=== PATIENT | female | born 1950 | race Caucasian/White ===

== ENCOUNTER 2020-09-25 09:19 | Inpatient (IN) ==
[2020-09-25] MEDS ORDERED: SODIUM CHLORIDE 0.9% 500 ML IV STA (09:32)
[2020-09-25 10:32] LABS: Basophils # (auto) 0.04 K/uL (0-0.2); Basophils % (auto) 0.4 %; Eosinophils # (auto) 0.11 K/uL (0-0.5); Eosinophils % (auto) 1.2 %; Hematocrit (blood only) 41.5 % (37-47); Hemoglobin 13.4 g/dL (12.0-16.0); Immature Granulocytes # (auto) 0.01 K/uL (0.00-0.02); Immature Granulocytes % (auto) 0.1 %; Lymphocytes # (auto) 1.83 K/uL (1.2-3.4); Lymphocytes % (auto) 19.9 %; Mean Corpuscular Hemoglobin 30.5 pg (25-34); Mean Corpuscular Hgb Conc 32.3 g/dL (32-36); Mean Corpuscular Volume 94.3 fL (80-100); Mean Platelet Volume 10.3 fL (7.4-10.4); Monocytes % (auto) 4.3 %; Neutrophils # (auto) 6.81 K/uL (1.4-6.5); Neutrophils % (auto) 74.1 %; Platelet Count 266 K/uL (130-400); RDW Coefficient of Variation 13.3 % (11.5-14.5); RDW Standard Deviation 46.3 fL (36.4-46.3)
[2020-09-25 10:44] LABS: Partial Thromboplastin Time 25.4 Seconds (21.0-31.0)
[2020-09-25 10:48] LABS: Albumin Level 3.9 gm/dl (3.4-5.0); BUN Creatinine Ratio 20.8 (10-20); Calcium 9.4 mg/dl (8.5-10.1); Creatinine Clr Calc Pharmacy 72.8 ml/min; Est GFR (African American) 95.8 ml/min; Est GFR (Non-African American) 82.7 ml/min
[2020-09-25] MEDS: fentaNYL citrate 100 MCG/2 ML VIAL IV PRN ×4 (10:50→14:45)
[2020-09-25 10:51] LABS: Albumin Globulin Ratio 0.9 (0.9-2); Bilirubin,Total 0.5 mg/dl (0.2-1); Globulin 4.3 gm/dl (2.5-4.0); Total Protein 8.2 gm/dl (6.4-8.2)
--- NOTE | 2020-09-25 10:53 | Emergency Department Note ---
History of Present Illness General Chief complaint: Leg Injury/Pain Stated complaint: femur fracture Time Seen by Provider: 09/25/20 09:22 History of Present Illness Maximum Pain Intensity: 10 70-year-old female presents to the ED with a chief complaint of a left femur injury. The patient states that she tripped on a hose when she was walking causing her to fall onto her left leg. She presented by EMS. EMS provided 10 mg of IV morphine and 100 mcg of IV fentanyl for the pain. She has a deformity to her left femur. Denies striking her head or loss of consciousness. Denies other injuries. Movement makes it worse. Home Medications Medication Instructions Recorded Confirmed Type atorvastatin 80 mg tablet (Lipitor) 80 mg PO QDD 07/18/19 09/25/20 History cholecalciferol (vitamin D3) 50 50 mcg PO BID 07/18/19 09/25/20 History mcg (2,000 unit) capsule (Vitamin D3) omeprazole 20 mg capsule,delayed 20 mg PO BID 07/18/19 09/25/20 History release alendronate 70 mg tablet (Fosamax) 70 mg PO WK 09/25/20 09/25/20 History hydrocodone 7.5 mg-acetaminophen 1 tab PO Q6H PRN 09/25/20 09/25/20 History 325 mg tablet melatonin 3 mg tablet (Melatin) 3 mg PO HS 09/25/20 09/25/20 History multivitamin with minerals-folic 1 tab PO QAM 09/25/20 09/25/20 History acid 200 mcg chewable tablet (Multivitamin Gummies) tiotropium bromide 2.5 2 puff INHALATION QAM 09/25/20 09/25/20 History mcg/actuation mist for inhalation (Spiriva Respimat) Allergies Allergy/AdvReac Type Severity Reaction Status Date / Time erythromycin base Allergy Hives Unverified 09/25/20 11:46 latex Allergy Rash Unverified 09/25/20 11:46 Penicillins Allergy Hives Unverified 09/25/20 11:46 vancomycin Allergy Unknown Unverified 09/25/20 12:49 Past Med/Surg History Social History Smoking Status: Former smoker Preferred Language: Bots[place] Feels Safe at Home: Yes Review of Systems A total of 10 systems reviewed and were otherwise negative Physical Exam Vital Signs Vital Signs - 24 hr 09/25/20 09:20 09/25/20 10:50 09/25/20 11:00 Temperature 36.6 C Temperature Source Oral Pulse Rate 80 84 70 Pulse Rate from SpO2 Sensor 67 Pulse Rhythm Regular Regular Respiratory Rate 18 19 17 Respiratory Effort / Characteristics Non-Labored Spontaneous Respiratory Depth Normal Respiratory Pattern Regular Blood Pressure 151/82 H 193/123 H Blood Pressure Mean 105 146 Pulse Oximetry 90 98 95 Oxygen Delivery Method Room Air Room Air Sepsis Recent Fever Within 48 Hours No Sepsis New/Unexplained Change in Mental Status No Sepsis Action Taken by Nursing No Action Required 09/25/20 11:30 Temperature Temperature Source Pulse Rate 84 Pulse Rate from SpO2 Sensor 83 Pulse Rhythm Respiratory Rate 19 Respiratory Effort / Characteristics Respiratory Depth Respiratory Pattern Blood Pressure 118/86 Blood Pressure Mean 96 Pulse Oximetry 98 Oxygen Delivery Method Sepsis Recent Fever Within 48 Hours Sepsis New/Unexplained Change in Mental Status Sepsis Action Taken by Nursing CONSTITUTIONAL/VITAL SIGNS: Reviewed / noted above. GENERAL: Non-toxic in appearance. INTEGUMENTARY: Warm, dry, and [place]. HEAD: Normocephalic. EYES: without scleral icterus or trauma. ENT/OROPHARYNX: clear and moist. LYMPHADENOPATHY/NECK: Is supple without lymphadenopathy or meningismus. RESPIRATORY: Clear to auscultation bilaterally. No increased work of breathing. CARDIOVASCULAR: Regular rate and rhythm. GI/ABDOMEN: Soft and nontender. No organomegaly or pulsatile mass. EXTREMITIES: Warm and well perfused. The patient has shortening and external rotation to the distal aspect of the lower extremity. There is swelling and deformity to the left distal femur region. She has discomfort with any movement or palpation of the area. BACK: No CVA tenderness. NEUROLOGICAL: Intact without focal deficits. PSYCHIATRIC: normal affect. MUSCULOSKELETAL: Normally developed with good muscle tone. TRIAGE NURSING DOCUMENTATION REVIEWED. Course Administered Medications Fentanyl Citrate (Fentanyl Citrate 100 Mcg/2 Ml Vial) 100 mcg IV Q15M PRN PRN Reason: Pain Stop: 10/09/20 10:48 Last Admin: 09/25/20 11:25 Dose: 100 mcg Documented by: [id number] Admin: 09/25/20 10:50 Dose: 100 mcg Documented by: [id number] Discontinued Medications Sodium Chloride (Nss) 500 mls @ 999 mls/hr IV .Q31M STA Stop: 09/25/20 10:02 Last Infusion: 09/25/20 12:07 Dose: 0 mls/hr Documented by: [id number] Admin: 09/25/20 10:50 Dose: 999 mls/hr Documented by: [id number] Medical Decision Making Differential Diagnosis Differential includes close head injury, intracranial bleed, facial trauma, cervical spine trauma, chest and thoracic trauma, abdominal and intra-abdominal trauma, spine neurologic trauma, extremity trauma. Medical Records Attestation: I reviewed the patient's medical records. Home Medications Current Medication List: was personally reviewed by me Laboratory Data Attestation: I reviewed the patient's lab results. Result diagrams: 09/25/20 10:13 09/25/20 10:13 Lab Results 09/25/20 09/25/20 09/25/20 Range/Units 10:13 10:13 10:13 WBC 9.20 (4.8-10.8) K/uL RBC 4.40 (4.2-5.4) M/uL Hgb 13.4 (12.0-16.0) g/dL Hct 41.5 (37-47) % MCV 94.3 (80-100) fL MCH 30.5 (25-34) pg MCHC 32.3 (32-36) g/dL RDW Std Deviation 46.3 (36.4-46.3) fL RDW Coeff of Alfonso 13.3 (11.5-14.5) % Plt Count 266 (130-400) K/uL MPV 10.3 (7.4-10.4) fL Immature Gran % (Auto) 0.1 % Neut % (Auto) 74.1 % Lymph % (Auto) 19.9 % [place] % (Auto) 4.3 % Eos % (Auto) 1.2 % Baso % (Auto) 0.4 % Neut # (Auto) 6.81 H (1.4-6.5) K/uL Lymph # (Auto) 1.83 (1.2-3.4) K/uL [place] # (Auto) 0.40 (0.11-0.59) K/uL Eos # (Auto) 0.11 (0-0.5) K/uL Baso # (Auto) 0.04 (0-0.2) K/uL Immature Gran # (Auto) 0.01 (0.00-0.02) K/uL APTT 25.4 (21.0-31.0) Seconds PTT Ratio 1.0 Sodium 139 (136-145) mmol/L Potassium 4.0 (3.5-5.1) mmol/L Chloride 110 H (98-107) mmol/L Carbon Dioxide 25 (21-32) mmol/L Anion Gap 4.0 (3-11) BUN 15 (7-18) mg/dl Creatinine 0.74 (0.6-1.2) mg/dl Est Cr Clr Drug Dosing 72.8 ml/min Est GFR ( Amer) 95.8 ml/min Est GFR (Non-Af Amer) 82.7 ml/min BUN/Creatinine Ratio 20.8 H (10-20) Glucose 113 H (70-99) mg/dl Calcium 9.4 (8.5-10.1) mg/dl Total Bilirubin 0.5 (0.2-1) mg/dl AST 18 (15-37) U/L ALT 22 (12-78) U/L Alkaline Phosphatase 106 (45-117) U/L Total Protein 8.2 (6.4-8.2) gm/dl Albumin 3.9 (3.4-5.0) gm/dl Globulin 4.3 H (2.5-4.0) gm/dl Albumin/Globulin Ratio 0.9 (0.9-2) COVID-19 Eval Order SARS-CoV-2 (PCR) (Negative) 09/25/20 09/25/20 Range/Units 10:23 10:23 WBC (4.8-10.8) K/uL RBC (4.2-5.4) M/uL Hgb (12.0-16.0) g/dL Hct (37-47) % MCV (80-100) fL MCH (25-34) pg MCHC (32-36) g/dL RDW Std Deviation (36.4-46.3) fL RDW Coeff of Alfonso (11.5-14.5) % Plt Count (130-400) K/uL MPV (7.4-10.4) fL Immature Gran % (Auto) % Neut % (Auto) % Lymph % (Auto) % [place] % (Auto) % Eos % (Auto) % Baso % (Auto) % Neut # (Auto) (1.4-6.5) K/uL Lymph # (Auto) (1.2-3.4) K/uL [place] # (Auto) (0.11-0.59) K/uL Eos # (Auto) (0-0.5) K/uL Baso # (Auto) (0-0.2) K/uL Immature Gran # (Auto) (0.00-0.02) K/uL APTT (21.0-31.0) Seconds PTT Ratio Sodium (136-145) mmol/L Potassium (3.5-5.1) mmol/L Chloride (98-107) mmol/L Carbon Dioxide (21-32) mmol/L Anion Gap (3-11) BUN (7-18) mg/dl Creatinine (0.6-1.2) mg/dl Est Cr Clr Drug Dosing ml/min Est GFR ( Amer) ml/min Est GFR (Non-Af Amer) ml/min BUN/Creatinine Ratio (10-20) Glucose (70-99) mg/dl Calcium (8.5-10.1) mg/dl Total Bilirubin (0.2-1) mg/dl AST (15-37) U/L ALT (12-78) U/L Alkaline Phosphatase (45-117) U/L Total Protein (6.4-8.2) gm/dl Albumin (3.4-5.0) gm/dl Globulin (2.5-4.0) gm/dl Albumin/Globulin Ratio (0.9-2) COVID-19 Eval Order Covid19 at [facility] SARS-CoV-2 (PCR) NEGATIVE (Negative) Imaging Data Radiologist's Impression: Chest X-Ray 09/25/20 09:27 XR chest 1V portable HISTORY: 70 years-old Female Resp sx c/w COVID-19 acute shortness of breath. COVID Positive. COMPARISON: Chest CT 07/18/2019 TECHNIQUE: AP view of the chest FINDINGS: Cardiomediastinal and hilar silhouettes are within normal limits. Emphysema. No pneumothorax, pleural effusion, airspace consolidation or overt pulmonary edema. Degenerative changes of the shoulders and spine. Hiatal hernia. Healed chronic left-sided fracture deformities. Cervical spinal fusion hardware. IMPRESSION: 1. Emphysema without acute process. 2. Hiatal hernia. ACT 112: Negative or not required by law. The above report was generated using voice recognition software. It may contain grammatical, syntax or spelling errors. Electronically signed by: Compa Clark M.D. 09/25/2020 11:19 AM Femur X-Ray 09/25/20 09:27 XR femur LT 2V routine CLINICAL HISTORY: fall, pain COMPARISON: Left knee radiographs July 18, 2019. FINDINGS: Alignment of left hip is anatomic. There is no proximal left femoral fracture. Note is made of an acute comminuted displaced fracture of the distal diaphysis and metadiaphysis of the left femur. No additional fractures are identified. Multiple bone fragments are present. IMPRESSION: 1. Acute comminuted displaced fracture of the distal diaphysis and metadiaphysis of the left femur, as described above. 2. No proximal left femoral fracture. ACT 112: Negative or not required by law. Electronically signed by: Antony Brown M.D. 09/25/2020 11:18 AM Knee X-Ray 09/25/20 09:27 XR knee LT 1 or 2V routine CLINICAL HISTORY: fall, pain COMPARISON: Left knee radiographs July 18, 2019. FINDINGS: Note is made of a comminuted moderately displaced fracture of the distal diaphysis and metadiaphysis of the left femur. Fracture is angulated. Fracture is displaced approximately 3.1 cm. No proximal left tibial or fibular fracture is noted. IMPRESSION: Acute displaced, comminuted fracture of the distal diaphysis and metadiaphysis of the left femur. ACT 112: Negative or not required by law. Electronically signed by: Antony Brown M.D. 09/25/2020 11:17 AM ECG Data Attestation: I personally reviewed and interpreted this ECG as follows: Additional Comments: Twelve-lead EKG: Per my interpretation there is normal sinus rhythm at a rate of 80. No ST elevation. No PVCs. Normal QTC. MDM Narrative Patient presents after fall with obvious left distal femur injury. X-ray shows a distal femur fracture as described above. Covid test was negative. CBC and chemistry panel was unremarkable. Chest x-ray did not show acute disease. I spoke with Dr. Wilkinson from [facility] orthopedics. Also spoke with the hospitalist, who will see the patient for further inpatient evaluation and care. Impression & Plan Closed fracture of distal end of left femur, Fall Discharge Plan Visit Data Chief Complaint: Leg Injury/Pain Stated Complaint: femur fracture ED Provider: Lopez Neff Discharge Problem: Closed fracture of distal end of left femur, Fall Patient Disposition: Being Evaluated by Hospitalist Forms Stand Alone Forms: [facility] Prescriptions Prescriptions: No Action atorvastatin [Lipitor] 80 mg Tablet 80 mg PO QDD RF: 0 omeprazole 20 mg capsule,delayed release(DR/EC) 20 mg PO BID RF: 0 cholecalciferol (vitamin D3) [Vitamin D3] 50 mcg (2,000 unit) Capsule 50 mcg PO BID RF: 0 alendronate [Fosamax] 70 mg tablet 70 mg PO WK RF: 0 melatonin [Melatin] 3 mg Tablet 3 mg PO HS RF: 0 hydrocodone-acetaminophen 7.5-325 mg tablet 1 tab PO Q6H PRN (Reason: Pain) RF: 0 Multivitamin Gummies 200 mcg Tablet,Chewable 1 tab PO QAM RF: 0 Spiriva Respimat 2.5 mcg/actuation mist 2 puff INHALATION QAM RF: 0 Referrals Referrals: Tristan Gordillo MD [Primary Care Provider] -
--- NOTE | 2020-09-25 11:19 | XRay Report ---
XR knee LT 1 or 2V routine CLINICAL HISTORY: fall, pain COMPARISON: Left knee radiographs July 18, 2019. FINDINGS: Note is made of a comminuted moderately displaced fracture of the distal diaphysis and met adiaphysis of the left femur. Fracture is angulated. Fracture is displaced approximately 3.1 cm. No p roximal left tibial or fibular fracture is noted. IMPRESSION: Acute displaced, comminuted fracture of the distal diaphysis and metadiaphysis of the lef t femur. ACT 112: Negative or not required by law. Electronically signed by: Antony Brown M.D. 09/25/2020 11:17 AM
--- NOTE | 2020-09-25 11:20 | XRay Report ---
XR femur LT 2V routine CLINICAL HISTORY: fall, pain COMPARISON: Left knee radiographs July 18, 2019. FINDINGS: Alignment of left hip is anatomic. There is no proximal left femoral fracture. Note is mad e of an acute comminuted displaced fracture of the distal diaphysis and metadiaphysis of the left fem ur. No additional fractures are identified. Multiple bone fragments are present. IMPRESSION: 1. Acute comminuted displaced fracture of the distal diaphysis and metadiaphysis of the left femur, a s described above. 2. No proximal left femoral fracture. ACT 112: Negative or not required by law. Electronically signed by: Antony Brown M.D. 09/25/2020 11:18 AM
--- NOTE | 2020-09-25 11:21 | XRay Report ---
XR chest 1V portable HISTORY: 70 years-old Female Resp sx c/w COVID-19 acute shortness of breath. COVID Positive. COMPARISON: Chest CT 07/18/2019 TECHNIQUE: AP view of the chest FINDINGS: Cardiomediastinal and hilar silhouettes are within normal limits. Emphysema. No pneumothorax, pleural effusion, airspace consolidation or overt pulmonary edema. Degenerative changes of the shoulders and spine. Hiatal hernia. Healed chronic left-sided fracture deformities. Cervical spinal fusion hardwar e. IMPRESSION: 1. Emphysema without acute process. 2. Hiatal hernia. ACT 112: Negative or not required by law. The above report was generated using voice recognition software. It may contain grammatical, syntax o r spelling errors. Electronically signed by: Compa Clark M.D. 09/25/2020 11:19 AM
--- NOTE | 2020-09-25 13:24 | History & Physical Report ---
Date of Service September 25, 2020 Assessment & Plan (1) Closed fracture of distal end of left femur: (2) Fall: Plan: Pt is 70 y/o F with PMH COPD, HTN, dyslipidemia, CKD III, GERD, chronic back pain presented to ER with c/o mechanical fall and left leg pain occurred prior to arrival. In ER patient afebrile, vital stable, labs unremarkable Left femur x-ray: No proximal left femoral fracture. Acute comminuted displaced fracture of the distal diaphysis and metadiaphysis of the left femur In ER given fentanyl 100 mcg IV, 500 mL NSS NPO Oxycodone, Dilaudid as needed pain Gentle IVF Ortho consult, Dr. Wilkinson notified by ER, requests traction CBC, BMP in a.m. (3) HTN (hypertension): Plan: History of hypertension previously. No longer on medications BP was elevated in ER, improved with pain medication Monitor BP. Treat pain as above (4) COPD (chronic obstructive pulmonary disease): Plan: No signs of acute exacerbation Continue Spiriva Albuterol nebs as needed (5) Dyslipidemia: Plan: Continue atorvastatin (6) CKD (chronic kidney disease), stage III: Plan: Cr: 0.7. Baseline Cr: 0.8 Monitor renal functions, avoid nephrotoxic agents when possible (7) GERD (gastroesophageal reflux disease): Plan: Continue PPI (8) History of cervical spinal surgery: Plan: History arthrodesis below C2 by Dr. Waite at [facility] on 07/21/20 Wearing soft c-collar DVT Prophylaxis -SCDS Full Code Follows with Dr Gordillo for routine care Pt was seen and care coordinated with Dr Cruz. See addendum History of Present Illness Chief Complaint: Fall, left leg pain Primary Care Provider: Tristan Gordillo MD Pt is 70 y/o F with PMH COPD, HTN, dyslipidemia, CKD III, GERD, chronic back pain presented to ER with c/o fall and left leg pain prior to arrival. Reports was standing taking a picture when she stepped backwards and caught her foot on a hose causing her to slide backwards and fell onto left knee. Patient reports was unable to attempt ambulation. Denies paresthesias to lower leg or foot. She denies hitting head, LOC, CP, SOB, dizziness. Patient denies any other injury. She reports history of COPD and takes Spiriva daily and has not needed to use albuterol inhaler. 07/2020 had C-spine surgery at [facility] and is still wearing soft c-collar. She has chronic back pain and reports was to have surgery in future. She follows with pain management in [place] and is on hydrocodone. She states past 2 months having intermittent nausea and vomiting and had outpatient abdominal ultrasound showing gallstones and she is to follow with general surgery in near future. Currently she is controlling symptoms with avoiding trigger foods in diet. Denies fever/chills, diaphoresis, diarrhea, WATSON, vision changes, neck pain, orthopnea, palpitations, cough, sore throat, choking, otalgia, rhinorrhea, abdominal pain, paresthesias, extremity edema, rashes, urinary symptoms. In ER pt found to have Acute comminuted displaced fracture of the distal diaphysis and metadiaphysis of the left femur. Pt being admitted for further treatment. Allergies Allergy/AdvReac Type Severity Reaction Status Date / Time erythromycin base Allergy Hives Unverified 09/25/20 11:46 latex Allergy Rash Unverified 09/25/20 11:46 Penicillins Allergy Hives Unverified 09/25/20 11:46 vancomycin Allergy Unknown Unverified 09/25/20 12:49 Home Medications Medication Instructions Recorded Confirmed Type atorvastatin 80 mg tablet (Lipitor) 80 mg PO QDD 07/18/19 09/25/20 History cholecalciferol (vitamin D3) 50 50 mcg PO BID 07/18/19 09/25/20 History mcg (2,000 unit) capsule (Vitamin D3) omeprazole 20 mg capsule,delayed 20 mg PO BID 07/18/19 09/25/20 History release albuterol sulfate 90 mcg/actuation 2 puff INHALATION QID PRN 09/25/20 09/25/20 History aerosol inhaler alendronate 70 mg tablet (Fosamax) 70 mg PO WK 09/25/20 09/25/20 History hydrocodone 7.5 mg-acetaminophen 1 tab PO Q6H PRN 09/25/20 09/25/20 History 325 mg tablet melatonin 3 mg tablet (Melatin) 3 mg PO HS 09/25/20 09/25/20 History multivitamin with minerals-folic 1 tab PO QAM 09/25/20 09/25/20 History acid 200 mcg chewable tablet (Multivitamin Gummies) tiotropium bromide 2.5 2 puff INHALATION QAM 09/25/20 09/25/20 History mcg/actuation mist for inhalation (Spiriva Respimat) Past Med/Surg History Medical History CKD (chronic kidney disease), stage III COPD (chronic obstructive pulmonary disease) Dyslipidemia GERD (gastroesophageal reflux disease) History of revision of total replacement of right knee joint HTN (hypertension) Surgical History H/O arthrodesis History of esophagogastroduodenoscopy (EGD) History of total knee arthroplasty Right 2010 - Dr Ocampo at [place] H/O revision right knee [place]plasty [place] [facility] [place] Hx of tonsillectomy Family History Other COPD (chronic obstructive pulmonary disease) Cancer Diabetes Social History Smoking Status: Never smoker Tobacco Type: Cigarettes Smoking End Date: Quit 20 years ago; Hx Alcohol Use: No Hx Substance Use: No Preferred Language: Malay Communication Ability: Effective Beliefs That Will Affect Care: None Current Living Situation: Significant Other Other Information That Helps Us Care for You: No Feels Safe at Home: Yes Safety Concerns: Feels Safe At This Time Assistive Devices: Glasses Review of Systems Review of Systems: All systems reviewed & are unremarkable except as noted in HPI & below Physical Exam Physical Exam: General: no acute distress, WDWN Head: normocephalic, atraumatic Eyes: PERRL, EOM's intact, conjunctiva non-injected, anicteric ENT: normal inspection external ears, nose, mucous membranes moist Neck: supple, trachea midline Lungs: clear, no respiratory distress, no wheezing/rhonchi/rales CV: RRR, no murmur, no pretibial edema Abd: normal BS, soft, non-tender Ext: no cyanosis, no calf tenderness; LLE: +left knee held in flexion as position of comfort, no range of motion attempted, dorsalis pedis pulse palpable (marked with x), sensation to light touch intact. Remaining extremities with normal appearance, range of motion intact Neuro: A&O x 3, no focal deficits noted, normal affect Skin: warm, dry Results & Data Results & Data ([facility]) Vital Signs (Past 12 Hours) Vital Signs Temp Pulse Resp BP Pulse Ox 09/25/20 11:30 84 19 118/86 98 09/25/20 11:00 70 17 193/123 H 95 09/25/20 10:50 84 19 98 09/25/20 09:20 36.6 C 80 18 151/82 H 90 Laboratory Results Short CBC 09/25/20 Range/Units 10:13 WBC 9.20 (4.8-10.8) K/uL Hgb 13.4 (12.0-16.0) g/dL Hct 41.5 (37-47) % Plt Count 266 (130-400) K/uL BMP 09/25/20 10:13 Sodium 139 Potassium 4.0 Chloride 110 H Carbon Dioxide 25 BUN 15 Creatinine 0.74 Glucose 113 H Calcium 9.4 Liver Function 09/25/20 Range/Units 10:13 Total Bilirubin 0.5 (0.2-1) mg/dl AST 18 (15-37) U/L ALT 22 (12-78) U/L Alkaline Phosphatase 106 (45-117) U/L Albumin 3.9 (3.4-5.0) gm/dl Diagnostic Findings Chest X-Ray 09/25/20 09:27 XR chest 1V portable HISTORY: 70 years-old Female Resp sx c/w COVID-19 acute shortness of breath. COVID Positive. COMPARISON: Chest CT 07/18/2019 TECHNIQUE: AP view of the chest FINDINGS: Cardiomediastinal and hilar silhouettes are within normal limits. Emphysema. No pneumothorax, pleural effusion, airspace consolidation or overt pulmonary edema. Degenerative changes of the shoulders and spine. Hiatal hernia. Healed chronic left-sided fracture deformities. Cervical spinal fusion hardware. IMPRESSION: 1. Emphysema without acute process. 2. Hiatal hernia. ACT 112: Negative or not required by law. The above report was generated using voice recognition software. It may contain grammatical, syntax or spelling errors. Electronically signed by: Compa Clark M.D. 09/25/2020 11:19 AM Femur X-Ray 09/25/20 09:27 XR femur LT 2V routine CLINICAL HISTORY: fall, pain COMPARISON: Left knee radiographs July 18, 2019. FINDINGS: Alignment of left hip is anatomic. There is no proximal left femoral fracture. Note is made of an acute comminuted displaced fracture of the distal diaphysis and metadiaphysis of the left femur. No additional fractures are identified. Multiple bone fragments are present. IMPRESSION: 1. Acute comminuted displaced fracture of the distal diaphysis and metadiaphysis of the left femur, as described above. 2. No proximal left femoral fracture. ACT 112: Negative or not required by law. Electronically signed by: Antony Brown M.D. 09/25/2020 11:18 AM Knee X-Ray 09/25/20 09:27 XR knee LT 1 or 2V routine CLINICAL HISTORY: fall, pain COMPARISON: Left knee radiographs July 18, 2019. FINDINGS: Note is made of a comminuted moderately displaced fracture of the distal diaphysis and metadiaphysis of the left femur. Fracture is angulated. Fracture is displaced approximately 3.1 cm. No proximal left tibial or fibular fracture is noted. IMPRESSION: Acute displaced, comminuted fracture of the distal diaphysis and metadiaphysis of the left femur. ACT 112: Negative or not required by law. Electronically signed by: Antony Brown M.D. 09/25/2020 11:17 AM ECG Rate (beats per minute): 80 Rhythm: sinus rhythm Code Status & VTE Plan VTE Prophylaxis Plan VTE Prophylaxis will be ordered: Yes Supervising Physician Co-Signing Physician Notes Attending Addendum: delayed entry date of service as noted above care coordinated with MARINA Azul please refer to her notes for full details, I agree with her notes patient seen and examined, records reviewed by myself as well on exam, patient seen resting in bed, comfortable, leg traction in place pain relieved by analgesics no chest pain, dyspnea, palpitations, dizziness no other symptoms VS noted and reviewed oriented x 3, not in distress, speaks in sentences with no effort nor accessory muscle use normal rate, regular rhythm, no murmurs clear breath sounds bilaterally non distended, soft, nontender left leg traction in place, no bipedal edema, erythema, warmth no neuro deficits WBC 9.2 Hg 13 Crea 0.7 EKG: no signs of acute ischemia CXR: no signs of pneumonia ASSESSMENT AND PLAN> LEFT FEMUR FRACTURE S/P FALL - no medical contraindication to proceed with Ortho surgery moderate risk for perioperative cardiopulmonary complication given comorbidities, age COPD - not in exacerbation HTN - mild elevation due to pain - PRN Hydralazine other diagnoses and plan of care as per MARINA Dueñas S notes Jignesh Cruz MD
[2020-09-25 14:18] LABS: Appearance Urine Clear (Clear); Bacteria Urine Automated Negative (Negative); Bilirubin Urine Negative (Negative); Blood Urine Negative (Negative); Color Urine Yellow; Glucose Urine UA Negative (Negative); Ketones Urine Negative (Negative); Leukocyte Esterase Urine Negative (Negative); Nitrite Urine Negative (Negative); Protein Urine Trace (Negative); RBC Urine Automated 0-4 /hpf (0-4); Specific Gravity Urine 1.022 (1.000-1.030); Urobilinogen Urine Negative (Negative)
[2020-09-25] MEDS ORDERED: POLYETHYLENE (MIRALAX) 17 GM PACK PO PRN (15:33)
[2020-09-25] MEDS ORDERED: MAGNESIUM HYDROXIDE SUSP 30 ML UDC PO PRN (15:33)
[2020-09-25] MEDS ORDERED: ONDANSETRON INJ 2 MG/ML 2 ML VIAL IV PRN (15:33)
[2020-09-25] MEDS ORDERED: NALOXONE HCL 0.4 MG/1 ML VIAL/CARP IV PRN (15:33)
[2020-09-25] MEDS ORDERED: bisacodyL 10 MG SUPP PR PRN (15:33)
[2020-09-25] MEDS ORDERED: ALBUTEROL 0.083% NEBU SOLN 3 ML VIAL NEB PRN (15:33)
[2020-09-25] MEDS: HYDROmorphone INJ 0.5 MG/0.5 ML SYR IV PRN (16:13)
[2020-09-25] MEDS: oxyCODONE HCL IR 5 MG TAB (IMMEDIATE RELEASE) PO PRN ×2 (17:00→21:07)
[2020-09-25] MEDS: SODIUM CHLORIDE 0.9% 1000ML 1,000 ML IV SCH (17:03)
[2020-09-25 17:06] LABS: Prothrombin Time 10.4 Seconds (9.0-12.0)
[2020-09-25] MEDS: ATORVASTATIN 40 MG TAB PO SCH (17:35)
[2020-09-25] MEDS ORDERED: hydrALAZINE HCL 20 MG/ML VIAL IV PRN (18:25)
[2020-09-25] MEDS: MELATONIN 3 MG TAB PO SCH (21:08)
[2020-09-25] MEDS: CHOLECALCIFEROL 1,000 UNITS 25 MCG TAB PO SCH (21:08)
[2020-09-25] MEDS: PANTOprazole 40 MG TAB PO SCH (21:09)
[2020-09-25] MEDS: DOCUSATE SODIUM/SENNA 50/8.6MG TAB PO SCH (21:09)
--- NOTE | 2020-09-25 22:05 | Orthopedic Consultation ---
Date of Service September 25, 2020 Assessment & Plan (1) Closed fracture of distal end of left femur: This is a closed fracture of the extra-articular supracondylar femur. This fracture pattern require surgical stabilization. I discussed the diagnosis and treatment recommendations with the patient. The plan is for open reduction and internal fixation as soon as medically possible. We discussed that likely this is amenable to retrograde femoral nailing if I can achieve acceptable reduction. Alternatively, an open reduction with a distal femoral plate may be necessary. She is planned to have a total knee arthroplasty. This would heavily impact back. The good femoral nail will minimize incisions and should have no downside in an already arthritic knee. We discussed the complications of distal femur fracture surgery include but are not limited to infection, neurovascular injury, leg length discrepancy, malunion, nonunion, implant complications, need for repeat or revision surgery, progressive degenerative change to the knee, arthrofibrosis of the knee, blood loss, blood clots, pain syndromes, and complications related to anesthesia. She asked appropriate questions, demonstrated good understanding, and elects to proceed with fracture stabilization surgery as soon as possible. Informed consent was obtained today at the bedside for a left distal femur fracture open reduction and internal fixation. Please have the patient be n.p.o. after midnight. Please alert me if there is any medical contraindication with proceeding with surgery in the morning. Plan for clindamycin perioperative antibiotic prophylaxis given her allergies. TXA may help reduce blood loss which is expected to be moderate to large. She will require 6 weeks of VTE prophylaxis. This is been reviewed with her. She has no history of VTE with previous lower extremity surgeries. She will have protected weightbearing for up to 6 weeks and can begin range of motion knee hopefully immediately postoperatively. History of Present Illness Reason for Consultation: left distal femur fracture Requesting Physician: . Attending Physician: Jignesh Cruz MD 70 y/o F with PMH COPD, HTN, dyslipidemia, CKD III, GERD, chronic back and neck pain brought by EMS to the [facility] emergency room today after a fall at home. She had immediate pain and deformity about her knee. ER work-up revealed a distal femoral fracture that was completely displaced. She states that she is recently had several medical issues and surgeries. She recently had cervical fusion from C3-7 that she was recovering from. Is also potentially having lumbar spine surgery. She also states that she is in need of cholecystectomy. The left knee was under treatment for osteoarthritis at [facility]. She was looking to schedule a total knee replacement in the near future. She has had knee pain for years and has gotten progressively worse. She has a history of complicated right total knee arthroplasty requiring 2 revisions, 1 for infection. Allergies Allergy/AdvReac Type Severity Reaction Status Date / Time erythromycin base Allergy Hives Unverified 09/25/20 11:46 latex Allergy Rash Unverified 09/25/20 11:46 Penicillins Allergy Hives Unverified 09/25/20 11:46 vancomycin Allergy Unknown Unverified 09/25/20 12:49 Home Medications Medication Instructions Recorded Confirmed Type atorvastatin 80 mg tablet (Lipitor) 80 mg PO QDD 07/18/19 09/25/20 History cholecalciferol (vitamin D3) 50 50 mcg PO BID 07/18/19 09/25/20 History mcg (2,000 unit) capsule (Vitamin D3) omeprazole 20 mg capsule,delayed 20 mg PO BID 07/18/19 09/25/20 History release albuterol sulfate 90 mcg/actuation 2 puff INHALATION QID PRN 09/25/20 09/25/20 History aerosol inhaler alendronate 70 mg tablet (Fosamax) 70 mg PO WK 09/25/20 09/25/20 History hydrocodone 7.5 mg-acetaminophen 1 tab PO Q6H PRN 09/25/20 09/25/20 History 325 mg tablet melatonin 3 mg tablet (Melatin) 3 mg PO HS 09/25/20 09/25/20 History multivitamin with minerals-folic 1 tab PO QAM 09/25/20 09/25/20 History acid 200 mcg chewable tablet (Multivitamin Gummies) tiotropium bromide 2.5 2 puff INHALATION QAM 09/25/20 09/25/20 History mcg/actuation mist for inhalation (Spiriva Respimat) Past Med/Surg History Medical History CKD (chronic kidney disease), stage III COPD (chronic obstructive pulmonary disease) Dyslipidemia GERD (gastroesophageal reflux disease) History of revision of total replacement of right knee joint HTN (hypertension) Surgical History H/O arthrodesis History of esophagogastroduodenoscopy (EGD) History of total knee arthroplasty Right 2011 - Dr Ocampo at [place] H/O revision right knee arthroplasty - 2012 - Dr Guzman [place] [facility] [place]x of colonoscopy Hx of tonsillectomy Family History Other COPD (chronic obstructive pulmonary disease) Cancer Diabetes Social History Smoking Status: Never smoker Tobacco Type: Cigarettes Smoking End Date: Quit 20 years ago; Hx Alcohol Use: No Hx Substance Use: No Preferred Language: Macedonian Communication Ability: Effective Beliefs That Will Affect Care: None Current Living Situation: Significant Other Other Information That Helps Us Care for You: No Feels Safe at Home: Yes Safety Concerns: Feels Safe At This Time Review of Systems All systems reviewed & are unremarkable except as noted in HPI & below. Physical Exam General: She is lying comfortably in the hospital bed with inline Evans's traction of [address]. She is talkative and pleasant. Left lower extremity: The Evans's traction is appropriately placed. She has active motion to her toes which are warm and well perfused. She has a 1+ DP and PT pulse. Sensation is intact to light touch in all stern with her foot. The knee has an obvious effusion. She is tender to the distal femur. There are no obvious lesions or skin compromise. RLE and BUE: Atraumatic in appearance and with full active range of motion. Constitutional well developed and well nourished; no acute distress and not intoxicated appearing ENMT external ear and nose normal, oropharynx normal Respiratory normal respiratory effort; no respiratory distress Cardiovascular Extremities: normal capillary refill; no edema Skin no rashes, warm and dry Psychiatric A+Ox3, euthymic affect Results & Data Results & Data Laboratory Results . H & H 09/25/20 Range/Units 10:13 Hgb 13.4 (12.0-16.0) g/dL Hct 41.5 (37-47) % Coagulation 09/25/20 Range/Units 10:13 INR 1.0 (0.9-1.1) Diagnostic Findings Radiographic work-up is included femur and knee x-rays. These x-rays demonstrate an extra-articular fracture that is obliquely oriented with some posterior large fragment comminution. Fracture on these films is completely rotated and displaced some bayonet type apposition. There does not appear to be any intercondylar split. The knee does have some evidence of degenerative change PG Care Time/CCT Total # of Minutes Spent Total Time Spent with Patient: Total time spent is greater than 50% in coordination of care (as documented) at patient's floor/unit and/or counseling patient: Coding Level of Care Code 89560 Inpt Consult Level 4 Diagnoses Closed fracture of distal end of left femur S72.402A
[2020-09-26] MEDS: oxyCODONE HCL IR 5 MG TAB (IMMEDIATE RELEASE) PO PRN ×4 (03:10→20:00)
[2020-09-26] MEDS: SODIUM CHLORIDE 0.9% 1000ML 1,000 ML IV SCH ×2 (05:18→15:52)
[2020-09-26 05:42] LABS: Hematocrit (blood only) 37.4 % (37-47); Hemoglobin 11.9 g/dL (12.0-16.0); Mean Corpuscular Hemoglobin 30.1 pg (25-34); Mean Corpuscular Hgb Conc 31.8 g/dL (32-36); Mean Corpuscular Volume 94.4 fL (80-100); Mean Platelet Volume 10.3 fL (7.4-10.4); Platelet Count 232 K/uL (130-400); RDW Coefficient of Variation 13.5 % (11.5-14.5); Red Blood Count 3.96 M/uL (4.2-5.4); White Blood Count 8.65 K/uL (4.8-10.8)
[2020-09-26] MEDS ORDERED: CLINDAMYCIN 900 MG in DEXTROSE 5% 50 ML IV SCH (06:00)
[2020-09-26 06:09] LABS: BUN Creatinine Ratio 23.5 (10-20); Calcium 8.6 mg/dl (8.5-10.1); Creatinine Clr Calc Pharmacy 72.3 ml/min; Est GFR (African American) 103.4 ml/min; Est GFR (Non-African American) 89.2 ml/min; Potassium 3.9 mmol/L (3.5-5.1)
--- NOTE | 2020-09-26 06:54 | Electrocardiogram Report ---
Test Reason : Blood Pressure : / mmHG Vent. Rate : 080 BPM Atrial Rate : 080 BPM P-R Int : 184 ms QRS Dur : 084 ms QT Int : 416 ms P-R-T Axes : 076 -14 029 degrees QTc Int : 479 ms Normal sinus rhythm Normal ECG When compared with ECG of 18-JUL-2019 10:51, No significant change was found Confirmed by Kevin Baird ([id number]) on 09/26/2020 6:54:39 AM Referred By: REFERRED SELF Confirmed By:Kevin Baird
--- NOTE | 2020-09-26 07:09 | Anesthesiology Consultation ---
Date of Service September 26, 2020 Assessment & Plan (1) Encounter for pre-operative examination: Chart Review Chart Review: Acceptable Risk for Surgery and Patient NOT seen in Pre Admission Testing covid neg 09/25/20. type and screen completed. Consults Requested none History Surgery Operation Date: 09/26/20 08:45 Proposed Procedures p Left Distal Femur Fracture, Retrograde Nail(Left) - Lopez Wilkinson MD Height/Weight Height: 5 ft 1 in Weight: 75 kg Allergies Allergy/AdvReac Type Severity Reaction Status Date / Time erythromycin base Allergy Hives Unverified 09/25/20 11:46 latex Allergy Rash Unverified 09/25/20 11:46 Penicillins Allergy Hives Unverified 09/25/20 11:46 vancomycin Allergy Unknown Unverified 09/25/20 12:49 Medications Home Medications Medication Instructions Recorded Confirmed Last Taken atorvastatin 80 mg tablet (Lipitor) 80 mg PO QDD 07/18/19 09/25/20 09/24/20 cholecalciferol (vitamin D3) 50 50 mcg PO BID 07/18/19 09/25/20 09/25/20 mcg (2,000 unit) capsule (Vitamin D3) omeprazole 20 mg capsule,delayed 20 mg PO BID 07/18/19 09/25/20 09/25/20 release albuterol sulfate 90 mcg/actuation 2 puff INHALATION QID PRN 09/25/20 09/25/20 Unknown aerosol inhaler alendronate 70 mg tablet (Fosamax) 70 mg PO WK 09/25/20 09/25/20 09/20/20 hydrocodone 7.5 mg-acetaminophen 1 tab PO Q6H PRN 09/25/20 09/25/20 09/25/20 06:00 325 mg tablet 1 tablet melatonin 3 mg tablet (Melatin) 3 mg PO HS 09/25/20 09/25/20 09/24/20 multivitamin with minerals-folic 1 tab PO QAM 09/25/20 09/25/20 09/25/20 acid 200 mcg chewable tablet (Multivitamin Gummies) tiotropium bromide 2.5 2 puff INHALATION QAM 09/25/20 09/25/20 09/25/20 mcg/actuation mist for inhalation (Spiriva Respimat) Active Medications Generic Name Dose Route Start Last Admin Trade Name Freq PRN Reason Stop Dose Admin Atorvastatin Calcium 80 mg 09/25/20 16:30 09/25/20 17:35 Atorvastatin 40 Mg Tab PO 10/25/20 16:29 80 mg QDD KRISTIAN Administration Hydromorphone HCl 0.5 mg 09/25/20 15:33 09/25/20 16:13 Hydromorphone Inj 0.5 Mg/0.5 Ml Syr IV 10/09/20 15:32 0.5 mg Q3H PRN Administration Pain (6,7,8,9,10) Sodium Chloride 1,000 mls @ 80 mls/hr 09/25/20 15:33 09/26/20 05:18 Nss 1000ml IV 09/26/20 16:32 80 mls/hr .[id number] KRISTIAN Administration Melatonin 3 mg 09/25/20 21:00 09/25/20 21:08 Melatonin 3 Mg Tab PO 10/25/20 20:59 3 mg HS KRISTIAN Administration Oxycodone HCl 5 mg 09/25/20 15:33 09/26/20 03:10 Oxycodone Hcl Ir 5 Mg Tab (Immediate Release) PO 10/09/20 15:32 5 mg Q4H PRN Administration MODERATE Pain (4,5,6) & Pre PT Pantoprazole Sodium 40 mg 09/25/20 21:00 09/25/20 21:09 Pantoprazole 40 Mg Tab PO 10/25/20 20:59 40 mg BID KRISTIAN Administration Protocol Senna/Docusate Sodium 2 tab 09/25/20 21:00 09/25/20 21:09 Docusate Sodium/Senna 50/8.6mg Tab PO 10/25/20 20:59 2 tab HS KRISTIAN Administration Vitamin D 2,000 units 09/25/20 21:00 09/25/20 21:08 Cholecalciferol 1,000 Units 25 Mcg Tab PO 10/25/20 20:59 2,000 units BID KRISTIAN Administration NPO Date Last Intake of Fluids: 09/25/20 Time Last Intake of Fluids: 23:59 Date Last Intake of Solids: 09/25/20 Time Last Intake of Solids: 23:59 Past Medical History Medical History (Updated 09/26/20 @ 07:11 by German Veras MD) CKD (chronic kidney disease), stage III Closed fracture of distal end of left femur COPD (chronic obstructive pulmonary disease) Dyslipidemia GERD (gastroesophageal reflux disease) History of revision of total replacement of right knee joint HTN (hypertension) Past Family History Family History Other COPD (chronic obstructive pulmonary disease) Cancer Diabetes Past Surgical History Surgical History (Updated 09/26/20 @ 07:11 by German Veras MD) H/O arthrodesis History of cervical spinal surgery History of esophagogastroduodenoscopy (EGD) History of total knee arthroplasty Right 2010 - Dr Ocampo at [place] H/O revision right knee arthroplasty - 2012 - Dr Guzman at [facility] Hx of colonoscopy Hx of tonsillectomy Social History Smoking Status: Never smoker Smoking End Date: Quit 20 years ago Hx Alcohol Use: No Hx Substance Use: No Physical Exam Vital Signs Last Vital Signs Temp 37.1 C 09/25/20 23:21 Pulse 97 H 09/25/20 23:21 Resp 16 09/25/20 23:21 BP 95/61 L 09/25/20 23:21 Pulse Ox 91 09/25/20 23:21 Testing Laboratory Results 09/26/20 05:27 09/26/20 05:27 PT 10.4 Seconds (9.0-12.0) 09/25/20 10:13 INR 1.0 (0.9-1.1) 09/25/20 10:13 APTT 25.4 Seconds (21.0-31.0) 09/25/20 10:13 Urine Color Yellow 09/25/20 13:30 Urine Appearance Clear (Clear) 09/25/20 13:30 Urine pH 5.0 (4.5-7.5) 09/25/20 13:30 Ur Specific [place] 1.022 (1.000-1.030) 09/25/20 13:30 Urine Protein Trace (Negative) H 09/25/20 13:30 Urine Glucose (UA) Negative (Negative) 09/25/20 13:30 Urine Ketones Negative (Negative) 09/25/20 13:30 Urine Nitrite Negative (Negative) 09/25/20 13:30 Ur Leukocyte Esterase Negative (Negative) 09/25/20 13:30 Urine WBC (Auto) 1-5 /hpf (0-5) 09/25/20 13:30 Urine RBC (Auto) 0-4 /hpf (0-4) 09/25/20 13:30 U Hyaline Cast (Auto) 5-10 /lpf (0-5) H 09/25/20 13:30 U Epithel Cells (Auto) 10-20 /lpf (0-5) H 09/25/20 13:30 Urine Bacteria (Auto) Negative (Negative) 09/25/20 13:30 Blood Type A Positive 09/25/20 10:22 Antibody Screen NEGATIVE 09/25/20 10:22 Electrocardiogram DICTATED BY: Kevin Baird MD Test Reason : Blood Pressure : / mmHG Vent. Rate : 080 BPM Atrial Rate : 080 BPM P-R Int : 184 ms QRS Dur : 084 ms QT Int : 416 ms P-R-T Axes : 076 -14 029 degrees QTc Int : 479 ms Normal sinus rhythm Normal ECG When compared with ECG of 18-JUL-2019 10:51, No significant change was found Confirmed by Kevin Baird ([id number]) on 09/26/2020 6:54:39 AM Referred By: REFERRED SELF Confirmed By:Kevin Baird
[2020-09-26] MEDS: PANTOprazole 40 MG TAB PO SCH ×2 (07:24→20:03)
[2020-09-26] MEDS: CHOLECALCIFEROL 1,000 UNITS 25 MCG TAB PO SCH ×2 (07:25→20:03)
[2020-09-26] MEDS: UMECLIDINIUM BROMIDE 62.5MCG/BLISTER 7 PUFFS/INHALER INH SCH (07:25)
--- NOTE | 2020-09-26 10:21 | Hospitalist Progress Note ---
Date of Service September 26, 2020 Assessment & Plan (1) Closed fracture of distal end of left femur: (2) Fall: Plan: Pt is 70 y/o F with PMH COPD, HTN, dyslipidemia, CKD III, GERD, chronic back pain presented to ER with c/o mechanical fall and left leg pain occurred prior to arrival. In ER patient afebrile, vital stable, labs unremarkable Left femur x-ray: No proximal left femoral fracture. Acute comminuted displaced fracture of the distal diaphysis and metadiaphysis of the left femur In ER given fentanyl 100 mcg IV, 500 mL NSS Oxycodone, Dilaudid as needed pain Gentle IVF Ortho consult, Dr. Wilkinson notified by ER, requests traction 09/26 - Pt is now s/p surgical repair - tolerated procedure well, but reports some LLE pain Monitor CBC, BMP in a.m. (3) HTN (hypertension): Plan: History of hypertension previously. No longer on medications BP was elevated in ER, improved with pain medication Monitor BP. Treat pain as above BP now at goal (4) COPD (chronic obstructive pulmonary disease): Plan: No signs of acute exacerbation Continue Spiriva Albuterol nebs as needed (5) Dyslipidemia: Plan: Continue atorvastatin (6) CKD (chronic kidney disease), stage III: Plan: Cr: 0.7. Baseline Cr: 0.8 Monitor renal functions, avoid nephrotoxic agents when possible (7) GERD (gastroesophageal reflux disease): Plan: Continue PPI (8) History of cervical spinal surgery: Plan: History arthrodesis below C2 by Dr. Waite at [facility] on 07/21/20 Wearing soft c-collar DVT Prophylaxis -SCDs Full Code Follows with Dr Gordillo for routine care Admission and Anticipated Discharge Date Admission Date: September 25, 2020 Subjective Pt seen in follow up of hip fracture underwent surgical repair earlier today Currently laying in bed, in NAD however does report hip pain and is somewhat uncomfortable No chest pain, shortness of breath, fever, chills, nausea, abd. pain Review of Systems Review of Systems: All systems reviewed & are unremarkable except as noted in Subjective Physical Exam Physical Exam: General: no acute distress, WDWN Head: normocephalic, atraumatic Eyes: PERRL, EOM's intact, conjunctiva non-injected, anicteric ENT: normal inspection external ears, nose, mucous membranes moist Neck: supple, trachea midline Lungs: clear, no respiratory distress, no wheezing/rhonchi/rales CV: RRR, no murmur, no pretibial edema Abd: normal BS, soft, non-tender Ext: LLE s/p surgical repair earlier today, dressings applied, reports pain w/ any movement Neuro: A&O x 3, no focal deficits noted, normal affect Skin: warm, dry Results & Data Results & Data ([facility]) Vital Signs (Past 12 Hours) Vital Signs Temp Pulse Resp BP Pulse Ox 09/26/20 07:43 36.9 C 80 17 127/71 90 09/25/20 23:21 37.1 C 97 H 16 95/61 L 91 Laboratory Results 09/26/20 09/26/20 09/25/20 Range/Units 05:27 05:27 17:30 WBC 8.65 (4.8-10.8) K/uL RBC 3.96 L (4.2-5.4) M/uL Hgb 11.9 L (12.0-16.0) g/dL Hct 37.4 (37-47) % MCV 94.4 (80-100) fL MCH 30.1 (25-34) pg MCHC 31.8 L (32-36) g/dL RDW Std Deviation 47.0 H (36.4-46.3) fL RDW Coeff of Alfonso 13.5 (11.5-14.5) % Plt Count 232 (130-400) K/uL MPV 10.3 (7.4-10.4) fL Immature Gran % (Auto) % Neut % (Auto) % Lymph % (Auto) % [place] % (Auto) % Eos % (Auto) % Baso % (Auto) % Neut # (Auto) (1.4-6.5) K/uL Lymph # (Auto) (1.2-3.4) K/uL [place] # (Auto) (0.11-0.59) K/uL Eos # (Auto) (0-0.5) K/uL Baso # (Auto) (0-0.2) K/uL Immature Gran # (Auto) (0.00-0.02) K/uL PT (9.0-12.0) Seconds INR (0.9-1.1) APTT (21.0-31.0) Seconds PTT Ratio Sodium 141 (136-145) mmol/L Potassium 3.9 (3.5-5.1) mmol/L Chloride 111 H (98-107) mmol/L Carbon Dioxide 24 (21-32) mmol/L Anion Gap 6.0 (3-11) BUN 16 (7-18) mg/dl Creatinine 0.68 (0.6-1.2) mg/dl Est Cr Clr Drug Dosing 72.3 ml/min Est GFR ( Amer) 103.4 ml/min Est GFR (Non-Af Amer) 89.2 ml/min BUN/Creatinine Ratio 23.5 H (10-20) Glucose 101 H (70-99) mg/dl Calcium 8.6 (8.5-10.1) mg/dl Total Bilirubin (0.2-1) mg/dl AST (15-37) U/L ALT (12-78) U/L Alkaline Phosphatase (45-117) U/L Total Protein (6.4-8.2) gm/dl Albumin (3.4-5.0) gm/dl Globulin (2.5-4.0) gm/dl Albumin/Globulin Ratio (0.9-2) Urine Color Urine Appearance (Clear) Urine pH (4.5-7.5) Ur Specific Roberts (1.000-1.030) Urine Protein (Negative) Urine Glucose (UA) (Negative) Urine Ketones (Negative) Urine Blood (Negative) Urine Nitrite (Negative) Urine Bilirubin (Negative) Urine Urobilinogen (Negative) Ur Leukocyte Esterase (Negative) Urine WBC (Auto) (0-5) /hpf Urine RBC (Auto) (0-4) /hpf U Hyaline Cast (Auto) (0-5) /lpf U Epithel Cells (Auto) (0-5) /lpf Urine Bacteria (Auto) (Negative) Nasal Screen MRSA (PCR) Negative (Negative) COVID-19 Eval Order SARS-CoV-2 (PCR) (Negative) Blood Type Antibody Screen 09/25/20 09/25/20 09/25/20 Range/Units 13:30 10:23 10:23 WBC (4.8-10.8) K/uL RBC (4.2-5.4) M/uL Hgb (12.0-16.0) g/dL Hct (37-47) % MCV (80-100) fL MCH (25-34) pg MCHC (32-36) g/dL RDW Std Deviation (36.4-46.3) fL RDW Coeff of Alfonso (11.5-14.5) % Plt Count (130-400) K/uL MPV (7.4-10.4) fL Immature Gran % (Auto) % Neut % (Auto) % Lymph % (Auto) % [place] % (Auto) % Eos % (Auto) % Baso % (Auto) % Neut # (Auto) (1.4-6.5) K/uL Lymph # (Auto) (1.2-3.4) K/uL [place] # (Auto) (0.11-0.59) K/uL Eos # (Auto) (0-0.5) K/uL Baso # (Auto) (0-0.2) K/uL Immature Gran # (Auto) (0.00-0.02) K/uL PT (9.0-12.0) Seconds INR (0.9-1.1) APTT (21.0-31.0) Seconds PTT Ratio Sodium (136-145) mmol/L Potassium (3.5-5.1) mmol/L Chloride (98-107) mmol/L Carbon Dioxide (21-32) mmol/L Anion Gap (3-11) BUN (7-18) mg/dl Creatinine (0.6-1.2) mg/dl Est Cr Clr Drug Dosing ml/min Est GFR ( Amer) ml/min Est GFR (Non-Af Amer) ml/min BUN/Creatinine Ratio (10-20) Glucose (70-99) mg/dl Calcium (8.5-10.1) mg/dl Total Bilirubin (0.2-1) mg/dl AST (15-37) U/L ALT (12-78) U/L Alkaline Phosphatase (45-117) U/L Total Protein (6.4-8.2) gm/dl Albumin (3.4-5.0) gm/dl Globulin (2.5-4.0) gm/dl Albumin/Globulin Ratio (0.9-2) Urine Color Yellow Urine Appearance Clear (Clear) Urine pH 5.0 (4.5-7.5) Ur Specific Roberts 1.022 (1.000-1.030) Urine Protein Trace H (Negative) Urine Glucose (UA) Negative (Negative) Urine Ketones Negative (Negative) Urine Blood Negative (Negative) Urine Nitrite Negative (Negative) Urine Bilirubin Negative (Negative) Urine Urobilinogen Negative (Negative) Ur Leukocyte Esterase Negative (Negative) Urine WBC (Auto) 1-5 (0-5) /hpf Urine RBC (Auto) 0-4 (0-4) /hpf U Hyaline Cast (Auto) 5-10 H (0-5) /lpf U Epithel Cells (Auto) 10-20 H (0-5) /lpf Urine Bacteria (Auto) Negative (Negative) Nasal Screen MRSA (PCR) (Negative) COVID-19 Eval Order Covid19 at [facility] SARS-CoV-2 (PCR) NEGATIVE (Negative) Blood Type Antibody Screen 09/25/20 09/25/20 09/25/20 Range/Units 10:22 10:13 10:13 WBC (4.8-10.8) K/uL RBC (4.2-5.4) M/uL Hgb (12.0-16.0) g/dL Hct (37-47) % MCV (80-100) fL MCH (25-34) pg MCHC (32-36) g/dL RDW Std Deviation (36.4-46.3) fL RDW Coeff of Alfonso (11.5-14.5) % Plt Count (130-400) K/uL MPV (7.4-10.4) fL Immature Gran % (Auto) % Neut % (Auto) % Lymph % (Auto) % [place] % (Auto) % Eos % (Auto) % Baso % (Auto) % Neut # (Auto) (1.4-6.5) K/uL Lymph # (Auto) (1.2-3.4) K/uL [place] # (Auto) (0.11-0.59) K/uL Eos # (Auto) (0-0.5) K/uL Baso # (Auto) (0-0.2) K/uL Immature Gran # (Auto) (0.00-0.02) K/uL PT 10.4 (9.0-12.0) Seconds INR 1.0 (0.9-1.1) APTT (21.0-31.0) Seconds PTT Ratio Sodium 139 (136-145) mmol/L Potassium 4.0 (3.5-5.1) mmol/L Chloride 110 H (98-107) mmol/L Carbon Dioxide 25 (21-32) mmol/L Anion Gap 4.0 (3-11) BUN 15 (7-18) mg/dl Creatinine 0.74 (0.6-1.2) mg/dl Est Cr Clr Drug Dosing 72.8 ml/min Est GFR ( Amer) 95.8 ml/min Est GFR (Non-Af Amer) 82.7 ml/min BUN/Creatinine Ratio 20.8 H (10-20) Glucose 113 H (70-99) mg/dl Calcium 9.4 (8.5-10.1) mg/dl Total Bilirubin 0.5 (0.2-1) mg/dl AST 18 (15-37) U/L ALT 22 (12-78) U/L Alkaline Phosphatase 106 (45-117) U/L Total Protein 8.2 (6.4-8.2) gm/dl Albumin 3.9 (3.4-5.0) gm/dl Globulin 4.3 H (2.5-4.0) gm/dl Albumin/Globulin Ratio 0.9 (0.9-2) Urine Color Urine Appearance (Clear) Urine pH (4.5-7.5) Ur Specific Roberts (1.000-1.030) Urine Protein (Negative) Urine Glucose (UA) (Negative) Urine Ketones (Negative) Urine Blood (Negative) Urine Nitrite (Negative) Urine Bilirubin (Negative) Urine Urobilinogen (Negative) Ur Leukocyte Esterase (Negative) Urine WBC (Auto) (0-5) /hpf Urine RBC (Auto) (0-4) /hpf U Hyaline Cast (Auto) (0-5) /lpf U Epithel Cells (Auto) (0-5) /lpf Urine Bacteria (Auto) (Negative) Nasal Screen MRSA (PCR) (Negative) COVID-19 Eval Order SARS-CoV-2 (PCR) (Negative) Blood Type A Positive Antibody Screen NEGATIVE 09/25/20 09/25/20 Range/Units 10:13 10:13 WBC 9.20 (4.8-10.8) K/uL RBC 4.40 (4.2-5.4) M/uL Hgb 13.4 (12.0-16.0) g/dL Hct 41.5 (37-47) % MCV 94.3 (80-100) fL MCH 30.5 (25-34) pg MCHC 32.3 (32-36) g/dL RDW Std Deviation 46.3 (36.4-46.3) fL RDW Coeff of Alfonso 13.3 (11.5-14.5) % Plt Count 266 (130-400) K/uL MPV 10.3 (7.4-10.4) fL Immature Gran % (Auto) 0.1 % Neut % (Auto) 74.1 % Lymph % (Auto) 19.9 % [place] % (Auto) 4.3 % Eos % (Auto) 1.2 % Baso % (Auto) 0.4 % Neut # (Auto) 6.81 H (1.4-6.5) K/uL Lymph # (Auto) 1.83 (1.2-3.4) K/uL [place] # (Auto) 0.40 (0.11-0.59) K/uL Eos # (Auto) 0.11 (0-0.5) K/uL Baso # (Auto) 0.04 (0-0.2) K/uL Immature Gran # (Auto) 0.01 (0.00-0.02) K/uL PT (9.0-12.0) Seconds INR (0.9-1.1) APTT 25.4 (21.0-31.0) Seconds PTT Ratio 1.0 Sodium (136-145) mmol/L Potassium (3.5-5.1) mmol/L Chloride (98-107) mmol/L Carbon Dioxide (21-32) mmol/L Anion Gap (3-11) BUN (7-18) mg/dl Creatinine (0.6-1.2) mg/dl Est Cr Clr Drug Dosing ml/min Est GFR ( Amer) ml/min Est GFR (Non-Af Amer) ml/min BUN/Creatinine Ratio (10-20) Glucose (70-99) mg/dl Calcium (8.5-10.1) mg/dl Total Bilirubin (0.2-1) mg/dl AST (15-37) U/L ALT (12-78) U/L Alkaline Phosphatase (45-117) U/L Total Protein (6.4-8.2) gm/dl Albumin (3.4-5.0) gm/dl Globulin (2.5-4.0) gm/dl Albumin/Globulin Ratio (0.9-2) Urine Color Urine Appearance (Clear) Urine pH (4.5-7.5) Ur Specific Roberts (1.000-1.030) Urine Protein (Negative) Urine Glucose (UA) (Negative) Urine Ketones (Negative) Urine Blood (Negative) Urine Nitrite (Negative) Urine Bilirubin (Negative) Urine Urobilinogen (Negative) Ur Leukocyte Esterase (Negative) Urine WBC (Auto) (0-5) /hpf Urine RBC (Auto) (0-4) /hpf U Hyaline Cast (Auto) (0-5) /lpf U Epithel Cells (Auto) (0-5) /lpf Urine Bacteria (Auto) (Negative) Nasal Screen MRSA (PCR) (Negative) COVID-19 Eval Order SARS-CoV-2 (PCR) (Negative) Blood Type Antibody Screen Medications Administered Current Inpatient Medications Acetaminophen (Acetaminophen 325 Mg Tab) 650 mg PO Q4H PRN PRN Reason: Pain or Fever Stop: 10/25/20 15:32 Albuterol (Albuterol 0.083% Nebu Soln 3 Ml Vial) 2.5 mg NEB Q6R PRN PRN Reason: Shortness Of Breath Or Wheezing Stop: 10/25/20 15:32 Atorvastatin Calcium (Atorvastatin 40 Mg Tab) 80 mg PO QDD [facility] Stop: 10/25/20 16:29 Last Admin: 09/25/20 17:35 Dose: 80 mg Documented by: Bisacodyl (Bisacodyl 10 Mg Supp) 10 mg AR DAILY PRN PRN Reason: Constipation Stop: 10/25/20 15:32 Hydralazine HCl (Hydralazine Hcl 20 Mg/Ml Vial) 5 mg IV Q6H PRN PRN Reason: systolic bp > 160 Stop: 10/25/20 18:29 Hydromorphone HCl (Hydromorphone Inj 0.5 Mg/0.5 Ml Syr) 0.5 mg IV Q3H PRN PRN Reason: Pain (6,7,8,9,10) Stop: 10/09/20 15:32 Last Admin: 09/25/20 16:13 Dose: 0.5 mg Documented by: Clindamycin Phosphate 900 mg/ (Dextrose) 56 mls @ 112 mls/hr IV PREOP KRISTIAN Stop: 09/27/20 05:59 Sodium Chloride (Nss 1000ml) 1,000 mls @ 80 mls/hr IV .[id number] [facility] Stop: 09/26/20 16:32 Last Admin: 09/26/20 05:18 Dose: 80 mls/hr Documented by: Magnesium Hydroxide (Magnesium Hydroxide Susp 30 Ml Udc) 30 ml PO Q12H PRN PRN Reason: Constipation Stop: 10/25/20 15:32 Melatonin (Melatonin 3 Mg Tab) 3 mg PO [facility] Stop: 10/25/20 20:59 Last Admin: 09/25/20 21:08 Dose: 3 mg Documented by: Naloxone HCl (Naloxone Hcl 0.4 Mg/1 Ml Vial/Carp) 0.1 mg IV UD PRN PRN Reason: Opiate Overdose Stop: 10/25/20 15:32 Ondansetron HCl (Ondansetron Inj 2 Mg/Ml 2 Ml Vial) 4 mg IV Q6H PRN PRN Reason: Nausea And Vomiting Stop: 10/25/20 15:32 Oxycodone HCl (Oxycodone Hcl Ir 5 Mg Tab (Immediate Release)) 5 mg PO Q4H PRN PRN Reason: MODERATE Pain (4,5,6) & Pre PT Stop: 10/09/20 15:32 Last Admin: 09/26/20 07:30 Dose: 5 mg Documented by: Pantoprazole Sodium (Pantoprazole 40 Mg Tab) 40 mg PO BID [facility]; Protocol Stop: 10/25/20 20:59 Last Admin: 09/26/20 07:24 Dose: 40 mg Documented by: Polyethylene Glycol (Polyethylene (Miralax) 17 Gm Pack) 17 gm PO DAILY PRN PRN Reason: Constipation Stop: 10/25/20 15:32 Senna/Docusate Sodium (Docusate Sodium/Senna 50/8.6mg Tab) 2 tab PO [facility] Stop: 10/25/20 20:59 Last Admin: 09/25/20 21:09 Dose: 2 tab Documented by: Umeclidinium [place] (Umeclidinium [place] 62.5mcg/Blister 7 Puffs/Inhaler) 1 puffs INH QAM [facility]; Protocol Stop: 10/26/20 08:59 Last Admin: 09/26/20 07:25 Dose: 1 puffs Documented by: Vitamin D (Cholecalciferol 1,000 Units 25 Mcg Tab) 2,000 units PO BID [facility] Stop: 10/25/20 20:59 Last Admin: 09/26/20 07:25 Dose: 2,000 units Documented by:
[2020-09-26] MEDS ORDERED: MIDAZOLAM HCL 1 MG/ML 2ML VIAL ONE (10:39)
--- NOTE | 2020-09-26 10:50 | History & Physical Bridge Note ---
Date of Service September 26, 2020 History & Physical Bridge Note I have examined the patient, reviewed the History & Physical and in the interval since the performance of the History & Physical I have noted the following changes of clinical significance: no changes noted. Patient is aware of COVID-19 risks. Patient is asymptomatic for COVID-19. Patient has been tested for COVID-19 - [NEGATIVE]. Reviewed plan for surgery. Agreeable to proceed. Will contact family after surgery.
[2020-09-26] MEDS ORDERED: BUPIVACAINE 0.5 % 5 MG/1 ML PF 10ML VIAL ONE (11:32)
[2020-09-26] MEDS ORDERED: PROPOFOL IV EMULSION 10 MG/ML 20 ML VIAL IV ONE (11:35)
[2020-09-26] MEDS ORDERED: fentaNYL citrate 100 MCG/2 ML VIAL ONE (11:35)
[2020-09-26] MEDS ORDERED: LIDOCAINE 2% 2 ML VIAL/AMP(20MG/ML) INFIL ONE (11:35)
[2020-09-26] MEDS ORDERED: KETAMINE 50 MG/5 ML SYRINGE ONE (11:35)
[2020-09-26] MEDS ORDERED: fentaNYL citrate 100 MCG/2 ML VIAL IV PRN (12:21)
[2020-09-26] MEDS ORDERED: HYDROmorphone INJ 2 MG/ML SYR/VIAL IV PRN (12:21)
[2020-09-26] MEDS ORDERED: ePHEDrine sulfate 50 MG/ML AMP IV PRN (12:21)
[2020-09-26] MEDS ORDERED: ATROPINE SULFATE 0.1 MG/ML 10ML SYR IV PRN (12:21)
[2020-09-26] MEDS ORDERED: PHENYLEPHRINE HCL 10 MG/ML VIAL ONE (12:49)
--- NOTE | 2020-09-26 14:50 | Operative Report ---
PG Post Operative Report Pre & Post Diagnosis Operation Date: 09/26/20 08:45 Pre-Op Diagnosis: Left supracondylar femur fracture Post-Op Diagnosis: Left supracondylar femur fracture I identified the patient and participated in the time-out.: Yes Procedure Operation Date: 09/26/20 08:45 Actual Procedures p Left Distal Femur Fracture, Retrograde Nail(Left) - Lopez Wilkinson MD Surgeon Lopez Wilkinson MD Binder Coverstitch Ramin Greer PA-C Estimated Blood Loss 100 Findings See Below Short oblique supracondylar femur fracture with some posterior comminution. Near anatomic reduction was achieved and stabilized with a Synthes retrograde nail. All Synthes implants: [11] mm titanium cannulated retrograde femoral nail of 300 mm in length, 5 mm titanium locking screw with [54] mm length, 5 mm titanium locking screw with [36] mm length proximally, titanium spiral blade [65] mm length, titanium End Cap T40 0 mm. Specimens none Complications none Disposition Accompanied Patient To Recovery: No Disposition: Recovery Room Indications 70-year-old female sustained a fall at home resulting in a supracondylar distal femur fracture. She is brought to [facility] by EMS and admitted preoperatively for surgical fixation. We discussed the risks and benefits of open reduction internal fixation of left distal supracondylar femur fracture. Discussed the risk include not limited to infection, neurovascular injury, bleeding, malunion, nonunion, need for repeat or revision surgeries, implant complications, pain syndromes, blood clots and complications related anesthesia. She has proper questions, demonstrate good understanding, elected proceed with surgery. Informed consent was confirmed in the preoperative area once again. Description of Procedure On the day of surgery, the patient was greeted in the preoperative holding area. The informed consent was reviewed and confirmed by myself and the patient. The patient identified the surgical site and was marked by me. The patient was then turned over to anesthesia. She was taken the operating room. Anesthesia performed a spinal anesthetic block with excellent effect. Patient was placed onto the [facility] top radiographic operating table and anesthesia was induced. All bony problems well-padded. An ipsilateral hip bump consisting of 2 blankets were placed to correct from external rotation. The operative extremity was then prepared using alcohol scrub followed by ChloraPrep. The limb was then prepped and draped in usual sterile fashion for lower extremity surgery. Surgical timeout was called and verified by all present. Antibiotics have been infused and equipment was available and functional. Case was initiated by ensuring adequate fluoroscopic views of the fracture. Manual reduction maneuvers were performed in a closed manner. The trauma track was placed under the knee. Series of towel bumps were placed under the fracture to support the pattern. Manual pressure and reduction was applied to get a provisional reduction. Close reduction seemed possible. We then made our approach for the start point. A small medial parapatellar arthrotomy was developed to allow access to the superior aspect and trochlear notch. The incision was extended more proximally to allow more proximal arthrotomy because of the fracture pattern, for the opportunity to use the periarticular bone reduction clamp. Start point was determined using fluoroscopic visualization and the guidepin was sent to the proximal fragment. Position was verified once again. The opening drill was applied to the proximal fragment to open the canal with evacuation of the marrow contents from the joint with irrigation and suction. The fracture pattern was then studied once again on fluoroscopy, reduction maneuvers were performed closed with support from stacked towels. The remain medial translation of the distal fragment and some extension which we adjusted for. Given the medial spike on the distal fragment I felt I could use a periarticular clamp to reduce the 2 fragments once we had adequate sagittal alignment. Sagittal alignment was adjusted and then a used the arthrotomy to advance a large periarticular clamp. We passed the lateral side of the clamp through a percutaneous incision against the femur. We able to use the clamp to obtain a provisional clamped reduction. The fracture was in acceptable position on AP and lateral views. Then used the ball-tipped guidewire to advance to the proximal femur. Position was verified on fluoroscopy. We then began sequential reaming while maintaining the reduction. We started with 8.5 mm reamer and advanced our size by 1 and 0.5 mm increments. There was chatter at 11.5 millimeters, so I reamed to a final width of 12.5 mm for a 11 millimeter nail. The nail was then placed on the jig on the back table. It was then advanced in the canal while studying the fracture alignment on fluoroscopy. The nail was advanced to the proximal aspect of the lesser trochanter. The lateral fluoroscopic view was used to adjust the depth of the nail at the knee. We ensured that it would not be prominent even with the end cap. We then used the locking jig sleeves to layne our location for the lateral femoral incision for the first locking screw. The cannulas were passed down through the skin against the femur. We drilled bicortically for the 5 mm distal locking screw. We measured our depth using the jig guides. The screw was then selected and sent bicortically under fluoroscopic visualization to ensure appropriate placement. The fracture maintains alignment. I then moved to the proximal interlocking screw to control rotation before placing the distal blade. Perfect circles on fluoroscopy were established at the proximal interlocking holes. I selected the slot with minimal compression mode because of its position above the lesser trochanter. The perfect reno-sparks technique was used to establish the drill, and the proximal locking 5 mm screw was placed without issue. We then moved back to the knee to place the distal blade. The blade jig system was connected to a jig. Skin incision was made in the area of the cannulas. We drilled bicortically with a guidewire. The near cortex was tapped using the blade drill. We used the drill guide measurement for our length. The blade was then implanted using the tap hammer under fluoroscopic guidance to be placed in the the prescribed position. The jig was then removed after placing the 0 mm anchor On the nail. Final fluoroscopic shots were obtained to ensure adequate reduction and appropriate placement the nail. Everything was satisfactory. The wounds were then thoroughly irrigated with normal saline. The joint was then washed out once again with abundant saline and suction. The capsulotomy was repaired using #1 Vicryl suture in running and locking stitches. There appeared to be some disruption of the lateral meniscus that was repaired with a capsulotomy repair. The deep subcutaneous tissues were closed using 0 Vicryl suture followed by 2-0 Vicryl in the deep dermis. Final skin closure with dwight. The interlocking incisions were closed using 2-0 Vicryl deep and superficial followed by dwight. The wounds are dressed with sterile Xeroform, gauze, ABD and contained by Sanju wrap. The proximal interlocking incision was dressed with gauze and a Tegaderm. A knee immobilizer was placed for stability and pain control. Patient tolerated procedure well, was awoken from anesthesia in the operating without complication, and transported the PACU in stable condition. Disposition: The patient will remain an inpatient for recovery and advancement with rehabilitation. Weightbearing will be as tolerated. Range of motion of the knee will be as tolerated. She can use the knee immobilizer for initial ambulation for comfort and discontinue when she has an active quad. Dressing should remain in place for at least 72 hours. Routine VTE prophylaxis should last for at least 6 weeks. We will start Lovenox here as an inpatient, and can transition to aspirin daily when the patient is more ambulatory as an outpatient. There should be routine 24 hours of perioperative antibiotic prophylaxis. Physician tax assistant attestation: Ramin Greer PA-C was present and scrubbed for the duration of the case. He was essential to prepping/draping, patient positioning, retraction, and assistance with wound closure. Skilled assistance was essential to the reduction maneuvers and managing equipment with reaming and placing the nail. I attest to the content of the Intraoperative Record and any orders documented therein. Any exceptions are noted below.
[2020-09-26] MEDS ORDERED: MAGNESIUM HYDROXIDE SUSP 30 ML UDC PO PRN (14:54)
[2020-09-26] MEDS ORDERED: NALOXONE HCL 0.4 MG/1 ML VIAL/CARP IV PRN (14:54)
[2020-09-26] MEDS ORDERED: bisacodyL 10 MG SUPP PR PRN (14:54)
[2020-09-26] MEDS ORDERED: METOCLOPRAMIDE HCL INJ 5 MG/ML 2 ML VIAL IV PRN (14:54)
[2020-09-26] MEDS ORDERED: ONDANSETRON INJ 2 MG/ML 2 ML VIAL IV PRN (14:54)
--- NOTE | 2020-09-26 15:24 | Anesthesiology Progress Note ---
Date of Service September 26, 2020 Anesthesia Post Procedure Vital Signs Vital Signs: Temp Pulse Pulse Resp BP BP Pulse Ox 09/26/20 15:15 36.5 C 92 H 20 131/93 99 09/26/20 15:05 90 20 105/73 99 09/26/20 14:55 91 H 22 111/72 99 09/26/20 14:48 36.6 C 90 18 111/72 99 09/26/20 07:43 36.9 C 80 17 127/71 90 09/25/20 23:21 37.1 C 97 H 16 95/61 L 91 09/25/20 16:00 36.7 C 93 H 18 158/83 H 95 Pain Intensity Left Leg: Pain Intensity: 8 Transfer of Care Handoff Completed per policy Notes Mental Status: alert / awake / arousable and participated in evaluation Patient Amnestic to Procedure: Yes Nausea / Vomiting: adequately controlled Pain: adequately controlled Airway Patency, RR, SpO2: stable & adequate BP & HR: stable & adequate Hydration State: stable & adequate Neuraxial Anesthesia: was administered and sensory block is resolving Anesthetic Complications: no major complications apparent
[2020-09-26] MEDS: ATORVASTATIN 40 MG TAB PO SCH (16:26)
--- NOTE | 2020-09-26 16:37 | Fluoroscopy Report ---
FL femur LT 2V CLINICAL HISTORY: LEFT RETROGRADE FEMUR NAIL COMPARISON STUDY: None FLUOROSCOPY TIME: 2 minutes 33 seconds. NUMBER OF FLUOROSCOPIC IMAGES: 7 FINDINGS: Few intraoperative fluoroscopic images were presented for review. Fracture line is seen within distal femur. Intramedullary metallic lilia placement to the femoral shaft is seen. IMPRESSION: As above. ACT 112: Negative or not required by law. The above report was generated using voice recognition software. It may contain grammatical, syntax o r spelling errors. Electronically signed by: Dora Roe DO 09/26/2020 4:36 PM
[2020-09-26] MEDS: HYDROmorphone INJ 0.5 MG/0.5 ML SYR IV PRN ×3 (17:05→23:07)
[2020-09-26] MEDS: ACETAMINOPHEN 325 MG TAB PO PRN ×2 (17:53→22:18)
[2020-09-26] MEDS ORDERED: MoRPHine SULFATE 2 MG/ML CARP IV STA (18:12)
[2020-09-26] MEDS ORDERED: MoRPHine SULFATE 2 MG/ML CARP ONE (18:17)
[2020-09-26] MEDS: SENNA 8.6 MG TAB PO SCH (20:02)
[2020-09-26] MEDS: DOCUSATE SODIUM 100 MG CAP PO SCH (20:03)
[2020-09-26] MEDS: MELATONIN 3 MG TAB PO SCH (20:03)
[2020-09-26] MEDS: DOCUSATE SODIUM/SENNA 50/8.6MG TAB PO SCH (20:04)
[2020-09-26] MEDS: CLINDAMYCIN 600 MG in DEXTROSE 5% 50 ML IV SCH (20:04)
--- NOTE | 2020-09-26 20:55 | XRay Report ---
XR femur LT 2V routine CLINICAL HISTORY: Post OP Left Femur Retrograde IM nail COMPARISON: September 25, 2020 DISCUSSION: Interval placement of orthopedic hardware to the anatomical region of the left femur. Pre viously seen comminuted displaced fracture of the distal femur is seen near anatomical alignment. Subcutaneous emphysema and skin dwight are seen. IMPRESSION: As above. ACT 112: Negative or not required by law. The above report was generated using voice recognition software. It may contain grammatical, syntax o r spelling errors. Electronically signed by: Dora Roe DO 09/26/2020 8:54 PM
[2020-09-27] MEDS: oxyCODONE HCL IR 5 MG TAB (IMMEDIATE RELEASE) PO PRN ×5 (01:22→20:27)
[2020-09-27] MEDS: CLINDAMYCIN 600 MG in DEXTROSE 5% 50 ML IV SCH (02:08)
[2020-09-27] MEDS: HYDROmorphone INJ 0.5 MG/0.5 ML SYR IV PRN ×5 (02:08→22:01)
[2020-09-27] MEDS ORDERED: ENOXAPARIN INJ 40 MG/0.4 ML SYR SQ SCH (02:30)
[2020-09-27] MEDS: SODIUM CHLORIDE 0.9% 1000ML 1,000 ML IV SCH (02:41)
[2020-09-27] MEDS: ACETAMINOPHEN 325 MG TAB PO PRN ×3 (05:12→15:30)
[2020-09-27 06:12] LABS: Hematocrit (blood only) 32.2 % (37-47); Hemoglobin 10.3 g/dL (12.0-16.0); Mean Corpuscular Hemoglobin 30.4 pg (25-34); Mean Platelet Volume 10.2 fL (7.4-10.4); Platelet Count 199 K/uL (130-400); RDW Coefficient of Variation 13.4 % (11.5-14.5); RDW Standard Deviation 46.9 fL (36.4-46.3); Red Blood Count 3.39 M/uL (4.2-5.4); White Blood Count 8.37 K/uL (4.8-10.8)
[2020-09-27 06:53] LABS: BUN Creatinine Ratio 15.4 (10-20); Calcium 8.2 mg/dl (8.5-10.1); Creatinine Clr Calc Pharmacy 74.5 ml/min; Est GFR (African American) 104.5 ml/min; Est GFR (Non-African American) 90.1 ml/min; Potassium 3.9 mmol/L (3.5-5.1)
[2020-09-27] MEDS: PANTOprazole 40 MG TAB PO SCH ×2 (08:18→20:22)
[2020-09-27] MEDS: CHOLECALCIFEROL 1,000 UNITS 25 MCG TAB PO SCH ×2 (08:18→20:21)
[2020-09-27] MEDS: DOCUSATE SODIUM 100 MG CAP PO SCH ×2 (08:21→20:21)
[2020-09-27] MEDS: UMECLIDINIUM BROMIDE 62.5MCG/BLISTER 7 PUFFS/INHALER INH SCH (08:21)
[2020-09-27] MEDS: MULTIVITAMIN TAB PO SCH (08:21)
--- NOTE | 2020-09-27 08:40 | Orthopedic Progress Note ---
Date of Service September 27, 2020 Assessment & Plan (1) Closed fracture of femur: Postop day 1 status post left supracondylar femur fracture retrograde IM nail Making uncomplicated progress. -PT/OT: Weightbearing and range of motion as tolerated. -VTE prophylaxis: Lovenox 40 subcu per day. May transition to aspirin 325 daily when she is more ambulatory as an outpatient -Pain control per primary team. Seems comfortable in regimen. -Continue to monitor H/H with expected pura in 48-72 hours -Dressing: Prefer the postop dressing stays in place for 48 to 72 hours and then keep covered in the hospital. -Antibiotics: Please discontinue perioperative prophylaxis at the 24-hour layne. -Discontinue Phillip at some point today Dispo: Pending PT/OT evaluations on home needs versus next level of care. Subjective Reports tolerable pain. She states the nursing team did a good job keeping her comfortable overnight. She understands today will be therapy evaluation to see how she does. She would prefer to go home. Review of Systems All systems reviewed & are unremarkable except as noted in HPI & below. Physical Exam Appears comfortable. She is sitting up in bed and is conversant. AAO x3 Left lower extremity: Lying with the heel bolstered to keep the knee in extension appropriately. She has full active range of motion through the ankle and toes and intact sensation. She is well procedure perfused distally. The dressing is clean dry and intact Constitutional WD/WN, vitals as above no acute distress and not intoxicated appearing Respiratory normal respiratory effort; no labored breathing Cardiovascular Extremities: normal capillary refill Results & Data Results & Data Laboratory Results H & H 09/25/20 09/26/20 09/27/20 Range/Units 10:13 05:27 05:55 Hgb 13.4 11.9 L 10.3 L (12.0-16.0) g/dL Hct 41.5 37.4 32.2 L (37-47) % Coagulation 09/25/20 Range/Units 10:13 INR 1.0 (0.9-1.1) Diagnostic Findings Postop radiographs show near anatomic alignment with adequate fixation. No c omplications PG Care Time/CCT Total # of Minutes Spent Total Time Spent with Patient: Total time spent is greater than 50% in coordination of care (as documented) at patient's floor/unit and/or counseling patient: Coding Level of Care Code 69517 Post Operative Follow-Up Diagnoses Closed fracture of femur S72.90XA
--- NOTE | 2020-09-27 09:25 | Hospitalist Progress Note ---
Date of Service September 27, 2020 Assessment & Plan (1) Closed fracture of distal end of left femur: (2) Fall: Plan: Pt is 70 y/o F with PMH COPD, HTN, dyslipidemia, CKD III, GERD, chronic back pain presented to ER with c/o mechanical fall and left leg pain occurred prior to arrival. In ER patient afebrile, vital stable, labs unremarkable Left femur x-ray: No proximal left femoral fracture. Acute comminuted displaced fracture of the distal diaphysis and metadiaphysis of the left femur In ER given fentanyl 100 mcg IV, 500 mL NSS Oxycodone, Dilaudid as needed pain Gentle IVF Ortho consult, Dr. Wilkinson notified by ER, requests traction 09/26 - Pt is now s/p surgical repair w/ Dr. Wilkinson - tolerated procedure well POD 1 Left supracondylar femur fracture retrograde IM nail Per orthopedics recommendations: -PT/OT: Weightbearing and range of motion as tolerated. -VTE prophylaxis: Lovenox 40 subcu per day. May transition to aspirin 325 daily when she is more ambulatory as an outpatient -Pain control per primary team. Seems comfortable in regimen. -Continue to monitor H/H with expected pura in 48-72 hours -Dressing: Prefer the postop dressing stays in place for 48 to 72 hours and then keep covered in the hospital. -Antibiotics: Please discontinue perioperative prophylaxis at the 24-hour layne. -Discontinue Phillip at some point today Dispo: Pending PT/OT evaluations on home needs versus next level of care. Acute blood loss anemia, postop, dilutional Current hemoglobin 10.3 (pre-op Hgb ~13) Hgb 11.9 post op (09/26/20) Postop blood loss expected, no need for blood transfusion Patient is asymptomatic (3) HTN (hypertension): Plan: History of hypertension previously. No longer on medications BP was elevated in ER, improved with pain medication Monitor BP. Treat pain as above BP now at goal (4) COPD (chronic obstructive pulmonary disease): Plan: No signs of acute exacerbation Continue Spiriva Albuterol nebs as needed (5) Dyslipidemia: Plan: Continue atorvastatin (6) CKD (chronic kidney disease), stage III: Plan: Cr: 0.7. Baseline Cr: 0.8 Monitor renal functions, avoid nephrotoxic agents when possible (7) GERD (gastroesophageal reflux disease): Plan: Continue PPI (8) History of cervical spinal surgery: Plan: History arthrodesis below C2 by Dr. Waite at [facility] on 07/21/20 Wearing soft c-collar DVT Prophylaxis -Lovenox (per ortho) Full Code Follows with Dr Gordillo for routine care Admission and Anticipated Discharge Date Admission Date: September 25, 2020 Subjective Pt seen in follow up of femur fracture underwent surgical repair yesterday Currently sitting up in chair, in NAD working with incentive spirometer however does report LLE pain No chest pain, shortness of breath, fever, chills, nausea, abd. pain Review of Systems Review of Systems: All systems reviewed & are unremarkable except as noted in Subjective Physical Exam Physical Exam: General: no acute distress, WDWN Head: normocephalic, atraumatic Eyes: PERRL, EOM's intact, conjunctiva non-injected, anicteric ENT: normal inspection external ears, nose, mucous membranes moist Neck: supple, trachea midline Lungs: clear, no respiratory distress, no wheezing/rhonchi/rales CV: RRR, no murmur, no pretibial edema Abd: normal BS, soft, non-tender Ext: LLE s/p surgical repair yesterday, dressings applied, LYNN wraps applied, pt reports pain w/movement Neuro: A&O x 3, no focal deficits noted, normal affect Skin: warm, dry Results & Data Results & Data ([facility]) Vital Signs (Past 12 Hours) Vital Signs Temp Pulse Pulse Resp BP Pulse Ox 09/27/20 07:38 36.7 C 97 H 17 120/76 95 09/27/20 03:00 36.9 C 88 20 144/73 H 95 09/26/20 22:15 37 C 92 H 16 107/67 94 Laboratory Results 09/27/20 09/27/20 Range/Units 05:55 05:55 WBC 8.37 (4.8-10.8) K/uL RBC 3.39 L (4.2-5.4) M/uL Hgb 10.3 L (12.0-16.0) g/dL Hct 32.2 L (37-47) % MCV 95.0 (80-100) fL MCH 30.4 (25-34) pg MCHC 32.0 (32-36) g/dL RDW Std Deviation 46.9 H (36.4-46.3) fL RDW Coeff of Alfonso 13.4 (11.5-14.5) % Plt Count 199 (130-400) K/uL MPV 10.2 (7.4-10.4) fL Sodium 138 (136-145) mmol/L Potassium 3.9 (3.5-5.1) mmol/L Chloride 109 H (98-107) mmol/L Carbon Dioxide 23 (21-32) mmol/L Anion Gap 6.0 (3-11) BUN 10 D (7-18) mg/dl Creatinine 0.66 (0.6-1.2) mg/dl Est Cr Clr Drug Dosing 74.5 ml/min Est GFR ( Amer) 104.5 ml/min Est GFR (Non-Af Amer) 90.1 ml/min BUN/Creatinine Ratio 15.4 (10-20) Glucose 120 H (70-99) mg/dl Calcium 8.2 L (8.5-10.1) mg/dl Phosphorus 3.0 (2.5-4.9) mg/dl Magnesium 2.0 (1.8-2.4) mg/dl Medications Administered Current Inpatient Medications Acetaminophen (Acetaminophen 325 Mg Tab) 650 mg PO Q4H PRN PRN Reason: Pain or Fever Stop: 10/25/20 15:32 Last Admin: 09/27/20 05:12 Dose: 650 mg Documented by: Albuterol (Albuterol 0.083% Nebu Soln 3 Ml Vial) 2.5 mg NEB Q6R PRN PRN Reason: Shortness Of Breath Or Wheezing Stop: 10/25/20 15:32 Atorvastatin Calcium (Atorvastatin 40 Mg Tab) 80 mg PO QDD [facility] Stop: 10/25/20 16:29 Last Admin: 09/26/20 16:26 Dose: 80 mg Documented by: Bisacodyl (Bisacodyl 10 Mg Supp) 10 mg DE DAILY PRN PRN Reason: Constipation Stop: 10/26/20 14:53 Docusate Sodium (Docusate Sodium 100 Mg Cap) 100 mg PO BID [facility] Stop: 10/26/20 20:59 Last Admin: 09/27/20 08:21 Dose: 100 mg Documented by: Enoxaparin Sodium (Enoxaparin Inj 40 Mg/0.4 Ml Syr) 40 mg SQ Q12H [facility] Stop: 10/27/20 02:29 Last Admin: 09/27/20 02:08 Dose: 40 mg Documented by: Hydralazine HCl (Hydralazine Hcl 20 Mg/Ml Vial) 5 mg IV Q6H PRN PRN Reason: systolic bp > 160 Stop: 10/25/20 18:29 Hydromorphone HCl (Hydromorphone Inj 0.5 Mg/0.5 Ml Syr) 0.5 mg IV Q3H PRN PRN Reason: Pain (6,7,8,9,10) Stop: 10/09/20 15:32 Last Admin: 09/27/20 08:17 Dose: 0.5 mg Documented by: Magnesium Hydroxide (Magnesium Hydroxide Susp 30 Ml Udc) 30 ml PO Q6H PRN PRN Reason: Constipation Stop: 10/26/20 14:53 Melatonin (Melatonin 3 Mg Tab) 3 mg PO HS [facility] Stop: 10/25/20 20:59 Last Admin: 09/26/20 20:03 Dose: 3 mg Documented by: Metoclopramide HCl (Metoclopramide Hcl Inj 5 Mg/Ml 2 Ml Vial) 10 mg IV Q6H PRN PRN Reason: Nausea And Vomiting Stop: 10/26/20 14:53 Multivitamins (Multivitamin Tab) 1 tab PO QAM [facility] Stop: 10/27/20 08:59 Last Admin: 09/27/20 08:21 Dose: 1 tab Documented by: Naloxone HCl (Naloxone Hcl 0.4 Mg/1 Ml Vial/Carp) 0.1 mg IV Q5M PRN PRN Reason: Oversedation/Resp Depression Stop: 10/26/20 14:53 Ondansetron HCl (Ondansetron Inj 2 Mg/Ml 2 Ml Vial) 4 mg IV Q6H PRN PRN Reason: Nausea And Vomiting Stop: 10/26/20 14:53 Last Admin: 09/27/20 08:47 Dose: 4 mg Documented by: Oxycodone HCl (Oxycodone Hcl Ir 5 Mg Tab (Immediate Release)) 5 mg PO Q4H PRN PRN Reason: MODERATE Pain (4,5,6) & Pre PT Stop: 10/09/20 15:32 Last Admin: 09/27/20 05:12 Dose: 5 mg Documented by: Pantoprazole Sodium (Pantoprazole 40 Mg Tab) 40 mg PO BID [facility]; Protocol Stop: 10/25/20 20:59 Last Admin: 09/27/20 08:18 Dose: 40 mg Documented by: Polyethylene Glycol (Polyethylene (Miralax) 17 Gm Pack) 17 gm PO DAILY PRN PRN Reason: Constipation Stop: 10/25/20 15:32 Senna/Docusate Sodium (Docusate Sodium/Senna 50/8.6mg Tab) 2 tab PO [facility] Stop: 10/25/20 20:59 Last Admin: 09/26/20 20:04 Dose: 2 tab Documented by: Sennosides (Senna 8.6 Mg Tab) 17.2 mg PO [facility] Stop: 10/26/20 20:59 Last Admin: 09/26/20 20:02 Dose: Not Given Documented by: Umeclidinium [place] (Umeclidinium [place] 62.5mcg/Blister 7 Puffs/Inhaler) 1 puffs INH QAM [facility]; Protocol Stop: 10/26/20 08:59 Last Admin: 09/27/20 08:21 Dose: 1 puffs Documented by: Vitamin D (Cholecalciferol 1,000 Units 25 Mcg Tab) 2,000 units PO BID [facility] Stop: 10/25/20 20:59 Last Admin: 09/27/20 08:18 Dose: 2,000 units Documented by:
[2020-09-27] MEDS: METOCLOPRAMIDE HCL INJ 5 MG/ML 2 ML VIAL IV SCH ×3 (11:33→22:02)
[2020-09-27] MEDS: ATORVASTATIN 40 MG TAB PO SCH (17:24)
[2020-09-27] MEDS: DOCUSATE SODIUM/SENNA 50/8.6MG TAB PO SCH (20:21)
[2020-09-27] MEDS: SENNA 8.6 MG TAB PO SCH (20:22)
[2020-09-27] MEDS: MELATONIN 3 MG TAB PO SCH (20:22)
[2020-09-28] MEDS: oxyCODONE HCL IR 5 MG TAB (IMMEDIATE RELEASE) PO PRN ×3 (01:42→22:17)
[2020-09-28] MEDS: HYDROmorphone INJ 0.5 MG/0.5 ML SYR IV PRN ×4 (05:05→20:00)
[2020-09-28] MEDS: METOCLOPRAMIDE HCL INJ 5 MG/ML 2 ML VIAL IV SCH ×4 (05:05→22:17)
[2020-09-28 06:23] LABS: Hematocrit (blood only) 30.9 % (37-47); Hemoglobin 9.8 g/dL (12.0-16.0); Mean Corpuscular Hemoglobin 29.8 pg (25-34); Mean Corpuscular Hgb Conc 31.7 g/dL (32-36); Mean Corpuscular Volume 93.9 fL (80-100); Mean Platelet Volume 10.2 fL (7.4-10.4); Platelet Count 204 K/uL (130-400); RDW Coefficient of Variation 13.4 % (11.5-14.5); RDW Standard Deviation 46.3 fL (36.4-46.3); Red Blood Count 3.29 M/uL (4.2-5.4); White Blood Count 8.52 K/uL (4.8-10.8)
[2020-09-28 07:01] LABS: BUN Creatinine Ratio 17.4 (10-20); Calcium 8.4 mg/dl (8.5-10.1); Creatinine Clr Calc Pharmacy 98.4 ml/min; Est GFR (African American) 114.5 ml/min; Est GFR (Non-African American) 98.8 ml/min; Potassium 3.5 mmol/L (3.5-5.1)
[2020-09-28 07:02] LABS: Phosphorus 2.3 mg/dl (2.5-4.9)
[2020-09-28] MEDS: UMECLIDINIUM BROMIDE 62.5MCG/BLISTER 7 PUFFS/INHALER INH SCH (09:46)
[2020-09-28] MEDS: ENOXAPARIN INJ 40 MG/0.4 ML SYR SQ SCH (09:46)
[2020-09-28] MEDS: CHOLECALCIFEROL 1,000 UNITS 25 MCG TAB PO SCH ×2 (09:46→20:04)
[2020-09-28] MEDS: MULTIVITAMIN TAB PO SCH (09:47)
[2020-09-28] MEDS: PANTOprazole 40 MG TAB PO SCH ×2 (09:47→20:03)
[2020-09-28] MEDS: DOCUSATE SODIUM 100 MG CAP PO SCH ×2 (09:50→20:03)
[2020-09-28] MEDS ORDERED: POTASSIUM CHLORIDE CRTAB 20 MEQ TABCR PO STA (10:30)
--- NOTE | 2020-09-28 10:31 | Hospitalist Progress Note ---
Date of Service September 28, 2020 Assessment & Plan (1) Closed fracture of distal end of left femur: (2) Fall: Plan: Pt is 70 y/o F with PMH COPD, HTN, dyslipidemia, CKD III, GERD, chronic back pain presented to ER with c/o mechanical fall and left leg pain occurred prior to arrival. In ER patient afebrile, vital stable, labs unremarkable Left femur x-ray: No proximal left femoral fracture. Acute comminuted displaced fracture of the distal diaphysis and metadiaphysis of the left femur In ER given fentanyl 100 mcg IV, 500 mL NSS Oxycodone, Dilaudid as needed pain Gentle IVF Ortho consult, Dr. Wilkinson notified by ER, requests traction 09/26 - Pt is now s/p surgical repair w/ Dr. Wilkinson - tolerated procedure well POD 2 Left supracondylar femur fracture retrograde IM nail Per orthopedics recommendations: -PT/OT: Weightbearing and range of motion as tolerated. -VTE prophylaxis: Lovenox 40 subcu per day. May transition to aspirin 325 daily when she is more ambulatory as an outpatient -Pain control per primary team. Seems comfortable in regimen. -Continue to monitor H/H with expected pura in 48-72 hours -Dressing: Prefer the postop dressing stays in place for 48 to 72 hours and then keep covered in the hospital. Dispo: Pending PT/OT evaluations on home needs versus next level of care. Acute blood loss anemia, postop, dilutional Current hemoglobin 9.8 (Hgb 10.3 yesterday), (pre-op Hgb ~13) Hgb 11.9 post op (09/26/20) Postop blood loss expected, no need for blood transfusion Patient is asymptomatic (3) HTN (hypertension): Plan: History of hypertension previously. No longer on medications BP was elevated in ER, improved with pain medication Monitor BP. Treat pain as above BP now at goal (4) COPD (chronic obstructive pulmonary disease): Plan: No signs of acute exacerbation Continue Spiriva Albuterol nebs as needed (5) Dyslipidemia: Plan: Continue atorvastatin (6) CKD (chronic kidney disease), stage III: Plan: Cr: 0.7. Baseline Cr: 0.8 Monitor renal functions, avoid nephrotoxic agents when possible (7) GERD (gastroesophageal reflux disease): Plan: Continue PPI (8) History of cervical spinal surgery: Plan: History arthrodesis below C2 by Dr. Waite at [facility] on 07/21/20 Wearing soft c-collar DVT Prophylaxis -Lovenox (per ortho) Full Code Follows with Dr Gordillo for routine care Admission and Anticipated Discharge Date Admission Date: September 25, 2020 Subjective Pt seen in follow up of femur fracture underwent surgical repair w/ orthopedics Currently laying in bed in NAD but on 2L of NC does report LLE pain w/ movement Says she was up and made a few steps, it made her lower extremity pain worse No chest pain, shortness of breath, fever, chills, nausea, abd. pain Encourage incentive spirometry, reassess need for oxygen Review of Systems Review of Systems: All systems reviewed & are unremarkable except as noted in Subjective Physical Exam Physical Exam: General: no acute distress, WDWN Head: normocephalic, atraumatic Eyes: PERRL, EOM's intact, conjunctiva non-injected, anicteric ENT: normal inspection external ears, nose, mucous membranes moist Neck: supple, trachea midline Lungs: clear, no respiratory distress, no wheezing/rhonchi/rales CV: RRR, no murmur, no pretibial edema Abd: normal BS, soft, non-tender Ext: LLE s/p surgical repair, dressings applied, LYNN wraps applied, pt reports pain w/movement Neuro: A&O x 3, no focal deficits noted, normal affect Skin: warm, dry Results & Data Results & Data ([facility]) Vital Signs (Past 12 Hours) Vital Signs Temp Pulse Pulse Resp BP Pulse Ox 09/28/20 07:33 36.9 C 103 H 20 143/80 H 95 09/27/20 22:34 37.2 C 103 H 16 114/71 95 Laboratory Results 09/28/20 09/28/20 Range/Units 06:00 06:00 WBC 8.52 (4.8-10.8) K/uL RBC 3.29 L (4.2-5.4) M/uL Hgb 9.8 L (12.0-16.0) g/dL Hct 30.9 L (37-47) % MCV 93.9 (80-100) fL MCH 29.8 (25-34) pg MCHC 31.7 L (32-36) g/dL RDW Std Deviation 46.3 (36.4-46.3) fL RDW Coeff of Alfonso 13.4 (11.5-14.5) % Plt Count 204 (130-400) K/uL MPV 10.2 (7.4-10.4) fL Sodium 138 (136-145) mmol/L Potassium 3.5 (3.5-5.1) mmol/L Chloride 109 H (98-107) mmol/L Carbon Dioxide 25 (21-32) mmol/L Anion Gap 4.0 (3-11) BUN 9 (7-18) mg/dl Creatinine 0.50 L (0.6-1.2) mg/dl Est Cr Clr Drug Dosing 98.4 ml/min Est GFR ( Amer) 114.5 ml/min Est GFR (Non-Af Amer) 98.8 ml/min BUN/Creatinine Ratio 17.4 (10-20) Glucose 106 H (70-99) mg/dl Calcium 8.4 L (8.5-10.1) mg/dl Phosphorus 2.3 L (2.5-4.9) mg/dl Magnesium 2.0 (1.8-2.4) mg/dl Medications Administered Current Inpatient Medications Acetaminophen (Acetaminophen 325 Mg Tab) 650 mg PO Q4H PRN PRN Reason: Pain or Fever Stop: 10/25/20 15:32 Last Admin: 09/27/20 15:30 Dose: 650 mg Documented by: Albuterol (Albuterol 0.083% Nebu Soln 3 Ml Vial) 2.5 mg NEB Q6R PRN PRN Reason: Shortness Of Breath Or Wheezing Stop: 10/25/20 15:32 Atorvastatin Calcium (Atorvastatin 40 Mg Tab) 80 mg PO QDD [facility] Stop: 10/25/20 16:29 Last Admin: 09/27/20 17:24 Dose: 80 mg Documented by: Bisacodyl (Bisacodyl 10 Mg Supp) 10 mg UT DAILY PRN PRN Reason: Constipation Stop: 10/26/20 14:53 Docusate Sodium (Docusate Sodium 100 Mg Cap) 100 mg PO BID [facility] Stop: 10/26/20 20:59 Last Admin: 09/28/20 09:50 Dose: Not Given Documented by: Enoxaparin Sodium (Enoxaparin Inj 40 Mg/0.4 Ml Syr) 40 mg SQ DAILY [facility] Stop: 10/28/20 08:59 Last Admin: 09/28/20 09:46 Dose: 40 mg Documented by: Hydralazine HCl (Hydralazine Hcl 20 Mg/Ml Vial) 5 mg IV Q6H PRN PRN Reason: systolic bp > 160 Stop: 10/25/20 18:29 Hydromorphone HCl (Hydromorphone Inj 0.5 Mg/0.5 Ml Syr) 0.5 mg IV Q3H PRN PRN Reason: Pain (6,7,8,9,10) Stop: 10/09/20 15:32 Last Admin: 09/28/20 07:51 Dose: 0.5 mg Documented by: Magnesium Hydroxide (Magnesium Hydroxide Susp 30 Ml Udc) 30 ml PO Q6H PRN PRN Reason: Constipation Stop: 10/26/20 14:53 Melatonin (Melatonin 3 Mg Tab) 3 mg PO HS [facility] Stop: 10/25/20 20:59 Last Admin: 09/27/20 20:22 Dose: 3 mg Documented by: Metoclopramide HCl (Metoclopramide Hcl Inj 5 Mg/Ml 2 Ml Vial) 10 mg IV Q6H [facility] Stop: 10/27/20 10:59 Last Admin: 09/28/20 05:05 Dose: 10 mg Documented by: Multivitamins (Multivitamin Tab) 1 tab PO QAM [facility] Stop: 10/27/20 08:59 Last Admin: 09/28/20 09:47 Dose: 1 tab Documented by: Naloxone HCl (Naloxone Hcl 0.4 Mg/1 Ml Vial/Carp) 0.1 mg IV Q5M PRN PRN Reason: Oversedation/Resp Depression Stop: 10/26/20 14:53 Ondansetron HCl (Ondansetron Inj 2 Mg/Ml 2 Ml Vial) 4 mg IV Q6H PRN PRN Reason: Nausea And Vomiting Stop: 10/26/20 14:53 Last Admin: 09/27/20 08:47 Dose: 4 mg Documented by: Oxycodone HCl (Oxycodone Hcl Ir 5 Mg Tab (Immediate Release)) 5 mg PO Q4H PRN PRN Reason: MODERATE Pain (4,5,6) & Pre PT Stop: 10/09/20 15:32 Last Admin: 09/28/20 01:42 Dose: 5 mg Documented by: Pantoprazole Sodium (Pantoprazole 40 Mg Tab) 40 mg PO BID [facility]; Protocol Stop: 10/25/20 20:59 Last Admin: 09/28/20 09:47 Dose: 40 mg Documented by: Polyethylene Glycol (Polyethylene (Miralax) 17 Gm Pack) 17 gm PO DAILY PRN PRN Reason: Constipation Stop: 10/25/20 15:32 Potassium Chloride (Potassium Chloride Crtab 20 Meq Tabcr) 40 meq PO NOW [facility] Stop: 09/28/20 10:31 Senna/Docusate Sodium (Docusate Sodium/Senna 50/8.6mg Tab) 2 tab PO HS [facility] Stop: 10/25/20 20:59 Last Admin: 09/27/20 20:21 Dose: Not Given Documented by: Sennosides (Senna 8.6 Mg Tab) 17.2 mg PO HS [facility] Stop: 10/26/20 20:59 Last Admin: 09/27/20 20:22 Dose: Not Given Documented by: Umeclidinium [place] (Umeclidinium [place] 62.5mcg/Blister 7 Puffs/Inhaler) 1 puffs INH QAM [facility]; Protocol Stop: 10/26/20 08:59 Last Admin: 09/28/20 09:46 Dose: 1 puffs Documented by: Vitamin D (Cholecalciferol 1,000 Units 25 Mcg Tab) 2,000 units PO BID [facility] Stop: 10/25/20 20:59 Last Admin: 09/28/20 09:46 Dose: 2,000 units Documented by:
--- NOTE | 2020-09-28 12:50 | Orthopedic Progress Note ---
Date of Service September 28, 2020 Assessment & Plan (1) Closed fracture of femur: Postop day 2 status post left supracondylar femur fracture retrograde IM nail Making uncomplicated progress. Expected blood loss. Continue plan of care. -PT/OT: Weightbearing and range of motion as tolerated. -VTE prophylaxis: Lovenox 40 subcu per day. May transition to aspirin 325 daily when she is more ambulatory as an outpatient -Track H/H through at least tomorrow -Dressing: May be changed tomorrow and then daily as needed based on drainage. Dispo: Expect no further delay and readiness as early as tomorrow for transfer to next level of care. Appreciate PT/OT evaluations. Subjective Seen and evaluated this afternoon. She reports general soreness and pain that is tolerable with current pain management. She did require some IV Dilaudid this afternoon after therapy. She states she put some weight on it and used a walker. Review of Systems All systems reviewed & are unremarkable except as noted in HPI & below. Physical Exam Left lower extremity: Resting appropriate with a heel bump, and the knee in full extension. Ice packs in place. The dressings clean dry and intact. Positive DF/PF/EHL. Neurovascular intact. There is some mild edema to the dorsum of the foot, as expected. Constitutional WD/WN, vitals as above no acute distress and not intoxicated appearing Respiratory normal respiratory effort; no labored breathing Cardiovascular Extremities: normal capillary refill Results & Data Results & Data Laboratory Results . H & H 09/25/20 09/26/20 09/27/20 Range/Units 10:13 05:27 05:55 Hgb 13.4 11.9 L 10.3 L (12.0-16.0) g/dL Hct 41.5 37.4 32.2 L (37-47) % 09/28/20 Range/Units 06:00 Hgb 9.8 L (12.0-16.0) g/dL Hct 30.9 L (37-47) % Coagulation 09/25/20 Range/Units 10:13 INR 1.0 (0.9-1.1) Diagnostic Findings . PG Care Time/CCT Total # of Minutes Spent Total Time Spent with Patient: Total time spent is greater than 50% in coordination of care (as documented) at patient's floor/unit and/or counseling patient: Coding Level of Care Code 75099 Post Operative Follow-Up Diagnoses Closed fracture of femur S72.90XA
[2020-09-28] MEDS: ATORVASTATIN 40 MG TAB PO SCH (16:21)
[2020-09-28] MEDS: DOCUSATE SODIUM/SENNA 50/8.6MG TAB PO SCH (20:02)
[2020-09-28] MEDS: SENNA 8.6 MG TAB PO SCH (20:03)
[2020-09-28] MEDS: MELATONIN 3 MG TAB PO SCH (22:17)
[2020-09-29] MEDS: HYDROmorphone INJ 0.5 MG/0.5 ML SYR IV PRN ×2 (01:44→08:06)
[2020-09-29] MEDS: METOCLOPRAMIDE HCL INJ 5 MG/ML 2 ML VIAL IV SCH ×4 (05:56→21:56)
[2020-09-29 08:35] LABS: Hemoglobin 10.4 g/dL (12.0-16.0); Mean Corpuscular Hemoglobin 29.6 pg (25-34); Mean Corpuscular Hgb Conc 31.5 g/dL (32-36); Mean Platelet Volume 10.6 fL (7.4-10.4); Platelet Count 260 K/uL (130-400); RDW Coefficient of Variation 13.4 % (11.5-14.5); Red Blood Count 3.51 M/uL (4.2-5.4); White Blood Count 9.11 K/uL (4.8-10.8)
[2020-09-29 09:02] LABS: BUN Creatinine Ratio 18.3 (10-20); Calcium 8.5 mg/dl (8.5-10.1); Creatinine Clr Calc Pharmacy 106.9 ml/min; Est GFR (African American) 117.6 ml/min; Est GFR (Non-African American) 101.5 ml/min; Magnesium 1.7 mg/dl (1.8-2.4); Potassium 3.6 mmol/L (3.5-5.1)
[2020-09-29 09:03] LABS: Phosphorus 2.6 mg/dl (2.5-4.9)
[2020-09-29] MEDS ORDERED: POTASSIUM CHLORIDE CRTAB 20 MEQ TABCR PO STA (09:34)
--- NOTE | 2020-09-29 09:42 | Hospitalist Progress Note ---
Date of Service September 29, 2020 Assessment & Plan (1) Closed fracture of distal end of left femur: (2) Fall: Plan: Pt is 70 y/o F with PMH COPD, HTN, dyslipidemia, CKD III, GERD, chronic back pain presented to ER with c/o mechanical fall and left leg pain occurred prior to arrival. In ER patient afebrile, vital stable, labs unremarkable Left femur x-ray: No proximal left femoral fracture. Acute comminuted displaced fracture of the distal diaphysis and metadiaphysis of the left femur In ER given fentanyl 100 mcg IV, 500 mL NSS Oxycodone, Dilaudid as needed pain Gentle IVF Ortho consult, Dr. Wilkinson notified by ER, requests traction 09/26 - Pt is now s/p surgical repair w/ Dr. Wilkinson - tolerated procedure well POD 3 Left supracondylar femur fracture retrograde IM nail Per orthopedics recommendations: -PT/OT: Weightbearing and range of motion as tolerated. -VTE prophylaxis: Lovenox 40 subcu per day. May transition to aspirin 325 daily when she is more ambulatory as an outpatient -Track H/H through at least today -Dressing: May be changed today and then daily as needed based on drainage. Follow up in Dr. Wilkinson's clinic in 2-3 weeks for incision check/staple removal. Dispo: likely rehab Acute blood loss anemia, postop, dilutional Current hemoglobin 10.4 (stable for past several days) (pre-op Hgb ~13) Postop blood loss expected, no need for blood transfusion Patient is asymptomatic (3) HTN (hypertension): Plan: History of hypertension previously. No longer on medications BP was elevated in ER, improved with pain medication Monitor BP. Treat pain as above BP now at goal Hypomagnesemia Acute injury to poor oral intake after surgery Replace and monitor (4) COPD (chronic obstructive pulmonary disease): Plan: No signs of acute exacerbation Continue Spiriva Albuterol nebs as needed (5) Dyslipidemia: Plan: Continue atorvastatin (6) CKD (chronic kidney disease), stage III: Plan: Cr: 0.7. Baseline Cr: 0.8 Monitor renal functions, avoid nephrotoxic agents when possible (7) GERD (gastroesophageal reflux disease): Plan: Continue PPI (8) History of cervical spinal surgery: Plan: History arthrodesis below C2 by Dr. Waite at [facility] on 07/21/20 Wearing soft c-collar DVT Prophylaxis -Lovenox (per ortho) Full Code Follows with Dr Gordillo for routine care Dispo: likely rehab Admission and Anticipated Discharge Date Admission Date: September 25, 2020 Subjective Pt seen in follow up of femur fracture underwent surgical repair w/ orthopedics Currently sitting up in bed in NAD does report LLE pain w/ movement Says she was up and made it to the hallway today, she is in very good spirits today No chest pain, shortness of breath, fever, chills, nausea, abd. pain Encouraged incentive spirometry Review of Systems Review of Systems: All systems reviewed & are unremarkable except as noted in Subjective Physical Exam Physical Exam: General: no acute distress, WDWN Head: normocephalic, atraumatic Eyes: PERRL, EOM's intact, conjunctiva non-injected, anicteric ENT: normal inspection external ears, nose, mucous membranes moist Neck: supple, trachea midline Lungs: clear, no respiratory distress, no wheezing/rhonchi/rales CV: RRR, no murmur, no pretibial edema Abd: normal BS, soft, non-tender Ext: LLE s/p surgical repair, dressings applied, KAYLA stocking applied Neuro: A&O x 3, no focal deficits noted, normal affect Skin: warm, dry Results & Data Results & Data ([facility]) Vital Signs (Past 12 Hours) Vital Signs Temp Pulse Resp BP Pulse Ox 09/29/20 07:11 36.9 C 105 H 16 138/79 94 09/28/20 23:09 36.9 C 106 H 18 126/77 94 Laboratory Results 09/29/20 09/29/20 Range/Units 07:25 07:25 WBC 9.11 (4.8-10.8) K/uL RBC 3.51 L (4.2-5.4) M/uL Hgb 10.4 L (12.0-16.0) g/dL Hct 33.0 L (37-47) % MCV 94.0 (80-100) fL MCH 29.6 (25-34) pg MCHC 31.5 L (32-36) g/dL RDW Std Deviation 46.0 (36.4-46.3) fL RDW Coeff of Alfonso 13.4 (11.5-14.5) % Plt Count 260 (130-400) K/uL MPV 10.6 H (7.4-10.4) fL Sodium 139 (136-145) mmol/L Potassium 3.6 (3.5-5.1) mmol/L Chloride 107 (98-107) mmol/L Carbon Dioxide 25 (21-32) mmol/L Anion Gap 7.0 (3-11) BUN 8 (7-18) mg/dl Creatinine 0.46 L (0.6-1.2) mg/dl Est Cr Clr Drug Dosing 106.9 ml/min Est GFR ( Amer) 117.6 ml/min Est GFR (Non-Af Amer) 101.5 ml/min BUN/Creatinine Ratio 18.3 (10-20) Glucose 102 H (70-99) mg/dl Calcium 8.5 (8.5-10.1) mg/dl Phosphorus 2.6 (2.5-4.9) mg/dl Magnesium 1.7 L (1.8-2.4) mg/dl Medications Administered Current Inpatient Medications Acetaminophen (Acetaminophen 325 Mg Tab) 650 mg PO Q4H PRN PRN Reason: Pain or Fever Stop: 10/25/20 15:32 Last Admin: 09/27/20 15:30 Dose: 650 mg Documented by: Albuterol (Albuterol 0.083% Nebu Soln 3 Ml Vial) 2.5 mg NEB Q6R PRN PRN Reason: Shortness Of Breath Or Wheezing Stop: 10/25/20 15:32 Atorvastatin Calcium (Atorvastatin 40 Mg Tab) 80 mg PO QDD [facility] Stop: 10/25/20 16:29 Last Admin: 09/28/20 16:21 Dose: 80 mg Documented by: Bisacodyl (Bisacodyl 10 Mg Supp) 10 mg HI DAILY PRN PRN Reason: Constipation Stop: 10/26/20 14:53 Docusate Sodium (Docusate Sodium 100 Mg Cap) 100 mg PO BID [facility] Stop: 10/26/20 20:59 Last Admin: 09/28/20 20:03 Dose: Not Given Documented by: Enoxaparin Sodium (Enoxaparin Inj 40 Mg/0.4 Ml Syr) 40 mg SQ DAILY [facility] Stop: 10/28/20 08:59 Last Admin: 09/28/20 09:46 Dose: 40 mg Documented by: Hydralazine HCl (Hydralazine Hcl 20 Mg/Ml Vial) 5 mg IV Q6H PRN PRN Reason: systolic bp > 160 Stop: 10/25/20 18:29 Hydromorphone HCl (Hydromorphone Inj 0.5 Mg/0.5 Ml Syr) 0.5 mg IV Q3H PRN PRN Reason: Pain (6,7,8,9,10) Stop: 10/09/20 15:32 Last Admin: 09/29/20 08:06 Dose: 0.5 mg Documented by: Magnesium Sulfate/Dextrose (Magnesium Sulfate / D5w) 1 gm in 100 mls @ 50 mls/hr IV ONE ONE Stop: 09/29/20 11:34 Magnesium Hydroxide (Magnesium Hydroxide Susp 30 Ml Udc) 30 ml PO Q6H PRN PRN Reason: Constipation Stop: 10/26/20 14:53 Magnesium Oxide (Magnesium Oxide 400 Mg Tab) 400 mg PO BID [facility] Stop: 10/29/20 09:44 Melatonin (Melatonin 3 Mg Tab) 3 mg PO HS [facility] Stop: 10/25/20 20:59 Last Admin: 09/28/20 22:17 Dose: 3 mg Documented by: Metoclopramide HCl (Metoclopramide Hcl Inj 5 Mg/Ml 2 Ml Vial) 10 mg IV Q6H [facility] Stop: 10/27/20 10:59 Last Admin: 09/29/20 05:56 Dose: 10 mg Documented by: Multivitamins (Multivitamin Tab) 1 tab PO QAM [facility] Stop: 10/27/20 08:59 Last Admin: 09/28/20 09:47 Dose: 1 tab Documented by: Naloxone HCl (Naloxone Hcl 0.4 Mg/1 Ml Vial/Carp) 0.1 mg IV Q5M PRN PRN Reason: Oversedation/Resp Depression Stop: 10/26/20 14:53 Ondansetron HCl (Ondansetron Inj 2 Mg/Ml 2 Ml Vial) 4 mg IV Q6H PRN PRN Reason: Nausea And Vomiting Stop: 10/26/20 14:53 Last Admin: 09/27/20 08:47 Dose: 4 mg Documented by: Oxycodone HCl (Oxycodone Hcl Ir 5 Mg Tab (Immediate Release)) 5 mg PO Q4H PRN PRN Reason: MODERATE Pain (4,5,6) & Pre PT Stop: 10/09/20 15:32 Last Admin: 09/28/20 22:17 Dose: 5 mg Documented by: Pantoprazole Sodium (Pantoprazole 40 Mg Tab) 40 mg PO BID [facility]; Protocol Stop: 10/25/20 20:59 Last Admin: 09/28/20 20:03 Dose: 40 mg Documented by: Polyethylene Glycol (Polyethylene (Miralax) 17 Gm Pack) 17 gm PO DAILY PRN PRN Reason: Constipation Stop: 10/25/20 15:32 Potassium Chloride (Potassium Chloride Crtab 20 Meq Tabcr) 20 meq PO NOW STA Stop: 09/29/20 09:35 Senna/Docusate Sodium (Docusate Sodium/Senna 50/8.6mg Tab) 2 tab PO HS [facility]ST[facility] Stop: 10/25/20 20:59 Last Admin: 09/28/20 20:02 Dose: Not Given Documented by: Sennosides (Senna 8.6 Mg Tab) 17.2 mg PO HS [facility]STIAN Stop: 10/26/20 20:59 Last Admin: 09/28/20 20:03 Dose: Not Given Documented by: Umeclidinium Quinault (Umeclidinium Quinault 62.5mcg/Blister 7 Puffs/Inhaler) 1 puffs INH QAM [facility]; Protocol Stop: 10/26/20 08:59 Last Admin: 09/28/20 09:46 Dose: 1 puffs Documented by: Vitamin D (Cholecalciferol 1,000 Units 25 Mcg Tab) 2,000 units PO BID [facility] Stop: 10/25/20 20:59 Last Admin: 09/28/20 20:04 Dose: 2,000 units Documented by:
[2020-09-29] MEDS ORDERED: MAGNESIUM SULFATE / D5W 1 GM/100 ML BAG IV ONE (10:00)
--- NOTE | 2020-09-29 10:31 | Orthopedic Progress Note ---
Date of Service September 29, 2020 Assessment & Plan (1) Closed fracture of femur: Postop day 3 status post left supracondylar femur fracture retrograde IM nail Making uncomplicated progress. Expected blood loss. Hgb trending up today. -PT/OT: Weightbearing and range of motion as tolerated. -VTE prophylaxis: Lovenox 40 subcu per day. May transition to aspirin 325 daily when she is more ambulatory as an outpatient. KAYLA stockings for mechanical prophylaxis -H/H improving, up to 10.4 today from 9.8. OK w/ daily labs. -Dressing changed today. Keep dressing covered w/ KAYLA stocking. Can change daily prn based on drainage at this point. -Ice/elevate while in bed Dispo: Stable for discharge from Orthopedic perspective. Appreciate PT/OT evaluations. Outpatient placement pending. Follow up in Dr. Wilkinson's clinic in 2-3 weeks for incision check/staple removal. Subjective Doing well today. Still sore, more so with ambulating, but manageable with current pain regimen. Has been up and out of bed several times and ambulating independently with walker per nursing. Review of Systems All systems reviewed & are unremarkable except as noted in HPI & below. Physical Exam Left lower extremity: Resting appropriate with knee in full extension. Ice packs in place. Incisions are clean with no drainage. New dressing in place which is clean, dry, intact. Positive DF/PF/EHL. Neurovascular intact. There is some mild edema to the dorsum of the foot, as expected. Constitutional WD/WN, vitals as above no acute distress and not intoxicated appearing Respiratory normal respiratory effort; no labored breathing Cardiovascular Extremities: normal capillary refill . Results & Data Results & Data Laboratory Results Laboratory Tests 09/29/20 09/29/20 07:25 07:25 WBC 9.11 RBC 3.51 L Hgb 10.4 L Hct 33.0 L Plt Count 260 Sodium 139 Potassium 3.6 Chloride 107 BUN 8 Creatinine 0.46 L Glucose 102 H . Diagnostic Findings N/A . PG Care Time/CCT Total # of Minutes Spent Total Time Spent with Patient: Total time spent is greater than 50% in coordination of care (as documented) at patient's floor/unit and/or counseling patient: Coding Level of Care Code 88937 Post Operative Follow-Up Diagnoses Closed fracture of femur S72.90XA
[2020-09-29] MEDS: DOCUSATE SODIUM 100 MG CAP PO SCH ×2 (10:40→21:56)
[2020-09-29] MEDS: PANTOprazole 40 MG TAB PO SCH ×2 (10:42→21:56)
[2020-09-29] MEDS: ENOXAPARIN INJ 40 MG/0.4 ML SYR SQ SCH (10:42)
[2020-09-29] MEDS: MULTIVITAMIN TAB PO SCH (10:42)
[2020-09-29] MEDS: CHOLECALCIFEROL 1,000 UNITS 25 MCG TAB PO SCH ×2 (10:42→21:55)
[2020-09-29] MEDS: MAGNESIUM OXIDE 400 MG TAB PO SCH ×2 (10:42→21:56)
[2020-09-29] MEDS: UMECLIDINIUM BROMIDE 62.5MCG/BLISTER 7 PUFFS/INHALER INH SCH (10:43)
[2020-09-29] MEDS: oxyCODONE HCL IR 5 MG TAB (IMMEDIATE RELEASE) PO PRN ×2 (15:53→21:56)
[2020-09-29] MEDS: ATORVASTATIN 40 MG TAB PO SCH (15:55)
[2020-09-29] MEDS: SENNA 8.6 MG TAB PO SCH (21:55)
[2020-09-29] MEDS: DOCUSATE SODIUM/SENNA 50/8.6MG TAB PO SCH (21:56)
[2020-09-29] MEDS: MELATONIN 3 MG TAB PO SCH (21:56)
[2020-09-30] MEDS: oxyCODONE HCL IR 5 MG TAB (IMMEDIATE RELEASE) PO PRN ×5 (02:09→20:07)
[2020-09-30] MEDS: METOCLOPRAMIDE HCL INJ 5 MG/ML 2 ML VIAL IV SCH ×4 (05:57→21:57)
[2020-09-30 08:28] LABS: Hematocrit (blood only) 33.3 % (37-47); Hemoglobin 10.5 g/dL (12.0-16.0)
[2020-09-30 08:57] LABS: BUN Creatinine Ratio 19.4 (10-20); Calcium 8.6 mg/dl (8.5-10.1); Creatinine Clr Calc Pharmacy 92.8 ml/min; Est GFR (African American) 112.3 ml/min; Est GFR (Non-African American) 96.9 ml/min; Potassium 3.6 mmol/L (3.5-5.1)
[2020-09-30] MEDS: MULTIVITAMIN TAB PO SCH (09:20)
[2020-09-30] MEDS: ENOXAPARIN INJ 40 MG/0.4 ML SYR SQ SCH (09:20)
[2020-09-30] MEDS: DOCUSATE SODIUM 100 MG CAP PO SCH ×2 (09:21→20:08)
[2020-09-30] MEDS: MAGNESIUM OXIDE 400 MG TAB PO SCH ×2 (09:21→20:08)
[2020-09-30] MEDS: PANTOprazole 40 MG TAB PO SCH ×2 (09:21→20:08)
[2020-09-30] MEDS: UMECLIDINIUM BROMIDE 62.5MCG/BLISTER 7 PUFFS/INHALER INH SCH (09:22)
[2020-09-30] MEDS: CHOLECALCIFEROL 1,000 UNITS 25 MCG TAB PO SCH ×2 (09:22→20:09)
--- NOTE | 2020-09-30 15:58 | Orthopedic Progress Note ---
Date of Service September 30, 2020 Assessment & Plan (1) Closed fracture of femur: Postop day 4 status post left supracondylar femur fracture retrograde IM nail Making uncomplicated progress. Expected blood loss. Hgb stable. -PT/OT: Weightbearing and range of motion as tolerated. -VTE prophylaxis: Lovenox 40 subcu per day. May transition to aspirin 325 daily when she is more ambulatory as an outpatient. KAYLA stockings for mechanical prophylaxis -H/H remains stable. -Keep dressing covered w/ KAYLA stocking. Can change daily prn based on drainage at this point. -Ice/elevate while in bed Dispo: Stable for discharge from Orthopedic perspective. Appreciate PT/OT evaluations. Outpatient placement pending. Follow up in Dr. Wilkinson's clinic in 2-3 weeks for incision check/staple removal. We will follow peripherally at this point and are available if there are any questions. Subjective Doing well today. Still sore but pain improving. No acute events. Review of Systems All systems reviewed & are unremarkable except as noted in HPI & below. Physical Exam Left lower extremity: Resting comfortably in bed w/ knee in full extension. Ice packs in place. Dressing C/D/I. Positive DF/PF/EHL. Neurovascular intact. Constitutional WD/WN, vitals as above no acute distress and not intoxicated appearing Respiratory normal respiratory effort; no labored breathing Cardiovascular Extremities: normal capillary refill . . Results & Data Results & Data Laboratory Results Reviewed. Diagnostic Findings Reviewed . PG Care Time/CCT Total # of Minutes Spent Total Time Spent with Patient: Total time spent is greater than 50% in coordination of care (as documented) at patient's floor/unit and/or counseling patient: Coding Level of Care Code 49712 Post Operative Follow-Up Diagnoses Closed fracture of femur S72.90XA
[2020-09-30] MEDS: ATORVASTATIN 40 MG TAB PO SCH (16:45)
--- NOTE | 2020-09-30 20:01 | Hospitalist Progress Note ---
Date of Service September 30, 2020 Assessment & Plan (1) Closed fracture of distal end of left femur: (2) Fall: Plan: Patient is a 70 yr female with H/O COPD, HTN, dyslipidemia, CKD III, GERD, chronic back pain presented to ER with c/o mechanical fall and left leg pain occurred prior to arrival. Closed fracture of femur Secondary to Fall -Left femur x-ray: No proximal left femoral fracture. Acute comminuted displaced fracture of the distal diaphysis and metadiaphysis of the left femur -S/P left supracondylar femur fracture retrograde IM nail POD #4 -Pain Control PT/OT Bowel regimen to prevent constipation Rehab as able Appreciate orthopedics input Needs follow-up with orthopedics upon discharge with Dr. Wilkinson in 2 to 3 weeks VTE prophylaxis: continue Lovenox 40 mg SQ daily. May transition to aspirin 325 daily when she is more ambulatory as an outpatient Acute blood loss anemia, postop, dilutional Current hemoglobin 10.4 (stable for past several days) (pre-op Hgb ~13) Postop blood loss expected No indication for PRBC transfusion Monitor (3) HTN (hypertension): Plan: H/O hypertension previously No longer on medications Monitor Hypomagnesemia Replace and monitor (4) COPD (chronic obstructive pulmonary disease): Plan: No signs of acute exacerbation Continue Spiriva Albuterol nebs as needed (5) Dyslipidemia: Plan: Continue atorvastatin (6) CKD (chronic kidney disease), stage III: Plan: Cr at baseline Monitor renal functions avoid nephrotoxic agents when possible (7) GERD (gastroesophageal reflux disease): Plan: Continue PPI (8) History of cervical spinal surgery: Plan: History arthrodesis below C2 by Dr. Waite at [facility] on 07/21/20 Wearing soft c-collar DVT Px Lovenox SQ Code Status Full Code Admission and Anticipated Discharge Date Admission Date: September 25, 2020 Subjective Patient is seen and examined at bedside States having nausea intermittently Also states having left knee pain after PT OT Denies chest pain, shortness breath, dizziness, vomiting, abdominal pain Waiting for rehab placement Review of Systems Review of Systems: All systems reviewed & are unremarkable except as noted in Subjective Physical Exam Physical Exam: Physical Exam: Vitals signs as noted above General Appearance:Moderately built and nourished, no apparent distress Head: normocephalic, Atraumatic Eyes: normal inspection, EOMI Neck: supple, Trachea midline Respiratory/Chest: Normal breath sounds, CTA Cardiovascular: S1, S2, No murmur Abdomen/GI:Soft, Non tender, Bowel sounds present Extremities/Musculoskeletal:normal inspection, Left knee in dressing Neurologic/Psych:AAOX3, grossly no focal neurological deficits Skin: normal color, warm Results & Data Results & Data ([facility]) Vital Signs (Past 12 Hours) Vital Signs Temp Pulse Resp BP Pulse Ox 09/30/20 16:06 36.7 C 88 16 143/76 H 94 Laboratory Results Short CBC 09/30/20 Range/Units 08:08 Hgb 10.5 L (12.0-16.0) g/dL Hct 33.3 L (37-47) % BMP 09/30/20 08:08 Sodium 139 Potassium 3.6 Chloride 105 Carbon Dioxide 28 BUN 10 Creatinine 0.53 L Glucose 104 H Calcium 8.6
[2020-09-30] MEDS: SENNA 8.6 MG TAB PO SCH (20:08)
[2020-09-30] MEDS: DOCUSATE SODIUM/SENNA 50/8.6MG TAB PO SCH (20:11)
[2020-09-30] MEDS: MELATONIN 3 MG TAB PO SCH (21:57)
[2020-10-01] MEDS: oxyCODONE HCL IR 5 MG TAB (IMMEDIATE RELEASE) PO PRN ×2 (03:51→09:55)
[2020-10-01] MEDS: METOCLOPRAMIDE HCL INJ 5 MG/ML 2 ML VIAL IV SCH ×2 (05:19→09:55)
[2020-10-01] MEDS: PANTOprazole 40 MG TAB PO SCH (08:11)
[2020-10-01] MEDS: MAGNESIUM OXIDE 400 MG TAB PO SCH (08:12)
[2020-10-01] MEDS: UMECLIDINIUM BROMIDE 62.5MCG/BLISTER 7 PUFFS/INHALER INH SCH (08:12)
[2020-10-01] MEDS: CHOLECALCIFEROL 1,000 UNITS 25 MCG TAB PO SCH (08:12)
[2020-10-01] MEDS: DOCUSATE SODIUM 100 MG CAP PO SCH (08:12)
[2020-10-01] MEDS: ENOXAPARIN INJ 40 MG/0.4 ML SYR SQ SCH (08:12)
[2020-10-01] MEDS: MULTIVITAMIN TAB PO SCH (08:13)
--- NOTE | 2020-10-01 11:09 | Orthopedic Progress Note ---
Date of Service October 01, 2020 Assessment & Plan (1) Closed fracture of femur: Postop day 5 status post left supracondylar femur fracture retrograde IM nail Making uncomplicated progress. -PT/OT: Weightbearing and range of motion as tolerated. -VTE prophylaxis: Lovenox 40 subcu per day. May transition to aspirin 325 daily when she is more ambulatory as an outpatient. KAYLA stockings for mechanical prophylaxis -Keep dressing covered w/ KAYLA stocking. Can change daily prn based on drainage at this point. -Ice/elevate while in bed Dispo: Stable for discharge from Orthopedic perspective. Appreciate PT/OT evaluations. Going to [facility] today. Follow up in Dr. Wilkinson's clinic in 2-3 weeks for incision check/staple removal. We will follow peripherally at this point and are available if there are any questions. Subjective Doing well today. Pain continues to improve. Review of Systems All systems reviewed & are unremarkable except as noted in HPI & below. Physical Exam Left lower extremity: Resting comfortably in bed w/ knee in full extension. Ice packs in place. Dressing C/D/I. Positive DF/PF/EHL. Neurovascular intact. Starting to activate quad muscles but unable to straight leg raise against gravity yet. ROM of knee limited 2/2 pain. Constitutional WD/WN, vitals as above no acute distress and not intoxicated appearing Respiratory normal respiratory effort; no labored breathing Cardiovascular Extremities: normal capillary refill . . . Results & Data Results & Data Laboratory Results None today . Diagnostic Findings N/A . PG Care Time/CCT Total # of Minutes Spent Total Time Spent with Patient: Total time spent is greater than 50% in coordination of care (as documented) at patient's floor/unit and/or counseling patient: Coding Level of Care Code 39850 Post Operative Follow-Up Diagnoses Closed fracture of femur S72.90XA
--- NOTE | 2020-10-01 12:27 | Hospitalist Progress Note ---
Date of Service October 01, 2020 Assessment & Plan (1) Closed fracture of distal end of left femur: (2) Fall: Plan: Patient is a 70 yr female with H/O COPD, HTN, dyslipidemia, CKD III, GERD, chronic back pain presented to ER with c/o mechanical fall and left leg pain occurred prior to arrival. Closed fracture of femur Secondary to Fall -Left femur x-ray: No proximal left femoral fracture. Acute comminuted displaced fracture of the distal diaphysis and metadiaphysis of the left femur -S/P left supracondylar femur fracture retrograde IM nail POD #5 -Pain Control PT/OT Bowel regimen to prevent constipation Rehab as able Appreciate orthopedics input Needs follow-up with orthopedics upon discharge with Dr. Wilkinson in 2 to 3 weeks VTE prophylaxis: continue Lovenox 40 mg SQ daily. May transition to aspirin 325 daily when she is more ambulatory as an outpatient Plan to discharge to rehab facility today Acute blood loss anemia, postop, dilutional Current hemoglobin 10.4 (stable for past several days) (pre-op Hgb ~13) Postop blood loss expected No indication for PRBC transfusion Monitor (3) HTN (hypertension): Plan: H/O hypertension previously No longer on medications Monitor Hypomagnesemia Replace and monitor (4) COPD (chronic obstructive pulmonary disease): Plan: No signs of acute exacerbation Continue Spiriva Albuterol nebs as needed (5) Dyslipidemia: Plan: Continue atorvastatin (6) CKD (chronic kidney disease), stage III: Plan: Cr at baseline Monitor renal functions avoid nephrotoxic agents when possible (7) GERD (gastroesophageal reflux disease): Plan: Continue PPI (8) History of cervical spinal surgery: Plan: History arthrodesis below C2 by Dr. Waite at [facility] on 07/21/20 Wearing soft c-collar DVT Px Lovenox SQ Code Status Full Code Admission and Anticipated Discharge Date Admission Date: September 25, 2020 Subjective Patient is seen and examined at bedside Leg pain is better No new complaints Denies chest pain, shortness breath, dizziness, vomiting, abdominal pain Plan to discharge to rehab facility today Review of Systems Review of Systems: All systems reviewed & are unremarkable except as noted in Subjective Physical Exam Physical Exam: Physical Exam: Vitals signs as noted above General Appearance:Moderately built and nourished, no apparent distress Head: normocephalic, Atraumatic Eyes: normal inspection, EOMI Neck: supple, Trachea midline Respiratory/Chest: Normal breath sounds, CTA Cardiovascular: S1, S2, No murmur Abdomen/GI:Soft, Non tender, Bowel sounds present Extremities/Musculoskeletal:normal inspection, Left knee in dressing Neurologic/Psych:AAOX3, grossly no focal neurological deficits Skin: normal color, warm Results & Data Results & Data ([facility]) Vital Signs (Past 12 Hours) Vital Signs Temp Pulse Resp BP Pulse Ox 10/01/20 07:42 36.8 C 91 H 16 121/76 90
--- NOTE | 2020-10-01 12:37 | Discharge Summary ---
Date of Service October 01, 2020 Admission HPI Per Admitting Provider Pt is 70 y/o F with PMH COPD, HTN, dyslipidemia, CKD III, GERD, chronic back pain presented to ER with c/o fall and left leg pain prior to arrival. Reports was standing taking a picture when she stepped backwards and caught her foot on a hose causing her to slide backwards and fell onto left knee. Patient reports was unable to attempt ambulation. Denies paresthesias to lower leg or foot. She denies hitting head, LOC, CP, SOB, dizziness. Patient denies any other injury. She reports history of COPD and takes Spiriva daily and has not needed to use albuterol inhaler. 07/2020 had C-spine surgery at [facility] and is still wearing soft c-collar. She has chronic back pain and reports was to have surgery in future. She follows with pain management in [place] and is on hydrocodone. She states past 2 months having intermittent nausea and vomiting and had outpatient abdominal ultrasound showing gallstones and she is to follow with general surgery in near future. Currently she is controlling symptoms with avoiding trigger foods in diet. Denies fever/chills, diaphoresis, diarrhea, WAT[place], vision changes, neck pain, orthopnea, palpitations, cough, sore throat, choking, otalgia, rhinorrhea, abdominal pain, paresthesias, extremity edema, rashes, urinary symptoms. In ER pt found to have Acute comminuted displaced fracture of the distal diaphysis and metadiaphysis of the left femur. Pt being admitted for further treatment. Admission Exam Per Admitting Provider Physical Exam Physical Exam: General: no acute distress, WDWN Head: normocephalic, atraumatic Eyes: PERRL, EOM's intact, conjunctiva non-injected, anicteric ENT: normal inspection external ears, nose, mucous membranes moist Neck: supple, trachea midline Lungs: clear, no respiratory distress, no wheezing/rhonchi/rales CV: RRR, no murmur, no pretibial edema Abd: normal BS, soft, non-tender Ext: no cyanosis, no calf tenderness; LLE: +left knee held in flexion as positio n of comfort, no range of motion attempted, dorsalis pedis pulse palpable (marked with x), sensation to light touch intact. Remaining extremities with normal appearance, range of motion intact Neuro: A&O x 3, no focal deficits noted, normal affect Skin: warm, dry Principal Diagnosis Closed fracture of femur Hypomagnesemia Discharge Data Allergies Allergy/AdvReac Type Severity Reaction Status Date / Time erythromycin base Allergy Hives Unverified 09/25/20 11:46 latex Allergy Rash Unverified 09/25/20 11:46 Penicillins Allergy Hives Unverified 09/25/20 11:46 vancomycin Allergy Unknown Unverified 09/25/20 12:49 Procedures Performed Operation Date: 09/26/20 08:45 Actual Procedures p Left Distal Femur Fracture, Retrograde Nail(Left) - Lopez Wilkinson MD Ordered Studies 09/26/20 06:59 FL femur LT 2V Routine Hospital Course (1) Fall: Patient is a 70 yr female with H/O COPD, HTN, dyslipidemia, CKD III, GERD, chronic back pain presented to ER with c/o mechanical fall and left leg pain occurred prior to arrival. Closed fracture of femur Secondary to Fall -Left femur x-ray: No proximal left femoral fracture. Acute comminuted displaced fracture of the distal diaphysis and metadiaphysis of the left femur -S/P left supracondylar femur fracture retrograde IM nail POD #5 -Pain Control PT/OT Bowel regimen to prevent constipation Rehab as able Appreciate orthopedics input Needs follow-up with orthopedics upon discharge with Dr. Wilkinson in 2 to 3 weeks VTE prophylaxis: continue Lovenox 40 mg SQ daily. May transition to aspirin 325 daily when she is more ambulatory as an outpatient Plan to discharge to rehab facility today Acute blood loss anemia, postop, dilutional Current hemoglobin 10.4 (stable for past several days) (pre-op Hgb ~13) Postop blood loss expected No indication for PRBC transfusion Monitor (2) HTN (hypertension): H/O hypertension previously No longer on medications Monitor Hypomagnesemia Replace and monitor (3) COPD (chronic obstructive pulmonary disease): No signs of acute exacerbation Continue Spiriva Albuterol nebs as needed (4) Dyslipidemia: Continue atorvastatin (5) CKD (chronic kidney disease), stage III: Cr at baseline Monitor renal functions avoid nephrotoxic agents when possible (6) GERD (gastroesophageal reflux disease): Continue PPI (7) History of cervical spinal surgery: History arthrodesis below C2 by Dr. Waite at [facility] on 07/21/20 Wearing soft c-collar DVT Px Lovenox SQ Code Status Full Code Total Time Total Time Spent Total Time Spent (In Minutes): 42 minutes Discharge Plan Discharge Items Patient Disposition: [facility] Reason For Visit: L FEMUR FX Discharge Diagnosis: Closed fracture of femur Hypomagnesemia Activity: Per Instructions section Non-emergency contact: Primary Care Provider and Surgeon Call non-emergency contact if: you have any medication questions, your symptoms worsen, your pain is not controlled, your pain is concerning for you and you have a fever Follow-up/Referrals: Tristan Gordillo MD [Primary Care Provider] - Diet: Heart Healthy [place] Attending Provider Instructions: Follow-up with your primary care physician Dr. Gordillo in 1 week upon discharge from rehab facility Follow-up with your orthopedic surgeon Dr. Wilkinson in 2 to 3 weeks Continue Lovenox 40mg SQ daily for DVT prophylaxis. Can transition to Aspirin 325mg daily as able. Seek immediate medical attention if your symptoms reoccur or worsen Please take all medications as instructed on discharge list below. Please call if you have any questions or problems. You can reach a [facility] hospitalist on duty at [facility] 24 hours a day by calling [phone] [employer] Provider Instructions: Orthopaedic Instructions after Femur Fracture Surgery: Please keep your wound clean and dry. Do not remove any of the leander. [place] were removed at your follow-up appointment with orthopedic surgery. Please continue daily dressing changes until your follow-up appointment. If there is no drainage onto the dressing for total of 24 hours, you may shower after 5 days from surgery. Allow soap and water to run over the incision, no scrubbing, and pat dry. Do not submerse (sitting in bathtub, hot tub, jacuzzi, pool, etc) the wound for at least 3 weeks. You may bear weight on your lower extremities as tolerated. Please use the walker or as instructed by physical therapy. For pain control please use Tylenol as needed. You may also have a stronger pain medication prescribed to you at discharge. You can also apply ice to the surgical site. To reduce the risk of dangerous blood clots please continue aspirin 325 mg by mouth daily or the medication for blood clots recommended by your medical team. Orthopedic clinic follow-up should be in 2-3 weeks after surgery for repeat x- ray. Leander can be removed at the orthopedic follow-up. If necessary, leander can be removed by a nurse at home or at a nursing facility upon our order. Please contact the clinic. Pending Studies at Discharge: No Stand-Alone Forms: My [facility] Skilled Items Patient informed of condition?: Yes DNR: No Discharge Level of Care: Skilled Communicable Disease: No Discharge Prognosis: Stable Lines: None Urinary Catheter: No Medications and DC Order Prescriptions: New enoxaparin 40 mg/0.4 mL Syringe 40 mg subcut DAILY 14 Days Qty: 5.6 RF: 0 bisacodyl 10 mg Suppository 10 mg TN DAILY PRN (Reason: constipation) Qty: 30 RF: 0 docusate sodium 100 mg Capsule 100 mg PO BID Qty: 30 RF: 0 polyethylene glycol 3350 [Miralax] 17 gram Powder In Packet 17 g PO DAILY PRN (Reason: constipation) Qty: 30 RF: 0 magnesium oxide 400 mg (241.3 mg magnesium) Tablet 400 mg PO BID Qty: 30 RF: 0 Continued atorvastatin [Lipitor] 80 mg Tablet 80 mg PO QDD RF: 0 omeprazole 20 mg capsule,delayed release(DR/EC) 20 mg PO BID RF: 0 cholecalciferol (vitamin D3) [Vitamin D3] 50 mcg (2,000 unit) Capsule 50 mcg PO BID RF: 0 alendronate [Fosamax] 70 mg tablet 70 mg PO WK RF: 0 melatonin [Melatin] 3 mg Tablet 3 mg PO HS RF: 0 Multivitamin Gummies 200 mcg Tablet,Chewable 1 tab PO QAM RF: 0 Spiriva Respimat 2.5 mcg/actuation mist 2 puff INHALATION QAM RF: 0 albuterol sulfate 90 mcg/actuation HFA aerosol inhaler 2 puff INHALATION QID PRN (Reason: Shortness Of Breath Or Wheezing) RF: 0 hydrocodone-acetaminophen 7.5-325 mg tablet 1 tab PO Q6H PRN (Reason: Pain) Qty: 10 RF: 0 Discharge Orders: Discharge Order (Routine); Ordered 10/01/20 Ordered By: Chevy Alonzo Admission Data Admit Date/Time: 09/25/20 13:05 Attending Provider: Chevy Alonzo Admit Provider: Jignesh Cruz Primary Care Provider: Tristan Gordillo Other Providers: Jonny Scott ; Jonny Wilson at [facility] Other Interventions: Discharge Summary Assessment (RN) Last Done: 10/01/20 12:47
== END 2020-10-01 14:51 | DRG 481 ==
LOC: ED 09:19 → 3N 13:05 → SUATTDRO 13:05 → 3N 14:28

== ENCOUNTER 2021-09-13 19:31 | Inpatient (IN) ==
[2021-09-13] MEDS ORDERED: ACETAMINOPHEN 1,000 MG/100 ML VIAL IV STA (20:12)
[2021-09-13] MEDS ORDERED: SODIUM CHLORIDE 0.9% 1000ML 1,000 ML IV SCH (20:15)
[2021-09-13 20:19] LABS: Basophils # (auto) 0.06 K/uL (0-0.2); Basophils % (auto) 0.5 %; Eosinophils # (auto) 0.03 K/uL (0-0.50); Eosinophils % (auto) 0.3 %; Hematocrit (blood only) 29.1 % (34.1-44.9); Hemoglobin 9.3 g/dl (12.0-16.0); Immature Granulocytes # (auto) 0.04 K/uL (0.00-0.02); Immature Granulocytes % (auto) 0.4 %; Lymphocytes # (auto) 1.27 K/uL (1.2-3.4); Lymphocytes % (auto) 11.4 %; Mean Corpuscular Hemoglobin 29.6 pg (25.0-34.0); Mean Corpuscular Volume 92.7 fL (80.0-100.0); Mean Platelet Volume 11.1 fL (9.4-12.3); Monocytes # (auto) 1.25 K/uL (0.24-0.82); Monocytes % (auto) 11.2 %; Neutrophils # (auto) 8.48 K/uL (1.4-6.5); Neutrophils % (auto) 76.2 %; Platelet Count 287 K/uL (130-400); RDW Coefficient of Variation 12.5 % (11.5-14.5); Red Blood Count 3.14 M/uL (3.93-5.22); White Blood Count 11.13 K/ul (4.8-10.8)
[2021-09-13 20:29] LABS: INR 1.1 (0.9-1.1); Prothrombin Time 11.9 Seconds (9.0-12.0)
[2021-09-13 20:46] LABS: Troponin I High Sensitivity 5.9 pg/ml (0-14)
[2021-09-13 20:50] LABS: Albumin Level 3.2 gm/dl (3.4-5.0); BUN Creatinine Ratio 19.8 (10-20); Bilirubin,Total 0.4 mg/dl (0.2-1.0); Calcium 8.3 mg/dl (8.5-10.1); Creatinine Clr Calc Pharmacy 59.2 ml/min; Est GFR (African American) 79.3 ml/min; Est GFR (Non-African American) 68.4 ml/min; Globulin 3.3 gm/dl (2.5-4.0); Magnesium 1.7 mg/dl (1.7-2.4); Total Protein 6.5 gm/dl (6.0-8.3)
[2021-09-13 21:00] LABS: Appearance Urine Clear (Clear); Bacteria Urine Automated Negative (Negative); Bilirubin Urine Negative (Negative); Blood Urine Negative (Negative); Color Urine Yellow; Epithelial Cell Urine Auto >30 /lpf (0-5); Glucose Urine UA Negative (Negative); Ketones Urine Negative (Negative); Leukocyte Esterase Urine Negative (Negative); Nitrite Urine Negative (Negative); Protein Urine Trace (Negative); RBC Urine Automated 0-4 /hpf (0-4); Specific Gravity Urine 1.019 (1.000-1.030); Urobilinogen Urine Negative (Negative)
[2021-09-13] MEDS ORDERED: MoRPHine SULFATE 4 MG/ML 1 ML CARP\\VIAL IV STA ×2 (21:00→23:31)
[2021-09-13] MEDS ORDERED: CEFEPIME 2,000 MG/20 ML VIAL IV STA (21:02)
--- NOTE | 2021-09-13 21:02 | XRay Report ---
XR chest 1V portable CLINICAL HISTORY: SEPSIS COMPARISON STUDY: Chest radiograph September 25, 2020. FINDINGS: Incidental note is made of postoperative findings within the spine. Lung volumes are normal . Lungs are clear. There is no pneumothorax or pleural effusion. Cardiac size is normal. Mediastinal contours are normal. There is no evidence for pulmonary edema. Moderate sized hiatal hernia is noted. Density lateral to the left heart border is likely related to anterior left fifth rib. There are mul tiple healing left-sided rib fractures. IMPRESSION: No acute cardiopulmonary findings. ACT 112: Negative or not required by law. Electronically signed by: Antony Brown M.D. 09/13/2021 9:01 PM
[2021-09-13 21:39] LABS: Adenovirus PCR Not Detected (NotDetected); Bordetella parapertussis PCR Not Detected (NotDetected); Bordetella pertussis PCR Not Detected (NotDetected); Chlamydia pneumoniae PCR Not Detected (NotDetected); Coronavirus 229E PCR Not Detected (NotDetected); Coronavirus CoV-2 (COVID19)PCR Not Detected (NotDetected); Coronavirus HKU1 PCR Not Detected (NotDetected); Coronavirus NL63 PCR Not Detected (NotDetected); Coronavirus OC43PCR Not Detected (NotDetected); Human Metapneumovirus PCR Not Detected (NotDetected); Influenza A PCR Not Detected (NotDetected); Influenza B PCR Not Detected (NotDetected); Mycoplasma pneumoniae PCR Not Detected (NotDetected); Parainfluenza Virus 1 PCR Not Detected (NotDetected); Parainfluenza Virus 2 PCR Not Detected (NotDetected); Parainfluenza Virus 3 PCR Not Detected (NotDetected); Parainfluenza Virus 4 PCR Not Detected (NotDetected); Respiratory Syncytial VirusPCR Not Detected (NotDetected); Rhinovirus/Enterovirus PCR Not Detected (NotDetected)
--- NOTE | 2021-09-13 21:44 | Emergency Department Note ---
History of Present Illness General Chief complaint: Back Injury/Pain Stated complaint: back pain Time Seen by Provider: 09/13/21 19:55 Source: patient Mode of arrival: ambulatory Limitations: no limitations History of Present Illness Provider complaint: Pelvic pain, fevers, recent back surgery Onset (ago): day(s) 3 Maximum Pain Intensity: 7 This is a 71 yo female who presents with concern for pelvic and hip pain, fevers, decreased appetite, and weakness. Patient recently had back surgery to her lumbar spine on August 25. Patient states she felt she had had been doing well, improving, pain was decreased, and she was ambulating on her own. She states then 3 to 4 days ago she began feeling increasing weakness, pain in the right groin into the pelvic area and right lower extremity. She states she also noticed decreased appetite, and then began feeling fevered. Patient states her incision has been healing well, no discharge or drainage from the wound. She s tates she was due to have the dwight removed tomorrow. She states she noticed a mild raspy cough, nonproductive, but denies chest pain or shortness of breath. She denies abdominal pain, change in urine or stools. Patient states she has had some mild congestion, no sore throat. She denies headaches or dizziness. Pt seen during a time of high acuity and national emergency pandemic while wearing PPE. Home Medications Medication Instructions Recorded Confirmed Type atorvastatin 80 mg tablet (Lipitor) 80 mg PO QDD 07/18/19 09/13/21 History cholecalciferol (vitamin D3) 50 50 mcg PO DAILY 07/18/19 09/14/21 History mcg (2,000 unit) capsule (Vitamin D3) omeprazole 20 mg capsule,delayed 20 mg PO BID 07/18/19 09/13/21 History release albuterol sulfate 90 mcg/actuation 2 puff inhalation QID PRN 09/25/20 09/13/21 History aerosol inhaler Shortness Of Breath Or Wheezing multivitamin with minerals-folic 1 tab PO QAM 09/25/20 09/13/21 History acid 200 mcg chewable tablet (Multivitamin Gummies) tiotropium bromide 2.5 2 puff inhalation QAM 09/25/20 09/13/21 History mcg/actuation mist for inhalation (Spiriva Respimat) magnesium oxide 400 mg (241.3 mg 400 mg PO BID #30 tabs 10/01/20 09/13/21 Rx magnesium) tablet ondansetron 4 mg disintegrating 4 mg PO Q6H PRN Nausea 10/22/20 09/13/21 History tablet acetaminophen 325 mg tablet 650 mg PO Q4H PRN Pain 09/13/21 09/13/21 History (Tylenol) calcium carbonate 500 mg-vitamin 1 tab PO DAILY 09/13/21 09/13/21 History D3 3.125 mcg (125 unit) tablet clobetasol 0.05 % topical cream 1 applic topical BID PRN Skin 09/13/21 09/13/21 History Irritation melatonin 10 mg tablet 10 mg PO HS 09/13/21 09/13/21 History oxycodone-acetaminophen 10 mg-325 1 tab PO BID PRN Pain 09/13/21 09/14/21 Histor y mg tablet polyethylene glycol 3350 17 gram 17 g PO DAILY 09/13/21 09/13/21 History oral powder packet (Miralax) pregabalin 150 mg capsule 150 mg PO BID 09/13/21 09/13/21 History sennosides 8.6 mg-docusate sodium 1 tab-cap PO BID 09/13/21 09/13/21 History 50 mg tablet (Senna with Docusate Sodium) teriparatide 20 mcg/dose (600 20 mcg subcut DAILY 09/13/21 09/13/21 History mcg/2.4 mL) subcutaneous pen injector (Forteo) tizanidine 2 mg tablet 2 mg PO Q8H PRN MUSCLE SPASMS 09/13/21 09/13/21 History trazodone 50 mg tablet 50 mg PO HS 09/13/21 09/13/21 History valacyclovir 1 gram tablet 2,000 mg PO Q12H PRN Cold Sores 09/13/21 09/13/21 History Allergies Allergy/AdvReac Type Severity Reaction Status Date / Time erythromycin base Allergy Intermediate Hives Verified 09/13/21 20:35 latex Allergy Intermediate ITCHY RASH Verified 09/13/21 20:35 Penicillins Allergy Intermediate Hives Verified 09/13/21 20:35 nickel Allergy Mild Skin Verified 09/13/21 20:35 irritation vancomycin AdvReac Severe Renal Verified 09/13/21 20:35 complications Past Med/Surg History Medical History Asthma Mild, no recent inhaler use CKD (chronic kidney disease), stage III Closed fracture of distal end of left femur COPD (chronic obstructive pulmonary disease) Degenerative disc disease Follows with pain management Dyslipidemia GERD (gastroesophageal reflux disease) Osteoarthritis Sleep apnea No device Surgical History H/O arthrodesis H/O thumb surgery Left > tendon repair History of bilateral tubal ligation History of cervical spinal surgery GOOD ROM History of esophagogastroduodenoscopy (EGD) History of open reduction and internal fixation (ORIF) procedure Left femur retrograde IM nail (09/25/20): SAB at L3-L4 (x2 attempts) at [facility] > d/c from [facility] rehab 10/09/20 History of revision of total replacement of right knee joint History of tonsillectomy and adenoidectomy History of tooth extraction History of total knee arthroplasty Right (2010) Hx of colonoscopy Family History Father Family history of diabetes mellitus Other COPD (chronic obstructive pulmonary disease) Cancer Diabetes No family history of adverse response to anesthesia Social History Smoking Status: Never smoker Tobacco Type: Cigarettes Second Hand Exposure: No; Hx Alcohol Use: No Hx Substance Use: No Preferred Language: Angolan Communication Ability: Effective 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 Beliefs That Will Affect Care: None marital status: Life Partner Current Living Situation: Spouse Feels Safe at Home: Yes Assistive Devices: Cane and Walker Review of Systems A total of 10 systems reviewed and were otherwise negative All systems reviewed & are unremarkable except as noted in HPI & below Physical Exam Vital Signs Vital Signs - 24 hr 09/13/21 19:40 09/13/21 20:24 09/13/21 20:26 Temperature 38.1 C H Temperature Source Oral Pulse Rate 90 88 Pulse Rhythm Regular Pulse Strength Normal Respiratory Rate 20 25 H 21 Respiratory Effort / Characteristics Non-Labored Spontaneous Non-Labored Respiratory Depth Normal Respiratory Pattern Regular Blood Pressure 96/50 L Blood Pressure Mean 65 Blood Pressure Position Lying Pulse Oximetry 93 92 92 Oxygen Delivery Method Room Air Room Air Room Air Oxygen Flow Rate Sepsis Recent Fever Within 48 Hours Yes Sepsis New/Unexplained Change in Mental Status N/A Sepsis Action Taken by Nursing No Action Required 09/13/21 20:46 09/13/21 19:45 09/13/21 20:00 Temperature Temperature Source Pulse Rate 91 H Pulse Rhythm Pulse Strength Respiratory Rate 20 24 Respiratory Effort / Characteristics Non-Labored Spontaneous Respiratory Depth Respiratory Pattern Blood Pressure 114/72 Blood Pressure Mean 86 Blood Pressure Position Pulse Oximetry 91 Oxygen Delivery Method Room Air Oxygen Flow Rate Sepsis Recent Fever Within 48 Hours Sepsis New/Unexplained Change in Mental Status Sepsis Action Taken by Nursing 09/13/21 20:00 09/13/21 20:15 09/13/21 20:30 Temperature Temperature Source Pulse Rate 89 92 H 86 Pulse Rhythm Pulse Strength Respiratory Rate 19 25 H 22 Respiratory Effort / Characteristics Respiratory Depth Respiratory Pattern Blood Pressure Blood Pressure Mean Blood Pressure Position Pulse Oximetry 92 92 93 Oxygen Delivery Method Oxygen Flow Rate Sepsis Recent Fever Within 48 Hours Sepsis New/Unexplained Change in Mental Status Sepsis Action Taken by Nursing 09/13/21 20:45 09/13/21 21:05 09/13/21 21:10 Temperature Temperature Source Pulse Rate 79 Pulse Rhythm Pulse Strength Respiratory Rate 20 15 Respiratory Effort / Characteristics Non-Labored Spontaneous Respiratory Depth Respiratory Pattern Blood Pressure Blood Pressure Mean Blood Pressure Position Pulse Oximetry 94 87 L 97 Oxygen Delivery Method Room Air Nasal Cannula Oxygen Flow Rate 2 Sepsis Recent Fever Within 48 Hours Sepsis New/Unexplained Change in Mental Status Sepsis Action Taken by Nursing 09/13/21 21:00 09/13/21 21:00 09/13/21 21:10 Temperature Temperature Source Pulse Rate 79 78 Pulse Rhythm Pulse Strength Respiratory Rate 19 16 Respiratory Effort / Characteristics Respiratory Depth Respiratory Pattern Blood Pressure 90/58 L Blood Pressure Mean 68 Blood Pressure Position Pulse Oximetry 91 97 Oxygen Delivery Method Oxygen Flow Rate Sepsis Recent Fever Within 48 Hours Sepsis New/Unexplained Change in Mental Status Sepsis Action Taken by Nursing 09/13/21 21:10 09/13/21 21:24 09/13/21 21:24 Temperature Temperature Source Pulse Rate 78 Pulse Rhythm Pulse Strength Respiratory Rate 14 Respiratory Effort / Characteristics Respiratory Depth Respiratory Pattern Blood Pressure 106/52 L 94/44 L Blood Pressure Mean 70 60 Blood Pressure Position Pulse Oximetry 98 Oxygen Delivery Method Oxygen Flow Rate Sepsis Recent Fever Within 48 Hours Sepsis New/Unexplained Change in Mental Status Sepsis Action Taken by Nursing 09/13/21 23:54 09/13/21 23:30 09/13/21 23:17 Temperature 36.8 C Temperature Source Oral Pulse Rate 78 Pulse Rhythm Pulse Strength Respiratory Rate 14 18 Respiratory Effort / Characteristics Non-Labored Spontaneous Respiratory Depth Respiratory Pattern Blood Pressure Blood Pressure Mean Blood Pressure Position Pulse Oximetry 100 99 Oxygen Delivery Method Nasal Cannula Oxygen Flow Rate 1 Sepsis Recent Fever Within 48 Hours Sepsis New/Unexplained Change in Mental Status Sepsis Action Taken by Nursing 09/13/21 23:17 09/13/21 23:30 09/13/21 23:30 Temperature Temperature Source Pulse Rate 74 Pulse Rhythm Pulse Strength Respiratory Rate 19 Respiratory Effort / Characteristics Respiratory Depth Respiratory Pattern Blood Pressure 99/56 L 96/47 L Blood Pressure Mean 70 63 Blood Pressure Position Pulse Oximetry 99 Oxygen Delivery Method Nasal Cannula Oxygen Flow Rate Sepsis Recent Fever Within 48 Hours Sepsis New/Unexplained Change in Mental Status Sepsis Action Taken by Nursing 09/13/21 23:45 09/13/21 23:45 09/14/21 00:00 Temperature Temperature Source Pulse Rate 74 Pulse Rhythm Pulse Strength Respiratory Rate 14 Respiratory Effort / Characteristics Respiratory Depth Respiratory Pattern Blood Pressure 103/54 L 101/58 L Blood Pressure Mean 70 72 Blood Pressure Position Pulse Oximetry 97 Oxygen Delivery Method Nasal Cannula Oxygen Flow Rate Sepsis Recent Fever Within 48 Hours Sepsis New/Unexplained Change in Mental Status Sepsis Action Taken by Nursing 09/14/21 00:00 09/14/21 00:15 09/14/21 00:15 Temperature Temperature Source Pulse Rate 75 76 Pulse Rhythm Pulse Strength Respiratory Rate 20 17 Respiratory Effort / Characteristics Respiratory Depth Respiratory Pattern Blood Pressure 100/59 L Blood Pressure Mean 72 Blood Pressure Position Pulse Oximetry 99 94 Oxygen Delivery Method Oxygen Flow Rate Sepsis Recent Fever Within 48 Hours Sepsis New/Unexplained Change in Mental Status Sepsis Action Taken by Nursing 09/14/21 00:30 09/14/21 00:30 09/14/21 00:30 Temperature Temperature Source Pulse Rate 74 Pulse Rhythm Pulse Strength Respiratory Rate 17 18 Respiratory Effort / Characteristics Non-Labored Spontaneous Respiratory Depth Respiratory Pattern Blood Pressure 89/50 L Blood Pressure Mean 63 Blood Pressure Position Pulse Oximetry 95 96 Oxygen Delivery Method Room Air Oxygen Flow Rate Sepsis Recent Fever Within 48 Hours Sepsis New/Unexplained Change in Mental Status Sepsis Action Taken by Nursing 09/14/21 00:45 09/14/21 00:45 09/14/21 01:00 Temperature Temperature Source Pulse Rate 76 Pulse Rhythm Pulse Strength Respiratory Rate 15 Respiratory Effort / Characteristics Respiratory Depth Respiratory Pattern Blood Pressure 106/66 105/47 L Blood Pressure Mean 79 66 Blood Pressure Position Pulse Oximetry 91 Oxygen Delivery Method Oxygen Flow Rate Sepsis Recent Fever Within 48 Hours Sepsis New/Unexplained Change in Mental Status Sepsis Action Taken by Nursing 09/14/21 01:00 09/14/21 01:15 09/14/21 01:15 Temperature Temperature Source Pulse Rate 78 72 Pulse Rhythm Pulse Strength Respiratory Rate 22 15 Respiratory Effort / Characteristics Respiratory Depth Respiratory Pattern Blood Pressure 97/57 L Blood Pressure Mean 70 Blood Pressure Position Pulse Oximetry 92 100 Oxygen Delivery Method Oxygen Flow Rate Sepsis Recent Fever Within 48 Hours Sepsis New/Unexplained Change in Mental Status Sepsis Action Taken by Nursing 09/14/21 01:30 09/14/21 01:30 09/14/21 01:45 Temperature Temperature Source Pulse Rate 72 Pulse Rhythm Pulse Strength Respiratory Rate 15 Respiratory Effort / Characteristics Respiratory Depth Respiratory Pattern Blood Pressure 111/60 107/61 Blood Pressure Mean 77 76 Blood Pressure Position Pulse Oximetry 100 Oxygen Delivery Method Oxygen Flow Rate Sepsis Recent Fever Within 48 Hours Sepsis New/Unexplained Change in Mental Status Sepsis Action Taken by Nursing 09/14/21 01:45 Temperature Temperature Source Pulse Rate 70 Pulse Rhythm Pulse Strength Respiratory Rate 13 Respiratory Effort / Characteristics Respiratory Depth Respiratory Pattern Blood Pressure Blood Pressure Mean Blood Pressure Position Pulse Oximetry 100 Oxygen Delivery Method Oxygen Flow Rate Sepsis Recent Fever Within 48 Hours Sepsis New/Unexplained Change in Mental Status Sepsis Action Taken by Nursing GENERAL: alert, well appearing, well nourished, no distress, non-toxic EYE EXAM: normal conjunctiva, PERRL and EOM's grossly intact OROPHARYNX: no exudate, no erythema, lips, buccal mucosa, and tongue normal and mucous membranes are moist NECK: supple, no nuchal rigidity, no adenopathy, non-tender LUNGS: Clear to auscultation. Normal chest wall mechanics, no w/r/r HEART: no murmurs, S1 normal and S2 normal ABDOMEN: abdomen soft, non-tender, normo-active bowel sounds, no masses, no rebound or guarding. BACK: Back is symmetrical on inspection and there is no deformity, no CVA tenderness. Midline incision of the lumbar area with dwight intact, no dehisc ence, no drainage or discharge, no surrounding erythema. SKIN: no rashes and no bruising UPPER EXTREMITIES: upper extremities are grossly normal. FROM, nml pulses b/l. LOWER EXTREMITIES: No pitting edema. FROM, nml pulses b/l. NEURO EXAM: Normal sensorium, cranial nerves II-XII grossly intact, normal speech, no gross weakness of arms, no gross weakness of legs. Gross sensation intact. Course Course 0012: Patient updated on results. States still having pain. 0050: Patient is resting comfortably, vital signs stable. Administered Medications Amoxicillin/Clavulanate Potassium (Amoxicillin/Clavulanate 875 Mg Tab) 1 tab PO BIDM KRISTIAN Stop: 09/16/21 16:59 Last Admin: 09/14/21 16:45 Dose: 1 tab Documented By: YENNY Atorvastatin Calcium (Atorvastatin 40 Mg Tab) 80 mg PO QDD KRISTIAN Stop: 10/14/21 16:29 Last Admin: 09/14/21 16:54 Dose: 80 mg Documented By: YENNY Enoxaparin Sodium (Enoxaparin Inj 40 Mg/0.4 Ml Syr) 40 mg SQ Q24H KRISTIAN Stop: 10/14/21 08:59 Last Admin: 09/14/21 09:12 Dose: 40 mg Documented By: SHELLEY Hydromorphone HCl (Hydromorphone Inj 0.5 Mg/0.5 Ml Syr) 0.5 mg IV Q6H PRN PRN Reason: Pain Stop: 09/28/21 03:05 Last Admin: 09/14/21 21:20 Dose: 0.5 mg Documented By: KWAKU Magnesium Oxide (Magnesium Oxide 400 Mg Tab) 400 mg PO BID [facility] Stop: 10/14/21 08:59 Last Admin: 09/14/21 21:18 Dose: 400 mg Documented By: Admin: 09/14/21 09:12 Dose: 400 mg Documented By: SHELLEY Miscellaneous (Forteo~Order Awaiting Action) 1 each N/A QS KRISTIAN Stop: 10/14/21 07:59 Last Admin: 09/15/21 00:36 Dose: Not Given Documented By: Admin: 09/14/21 17:19 Dose: Not Given Documented By: Admin: 09/14/21 12:37 Dose: Not Given Documented By: BIANCA Multivitamins/Minerals (Calcium 600mg + Vit D 400 Iu Tab) 1 tab PO DAILY KRISTIAN Stop: 10/14/21 08:59 Last Admin: 09/14/21 09:13 Dose: 1 tab Documented By: SHELLEY Multivitamins/Minerals (Cerovite Adv Formula Tab) 1 tab PO QAM KRISTIAN Stop: 10/14/21 08:59 Last Admin: 09/14/21 09:13 Dose: 1 tab Documented By: SHELLEY Ondansetron HCl (Ondansetron 4 Mg Od Tab) 4 mg PO Q6H PRN PRN Reason: Nausea Stop: 10/14/21 03:05 Last Admin: 09/14/21 12:46 Dose: 4 mg Documented By: BIANCA Oxycodone/Acetaminophen (Oxycodone/Acetaminophen 10-325 Tab) 1 tab PO BID PRN PRN Reason: Pain Stop: 09/28/21 03:05 Last Admin: 09/15/21 06:12 Dose: 1 tab Documented By: Admin: 09/14/21 16:55 Dose: 1 tab Documented By: Admin: 09/14/21 05:06 Dose: 1 tab Documented By: RANDI Pantoprazole Sodium (') 40 mg PO BID KRISTIAN Stop: 10/14/21 08:59 Last Admin: 09/14/21 21:18 Dose: 40 mg Documented By: Admin: 09/14/21 09:12 Dose: 40 mg Documented By: SHELLEY Polyethylene Glycol (Polyethylene (Miralax) 17 Gm Pack) 17 gm PO DAILY KRISTIAN Stop: 10/14/21 08:59 Last Admin: 09/14/21 09:13 Dose: 17 gm Documented By: SHELLEY Pregabalin (Pregabalin 150 Mg Cap) 150 mg PO BID KRISTIAN Stop: 10/14/21 08:59 Last Admin: 09/14/21 21:18 Dose: 150 mg Documented By: Admin: 09/14/21 12:37 Dose: 150 mg Documented By: BIANCA Senna/Docusate Sodium (Docusate Sodium/Senna 50/8.6mg Tab) 1 tab PO BID KRISTIAN Stop: 10/14/21 08:59 Last Admin: 09/14/21 21:18 Dose: 1 tab Documented By: Admin: 09/14/21 09:13 Dose: 1 tab Documented By: SHELLEY Tizanidine HCl (Tizanidine Hcl 4 Mg Tablet) 2 mg PO Q8H PRN PRN Reason: MUSCLE SPASMS Stop: 10/14/21 03:05 Last Admin: 09/14/21 16:45 Dose: 2 mg Documented By: YENNY Trazodone HCl (Trazodone Hcl 50 Mg Tab) 50 mg PO HS KRISTIAN Stop: 10/14/21 20:59 Last Admin: 09/14/21 21:18 Dose: 50 mg Documented By: KWAKU Umeclidinium [place] (Umeclidinium [place] 62.5mcg/Blister 7 Puffs/Inhaler) 1 puffs INH QAM KRISTIAN Stop: 10/14/21 08:59 Last Admin: 09/14/21 09:11 Dose: 1 puffs Documented By: SHELLEY Discontinued Medications Cefepime HCl (Cefepime 2,000 Mg/20 Ml Vial) Confirm Administered Dose 2,000 mg .ROUTE .STK-MED ONE Stop: 09/14/21 10:23 Last Admin: 09/14/21 10:24 Dose: 2,000 mg Documented By: SHELLEY Gadobutrol (Gadobutrol 65ml Vial) 8.2 ml IV ONCE ONE Stop: 09/13/21 22:43 Last Admin: 09/13/21 22:43 Dose: 8.2 ml Documented By: SARITA Sodium Chloride (Nss 1000ml) 1,000 mls @ 999 mls/hr IV .Q1H1M KRISTIAN Stop: 09/13/21 21:15 Last Infusion: 09/13/21 21:30 Dose: 0 mls/hr Documented By: Admin: 09/13/21 20:19 Dose: 999 mls/hr Documented By: RANDI Acetaminophen (Ofirmev) 1,000 mg in 100 mls @ 400 mls/hr IV NOW STA Stop: 09/13/21 20:26 Last Infusion: 09/13/21 20:59 Dose: 0 mls/hr Documented By: Admin: 09/13/21 20:22 Dose: 400 mls/hr Documented By: SS Cefepime HCl (Maxipime) 2,000 mg in 20 mls @ 5 mls/min IV NOW STA; Protocol Stop: 09/13/21 21:05 Last Admin: 09/13/21 21:15 Dose: 5 mls/min Documented By: SS Sodium Chloride (Nss 1000ml) 1,000 mls @ 999 mls/hr IV .Q1H1M ONE Stop: 09/13/21 22:48 Last Infusion: 09/14/21 00:10 Dose: 0 mls/hr Documented By: Admin: 09/13/21 21:50 Dose: 999 mls/hr Documented By: RANID Sodium Chloride (Nss 1000ml) 1,000 mls @ 999 mls/hr IV .Q1H1M ONE Stop: 09/14/21 01:23 Last Infusion: 09/14/21 02:00 Dose: 0 mls/hr Documented By: Admin: 09/14/21 00:41 Dose: 999 mls/hr Documented By: RANDI Sodium Chloride (Nss 1000ml) 1,000 mls @ 100 mls/hr IV .Q10H KRISTIAN Stop: 09/14/21 13:05 Last Infusion: 09/14/21 15:22 Dose: 0 mls/hr Documented By: Admin: 09/14/21 05:06 Dose: 100 mls/hr Documented By: RANDI Cefepime HCl 2,000 mg/ Syringe 20 mls @ 5 mls/min IV Q12H KRISTIAN; Protocol Stop: 09/24/21 08:59 Last Admin: 09/14/21 10:25 Dose: Not Given Documented By: SHELLEY Ioversol (Optiray 320 100ml) 100 ml IV ONCE ONE Stop: 09/14/21 02:23 Last Admin: 09/14/21 02:22 Dose: 93 ml Documented By: ZAINAB Morphine Sulfate (Morphine Sulfate 4 Mg/Ml 1 Ml Carp\Vial) 4 mg IV NOW STA Stop: 09/13/21 21:01 Last Admin: 09/13/21 21:15 Dose: 4 mg Documented By: RANDI Morphine Sulfate (Morphine Sulfate 4 Mg/Ml 1 Ml Carp\Vial) 4 mg IV NOW STA Stop: 09/13/21 23:32 Last Admin: 09/13/21 23:53 Dose: 4 mg Documented By: RANDI Medical Decision Making Differential Diagnosis Differential diagnosis: Etiologies such as viral syndrome, otitis, pharyngitis, pneumonia, influenza, meningitis, urinary tract infection, sepsis, bacteremia, as well as others were entertained. Medical Records Attestation: I reviewed the patient's medical records. Home Medications Current Medication List: was personally reviewed by me Laboratory Data Attestation: I reviewed the patient's lab results. Result diagrams: 09/14/21 06:58 09/14/21 06:58 Lab Results 07/25/22 07/25/22 07/25/22 Range/Units 19:51 19:51 19:51 WBC 11.13 H (4.8-10.8) K/ul RBC 3.14 L (3.93-5.22) M/uL Hgb 9.3 L (12.0-16.0) g/dl Hct 29.1 L (34.1-44.9) % MCV 92.7 (80.0-100.0) fL MCH 29.6 (25.0-34.0) pg MCHC 32.0 (32.0-36.0) g/dL RDW Std Deviation 42.0 (36.4-46.3) fL RDW Coeff of Alfonso 12.5 (11.5-14.5) % Plt Count 287 (130-400) K/uL MPV 11.1 (9.4-12.3) fL Immature Gran % (Auto) 0.4 % Neut % (Auto) 76.2 % Lymph % (Auto) 11.4 % Dent % (Auto) 11.2 % Eos % (Auto) 0.3 % Baso % (Auto) 0.5 % Neut # (Auto) 8.48 H (1.4-6.5) K/uL Lymph # (Auto) 1.27 (1.2-3.4) K/uL Dent # (Auto) 1.25 H (0.24-0.82) K/uL Eos # (Auto) 0.03 (0-0.50) K/uL Baso # (Auto) 0.06 (0-0.2) K/uL Immature Gran # (Auto) 0.04 H (0.00-0.02) K/uL PT 11.9 (9.0-12.0) Seconds INR 1.1 (0.9-1.1) Sodium 134 L (136-145) mmol/L Potassium 4.0 (3.5-5.1) mmol/L Chloride 103 (98-107) mmol/L Carbon Dioxide 22 (21-32) mmol/L Anion Gap 9 (3-11) BUN 17 (6-23) mg/dl Creatinine 0.86 (0.6-1.2) mg/dl Est Cr Clr Drug Dosing 59.2 ml/min Est GFR ( Amer) 79.3 ml/min Est GFR (Non-Af Amer) 68.4 ml/min BUN/Creatinine Ratio 19.8 (10-20) Glucose 159 H (70-99(Fasting)) mg/dl Lactate (0.4-2.0) mmol/L Calcium 8.3 L (8.5-10.1) mg/dl Magnesium 1.7 (1.7-2.4) mg/dl Total Bilirubin 0.4 (0.2-1.0) mg/dl AST 21 (13-39) U/L ALT 26 (7-52) U/L Alkaline Phosphatase 223 H (34-104) U/L Troponin I High Sens 5.9 (0-14) pg/ml Total Protein 6.5 (6.0-8.3) gm/dl Albumin 3.2 L (3.4-5.0) gm/dl Globulin 3.3 (2.5-4.0) gm/dl Albumin/Globulin Ratio 1.0 (0.9-2) Procalcitonin (0-0.5) ng/ml Urine Color Urine Appearance (Clear) Urine pH (4.5-7.5) Ur Specific [place] (1.000-1.030) Urine Protein (Negative) Urine Glucose (UA) (Negative) Urine Ketones (Negative) Urine Blood (Negative) Urine Nitrite (Negative) Urine Bilirubin (Negative) Urine Urobilinogen (Negative) Ur Leukocyte Esterase (Negative) Urine WBC (Auto) (0-5) /hpf Urine RBC (Auto) (0-4) /hpf U Hyaline Cast (Auto) (0-5) /lpf U Epithel Cells (Auto) (0-5) /lpf Urine Bacteria (Auto) (Negative) Adenovirus (PCR) (NotDetected) B. pertussis DNA (PCR) (NotDetected) B.parapertussis DNA PCR (NotDetected) C. pneumoniae DNA (PCR) (NotDetected) Coronavirus OC43 (PCR) (NotDetected) Coronavirus HKU1 (PCR) (NotDetected) Coronavirus 229E (PCR) (NotDetected) SARS-CoV-2 (PCR) (NotDetected) Coronavirus NL63 (PCR) (NotDetected) Human Metapneumovir PCR (NotDetected) Influenza Type A (PCR) (NotDetected) Influenza Type B (PCR) (NotDetected) M. pneumoniae (PCR) (NotDetected) Parainfluenza 1 (PCR) (NotDetected) Parainfluenza 2 (PCR) (NotDetected) Parainfluenza 3 (PCR) (NotDetected) Parainfluenza 4 (PCR) (NotDetected) RSV (PCR) (NotDetected) Entero/Rhino (PCR) (NotDetected) 09/13/21 09/13/21 09/13/21 Range/Units 19:51 19:51 20:37 WBC (4.8-10.8) K/ul RBC (3.93-5.22) M/uL Hgb (12.0-16.0) g/dl Hct (34.1-44.9) % MCV (80.0-100.0) fL MCH (25.0-34.0) pg MCHC (32.0-36.0) g/dL RDW Std Deviation (36.4-46.3) fL RDW Coeff of Alfonso (11.5-14.5) % Plt Count (130-400) K/uL MPV (9.4-12.3) fL Immature Gran % (Auto) % Neut % (Auto) % Lymph % (Auto) % Dent % (Auto) % Eos % (Auto) % Baso % (Auto) % Neut # (Auto) (1.4-6.5) K/uL Lymph # (Auto) (1.2-3.4) K/uL [place] # (Auto) (0.24-0.82) K/uL Eos # (Auto) (0-0.50) K/uL Baso # (Auto) (0-0.2) K/uL Immature Gran # (Auto) (0.00-0.02) K/uL PT (9.0-12.0) Seconds INR (0.9-1.1) Sodium (136-145) mmol/L Potassium (3.5-5.1) mmol/L Chloride (98-107) mmol/L Carbon Dioxide (21-32) mmol/L Anion Gap (3-11) BUN (6-23) mg/dl Creatinine (0.6-1.2) mg/dl Est Cr Clr Drug Dosing ml/min Est GFR ( Amer) ml/min Est GFR (Non-Af Amer) ml/min BUN/Creatinine Ratio (10-20) Glucose (70-99(Fasting)) mg/dl Lactate 1.8 (0.4-2.0) mmol/L Calcium (8.5-10.1) mg/dl Magnesium (1.7-2.4) mg/dl Total Bilirubin (0.2-1.0) mg/dl AST (13-39) U/L ALT (7-52) U/L Alkaline Phosphatase (34-104) U/L Troponin I High Sens (0-14) pg/ml Total Protein (6.0-8.3) gm/dl Albumin (3.4-5.0) gm/dl Globulin (2.5-4.0) gm/dl Albumin/Globulin Ratio (0.9-2) Procalcitonin 0.18 (0-0.5) ng/ml Urine Color Urine Appearance (Clear) Urine pH (4.5-7.5) Ur Specific [place] (1.000-1.030) Urine Protein (Negative) Urine Glucose (UA) (Negative) Urine Ketones (Negative) Urine Blood (Negative) Urine Nitrite (Negative) Urine Bilirubin (Negative) Urine Urobilinogen (Negative) Ur Leukocyte Esterase (Negative) Urine WBC (Auto) (0-5) /hpf Urine RBC (Auto) (0-4) /hpf U Hyaline Cast (Auto) (0-5) /lpf U Epithel Cells (Auto) (0-5) /lpf Urine Bacteria (Auto) (Negative) Adenovirus (PCR) Not Detected (NotDetected) B. pertussis DNA (PCR) Not Detected (NotDetected) B.parapertussis DNA PCR Not Detected (NotDetected) C. pneumoniae DNA (PCR) Not Detected (NotDetected) Coronavirus OC43 (PCR) Not Detected (NotDetected) Coronavirus HKU1 (PCR) Not Detected (NotDetected) Coronavirus 229E (PCR) Not Detected (NotDetected) SARS-CoV-2 (PCR) Not Detected (NotDetected) Coronavirus NL63 (PCR) Not Detected (NotDetected) Human Metapneumovir PCR Not Detected (NotDetected) Influenza Type A (PCR) Not Detected (NotDetected) Influenza Type B (PCR) Not Detected (NotDetected) M. pneumoniae (PCR) Not Detected (NotDetected) Parainfluenza 1 (PCR) Not Detected (NotDetected) Parainfluenza 2 (PCR) Not Detected (NotDetected) Parainfluenza 3 (PCR) Not Detected (NotDetected) Parainfluenza 4 (PCR) Not Detected (NotDetected) RSV (PCR) Not Detected (NotDetected) Entero/Rhino (PCR) Not Detected (NotDetected) 09/13/21 Range/Units 20:41 WBC (4.8-10.8) K/ul RBC (3.93-5.22) M/uL Hgb (12.0-16.0) g/dl Hct (34.1-44.9) % MCV (80.0-100.0) fL MCH (25.0-34.0) pg MCHC (32.0-36.0) g/dL RDW Std Deviation (36.4-46.3) fL RDW Coeff of Alfonso (11.5-14.5) % Plt Count (130-400) K/uL MPV (9.4-12.3) fL Immature Gran % (Auto) % Neut % (Auto) % Lymph % (Auto) % Dent % (Auto) % Eos % (Auto) % Baso % (Auto) % Neut # (Auto) (1.4-6.5) K/uL Lymph # (Auto) (1.2-3.4) K/uL Dent # (Auto) (0.24-0.82) K/uL Eos # (Auto) (0-0.50) K/uL Baso # (Auto) (0-0.2) K/uL Immature Gran # (Auto) (0.00-0.02) K/uL PT (9.0-12.0) Seconds INR (0.9-1.1) Sodium (136-145) mmol/L Potassium (3.5-5.1) mmol/L Chloride (98-107) mmol/L Carbon Dioxide (21-32) mmol/L Anion Gap (3-11) BUN (6-23) mg/dl Creatinine (0.6-1.2) mg/dl Est Cr Clr Drug Dosing ml/min Est GFR ( Amer) ml/min Est GFR (Non-Af Amer) ml/min BUN/Creatinine Ratio (10-20) Glucose (70-99(Fasting)) mg/dl Lactate (0.4-2.0) mmol/L Calcium (8.5-10.1) mg/dl Magnesium (1.7-2.4) mg/dl Total Bilirubin (0.2-1.0) mg/dl AST (13-39) U/L ALT (7-52) U/L Alkaline Phosphatase (34-104) U/L Troponin I High Sens (0-14) pg/ml Total Protein (6.0-8.3) gm/dl Albumin (3.4-5.0) gm/dl Globulin (2.5-4.0) gm/dl Albumin/Globulin Ratio (0.9-2) Procalcitonin (0-0.5) ng/ml Urine Color Yellow Urine Appearance Clear (Clear) Urine pH 5.0 (4.5-7.5) Ur Specific [place] 1.019 (1.000-1.030) Urine Protein Trace H (Negative) Urine Glucose (UA) Negative (Negative) Urine Ketones Negative (Negative) Urine Blood Negative (Negative) Urine Nitrite Negative (Negative) Urine Bilirubin Negative (Negative) Urine Urobilinogen Negative (Negative) Ur Leukocyte Esterase Negative (Negative) Urine WBC (Auto) 1-5 (0-5) /hpf Urine RBC (Auto) 0-4 (0-4) /hpf U Hyaline Cast (Auto) 5-10 H (0-5) /lpf U Epithel Cells (Auto) >30 H (0-5) /lpf Urine Bacteria (Auto) Negative (Negative) Adenovirus (PCR) (NotDetected) B. pertussis DNA (PCR) (NotDetected) B.parapertussis DNA PCR (NotDetected) C. pneumoniae DNA (PCR) (NotDetected) Coronavirus OC43 (PCR) (NotDetected) Coronavirus HKU1 (PCR) (NotDetected) Coronavirus 229E (PCR) (NotDetected) SARS-CoV-2 (PCR) (NotDetected) Coronavirus NL63 (PCR) (NotDetected) Human Metapneumovir PCR (NotDetected) Influenza Type A (PCR) (NotDetected) Influenza Type B (PCR) (NotDetected) M. pneumoniae (PCR) (NotDetected) Parainfluenza 1 (PCR) (NotDetected) Parainfluenza 2 (PCR) (NotDetected) Parainfluenza 3 (PCR) (NotDetected) Parainfluenza 4 (PCR) (NotDetected) RSV (PCR) (NotDetected) Entero/Rhino (PCR) (NotDetected) Imaging Data Radiologist's Impression: Chest X-Ray 09/13/21 20:05 XR chest 1V portable CLINICAL HISTORY: SEPSIS COMPARISON STUDY: Chest radiograph September 25, 2020. FINDINGS: Incidental note is made of postoperative findings within the spine. Lung volumes are normal. Lungs are clear. There is no pneumothorax or pleural e ffusion. Cardiac size is normal. Mediastinal contours are normal. There is no evidence for pulmonary edema. Moderate sized hiatal hernia is noted. Density lateral to the left heart border is likely related to anterior left fifth rib. There are multiple healing left-sided rib fractures. IMPRESSION: No acute cardiopulmonary findings. ACT 112: Negative or not required by law. Electronically signed by: Antony Brown M.D. 09/13/2021 9:01 PM MRI L-spine: Impression: Postsurgical changes related to fusion of L4-L5. Susceptibility artifact obscures evaluation. There appears to be severe spinal canal stenosis L3-L4. No discrete evidence of epidural abscess. However infection cannot entirely be excluded. Clinical correlation is recommended. Moderate bilateral foraminal narrowing at L2-L3. Likely moderate to severe right foraminal narrowing at L4-L5. Severe left foraminal narrowing at L5-S1. Radiologist: Irving Santos MD CT abdomen and pelvis with contrast: A normal caliber appendix is noted extending posteriorly from the cecum in the right lower quadrant. No bowel obstruction. Mural fat deposition in the cecum and proximal ascending colon is presumed related to chronic inflammatory changes. No acute pericolonic inflammation. No free intraperitoneal fluid or pneumoperitoneum. Similar hiatal hernia. Cystic changes involving the left adnexa are similar in appearance from the examination 07/18/2019, now measuring 3.8 x 3.1 cm from 3.2 x 2.9 cm. Interval cholecystectomy. The liver, pancreas, spleen, adrenal glands and kidneys are unremarkable. Posterior fusion with interbody cages noted at L4-5 levels. No hardware failure or periprosthetic lucency. No significant overlying soft tissue abnormality with minimal dependent edema and superficial vertical skin dwight noted. Radiologist: Alexi Montalvo MD ECG Data Attestation: I personally reviewed and interpreted this ECG as follows: Indication: + other Rate (beats per minute): 83 Rhythm: + normal sinus ECG Intervals/blocks: + Normal QRS and + Normal QT ECG [place]: + Normal ECG ST segments: + Nonspecific ST abnormalities MDM Narrative An order was placed for continuous cardiac monitoring. The monitor shows a rate of _80_ with _normal sinus__ rhythm. This is a 71-year-old female presents emergency department due to concern for right hip and groin pain. Patient noted to have a fever on arrival as well as admission of a slight cough. Patient underwent lumbar surgery 3 weeks ago. While incision is well-appearing patient's abdomen is soft and nontender, given recent intervention, a sepsis evaluation was started. Labs and cultures drawn and sent. Chest x-ray was unremarkable, EKG reassuring. Patient initially given Tylenol for pain and then additional doses of narcotic pain medication. Patient sent for MRI of the L-spine which did not reveal any acute infection. Patient had been given empiric cefepime due to unclear etiology of fever. Bio fire negative. Patient sent for CT of the abdomen and pelvis to rule out other intra-abdominal or pelvic etiology contributing to the pain and fever. This was also reassuring. Patient did have mild leukocytosis, patient's lactic acid and procalcitonin are reassuring. Patient remained hemodynamically stable throughout. Etiology of fever is unclear at this time. Case discussed with hospitalist for additional evaluation and management. Impression & Plan Fever, Right groin pain, Cough, COPD (chronic obstructive pulmonary disease), Status post lumbar surgery Discharge Plan Visit Data Chief Complaint: Back Injury/Pain Stated Complaint: back pain ED Provider: Modesta Herrera Discharge Problem: Fever, Right groin pain, Cough, COPD (chronic obstructive pulmonary disease), S tatus post lumbar surgery Patient Disposition: Admitted As Inpatient Discharge Instructions Interventions: ED Discharge Assessment Last Done: 09/14/21 03:16
[2021-09-13] MEDS ORDERED: SODIUM CHLORIDE 0.9% 1000ML 1,000 ML IV ONE (21:48)
[2021-09-13] MEDS ORDERED: GADOBUTROL 65ML VIAL IV ONE (22:42)
[2021-09-14] MEDS ORDERED: SODIUM CHLORIDE 0.9% 1000ML 1,000 ML IV ONE (00:23)
[2021-09-14] MEDS ORDERED: OPTIRAY 320 100ml IV ONE (02:22)
[2021-09-14] MEDS ORDERED: NITROGLYCERIN SL 0.4 MG/TAB TAB SL PRN (03:06)
[2021-09-14] MEDS ORDERED: ACETAMINOPHEN 325 MG TAB PO PRN (03:06)
[2021-09-14] MEDS ORDERED: valACYclovir HCL 500 MG TABLET PO PRN (03:06)
[2021-09-14] MEDS ORDERED: POLYETHYLENE (MIRALAX) 17 GM PACK PO PRN (03:06)
[2021-09-14] MEDS ORDERED: ALBUTEROL HFA 8 GM INHALER INH PRN (03:06)
[2021-09-14] MEDS ORDERED: tiZANidine HCL 4 MG TABLET PO PRN (03:06)
[2021-09-14] MEDS ORDERED: SODIUM CHLORIDE 0.9% 1000ML 1,000 ML IV SCH (03:06)
[2021-09-14] MEDS ORDERED: MELATONIN 3 MG TAB PO PRN (03:39)
[2021-09-14] MEDS ORDERED: CLOBETASOL PROPIONATE 0.05% OINT 15 GM TUBE EXT PRN (03:42)
--- NOTE | 2021-09-14 04:36 | History and Physical Report ---
DATE OF ADMISSION: 09/14/2021. CHIEF COMPLAINT: Right groin pain. HISTORY OF PRESENT ILLNESS: A 71-year-old female with past medical history significant for hyperlipidemia, mild COPD, allergic rhinitis, obstructive sleep apnea, waiting for CPAP as per PCP notes, hypertension, vitamin D deficiency, chronic gastritis, GERD, history of calculus of gallbladder, history of rotator cuff arthropathy, generalized osteoarthritis, lumbar degenerative disk disease, osteoporosis, dyshidrosis, insomnia. Recently on 08/25/2021, she had a back surgery, followed up with orthopedics, she is doing okay. Back Symptoms seems to be improved. Presents here because over the last two days, she is having severe right groin pain, feeling weak, appetite down, has dry cough and fever at home. In the ER, when she came in, her temperature was 38.1. Labs showed white count of 11, urinalysis was okay. Respiratory BioFire was okay. Lumbar spine MRI was done in the ER. The preliminary report was okay. The patient while sleeping, the oxygen saturation is dropping to 80s; on 2liter oxygen, saturation is improved. Denies any headache. No blurred visions, no earache, no runny nose. Has some sore throat and dry cough. Appetite is down. Feeling weak. Denies any chest pain. No shortness of breath, no nausea or vomiting. Normal bowel and bladder movements. ALLERGIES: ERYTHROMYCIN BASE, LATEX, PENICILLINS, NICKEL, VANCOMYCIN. PAST MEDICAL HISTORY: As mentioned above. PAST SURGICAL HISTORY: Allograft for spine surgery, bone marrow aspiration, colonoscopy with biopsy, EGDs, left femur fracture repair, injection of lumbosacral spine, right knee arthroscopy, laparoscopic cholecystectomy, ligation of the oviducts, removal of the knee prosthesis, tonsillectomy, lumbar laminectomy, revision of right knee joint replacement, sacroiliac joint injections. MEDICATIONS: The patient is on Tylenol 650 mg p.o. q. 4 hours p.r.n., albuterol 2 puffs inhalation q.i.d. p.r.n., atorvastatin 80 mg p.o. daily, calcium plus vitamin D tablet daily, magnesium oxide 400 mg p.o. b.i.d., melatonin 10 mg p.o. at bedtime, multivitamin 1 tablet p.o. daily, omeprazole 20 mg p.o. b.i.d., Zofran 4 mg q. 6 hours p.r.n., oxycodone and acetaminophen 10/325 mg 1 tablet p.o. b.i.d., MiraLax 17 g p.o. daily, pregabalin 150 mg p.o. b.i.d., Senokot S one tablet p.o. b.i.d., Spiriva Respimat 2 puffs inhalation daily, Forteo 20 mcg subcutaneous daily, tizanidine 2 mg p.o. q. 8 hours p.r.n. for muscle spasms, trazodone 50 mg p.o. at bedtime, valacyclovir 2 g p.o. b.i.d. p.r.n. for cold sores. FAMILY HISTORY: Significant for niece has breast cancer; sister has melanoma; mother has pancreatic cancer, hypertension, renal failure, on dialysis, DVT; father has prostate cancer, diabetes, heart disorder; sister has osteoporosis, hypertension; daughter has Crohn's; brother has diabetes and lung cancer, rheumatoid arthritis. SOCIAL HISTORY: . Former smoker, quit in 2003, smoked 2 packs a day for 35 years. Alcohol, two drinks per week. No drug use. REVIEW OF SYSTEMS: As per HPI. Rest of the review of systems is negative. PHYSICAL EXAMINATION: GENERAL: The patient is obese, not in acute distress. VITAL SIGNS: Temperature 36.8, pulse 74, respiratory rate 18, blood pressure 105/66, oxygen 96% on room air. HEENT: Pupils equal, round and reactive to light. Oral mucosa moist. NECK: No JVD, no neck masses. CARDIOVASCULAR: S1 and S2 heard. Regular rate and rhythm. No murmur, no gallop. RESPIRATORY SYSTEM: Normal AP diameter. No accessory muscle use. No wheezing, no crackles. ABDOMEN: Soft, bowel sounds present. Right groin tenderness present, mild guarding. No rigidity. CENTRAL NERVOUS SYSTEM: Cranial nerves II-XII grossly intact, nonfocal. MUSCULOSKELETAL: back surgery site is clean. No erythema seen. EXTREMITIES: No edema, no erythema. LABORATORY DATA: WBC 11.1, hemoglobin 9.3, hematocrit 29.1, platelets 287. PT 11.9, INR 1.1. Sodium 134, potassium 4, chloride 103, CO2 of 22, BUN 17, creatinine 0.8, serum glucose 159. Lactate 1.8, calcium 8.3, magnesium 1.7, total bilirubin 0.4, AST 21, ALT 26, alkaline phosphatase 233. Troponin I high sensitivity 5.9. Procalcitonin 0.18. Urinalysis negative. BioFire negative. IMAGING DATA: Chest x-ray, no acute findings. EKG: Normal sinus rhythm at a rate of 83, no significant change was found. IMAGING DATA: MRI of spine, preliminary report, postsurgical changes related to fusion of L4-L5, severe spinal canal stenosis of L3-L4. No discrete evidence of epidural abscess. ASSESSMENT AND PLAN: This is a 71-year-old female who presents with severe right groin pain. 1. Severe right groin pain: Recently had back surgery, MRI scan on preliminary report seems to show no acute findings. Will follow the final report. Had temperature spike in the ER. Blood cultures drwan. Urinalysis negative. Empirically started on cefepime in the ER, which will be continued. Follow the cultures. Gentle fluids. Monitor in the hospital. CT abdomen and pelvis is ordered, will follow the results- Preliminary report no acute finding-will follow final report. 2. Obstructive sleep apnea: The patient seems to be waiting for CPAP. Oxygen sats dropping into mid 80% while sleeping in the ER. She also received pain medication.Improved with oxygen supplementation. Will continue the oxygen while in the hospital. 3. History of mild chronic obstructive pulmonary disease: Continue her home inhalers. 4. History of hyperlipidemia: Continue statin. 5. History of chronic gastritis and history of gastroesophageal reflux disease: Continue omeprazole. 6. Chronic pain: Continue her home pain medications. Closely monitor while the patient is on pain medications. 7. Deep venous thrombosis prophylaxis: Placed on Lovenox. DISPOSITION: Closely monitor in the [facility] tele. PT/OT prior to discharge. Social service to help with discharge planning. Job ID: [id number] [facility]
[2021-09-14] MEDS: oxyCODONE/ACETAMINOPHEN 10-325 TAB PO PRN ×2 (05:06→16:55)
--- NOTE | 2021-09-14 06:46 | CT Scan Report ---
CT OF THE ABDOMEN AND PELVIS WITH CONTRAST CLINICAL HISTORY: Right lower quadrant abdominal pain. Recent back surgery. COMPARISON STUDY: CT of the abdomen and pelvis July 18, 2019. TECHNIQUE: Following IV administration of 93 mL of Optiray, axial images of the abdomen and pelvis we re obtained from the lung bases to the proximal femurs. Images were reviewed in the axial, sagittal, and coronal planes. IV contrast was administered without complication. Automated exposure control wa s utilized for the study. A dose lowering technique was utilized adhering to the principles of ALARA . CT DOSE: 673.42 mGy.cm FINDINGS: Mild airspace opacities are noted within the right middle and right lower lobes. A 5 mm rig ht middle lobe nodule on image 31 of [address] of July 10, 2019. This may be partially calcified. Moderate sized hiatal hernia is noted with partially intrathoracic stomach. There is no s ignificant biliary ductal dilatation status post cholecystectomy. The spleen, right adrenal gland and pancreas are unremarkable. A 1.7 cm left adrenal nodule is unchanged. There is no hydronephrosis. Th ere is scarring within the lower pole of the right kidney. No evidence for a bowel obstruction. Hyper dense material is noted within the appendix without evidence for acute appendicitis. Caliber and wall thickness of small and large bowel are normal. Submucosal fat deposition within the right colon is n oted. There is no lymphadenopathy or ascites. A 3.7 cm cystic left adnexal lesion remains unchanged s chandler prior CT. Trace fluid within the pelvis. Increased attenuation of urine within the bladder is no marci. There may be layering hyperdense material within the bladder. Postoperative findings consistent with L4-L5 discectomy and posterior decompression with bilateral pedicle screw fusion are noted. Hard holley is intact. Skin dwight are noted. Prominent right external iliac lymph nodes are unchanged. IMPRESSION: 1. No bowel obstruction. No bowel wall thickening. No evidence for acute appendicitis. 2. Increased attenuation of the urine within the bladder. This could be correlated with urinalysis. 3. Trace fluid within the pelvis. 4. No significant change in a in a 3.7 cm cystic left adnexal lesion. This favors an ovarian cyst alt aleta is abnormal in a postmenopausal patient. 5. Status post recent L4-L5 discectomy, posterior decompression and bilateral pedicle screw fusion. 5. Mild airspace opacities within the right middle and right lower lobes. 6. Moderate sized hiatal hernia. ACT 112: Negative or not required by law. Electronically signed by: Antony Brown M.D. 09/14/2021 6:45 AM
[2021-09-14 07:17] LABS: Basophils # (auto) 0.05 K/uL (0-0.2); Basophils % (auto) 0.5 %; Eosinophils # (auto) 0.03 K/uL (0-0.50); Eosinophils % (auto) 0.3 %; Hematocrit (blood only) 28.7 % (34.1-44.9); Hemoglobin 8.8 g/dl (12.0-16.0); Immature Granulocytes # (auto) 0.05 K/uL (0.00-0.02); Immature Granulocytes % (auto) 0.5 %; Mean Corpuscular Hemoglobin 29.5 pg (25.0-34.0); Mean Corpuscular Hgb Conc 30.7 g/dL (32.0-36.0); Mean Corpuscular Volume 96.3 fL (80.0-100.0); Mean Platelet Volume 10.7 fL (9.4-12.3); Monocytes # (auto) 1.06 K/uL (0.24-0.82); Monocytes % (auto) 11.4 %; Neutrophils # (auto) 6.73 K/uL (1.4-6.5); Neutrophils % (auto) 72.3 %; Platelet Count 245 K/uL (130-400); RDW Coefficient of Variation 12.5 % (11.5-14.5); RDW Standard Deviation 44.4 fL (36.4-46.3); Red Blood Count 2.98 M/uL (3.93-5.22); White Blood Count 9.32 K/ul (4.8-10.8)
--- NOTE | 2021-09-14 07:17 | Magnetic Resonance Report ---
MRI OF THE LUMBAR SPINE WITH AND WITHOUT CONTRAST CLINICAL HISTORY: R pelvic pain, fever, s/p surgery 08/25 COMPARISON STUDY: Lumbar spine CT July 18, 2019. TECHNIQUE: Utilizing a 1.5 Tiara magnet and dedicated coil, multiplanar, multiecho imaging of the anthony mbar spine was performed before and after uneventful IV administration of 8.2 mL of Gadavist. FINDINGS: For purposes of numbering on this exam, the L5-S1 disc space is assigned to axial image 27 of 30. The re is mild levoscoliosis of the lumbar spine. There is slight anterolisthesis of L4 and L5. Note is m angelica of postoperative findings consistent with L4-L5 discectomy, posterior decompression and bilateral pedicle screw fusion. Evaluation is compromised given susceptibility artifact from the hardware. Kami ceptibility artifact from skin dwight is noted. Increased T2 signal within the operative bed is expe cted in the early postoperative setting. This favors edema. Moderate mass effect upon the posterior a spect of the thecal sac at the L3-L4 level is noted with T1 hyperintense material within the posterio r epidural space which likely reflects epidural fat within correlating with CT July 18, 2019. There is moderate to severe central canal stenosis at this level. No epidural fluid collection is identified to suggest an abscess. L1-2: The central canal and neural foramen are patent. L2-3: There is severe disc space narrowing with disc bulge, ligamentous hypertrophy and facet arthros is. There is moderate narrowing of the central canal and lateral recesses as well as both neural fora men. L3-4: Mass effect upon the posterior aspect of the thecal sac is noted, as described above. There is moderate to severe central canal stenosis at this level. Disc bulge is noted. There is mild bilateral neural foraminal stenosis. L4-5: Posterior decompression is noted. There is mild central canal stenosis. Moderate to severe righ t neural foraminal stenosis is suspected although suboptimally assessed due to artifact. There is mil d left neural foraminal stenosis. L5-S1: Moderate to space narrowing is noted. There is mild narrowing of the central canal. Severe lef t neural foraminal stenosis is present. Right neural foramen is patent. IMPRESSION: 1. Status post L4-L5 discectomy, posterior decompression and bilateral pedicle screw fusion. No epidu ral fluid collection to suggest abscess. Increased T2 signal within the operative bed which is expect ed in the early postoperative setting. 2. Moderate mass effect upon the posterior aspect of the thecal sac at the L3-L4 level with T1 hyperi ntense material which favors epidural fat within correlating with prior CT. Moderate to severe centra l canal stenosis at this level. 3. Moderate to severe narrowing of the right L4-5 neural foramen, suboptimally assessed due to suscep tibility artifact from surgical hardware. 4. Moderate narrowing of the central canal, lateral recesses and bilateral neural foramen at L2-L3, a s described above. ACT 112: Negative or not required by law. Electronically signed by: Antony Brown M.D. 09/14/2021 7:16 AM
[2021-09-14 07:39] LABS: Calcium 7.6 mg/dl (8.5-10.1); Creatinine Clr Calc Pharmacy 80.8 ml/min; Est GFR (African American) 105.3 ml/min; Est GFR (Non-African American) 90.9 ml/min; Magnesium 1.7 mg/dl (1.7-2.4); Potassium 3.8 mmol/L (3.5-5.1)
[2021-09-14] MEDS ORDERED: CEFEPIME 2,000 MG in SYRINGE 0 ML IV SCH (09:00)
[2021-09-14] MEDS: UMECLIDINIUM BROMIDE 62.5MCG/BLISTER 7 PUFFS/INHALER INH SCH (09:11)
[2021-09-14] MEDS: ' PO SCH ×2 (09:12→21:18)
[2021-09-14] MEDS: ENOXAPARIN INJ 40 MG/0.4 ML SYR SQ SCH (09:12)
[2021-09-14] MEDS: MAGNESIUM OXIDE 400 MG TAB PO SCH ×2 (09:12→21:18)
[2021-09-14] MEDS: CEROVITE ADV FORMULA TAB PO SCH (09:13)
[2021-09-14] MEDS: DOCUSATE SODIUM/SENNA 50/8.6MG TAB PO SCH ×2 (09:13→21:18)
[2021-09-14] MEDS: POLYETHYLENE (MIRALAX) 17 GM PACK PO SCH (09:13)
[2021-09-14] MEDS: CALCIUM 600MG + VIT D 400 IU TAB PO SCH (09:13)
[2021-09-14] MEDS ORDERED: CEFEPIME 2,000 MG/20 ML VIAL ONE (10:22)
--- NOTE | 2021-09-14 11:56 | Hospitalist Progress Note ---
Date of Service September 14, 2021 Assessment & Plan (1) Right groin pain: Plan: - acute onset yesterday without radiation or associated symptoms - reproducible palpation - denies LE numbness or tingling or weakness - strength limited by pain - CT AP without significant findings to suggest pathology - MRI lumbar spine without evidence of acute process - PT/OT evaluation (2) Fever: Plan: - unclear etiology of fever at this time but pulmonary most likely - dry cough for past 1 week, decreased appetite, leukocytosis on admission labs, airspace opacities seen on CT-AP - s/p cefepime on admission - transitioned to augmentin - would likely be ok with 5 day course for pneumonia - monitor respsonse to augementin (3) Cough: Plan: - see plan above - no consolidations seen on CXR but airspace opacities noted on CT-AP - monitor (4) Leukocytosis: Plan: - resolved overnight - s/p cefepime - transitioned to augmentin as above (5) HTN (hypertension): Plan: - does not appear to be on home BP medications - BP normotensive - monitor for now (6) GERD (gastroesophageal reflux disease): Plan: - continue PPI (7) COPD (chronic obstructive pulmonary disease): Plan: - not in exacerbation at this time - continue home inhalers Plan DVT ppx: lovenox Full Code Sher Salazar MD Hospital Medicine Admission and Anticipated Discharge Date Admission Date: September 14, 2021 Subjective A 71-year-old female with past medical history significant for hyperlipidemia, mild COPD, allergic rhinitis, obstructive sleep apnea, waiting for CPAP as per PCP notes, hypertension, vitamin D deficiency, chronic gastritis, GERD, history of calculus of gallbladder, history of rotator cuff arthropathy, generalized osteoarthritis, lumbar degenerative disk disease, osteoporosis, dyshidrosis, insomnia who presented for the last two days with severe right groin pain, feeling weak, appetite down, has dry cough and fever at home. CT AP and MRI of lumbar spine without significant findings to suggest current presentation but did find moderate to severe foraminal stenosis. Patient feels weak this morning and still with pain in right groin. She still has dry cough, feeling nausous and having decreased appetite. She denies chest pain, shortness of breath, diarrhea, vomiting, dysuria. She was somewhat tearful on exam due to a lot of stressors and surgeries in the last year. Review of Systems Review of Systems: All systems reviewed & are unremarkable except as noted in Subjective Physical Exam Constitutional: WD/WN, vitals as above Eyes: PERRL, conjunctivae normal, anicteric sclerae ENMT: external ear and nose normal, oropharynx normal Neck: trachea midline, no thyromegaly Respiratory: normal respiratory effort, lungs clear to auscultation Cardiovascular: RRR, no murmur, no edema Gastrointestinal (Abdomen): Inspection/Auscultation: abdomen normal to inspection, normal bowel sounds and + significant pannus Percussion/Palpation: + abdomen tender (mildy to epigastric/RUQ areas) Musculoskeletal: no cyanosis or clubbing, extremities motor strength 5/5 tenderness to palpation in right inguinal area, no LAD appreciated. RLE movement limited by pain. Skin: no rashes, warm and dry Neurologic: patellar DTR's 2+ bilat, sensation intact and PERRL, EOMI, accommodation nl, no face palsy, no dysarthria Psychiatric: Orientation: alert and oriented x 3 Affect: + labile affect Results & Data Results & Data ([facility]) Vital Signs (Past 12 Hours) Vital Signs Pulse Pulse Resp BP BP Pulse Ox Pulse Ox 09/14/21 06:26 74 16 104/55 L 96 09/14/21 03:36 73 16 100/61 98 09/14/21 03:29 96 09/14/21 01:45 70 13 100 09/14/21 01:45 107/61 09/14/21 01:30 72 15 100 09/14/21 01:30 111/60 09/14/21 01:15 72 15 100 09/14/21 01:15 97/57 L 09/14/21 01:00 78 22 92 09/14/21 01:00 105/47 L 09/14/21 00:45 76 15 91 09/14/21 00:45 106/66 09/14/21 00:30 18 96 09/14/21 00:30 74 17 95 09/14/21 00:30 89/50 L 09/14/21 00:15 76 17 94 09/14/21 00:15 100/59 L 09/14/21 00:00 75 20 99 09/14/21 00:00 101/58 L O2 Del Method O2 Del Method O2 Flow Rate 09/14/21 06:26 Nasal Cannula 2 09/14/21 03:36 Nasal Cannula 2 09/14/21 03:29 Nasal Cannula 09/14/21 01:45 09/14/21 01:45 09/14/21 01:30 09/14/21 01:30 09/14/21 01:15 09/14/21 01:15 09/14/21 01:00 09/14/21 01:00 09/14/21 00:45 09/14/21 00:45 09/14/21 00:30 Room Air 09/14/21 00:30 09/14/21 00:30 09/14/21 00:15 09/14/21 00:15 09/14/21 00:00 09/14/21 00:00 Laboratory Results Short CBC 09/13/21 09/14/21 Range/Units 19:51 06:58 WBC 11.13 H 9.32 (4.8-10.8) K/ul Hgb 9.3 L 8.8 L (12.0-16.0) g/dl Hct 29.1 L 28.7 L (34.1-44.9) % Plt Count 287 245 (130-400) K/uL BMP 09/13/21 09/14/21 19:51 06:58 Sodium 134 L 136 Potassium 4.0 3.8 Chloride 103 110 H Carbon Dioxide 22 21 BUN 17 12 Creatinine 0.86 0.63 Glucose 159 H 121 H Calcium 8.3 L 7.6 L Liver Function 09/13/21 Range/Units 19:51 Total Bilirubin 0.4 (0.2-1.0) mg/dl AST 21 (13-39) U/L ALT 26 (7-52) U/L Alkaline Phosphatase 223 H (34-104) U/L Albumin 3.2 L (3.4-5.0) gm/dl Urine 09/13/21 Range/Units 20:41 Urine Color Yellow Urine Appearance Clear (Clear) Urine pH 5.0 (4.5-7.5) Ur Specific [place] 1.019 (1.000-1.030) Urine Protein Trace H (Negative) Urine Glucose (UA) Negative (Negative) Diagnostic Findings Impressions Chest X-Ray 09/13/21 20:05 XR chest 1V portable CLINICAL HISTORY: SEPSIS COMPARISON STUDY: Chest radiograph September 25, 2020. FINDINGS: Incidental note is made of postoperative findings within the spine. Lung volumes are normal. Lungs are clear. There is no pneumothorax or pleural effusion. Cardiac size is normal. Mediastinal contours are normal. There is no evidence for pulmonary edema. Moderate sized hiatal hernia is noted. Density lateral to the left heart border is likely related to anterior left fifth rib. There are multiple healing left-sided rib fractures. IMPRESSION: No acute cardiopulmonary findings. ACT 112: Negative or not required by law. Electronically signed by: Antony Brown M.D. 09/13/2021 9:01 PM Lumbar Spine MRI 09/13/21 20:07 MRI OF THE LUMBAR SPINE WITH AND WITHOUT CONTRAST CLINICAL HISTORY: R pelvic pain, fever, s/p surgery 08/25 COMPARISON STUDY: Lumbar spine CT July 18, 2019. TECHNIQUE: Utilizing a 1.5 Tiara magnet and dedicated coil, multiplanar, multiecho imaging of the lumbar spine was performed before and after uneventful IV administration of 8.2 mL of Gadavist. FINDINGS: For purposes of numbering on this exam, the L5-S1 disc space is assigned to axial image 27 of 30. There is mild levoscoliosis of the lumbar spine. There is slight anterolisthesis of L4 and L5. Note is made of postoperative findings consistent with L4-L5 discectomy, posterior decompression and bilateral pedicle screw fusion. Evaluation is compromised given susceptibility artifact from the hardware. Susceptibility artifact from skin dwight is noted. Increased T2 signal within the operative bed is expected in the early postoperative setting. This favors edema. Moderate mass effect upon the posterior aspect of the thecal sac at the L3-L4 level is noted with T1 hyperintense material within the posterior epidural space which likely reflects epidural fat within correlating with CT July 18, 2019. There is moderate to severe central canal stenosis at this level. No epidural fluid collection is identified to suggest an abscess. L1-2: The central canal and neural foramen are patent. L2-3: There is severe disc space narrowing with disc bulge, ligamentous hypertrophy and facet arthrosis. There is moderate narrowing of the central canal and lateral recesses as well as both neural foramen. L3-4: Mass effect upon the posterior aspect of the thecal sac is noted, as described above. There is moderate to severe central canal stenosis at this level. Disc bulge is noted. There is mild bilateral neural foraminal stenosis. L4-5: Posterior decompression is noted. There is mild central canal stenosis. Moderate to severe right neural foraminal stenosis is suspected although suboptimally assessed due to artifact. There is mild left neural foraminal stenosis. L5-S1: Moderate to space narrowing is noted. There is mild narrowing of the central canal. Severe left neural foraminal stenosis is present. Right neural foramen is patent. IMPRESSION: 1. Status post L4-L5 discectomy, posterior decompression and bilateral pedicle screw fusion. No epidural fluid collection to suggest abscess. Increased T2 signal within the operative bed which is expected in the early postoperative setting. 2. Moderate mass effect upon the posterior aspect of the thecal sac at the L3-L4 level with T1 hyperintense material which favors epidural fat within correlating with prior CT. Moderate to severe central canal stenosis at this level. 3. Moderate to severe narrowing of the right L4-5 neural foramen, suboptimally assessed due to susceptibility artifact from surgical hardware. 4. Moderate narrowing of the central canal, lateral recesses and bilateral neural foramen at L2-L3, as described above. ACT 112: Negative or not required by law. Electronically signed by: Antony Brown M.D. 09/14/2021 7:16 AM Abdomen/Pelvis CT 09/14/21 00:36 CT OF THE ABDOMEN AND PELVIS WITH CONTRAST CLINICAL HISTORY: Right lower quadrant abdominal pain. Recent back surgery. COMPARISON STUDY: CT of the abdomen and pelvis July 18, 2019. TECHNIQUE: Following IV administration of 93 mL of Optiray, axial images of the abdomen and pelvis were obtained from the lung bases to the proximal femurs. Images were reviewed in the axial, sagittal, and coronal planes. IV contrast was administered without complication. Automated exposure control was utilized for the study. A dose lowering technique was utilized adhering to the principles of ALARA. CT DOSE: 673.42 mGy.cm FINDINGS: Mild airspace opacities are noted within the right middle and right lower lobes. A 5 mm right middle lobe nodule on image 31 of [address] of July 10, 2019. This may be partially calcified. Moderate sized hiatal hernia is noted with partially intrathoracic stomach. There is no significant biliary ductal dilatation status post cholecystectomy. The spleen, right adrenal gland and pancreas are unremarkable. A 1.7 cm left adrenal nodule is unchanged. There is no hydronephrosis. There is scarring within the lower pole of the right kidney. No evidence for a bowel obstruction. Hyperdense material is noted within the appendix without evidence for acute appendicitis. Caliber and wall thickness of small and large bowel are normal. Submucosal fat deposition within the right colon is noted. There is no lymphadenopathy or ascites. A 3.7 cm cystic left adnexal lesion remains unchanged since prior CT. Trace fluid within the pelvis. Increased attenuation of urine within the bladder is noted. There may be layering hyperdense material within the bladder. Postoperative findings consistent with L4-L5 discectomy and posterior decompression with bilateral pedicle screw fusion are noted. Hardware is intact. Skin dwight are noted. Prominent right external iliac lymph nodes are unchanged. IMPRESSION: 1. No bowel obstruction. No bowel wall thickening. No evidence for acute appendicitis. 2. Increased attenuation of the urine within the bladder. This could be correlated with urinalysis. 3. Trace fluid within the pelvis. 4. No significant change in a in a 3.7 cm cystic left adnexal lesion. This favors an ovarian cyst although is abnormal in a postmenopausal patient. 5. Status post recent L4-L5 discectomy, posterior decompression and bilateral pedicle screw fusion. 5. Mild airspace opacities within the right middle and right lower lobes. 6. Moderate sized hiatal hernia. ACT 112: Negative or not required by law. Electronically signed by: Antony Brown M.D. 09/14/2021 6:45 AM Medications Administered Current Inpatient Medications Acetaminophen (Acetaminophen 325 Mg Tab) 650 mg PO Q4H PRN PRN Reason: Pain or Fever Stop: 10/14/21 03:05 Albuterol (Albuterol Hfa 8 Gm Inhaler) 2 puffs INH QID PRN PRN Reason: Shortness Of Breath Or Wheezing Stop: 10/14/21 03:05 Amoxicillin/Clavulanate Potassium (Amoxicillin/Clavulanate 875 Mg Tab) 1 tab PO BIDM KRISTIAN Stop: 09/16/21 16:59 Atorvastatin Calcium (Atorvastatin 40 Mg Tab) 80 mg PO QDD KRISTIAN Stop: 10/14/21 16:29 Clobetasol Propionate (Clobetasol Propionate 0.05% Oint 15 Gm Tube) 1 appln EXT BID PRN PRN Reason: Skin Irritation Stop: 10/14/21 03:41 Enoxaparin Sodium (Enoxaparin Inj 40 Mg/0.4 Ml Syr) 40 mg SQ Q24H KRISTIAN Stop: 10/14/21 08:59 Last Admin: 09/14/21 09:12 Dose: 40 mg Hydromorphone HCl (Hydromorphone Inj 0.5 Mg/0.5 Ml Syr) 0.5 mg IV Q6H PRN PRN Reason: Pain Stop: 09/28/21 03:05 Sodium Chloride (Nss 1000ml) 1,000 mls @ 100 mls/hr IV .Q10H KRISTIAN Stop: 09/14/21 13:05 Last Admin: 09/14/21 05:06 Dose: 100 mls/hr Magnesium Oxide (Magnesium Oxide 400 Mg Tab) 400 mg PO BID KRISTIAN Stop: 10/14/21 08:59 Last Admin: 09/14/21 09:12 Dose: 400 mg Melatonin (Melatonin 3 Mg Tab) 9 mg PO HSZ PRN PRN Reason: Sleep Stop: 10/14/21 03:38 Miscellaneous (Forteo~Order Awaiting Action) 1 each N/A QS [facility] Stop: 10/14/21 07:59 Multivitamins/Minerals (Calcium 600mg + Vit D 400 Iu Tab) 1 tab PO DAILY KRISTIAN Stop: 10/14/21 08:59 Last Admin: 09/14/21 09:13 Dose: 1 tab Multivitamins/Minerals (Cerovite Adv Formula Tab) 1 tab PO QAM KRISTIAN Stop: 10/14/21 08:59 Last Admin: 09/14/21 09:13 Dose: 1 tab Nitroglycerin (Nitroglycerin Sl 0.4 Mg/Tab Tab) 0.4 mg SL UD PRN PRN Reason: Chest Pain Stop: 10/14/21 03:05 Ondansetron HCl (Ondansetron 4 Mg Od Tab) 4 mg PO Q6H PRN PRN Reason: Nausea Stop: 10/14/21 03:05 Oxycodone/Acetaminophen (Oxycodone/Acetaminophen 10-325 Tab) 1 tab PO BID PRN PRN Reason: Pain Stop: 09/28/21 03:05 Last Admin: 09/14/21 05:06 Dose: 1 tab Pantoprazole Sodium (') 40 mg PO BID KRISTIAN Stop: 10/14/21 08:59 Last Admin: 09/14/21 09:12 Dose: 40 mg Polyethylene Glycol (Polyethylene (Miralax) 17 Gm Pack) 17 gm PO DAILY PRN PRN Reason: Constipation Stop: 10/14/21 03:05 Polyethylene Glycol (Polyethylene (Miralax) 17 Gm Pack) 17 gm PO DAILY KRISTIAN Stop: 10/14/21 08:59 Last Admin: 09/14/21 09:13 Dose: 17 gm Pregabalin (Pregabalin 150 Mg Cap) 150 mg PO BID [facility] Stop: 10/14/21 08:59 Senna/Docusate Sodium (Docusate Sodium/Senna 50/8.6mg Tab) 1 tab PO BID KRISTIAN Stop: 10/14/21 08:59 Last Admin: 09/14/21 09:13 Dose: 1 tab Tizanidine HCl (Tizanidine Hcl 4 Mg Tablet) 2 mg PO Q8H PRN PRN Reason: MUSCLE SPASMS Stop: 10/14/21 03:05 Trazodone HCl (Trazodone Hcl 50 Mg Tab) 50 mg PO HS [facility] Stop: 10/14/21 20:59 Umeclidinium [place] (Umeclidinium [place] 62.5mcg/Blister 7 Puffs/Inhaler) 1 puffs INH QAM KRISTIAN Stop: 10/14/21 08:59 Last Admin: 09/14/21 09:11 Dose: 1 puffs Valacyclovir HCl (Valacyclovir Hcl 500 Mg Tablet) 2,000 mg PO Q12H PRN PRN Reason: Cold Sores Stop: 09/21/21 03:05
[2021-09-14] MEDS: PREGABALIN 150 MG CAP PO SCH ×2 (12:37→21:18)
[2021-09-14] MEDS: ONDANSETRON 4 MG OD TAB PO PRN (12:46)
--- NOTE | 2021-09-14 14:36 | Electrocardiogram Report ---
Test Reason : Blood Pressure : / mmHG Vent. Rate : 083 BPM Atrial Rate : 083 BPM P-R Int : 172 ms QRS Dur : 086 ms QT Int : 372 ms P-R-T Axes : 052 -13 011 degrees QTc Int : 437 ms Normal sinus rhythm Normal ECG When compared with ECG of 25-SEP-2020 10:14, No significant change was found Confirmed by Juanito Blanco ([id number]) on 09/14/2021 2:35:50 PM Referred By: REFERRED SELF Confirmed By:Juanito Blanco
--- NOTE | 2021-09-14 15:55 | XRay Report ---
XR hip RT 2V w pelvis CLINICAL HISTORY: R groin pain. COMPARISON STUDY: No previous studies for comparison. TECHNIQUE: AP pelvis and 2 right hip views FINDINGS: Bones: The bones are osteopenic. There is no evidence for an acute fracture or dislocation. There is no lytic or blastic lesion. Joints: There is moderate narrowing of the right hip joint space superiorly with subchondral sclerosi s and marginal osteophyte formation of the superior acetabulum. There is also mild narrowing of the l eft hip joint space. The bones are in anatomic alignment. Lumbar spine: The patient is status post previous internal fixation of lower lumbar spine. Soft tissues: There is no focal soft tissue abnormality. There is no radiopaque foreign body. IMPRESSION: 1. No acute osseous pathology. 2. Osteoarthritis of both hips, right greater than left. ACT 112: Negative or not required by law. Electronically signed by: Vince June M.D. 09/14/2021 3:53 PM
[2021-09-14] MEDS: AMOXICILLIN/CLAVULANATE 875 MG TAB PO SCH (16:45)
[2021-09-14] MEDS: ATORVASTATIN 40 MG TAB PO SCH (16:54)
--- NOTE | 2021-09-14 17:05 | Orthopedic Consultation ---
Date of Service September 14, 2021 Assessment & Plan (1) Acute right hip pain: -Given the severity of her symptoms and inability to bear weight on her RLE, recommend MRI of her R hip to further work up her hip pain. Possible diagnoses include occult R hip fracture, avascular necrosis, septic arthritis, or symptomatic hip osteoarthritis. XRs are unrevealing for any findings to explain her severe pain. -NWB RLE until MRI complete. -Pain control per primary team. Would recommend tramadol or oxycodone for more severe pain. Dispo: Admit inpatient for further work up. Will follow up with MRI results and adjust recommendations accordingly. Seen and discussed w/ Dr. Wilkinson History of Present Illness Reason for Consultation: R hip pain . Requesting Physician: Sher Byrd MD . Attending Physician: Sher Byrd MD Pt is a 71 y/o/f with PMHx of hyperlipidemia, mild COPD, allergic rhinitis, obstructive sleep apnea, waiting for CPAP as per PCP notes, hypertension, vitamin D deficiency, chronic gastritis, GERD, history of calculus of gallbladder, history of rotator cuff arthropathy, generalized osteoarthritis, lumbar degenerative disk disease, osteoporosis, dyshidrosis, insomnia who has been admitted to medicine service after she presented to ED overnight last night with 2 days of worsening severe R hip pain, fever, decreased appetite, weakness, and productive cough. She is approximally 3 weeks post op from lumbar spine surgery has to date has been recovering well without incident. She denies any recent falls or other injury to right hip. She has not had any past treatment for right hip pain. She indicates that pain is mostly in groin but radiates laterally as well. The pain is severe enough that she cannot ambulate or move it in bed. Denies numbness/tingling in either lower extremity. Denies loss of bowel or bladder function. Thus far her work up has consisted of infectious work up that has been mostly unrevealing, as well as lumbar spine MRI with expected post operative changes and CT abd/pelvis without obvious findings to explain her clinical picture. We are consulted for further evaluation and recommendations for her right hip pain. Allergies Allergy/AdvReac Type Severity Reaction Status Date / Time erythromycin base Allergy Intermediate Hives Verified 09/13/21 20:35 latex Allergy Intermediate ITCHY RASH Verified 09/13/21 20:35 Penicillins Allergy Intermediate Hives Verified 09/13/21 20:35 nickel Allergy Mild Skin Verified 09/13/21 20:35 irritation vancomycin AdvReac Severe Renal Verified 09/13/21 20:35 complications Home Medications Medication Instructions Recorded Confirmed Type atorvastatin 80 mg tablet (Lipitor) 80 mg PO QDD 07/18/19 09/13/21 History cholecalciferol (vitamin D3) 50 50 mcg PO DAILY 07/18/19 09/14/21 History mcg (2,000 unit) capsule (Vitamin D3) omeprazole 20 mg capsule,delayed 20 mg PO BID 07/18/19 09/13/21 History release albuterol sulfate 90 mcg/actuation 2 puff inhalation QID PRN 09/25/20 09/13/21 History aerosol inhaler Shortness Of Breath Or Wheezing multivitamin with minerals-folic 1 tab PO QAM 09/25/20 09/13/21 History acid 200 mcg chewable tablet (Multivitamin Gummies) tiotropium bromide 2.5 2 puff inhalation QAM 09/25/20 09/13/21 History mcg/actuation mist for inhalation (Spiriva Respimat) magnesium oxide 400 mg (241.3 mg 400 mg PO BID #30 tabs 10/01/20 09/13/21 Rx magnesium) tablet ondansetron 4 mg disintegrating 4 mg PO Q6H PRN Nausea 10/22/20 09/13/21 History tablet acetaminophen 325 mg tablet 650 mg PO Q4H PRN Pain 09/13/21 09/13/21 History (Tylenol) calcium carbonate 500 mg-vitamin 1 tab PO DAILY 09/13/21 09/13/21 History D3 3.125 mcg (125 unit) tablet clobetasol 0.05 % topical cream 1 applic topical BID PRN Skin 09/13/21 09/13/21 History Irritation melatonin 10 mg tablet 10 mg PO HS 09/13/21 09/13/21 History oxycodone-acetaminophen 10 mg-325 1 tab PO BID PRN Pain 09/13/21 09/14/21 History mg tablet polyethylene glycol 3350 17 gram 17 g PO DAILY 09/13/21 09/13/21 History oral powder packet (Miralax) pregabalin 150 mg capsule 150 mg PO BID 09/13/21 09/13/21 History sennosides 8.6 mg-docusate sodium 1 tab-cap PO BID 09/13/21 09/13/21 History 50 mg tablet (Senna with Docusate Sodium) teriparatide 20 mcg/dose (600 20 mcg subcut DAILY 09/13/21 09/13/21 History mcg/2.4 mL) subcutaneous pen injector (Forteo) tizanidine 2 mg tablet 2 mg PO Q8H PRN MUSCLE SPASMS 09/13/21 09/13/21 History trazodone 50 mg tablet 50 mg PO HS 09/13/21 09/13/21 History valacyclovir 1 gram tablet 2,000 mg PO Q12H PRN Cold Sores 09/13/21 09/13/21 History Past Med/Surg History Medical History Asthma Mild, no recent inhaler use CKD (chronic kidney disease), stage III Closed fracture of distal end of left femur COPD (chronic obstructive pulmonary disease) Degenerative disc disease Follows with pain management Dyslipidemia GERD (gastroesophageal reflux disease) Osteoarthritis Sleep apnea No device Surgical History H/O arthrodesis H/O thumb surgery Left > tendon repair History of bilateral tubal ligation History of cervical spinal surgery GOOD ROM History of esophagogastroduodenoscopy (EGD) History of open reduction and internal fixation (ORIF) procedure Left femur retrograde IM nail (09/25/20): SAB at L3-L4 (x2 attempts) at [facility] > d/c from [facility] rehab 10/09/20 History of revision of total replacement of right knee joint History of tonsillectomy and adenoidectomy History of tooth extraction History of total knee arthroplasty Right (2010) Hx of colonoscopy Family History Father Family history of diabetes mellitus Other COPD (chronic obstructive pulmonary disease) Cancer Diabetes No family history of adverse response to anesthesia Social History Smoking Status: Never smoker Tobacco Type: Cigarettes Second Hand Exposure: No; Do You Dip or Chew Tobacco: No; Tobacco Cessation Education Requested by Patient: No Hx Alcohol Use: No Hx Substance Use: No Preferred Language: Burkinan Communication Ability: Effective Regulator Tester Required: No Beliefs That Will Affect Care: None marital status: Life Partner Current Living Situation: Spouse Other Information That Helps Us Care for You: No Feels Safe at Home: Yes Safety Concerns: Feels Safe At This Time Assistive Devices: Cane and Walker Review of Systems All systems reviewed & are unremarkable except as noted in HPI & below. Physical Exam General: Ill appearing elderly female resting in bed. AAO x 4. Visibly in pain with any movement of RLE . RLE: She has severe R groin tenderness and lateral hip tenderness. She has very guarded PROM at the right hip joint. Severe pain reproduced w/ passive log roll of the hip joint. Unable to perform straight leg raise or maintain straight leg raise with assistance. Leg lengths are equal. No focal swelling/erythema at the R hip joint. Distally NVI. Results & Data Results & Data Laboratory Results Reviewed . Diagnostic Findings Obtained R hip XRs which were unrevealing for any acute osseous process. No hip fracture of findings consistent with AVN or OM of the hip/pelvis. Moderate to severe hip osteoarthritis is present. PG Care Time/CCT Total # of Minutes Spent Total Time Spent with Patient: Total time spent is greater than 50% in coordination of care (as documented) at patient's floor/unit and/or counseling patient: Coding Level of Care Code 17035 Inpt Consult Level 3 Diagnoses Acute right hip pain M25.551
[2021-09-14] MEDS: HYDROmorphone INJ 0.5 MG/0.5 ML SYR IV PRN ×2 (19:48→21:20)
[2021-09-14] MEDS: traZODone HCL 50 MG TAB PO SCH (21:18)
[2021-09-15] MEDS: oxyCODONE/ACETAMINOPHEN 10-325 TAB PO PRN (06:12)
[2021-09-15] MEDS: DOCUSATE SODIUM/SENNA 50/8.6MG TAB PO SCH ×2 (08:34→20:21)
[2021-09-15] MEDS: AMOXICILLIN/CLAVULANATE 875 MG TAB PO SCH ×2 (08:34→16:14)
[2021-09-15] MEDS: MAGNESIUM OXIDE 400 MG TAB PO SCH ×2 (08:34→20:14)
[2021-09-15] MEDS: ' PO SCH ×2 (08:34→20:15)
[2021-09-15] MEDS: ENOXAPARIN INJ 40 MG/0.4 ML SYR SQ SCH (08:35)
[2021-09-15] MEDS: POLYETHYLENE (MIRALAX) 17 GM PACK PO SCH (08:35)
[2021-09-15] MEDS: CALCIUM 600MG + VIT D 400 IU TAB PO SCH (08:35)
[2021-09-15] MEDS: CEROVITE ADV FORMULA TAB PO SCH (08:35)
[2021-09-15] MEDS: PREGABALIN 150 MG CAP PO SCH ×2 (08:40→20:21)
[2021-09-15 09:07] LABS: Basophils # (auto) 0.05 K/uL (0-0.2); Basophils % (auto) 0.5 %; Eosinophils # (auto) 0.12 K/uL (0-0.50); Eosinophils % (auto) 1.2 %; Hematocrit (blood only) 28.9 % (34.1-44.9); Hemoglobin 8.7 g/dl (12.0-16.0); Immature Granulocytes # (auto) 0.05 K/uL (0.00-0.02); Immature Granulocytes % (auto) 0.5 %; Lymphocytes # (auto) 1.98 K/uL (1.2-3.4); Lymphocytes % (auto) 19.1 %; Mean Corpuscular Hgb Conc 30.1 g/dL (32.0-36.0); Mean Corpuscular Volume 96.3 fL (80.0-100.0); Mean Platelet Volume 11.1 fL (9.4-12.3); Monocytes # (auto) 0.89 K/uL (0.24-0.82); Monocytes % (auto) 8.6 %; Neutrophils # (auto) 7.29 K/uL (1.4-6.5); Neutrophils % (auto) 70.1 %; Platelet Count 291 K/uL (130-400); RDW Coefficient of Variation 12.8 % (11.5-14.5); White Blood Count 10.38 K/ul (4.8-10.8)
[2021-09-15 09:34] LABS: BUN Creatinine Ratio 18.3 (10-20); Calcium 8.4 mg/dl (8.5-10.1); Est GFR (Non-African American) 86.3 ml/min; Magnesium 1.9 mg/dl (1.7-2.4); Phosphorus 3.2 mg/dl (2.5-4.9)
[2021-09-15] MEDS: UMECLIDINIUM BROMIDE 62.5MCG/BLISTER 7 PUFFS/INHALER INH SCH (09:38)
--- NOTE | 2021-09-15 12:11 | Hospitalist Progress Note ---
Date of Service September 15, 2021 Assessment & Plan (1) Right groin pain: Plan: - acute onset [employer] without radiation or associated symptoms - reproducible palpation on RLQ - denies LE numbness or tingling or weakness - strength limited by pain - CT AP without significant findings to suggest pathology - MRI lumbar spine without evidence of acute process - PT/OT evaluation -ortho ordered MRI, has known h/o nailing for fracture of left (nonaffected) hip last year. (2) Pneumonia: Plan: - unclear etiology of fever at this time but pulmonary most likely - dry cough for past 1 week, decreased appetite, leukocytosis on admission labs, airspace opacities seen on CT-AP - s/p cefepime on admission - transitioned to augmentin - cont monitor response to Augmentin (3) Fever: Plan: plan as above. (4) HTN (hypertension): Plan: - does not appear to be on home BP medications - BP normotensive - monitor for now (5) GERD (gastroesophageal reflux disease): Plan: - chronic, stable. continue PPI per home regimen. (6) COPD (chronic obstructive pulmonary disease): Plan: - chronic, stable. not in exacerbation at this time - continue home inhalers (7) Post-operative state: Plan: She is status post lumbar laminectomy by Dr. Waite with [facility] on 08/25/2021. She continues to maintain she had relief of back pain and radiculopathy symptoms. Checking with her surgeon regarding staple removal which was scheduled for today. (8) Osteoporosis: Plan: On daily Forteo injections, this is nonformulary, awaiting home medication to arrive for administration daily. Plan Await MRI results Robitussin for cough PT/OT evaluations Staple removal once given consent from her orthospine surgeon. DVT ppx: lovenox Full Code Dispo-uncertain at this time. Ginny Samayoa DO [facility] Hospitalist Admission and Anticipated Discharge Date Admission Date: September 14, 2021 Subjective A 71-year-old female with past medical history significant for hyperlipidemia, mild COPD, allergic rhinitis, obstructive sleep apnea, waiting for CPAP as per P CP notes, hypertension, vitamin D deficiency, chronic gastritis, GERD, history of calculus of gallbladder, history of rotator cuff arthropathy, generalized osteoarthritis, lumbar degenerative disk disease, osteoporosis, dyshidrosis, insomnia who presented for the last two days with severe right groin pain, feeling weak, appetite down, has dry cough and fever at home. CT a/p revealed evidence of lng infiltrates, possibly pneumonia. She is tolerating the Augmentin without issue. On arrival she was weak with a dry cough and her temperature was 38.1 C with a white count of 11 K. While sleeping her oxygen saturation dropped into the 80s, improved with 2 L/min of oxygen. She reported severe right groin pain and a CT abdomen pelvis was without significant findings to suggest pathology. Her right inguinal/right lower quadrant pain is still present today with palpation. Fever cough and leukocytosis may have been explained by airspace opacities noted on CT and consistent with pneumonia. She reports a cough for the last week and a half. Awaiting Right hip MRI which was ordered by ortho today. She has been toe touch weight bearing at home and reports the right groin pain started Monday suddenly. There was no trauma involved per her report. Today she reports pain on the top of her left foot and pain at the lateral malleolus on the right. She denies any fevers today. Review of Systems Review of Systems: All systems were reviewed and negative except as indicated above. Physical Exam Physical Exam: CONSTITUTIONAL: WNWD, vitals as above, generally well- appearing, NAD EYES: normal conjunctivae, no scleral icterus ENT: external ear and nose normal, MMM NECK: trachea midline RESPIRATORY: clear to auscultation bilaterally, no crackles, rales or wheezes, normal respiratory effort CARDIOVASCULAR: regular rate and rhythm, S1 and 2 heard without murmurs, gallops or rubs, no JVD, no peripheral edema CHEST: inspection of chest was normal GASTROINTESTINAL: soft, TTP in RLQ/inguinal area, no guarding or distension. MUSCULOSKELETAL: generalized weakness, can bend her right knee only to 30 deg but can flex left knee fully without pain or other issues. NVI intact bilaterally, SKIN: warm and dry, well healed back incision. NEUROLOGIC: CN 2-12 grossly intact, no sensory deficit, normal cognition, normal speech, no tremor PSYCHIATRIC: alert cooperative and oriented to person, place and time. Results & Data Results & Data ([facility]) Vital Signs (Past 12 Hours) Vital Signs Temp Pulse Pulse Resp BP BP Pulse Ox 09/15/21 11:39 36.9 C 89 20 106/64 92 09/15/21 10:45 09/15/21 08:16 36.9 C 86 20 103/63 92 09/15/21 06:52 79 09/15/21 03:24 37.4 C 84 18 105/54 L 90 O2 Del Method 09/15/21 11:39 Room Air 09/15/21 10:45 Room Air 09/15/21 08:16 Room Air 09/15/21 06:52 09/15/21 03:24 Room Air Laboratory Results Short CBC 09/15/21 Range/Units 08:10 WBC 10.38 (4.8-10.8) K/ul Hgb 8.7 L (12.0-16.0) g/dl Hct 28.9 L (34.1-44.9) % Plt Count 291 (130-400) K/uL BMP 09/15/21 08:10 Sodium 137 Potassium 4.0 Chloride 108 H Carbon Dioxide 23 BUN 13 Creatinine 0.71 Glucose 87 Calcium 8.4 L Medications Administered Current Inpatient Medications Acetaminophen (Acetaminophen 325 Mg Tab) 650 mg PO Q4H PRN PRN Reason: Pain or Fever Stop: 10/14/21 03:05 Albuterol (Albuterol Hfa 8 Gm Inhaler) 2 puffs INH QID PRN PRN Reason: Shortness Of Breath Or Wheezing Stop: 10/14/21 03:05 Amoxicillin/Clavulanate Potassium (Amoxicillin/Clavulanate 875 Mg Tab) 1 tab PO BIDM [facility] Stop: 09/16/21 16:59 Last Admin: 09/15/21 08:34 Dose: 1 tab Atorvastatin Calcium (Atorvastatin 40 Mg Tab) 80 mg PO QDD [facility] Stop: 10/14/21 16:29 Last Admin: 09/14/21 16:54 Dose: 80 mg Clobetasol Propionate (Clobetasol Propionate 0.05% Oint 15 Gm Tube) 1 appln EXT BID PRN PRN Reason: Skin Irritation Stop: 10/14/21 03:41 Enoxaparin Sodium (Enoxaparin Inj 40 Mg/0.4 Ml Syr) 40 mg SQ Q24H [facility] Stop: 10/14/21 08:59 Last Admin: 09/15/21 08:35 Dose: 40 mg Hydromorphone HCl (Hydromorphone Inj 0.5 Mg/0.5 Ml Syr) 0.5 mg IV Q6H PRN PRN Reason: Pain Stop: 09/28/21 03:05 Last Admin: 09/14/21 21:20 Dose: 0.5 mg Magnesium Oxide (Magnesium Oxide 400 Mg Tab) 400 mg PO BID KRISTIAN Stop: 10/14/21 08:59 Last Admin: 09/15/21 08:34 Dose: 400 mg Melatonin (Melatonin 3 Mg Tab) 9 mg PO HSZ PRN PRN Reason: Sleep Stop: 10/14/21 03:38 Miscellaneous (Forteo~Order Awaiting Action) 1 each N/A QS KRISTIAN Stop: 10/14/21 07:59 Last Admin: 09/15/21 08:35 Dose: Not Given Multivitamins/Minerals (Calcium 600mg + Vit D 400 Iu Tab) 1 tab PO DAILY KRISTIAN Stop: 10/14/21 08:59 Last Admin: 09/15/21 08:35 Dose: 1 tab Multivitamins/Minerals (Cerovite Adv Formula Tab) 1 tab PO QAM KRISTIAN Stop: 10/14/21 08:59 Last Admin: 09/15/21 08:35 Dose: 1 tab Nitroglycerin (Nitroglycerin Sl 0.4 Mg/Tab Tab) 0.4 mg SL UD PRN PRN Reason: Chest Pain Stop: 10/14/21 03:05 Ondansetron HCl (Ondansetron 4 Mg Od Tab) 4 mg PO Q6H PRN PRN Reason: Nausea Stop: 10/14/21 03:05 Last Admin: 09/14/21 12:46 Dose: 4 mg Oxycodone/Acetaminophen (Oxycodone/Acetaminophen 10-325 Tab) 1 tab PO BID PRN PRN Reason: Pain Stop: 09/28/21 03:05 Last Admin: 09/15/21 06:12 Dose: 1 tab Pantoprazole Sodium (') 40 mg PO BID KRISTIAN Stop: 10/14/21 08:59 Last Admin: 09/15/21 08:34 Dose: 40 mg Polyethylene Glycol (Polyethylene (Miralax) 17 Gm Pack) 17 gm PO DAILY PRN PRN Reason: Constipation Stop: 10/14/21 03:05 Polyethylene Glycol (Polyethylene (Miralax) 17 Gm Pack) 17 gm PO DAILY KRISTIAN Stop: 10/14/21 08:59 Last Admin: 09/15/21 08:35 Dose: 17 gm Pregabalin (Pregabalin 150 Mg Cap) 150 mg PO BID [facility] Stop: 10/14/21 08:59 Last Admin: 09/15/21 08:40 Dose: 150 mg Senna/Docusate Sodium (Docusate Sodium/Senna 50/8.6mg Tab) 1 tab PO BID [facility] Stop: 10/14/21 08:59 Last Admin: 09/15/21 08:34 Dose: 1 tab Tizanidine HCl (Tizanidine Hcl 4 Mg Tablet) 2 mg PO Q8H PRN PRN Reason: MUSCLE SPASMS Stop: 10/14/21 03:05 Last Admin: 09/14/21 16:45 Dose: 2 mg Trazodone HCl (Trazodone Hcl 50 Mg Tab) 50 mg PO HS [facility] Stop: 10/14/21 20:59 Last Admin: 09/14/21 21:18 Dose: 50 mg Umeclidinium [place] (Umeclidinium [place] 62.5mcg/Blister 7 Puffs/Inhaler) 1 puffs INH QAM [facility] Stop: 10/14/21 08:59 Last Admin: 09/15/21 09:38 Dose: 1 puffs Valacyclovir HCl (Valacyclovir Hcl 500 Mg Tablet) 2,000 mg PO Q12H PRN PRN Reason: Cold Sores Stop: 09/21/21 03:05
--- NOTE | 2021-09-15 13:04 | Magnetic Resonance Report ---
MR hip RT wo con HISTORY: Right hip pain. Rule out avascular necrosis vs septic joint TECHNIQUE: Multiplanar multisequence MRI of the pelvis and right hip were performed without contrast according to standard departmental protocol. COMPARISON STUDY: Abdomen and pelvis CT 09/14/2021. FINDINGS: Posterior decompression and fusion at L4-L5. There is a intramedullary lilia within the left femur. No fracture or dislocation within the pelvis or hips. Small subchondral cystic foci within the bilateral acetabula suggestive of mild degenerative change. Otherwise, there is a is a normal marrow signal intensity seen throughout the visualized osseous structures. Small right and trace left hip e ffusions are noted. Trace pelvic free fluid. There is a 3.7 cm left ovarian cyst again noted. There a re few prominent bilateral external iliac and inguinal lymph nodes measuring up to 1 cm in short axis diameter. Subcutaneous edema within the bilateral hips. There is also right greater than left soft t issue edema and intramuscular edema within the hips. This is most pronounced within the bilateral add uctor muscles and right gluteal muscles. The intramuscular edema also extends into the visualized rig ht thigh musculature. No evidence for avascular necrosis within the bilateral hips. IMPRESSION: 1. No fracture or dislocation within the pelvis or hips. 2. Small right and trace left hip effusions with right greater than left surrounding soft tissue/intr amuscular edema within the bilateral hips as described above. This is nonspecific could be due to a d iffuse edematous state, posttraumatic change, or possibly rhabdomyolysis. A septic arthritis is consi dered less likely given the lack of abnormal marrow signal within the bilateral hips. 3. Postoperative changes as described above. 4. A 3.7 cm left ovarian cyst. This is considered pathologic in a postmenopausal female. ACT 112: Negative or not required by law. Electronically signed by: Cody Lane M.D. 09/15/2021 1:03 PM
[2021-09-15] MEDS: HYDROmorphone INJ 0.5 MG/0.5 ML SYR IV PRN ×2 (13:23→13:59)
--- NOTE | 2021-09-15 15:08 | Fluoroscopy Report ---
FLUOROSCOPICALLY GUIDED RIGHT HIP ASPIRATION CLINICAL HISTORY: Right hip joint effusion. Attempt aspiration for culture, counts COMPARISON STUDY: MRI of the right hip September 15, 2021 at 12:09 PM. FLUOROSCOPY TIME: 0.2 minutes. FLUOROSCOPIC IMAGES: 1 PROCEDURE AND FINDINGS: The procedure, risks and benefits were discussed with the patient and informe d written consent was obtained. The procedure was performed by Dr. Brown following a timeout. Ski n overlying the right hip joint was prepped and draped in sterile fashion. Local anesthesia was achie josé miguel with 1% lidocaine. Under intermittent fluoroscopic guidance, a 3 1/2 inch, 22-gauge needle was di rected into the right hip joint. There was immediate return of 2 cc of straw-colored joint fluid. No additional fluid could be aspirated. The needle was removed. The patient tolerated the procedure well and no immediate complications were evident. The fluid was sent to laboratory for analysis as jazmine d. IMPRESSION: Fluoroscopically guided aspiration of 2 cc of right hip joint fluid sent to the laborator y for analysis. ACT 112: Negative or not required by law. Electronically signed by: Antony Brown M.D. 09/15/2021 3:07 PM
[2021-09-15] MEDS: guaiFENesin SUGAR FREE 100 MG/5 ML UDC PO SCH ×2 (16:13→19:19)
[2021-09-15] MEDS: ATORVASTATIN 40 MG TAB PO SCH (16:13)
[2021-09-15 16:57] LABS: Appearance Synovial Fluid Cloudy; Color Synovial Fluid Yellow; Mononuclear WBC Synovial 9.4 %; Polynuclear WBC Synovial 90.6 %; RBC Synovial Fluid (A) 4000 /uL; Source Synovial Fluid HIP; WBC Synovial Fluid (A) 19015 /ul (0-200)
[2021-09-15] MEDS ORDERED: VANCOMYCIN CONSULT ACTIVE PRN (18:24)
[2021-09-15] MEDS ORDERED: SODIUM CHLORIDE 0.9% IV SCH (18:30)
[2021-09-15] MEDS ORDERED: VANCOMYCIN HCL IV SCH (18:30)
[2021-09-15 20:01] LABS: Basophils # (auto) 0.07 K/uL (0-0.2); Basophils % (auto) 0.5 %; Eosinophils % (auto) 0.8 %; Hematocrit (blood only) 29.6 % (34.1-44.9); Hemoglobin 9.2 g/dl (12.0-16.0); Immature Granulocytes # (auto) 0.12 K/uL (0.00-0.02); Immature Granulocytes % (auto) 0.9 %; Lymphocytes # (auto) 1.62 K/uL (1.2-3.4); Lymphocytes % (auto) 12.7 %; Mean Corpuscular Hemoglobin 28.9 pg (25.0-34.0); Mean Corpuscular Hgb Conc 31.1 g/dL (32.0-36.0); Mean Corpuscular Volume 93.1 fL (80.0-100.0); Monocytes # (auto) 1.02 K/uL (0.24-0.82); Neutrophils # (auto) 9.87 K/uL (1.4-6.5); Neutrophils % (auto) 77.1 %; Platelet Count 326 K/uL (130-400); RDW Coefficient of Variation 12.9 % (11.5-14.5); Red Blood Count 3.18 M/uL (3.93-5.22)
[2021-09-15] MEDS: CEFEPIME 2,000 MG in SYRINGE 0 ML IV SCH (20:14)
[2021-09-15] MEDS: traZODone HCL 50 MG TAB PO SCH (20:21)
[2021-09-15 20:24] LABS: Albumin Globulin Ratio 0.9 (0.9-2); BUN Creatinine Ratio 20.8 (10-20); Bilirubin,Total 0.5 mg/dl (0.2-1.0); Calcium 8.7 mg/dl (8.5-10.1); Creatinine Clr Calc Pharmacy 71.9 ml/min; Est GFR (African American) 98.3 ml/min; Est GFR (Non-African American) 84.9 ml/min; Globulin 3.4 gm/dl (2.5-4.0); Potassium 4.1 mmol/L (3.5-5.1); Total Protein 6.4 gm/dl (6.0-8.3)
[2021-09-15] MEDS ORDERED: KETOROLAC TROMETHAMINE 15 MG/ML VIAL IV ONE (20:25)
[2021-09-15] MEDS: DAPTOmycin 375 MG in SYRINGE 0 ML IV SCH (20:37)
[2021-09-16] MEDS: CEFEPIME 2,000 MG in SYRINGE 0 ML IV SCH ×3 (01:47→18:04)
[2021-09-16] MEDS: guaiFENesin SUGAR FREE 100 MG/5 ML UDC PO SCH ×4 (01:47→20:27)
[2021-09-16 06:37] LABS: Creatinine Clr Calc Pharmacy 62.1 ml/min; Est GFR (African American) 82.8 ml/min; Est GFR (Non-African American) 71.4 ml/min
[2021-09-16] MEDS: UMECLIDINIUM BROMIDE 62.5MCG/BLISTER 7 PUFFS/INHALER INH SCH (08:52)
[2021-09-16] MEDS: CALCIUM 600MG + VIT D 400 IU TAB PO SCH (08:53)
[2021-09-16] MEDS: ENOXAPARIN INJ 40 MG/0.4 ML SYR SQ SCH (08:53)
[2021-09-16] MEDS: MAGNESIUM OXIDE 400 MG TAB PO SCH ×2 (08:53→20:31)
[2021-09-16] MEDS: ' PO SCH ×2 (08:53→20:31)
[2021-09-16] MEDS: CEROVITE ADV FORMULA TAB PO SCH (08:53)
[2021-09-16] MEDS: DOCUSATE SODIUM/SENNA 50/8.6MG TAB PO SCH ×2 (08:59→20:28)
[2021-09-16] MEDS: PREGABALIN 150 MG CAP PO SCH ×2 (08:59→20:30)
[2021-09-16] MEDS: POLYETHYLENE (MIRALAX) 17 GM PACK PO SCH (09:00)
[2021-09-16] MEDS: oxyCODONE/ACETAMINOPHEN 10-325 TAB PO PRN (09:05)
--- NOTE | 2021-09-16 09:19 | Orthopedic Progress Note ---
Date of Service September 16, 2021 Assessment & Plan (1) Acute right hip pain: 71-year-old female admitted with right hip pain and inability to ambulate. Symptoms are improved with aspiration that yielded 19,000 white blood cells on the hip synovial fluid. Clinical course of improvement after the aspiration, multiple joint involvement, and aspiration cell counts favor an inflammatory process. Low suspicion for joint sepsis. Does have a history of gout. Continue to monitor the cultures. Continue anti-inflammatory treatment and mobilization If symptoms continue to improve tomorrow and cultures remain negative, consider discharge to home. We will follow-up as an outpatient. We will continue to monitor for culture results. Subjective Reports overall improvement. He is able to ambulate with therapy. Deemed safe to return home with services. Still has discomfort in the hip. She also reports diffuse joint discomfort reports tightness and slight pain in her hand IP and MP joints. She also has some pains and tightness in her feet and ankles, as well as her knees. Overall less pain since the hip aspiration. Denies any fevers, chills, nausea or other constitutional findings Review of Systems All systems reviewed & are unremarkable except as noted in HPI & below. Physical Exam General: Seen early this evening. She is in pleasant spirits and appears comfortable in bed. Right hip: Exam is much improved. No irritability on logroll. She can perform straight leg raise on her own without inhibition. I can wear hip and knee passive flexion extension without pain. She can internally rotate to 20 degrees externally at about 45 degrees without significant irritability. Mildly tender over the greater trochanter and groin. Results & Data Results & Data Laboratory Results . Microbiology 09/15/21 14:47 Fungal Smear - Final Joint Fluid/Space (Synovial) 09/15/21 14:47 Gram Stain - Final Hip,Right 09/13/21 20:37 Aerobic Blood Culture - Preliminary Blood No growth in Aerobic bottle after 48 hours. Anaerobic Blood Culture - Preliminary No growth in Anaerobic bottle after 48 hours. 09/13/21 19:51 Aerobic Blood Culture - Preliminary Blood No growth in Aerobic bottle after 48 hours. Anaerobic Blood Culture - Preliminary No growth in Anaerobic bottle after 48 hours. Diagnostic Findings . PG Care Time/CCT Total # of Minutes Spent Total Time Spent with Patient: Total time spent is greater than 50% in coordination of care (as documented) at patient's floor/unit and/or counseling patient: Coding Level of Care Code 69427 Subseq Hosp Care Lvl 3 Diagnoses Acute right hip pain M25.551
[2021-09-16 09:43] LABS: Basophils # (auto) 0.06 K/uL (0-0.2); Basophils % (auto) 0.6 %; Eosinophils % (auto) 1.9 %; Hematocrit (blood only) 30.6 % (34.1-44.9); Hemoglobin 9.2 g/dl (12.0-16.0); Immature Granulocytes # (auto) 0.09 K/uL (0.00-0.02); Immature Granulocytes % (auto) 0.9 %; Lymphocytes # (auto) 2.12 K/uL (1.2-3.4); Lymphocytes % (auto) 20.5 %; Mean Corpuscular Hemoglobin 28.8 pg (25.0-34.0); Mean Corpuscular Hgb Conc 30.1 g/dL (32.0-36.0); Mean Corpuscular Volume 95.6 fL (80.0-100.0); Mean Platelet Volume 11.4 fL (9.4-12.3); Monocytes # (auto) 0.72 K/uL (0.24-0.82); Neutrophils # (auto) 7.14 K/uL (1.4-6.5); Neutrophils % (auto) 69.1 %; Platelet Count 293 K/uL (130-400); RDW Standard Deviation 45.3 fL (36.4-46.3); White Blood Count 10.33 K/ul (4.8-10.8)
[2021-09-16 10:04] LABS: BUN Creatinine Ratio 20.2 (10-20); Calcium 8.7 mg/dl (8.5-10.1); Creatinine Clr Calc Pharmacy 57.9 ml/min; Est GFR (African American) 76.1 ml/min; Est GFR (Non-African American) 65.7 ml/min; Potassium 4.1 mmol/L (3.5-5.1)
--- NOTE | 2021-09-16 13:26 | Hospitalist Progress Note ---
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 -it is possible this may be a side effect of Forteo, started preopoeratively for her upcoming back surgery in the setting of known osteoporosis. Her fosamax was switched to this a couple of months ago to offer an anabolic approach to osteoporosis treatment which may aid in healing after surgery. -with multiple large and small joints affected with pain, concerned for this side effect as a cause -hold Forteo and treat with scheduled Ibuprofen for now. (2) Pneumonia: Plan: - unclear etiology of fever at this time but pulmonary most likely - dry cough for past 1 week, decreased appetite, leukocytosis on admission labs, airspace opacities seen on CT-AP - s/p cefepime on admission - transitioned to augmentin - cont monitor response to Augmentin -abx expanded as above and she is improved clinically. (3) HTN (hypertension): Plan: - does not appear to be on home BP medications - BP normotensive - monitor for now (4) GERD (gastroesophageal reflux disease): Plan: - chronic, stable. continue PPI per home regimen. (5) COPD (chronic obstructive pulmonary disease): Plan: - chronic, stable. not in exacerbation at this time - continue home inhalers (6) Post-operative state: Plan: She is status post lumbar laminectomy by Dr. Waite with [facility] on 08/25/2021. She continues to maintain she had relief of back pain and radiculopathy symptoms. Leander removed from incision site on 09/16 (7) Osteoporosis: Plan: Hold forteo per plan above. Plan DVT ppx: lovenox Full Code Dispo-to home in am. DO [facility] Elliott Hospitalist Admission and Anticipated Discharge Date Admission Date: September 14, 2021 Subjective A 71-year-old female with past medical history significant for hyperlipidemia, mild COPD, allergic rhinitis, obstructive sleep apnea, waiting for CPAP as per PCP notes, hypertension, vitamin D deficiency, chronic gastritis, GERD, history of calculus of gallbladder, history of rotator cuff arthropathy, generalized osteoarthritis, lumbar degenerative disk disease, osteoporosis, dyshidrosis, insomnia who presented for the last two days with severe right groin pain, feeling weak, appetite down, has dry cough and fever at home. CT a/p revealed evidence of lng infiltrates, possibly pneumonia. She is tolerating the Augmentin without issue. On arrival she was weak with a dry cough and her temperature was 38.1 C with a white count of 11 K. While sleeping her oxygen saturation dropped into the 80s, improved with 2 L/min of oxygen. She reported severe right groin pain and a CT abdomen pelvis was without significant findings to suggest pathology. Her right inguinal/right lower quadrant pain is still present today with palpation. Fever cough and leukocytosis may have been explained by airspace opacities noted on CT and consistent with pneumonia. She reports a cough for the last week and a half. Right hip MRI which was ordered by ortho. Nontraumatic pain per her report for the last couple of days. Today she reports multiple small and large joints affected wtih stiffness and pain. There is no active inflammation that can be seen on exam. Toradol seemed to help. R groin pain is improved and she clinically feels better. Discussed the [place] with her outpatient Public Safety Officer who is ok wtih stopping it to rule out any side effects that she may be experiencing. Review of Systems Review of Systems: All systems were reviewed and negative except as indicated above. Physical Exam Physical Exam: CONSTITUTIONAL: WNWD, vitals as above, generally well- appearing, NAD EYES: normal conjunctivae, no scleral icterus ENT: external ear and nose normal, MMM NECK: trachea midline RESPIRATORY: clear to auscultation bilaterally, no crackles, rales or wheezes, normal respiratory effort CARDIOVASCULAR: regular rate and rhythm, S1 and 2 heard without murmurs, gallops or rubs, no JVD, no peripheral edema CHEST: inspection of chest was normal GASTROINTESTINAL: soft, TTP in RLQ/inguinal area improved, no guarding or distension. MUSCULOSKELETAL: generalized weakness, NVI intact bilaterally, SKIN: warm and dry, well healed back incision. [place] have been removed. NEUROLOGIC: CN 2-12 grossly intact, no sensory deficit, normal cognition, normal speech, no tremor PSYCHIATRIC: alert cooperative and oriented to person, place and time. Results & Data Results & Data ([facility]) Vital Signs (Past 12 Hours) Vital Signs Temp Pulse Pulse Resp BP BP Pulse Ox 09/16/21 11:13 36.9 C 85 20 105/65 93 09/16/21 07:33 37.0 C 84 20 100/63 95 09/16/21 06:57 93 H 09/16/21 03:44 37 C 82 16 104/63 93 O2 Del Method 09/16/21 11:13 Room Air 09/16/21 07:33 Room Air 09/16/21 06:57 09/16/21 03:44 Room Air Laboratory Results Short CBC 09/15/21 09/16/21 Range/Units 19:43 05:47 WBC 12.80 H 10.33 (4.8-10.8) K/ul Hgb 9.2 L 9.2 L (12.0-16.0) g/dl Hct 29.6 L 30.6 L (34.1-44.9) % Plt Count 326 293 (130-400) K/uL BMP 09/15/21 09/16/21 09/16/21 19:43 05:46 05:47 Sodium 134 L 136 Potassium 4.1 4.1 Chloride 106 108 H Carbon Dioxide 21 23 BUN 15 18 Creatinine 0.72 0.83 0.89 Glucose 105 H 93 Calcium 8.7 8.7 Cardiac Enzymes 09/16/21 Range/Units 05:47 Total Creatine Kinase 53 (26-192) U/L Liver Function 09/15/21 Range/Units 19:43 Total Bilirubin 0.5 (0.2-1.0) mg/dl AST 30 (13-39) U/L ALT 58 H (7-52) U/L Alkaline Phosphatase 281 H (34-104) U/L Albumin 3.0 L (3.4-5.0) gm/dl Diagnostic Findings Joint Aspiration/Injection 09/15/21 13:26 FLUOROSCOPICALLY GUIDED RIGHT HIP ASPIRATION CLINICAL HISTORY: Right hip joint effusion. Attempt aspiration for culture, counts COMPARISON STUDY: MRI of the right hip September 15, 2021 at 12:09 PM. FLUOROSCOPY TIME: 0.2 minutes. FLUOROSCOPIC IMAGES: 1 PROCEDURE AND FINDINGS: The procedure, risks and benefits were discussed with the patient and informed written consent was obtained. The procedure was performed by Dr. Brown following a timeout. Skin overlying the right hip joint was prepped and draped in sterile fashion. Local anesthesia was achieved with 1% lidocaine. Under intermittent fluoroscopic guidance, a 3 1/2 inch, 22- gauge needle was directed into the right hip joint. There was immediate return of 2 cc of straw-colored joint fluid. No additional fluid could be aspirated. The needle was removed. The patient tolerated the procedure well and no immediate complications were evident. The fluid was sent to laboratory for analysis as ordered. IMPRESSION: Fluoroscopically guided aspiration of 2 cc of right hip joint fluid sent to the laboratory for analysis. ACT 112: Negative or not required by law. Electronically signed by: Antony Brown M.D. 09/15/2021 3:07 PM Medications Administered Current Inpatient Medications Acetaminophen (Acetaminophen 325 Mg Tab) 650 mg PO Q4H PRN PRN Reason: Pain or Fever Stop: 10/14/21 03:05 Last Admin: 09/15/21 18:05 Dose: 650 mg Albuterol (Albuterol Hfa 8 Gm Inhaler) 2 puffs INH QID PRN PRN Reason: Shortness Of Breath Or Wheezing Stop: 10/14/21 03:05 Atorvastatin Calcium (Atorvastatin 40 Mg Tab) 80 mg PO QDD KRISTIAN Stop: 10/14/21 16:29 Last Admin: 09/15/21 16:13 Dose: 80 mg Clobetasol Propionate (Clobetasol Propionate 0.05% Oint 15 Gm Tube) 1 appln EXT BID PRN PRN Reason: Skin Irritation Stop: 10/14/21 03:41 Enoxaparin Sodium (Enoxaparin Inj 40 Mg/0.4 Ml Syr) 40 mg SQ Q24H KRISTIAN Stop: 10/14/21 08:59 Last Admin: 09/16/21 08:53 Dose: 40 mg Guaifenesin (Guaifenesin Sugar Free 100 Mg/5 Ml Udc) 100 mg PO Q6H KRISTIAN Stop: 09/17/21 13:59 Last Admin: 09/16/21 08:53 Dose: 100 mg Hydromorphone HCl (Hydromorphone Inj 0.5 Mg/0.5 Ml Syr) 0.5 mg IV Q6H PRN PRN Reason: Pain Stop: 09/28/21 03:05 Last Admin: 09/15/21 13:59 Dose: 0.5 mg Cefepime HCl 2,000 mg/ Syringe 20 mls @ 5 mls/min IV Q8H [facility]; Protocol Stop: 10/27/21 18:59 Last Admin: 09/16/21 10:56 Dose: 5 mls/min Daptomycin 375 mg/ Syringe 7.5 mls @ 3.75 mls/min IV Q24H [facility]; Protocol Stop: 10/27/21 19:59 Last Admin: 09/15/21 20:37 Dose: 3.75 mls/min Magnesium Oxide (Magnesium Oxide 400 Mg Tab) 400 mg PO BID KRISTIAN Stop: 10/14/21 08:59 Last Admin: 09/16/21 08:53 Dose: 400 mg Melatonin (Melatonin 3 Mg Tab) 9 mg PO HSZ PRN PRN Reason: Sleep Stop: 10/14/21 03:38 Miscellaneous (Forteo~Order Awaiting Action) 1 each N/A QS [facility] Stop: 10/14/21 07:59 Last Admin: 09/16/21 07:00 Dose: Not Given Multivitamins/Minerals (Calcium 600mg + Vit D 400 Iu Tab) 1 tab PO DAILY [facility] Stop: 10/14/21 08:59 Last Admin: 09/16/21 08:53 Dose: 1 tab Multivitamins/Minerals (Cerovite Adv Formula Tab) 1 tab PO QAM [facility] Stop: 10/14/21 08:59 Last Admin: 09/16/21 08:53 Dose: 1 tab Nitroglycerin (Nitroglycerin Sl 0.4 Mg/Tab Tab) 0.4 mg SL UD PRN PRN Reason: Chest Pain Stop: 10/14/21 03:05 Ondansetron HCl (Ondansetron 4 Mg Od Tab) 4 mg PO Q6H PRN PRN Reason: Nausea Stop: 10/14/21 03:05 Last Admin: 09/14/21 12:46 Dose: 4 mg Oxycodone/Acetaminophen (Oxycodone/Acetaminophen 10-325 Tab) 1 tab PO BID PRN PRN Reason: Pain Stop: 09/28/21 03:05 Last Admin: 09/16/21 09:05 Dose: 1 tab Pantoprazole Sodium (') 40 mg PO BID [facility] Stop: 10/14/21 08:59 Last Admin: 09/16/21 08:53 Dose: 40 mg Polyethylene Glycol (Polyethylene (Miralax) 17 Gm Pack) 17 gm PO DAILY PRN PRN Reason: Constipation Stop: 10/14/21 03:05 Polyethylene Glycol (Polyethylene (Miralax) 17 Gm Pack) 17 gm PO DAILY [facility] Stop: 10/14/21 08:59 Last Admin: 09/16/21 09:00 Dose: 17 gm Pregabalin (Pregabalin 150 Mg Cap) 150 mg PO BID K[facility]STIAN Stop: 10/14/21 08:59 Last Admin: 09/16/21 08:59 Dose: 150 mg Senna/Docusate Sodium (Docusate Sodium/Senna 50/8.6mg Tab) 1 tab PO BID KRISTIAN Stop: 10/14/21 08:59 Last Admin: 09/16/21 08:59 Dose: 1 tab Tizanidine HCl (Tizanidine Hcl 4 Mg Tablet) 2 mg PO Q8H PRN PRN Reason: MUSCLE SPASMS Stop: 10/14/21 03:05 Last Admin: 09/14/21 16:45 Dose: 2 mg Trazodone HCl (Trazodone Hcl 50 Mg Tab) 50 mg PO HS K[facility]STIAN Stop: 10/14/21 20:59 Last Admin: 09/15/21 20:21 Dose: 50 mg Umeclidinium Onward (Umeclidinium Onward 62.5mcg/Blister 7 Puffs/Inhaler) 1 puffs INH QAM [facility] Stop: 10/14/21 08:59 Last Admin: 09/16/21 08:52 Dose: 1 puffs Valacyclovir HCl (Valacyclovir Hcl 500 Mg Tablet) 2,000 mg PO Q12H PRN PRN Reason: Cold Sores Stop: 09/21/21 03:05
[2021-09-16] MEDS: IBUPROFEN 600 MG TAB PO SCH ×2 (15:05→20:34)
[2021-09-16] MEDS: DAPTOmycin 375 MG in SYRINGE 0 ML IV SCH (20:26)
[2021-09-16] MEDS: traZODone HCL 50 MG TAB PO SCH (20:33)
[2021-09-17] MEDS: guaiFENesin SUGAR FREE 100 MG/5 ML UDC PO SCH ×2 (02:13→09:58)
[2021-09-17] MEDS: CEFEPIME 2,000 MG in SYRINGE 0 ML IV SCH (02:14)
[2021-09-17] MEDS: ONDANSETRON 4 MG OD TAB PO PRN ×2 (03:19→09:40)
[2021-09-17] MEDS: IBUPROFEN 600 MG TAB PO SCH ×2 (06:13→13:48)
[2021-09-17 06:50] LABS: Hematocrit (blood only) 28.7 % (34.1-44.9); Hemoglobin 8.8 g/dl (12.0-16.0); Mean Corpuscular Hemoglobin 28.9 pg (25.0-34.0); Mean Corpuscular Hgb Conc 30.7 g/dL (32.0-36.0); Mean Corpuscular Volume 94.1 fL (80.0-100.0); Mean Platelet Volume 10.8 fL (9.4-12.3); Platelet Count 304 K/uL (130-400); RDW Coefficient of Variation 13.1 % (11.5-14.5); RDW Standard Deviation 45.1 fL (36.4-46.3); Red Blood Count 3.05 M/uL (3.93-5.22); White Blood Count 6.87 K/ul (4.8-10.8)
[2021-09-17 07:40] LABS: BUN Creatinine Ratio 23.6 (10-20); Calcium 8.5 mg/dl (8.5-10.1); Creatinine Clr Calc Pharmacy 70.1 ml/min; Est GFR (African American) 98.3 ml/min; Est GFR (Non-African American) 84.9 ml/min; Potassium 4.2 mmol/L (3.5-5.1)
[2021-09-17] MEDS: DOCUSATE SODIUM/SENNA 50/8.6MG TAB PO SCH (09:59)
[2021-09-17] MEDS: POLYETHYLENE (MIRALAX) 17 GM PACK PO SCH (09:59)
[2021-09-17] MEDS ORDERED: CEFDINIR 300 MG CAP PO SCH (10:00)
[2021-09-17] MEDS ORDERED: guaiFENesin SUGAR FREE 100 MG/5 ML UDC PO PRN (10:00)
[2021-09-17] MEDS: CALCIUM 600MG + VIT D 400 IU TAB PO SCH (10:01)
[2021-09-17] MEDS: ENOXAPARIN INJ 40 MG/0.4 ML SYR SQ SCH (10:01)
[2021-09-17] MEDS: ' PO SCH (10:02)
[2021-09-17] MEDS: UMECLIDINIUM BROMIDE 62.5MCG/BLISTER 7 PUFFS/INHALER INH SCH (10:02)
[2021-09-17] MEDS: MAGNESIUM OXIDE 400 MG TAB PO SCH (10:02)
[2021-09-17] MEDS: CEROVITE ADV FORMULA TAB PO SCH (10:02)
[2021-09-17] MEDS: PREGABALIN 150 MG CAP PO SCH (10:02)
[2021-09-17] MEDS ORDERED: AZITHROMYCIN 250 MG TAB PO SCH (10:30)
--- NOTE | 2021-09-17 13:20 | Discharge Summary ---
Date of Service September 17, 2021 Principal Diagnosis Right groin pain 2/2 inflammatory arthritis Osteoporosis Pneumonia chronic narcotic use for chronic pain post-op state Discharge Exam CONSTITUTIONAL: WNWD, vitals as above, generally well-appearing, NAD EYES: normal conjunctivae, no scleral icterus ENT: external ear and nose normal, MMM NECK: trachea midline RESPIRATORY: clear to auscultation bilaterally, no crackles, rales or wheezes, normal respiratory effort CARDIOVASCULAR: regular rate and rhythm, S1 and 2 heard without murmurs, gallops or rubs, no JVD, no peripheral edema CHEST: inspection of chest was normal GASTROINTESTINAL: soft, TTP in RLQ/inguinal area improved, no guarding or distension. MUSCULOSKELETAL: generalized weakness, NVI intact bilaterally, SKIN: warm and dry, well healed back incision. [place] have been removed. NEUROLOGIC: CN 2-12 grossly intact, no sensory deficit, normal cognition, normal speech, no tremor PSYCHIATRIC: alert cooperative and oriented to person, place and time. Discharge Data Allergies Allergy/AdvReac Type Severity Reaction Status Date / Time erythromycin base Allergy Intermediate Hives Verified 09/13/21 20:35 latex Allergy Intermediate ITCHY RASH Verified 09/13/21 20:35 Penicillins Allergy Intermediate Hives Verified 09/13/21 20:35 nickel Allergy Mild Skin Verified 09/13/21 20:35 irritation vancomycin AdvReac Severe Renal Verified 09/13/21 20:35 complications Consultations 09/14/21 00:36 ED Decision to Admit Stat Ordered Studies 09/13/21 20:07 MR lumbar spine wo/w con Stat 09/14/21 00:36 CT abd pelvis IV con only Urgent 09/15/21 07:55 MRI Hip [MR hip RT wo con] Routine 09/15/21 13:26 Fluoro hip [FL inj majr joint sh,hip,kn RT] Urgent Hospital Course (1) 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 -it is possible this may be a side effect of Forteo, started preopoeratively for her upcoming back surgery in the setting of known osteoporosis. Her fosamax was switched to this a couple of months ago to offer an anabolic approach to osteoporosis treatment which may aid in healing after surgery. -with multiple large and small joints affected with pain, concerned for this side effect as a cause -hold Forteo and treat with scheduled Ibuprofen for now. (2) Pneumonia: - unclear etiology of fever at this time but pulmonary most likely - dry cough for past 1 week, decreased appetite, leukocytosis on admission labs, airspace opacities seen on CT-AP - s/p cefepime on admission - transitioned to augmentin - cont monitor response to Augmentin -abx expanded as above and she is improved clinically. (3) HTN (hypertension): - does not appear to be on home BP medications - BP normotensive - monitor for now (4) GERD (gastroesophageal reflux disease): - chronic, stable. continue PPI per home regimen. (5) COPD (chronic obstructive pulmonary disease): - chronic, stable. not in exacerbation at this time - continue home inhalers (6) Post-operative state: She is status post lumbar laminectomy by Dr. Waite with [facility] on 08/25/2021. She continues to maintain she had relief of back pain and radiculopathy symptoms. [place] removed from incision site on 09/16 (7) Osteoporosis: Hold forteo per plan above. (8) Inflammatory arthritis: Plan A 71-year-old female with past medical history significant for hyperlipidemia, mild COPD, allergic rhinitis, obstructive sleep apnea, waiting for CPAP as per PCP notes, hypertension, vitamin D deficiency, chronic gastritis, GERD, history of calculus of gallbladder, history of rotator cuff arthropathy, generalized osteoarthritis, lumbar degenerative disk disease, osteoporosis, dyshidrosis, insomnia who presented for two days of severe right groin pain, feeling weak, appetite down, has dry cough and fever at home. On arrival she was weak with a dry cough and her temperature was 38.1 C with a white count of 11 K. While sleeping her oxygen saturation dropped into the 80s, improved with 2 L/min of oxygen. CT a/p revealed evidence of lung infiltrates on the right, possibly consistent with pneumonia and she was started on Augmentin. Orthopedics was consulted and ordered a hip MRI revealing no evidence of fracture with a small right hip effusion with intramuscular edema. After two days on Augmentin, she looked clinically worse and spiked a temperature of 39.3C. Antibiotics were expanded and she was started on NSAID therapy with toradol. The following morning she felt better. Antibiotics were de-escalated after two additional days and after clinical improvement with negative blood cultures. There were also no crystals in the synovial analysis. She was reporting pain and stiffness that was new including large and small joints. Notably she had just started teriparatide preoperatively, switching from her previous Fosamax. A drug side effect was considered a possibility to cause this diffuse arthritis and this drug was stopped. Her Hvac Technician was notified, and she was counseled not to start any bisphosphonates until she discussed this with both her surgeon and rheumatology provider. She verbalized understanding with intent to comply. Another incidental MRI finding was a 3.7cm left ovarian cyst, considered pathologic in a post menopausal female. Followup investigation deferred to PCP in outpatient setting. At time of discharge, she was mentating and ambulating at her baseline and tolerating PO. She was afebrile and hemodynamically stable and was sent home in stable condition with close primary care followup recommended. Review of Systems Total Time Total Time Spent Total Time Spent (In Minutes): 60 Discharge Plan Discharge Items Patient Disposition: Home - Self-Care Reason For Visit: BACK/GROIN PAIN Discharge Diagnosis: Right groin pain 2/2 inflammatory arthritis Osteoporosis Pneumonia chronic narcotic use for chronic pain post-op state Condition on Discharge: Good Activity: Resume your previous activity Non-emergency contact: Primary Care Provider Call non-emergency contact if: you have any medication questions, your symptoms worsen, your pain is not controlled, your pain is worsening, your pain is unusual for you, your pain is concerning for you and you have a fever Follow-up/Referrals: Saurabh Larios MD [Hospitalist] - (Date & Time 09/22/2021 1:40 PM Provider Saurabh Larios MD Department Family Medicine [facility] ) Diet: Heart Healthy Addtl Attending Provider Instructions: Please take all medications as instructed on discharge list below. You were given high dose Ibuprofen to continue every 8 hours for three days, then every 8 hours only as needed for pain. You are also being given additional antibiotic therapy to take for pneumonia. Please complete these two medication courses and then it is recommended that you have a repeat chest xray in 4 weeks to ensure complete resolution of pneumonia. You have been given Mucinex to help with phlegm and coughing. If this isn't helpful for your respiratory symptoms, please contact me over the weekend for an alternative therapy. It is recommended that you stop your Forteo injections until you are able to follow-up with Dr. Grande ([facility]). Please do not start back on the Fosamax until you have checked with your spine surgeon and amusement machine mechanic. It was a pleasure taking care of you! Please call if you have any questions or problems. You can reach a [facility] hospitalist on duty at [facility] 24 hours a day by calling [phone]. Take care of yourself. Ginny Samayoa, [facility] Center[facility] Pending Studies at Discharge: No Stand-Alone Forms: My [facility] Medications and DC Order Prescriptions: New azithromycin 250 mg Tablet 500 mg PO Q24H Qty: 4 0RF Rx Instructions: start 09/18 and take daily until complete cefdinir 300 mg Capsule 300 mg PO BID Qty: 10 0RF Rx Instructions: start night of 09/17 and take until complete ibuprofen 600 mg Tablet 600 mg PO Q8H Qty: 30 0RF Rx Instructions: take every 8 hours for 3 days, then only as needed Mucinex 1,200 mg tablet extended release 12hr 1,200 mg PO BID Qty: 30 0RF Continued atorvastatin [Lipitor] 80 mg Tablet 80 mg PO QDD omeprazole 20 mg capsule,delayed release(DR/EC) 20 mg PO BID cholecalciferol (vitamin D3) [Vitamin D3] 50 mcg (2,000 unit) Capsule 50 mcg PO DAILY Multivitamin Gummies 200 mcg Tablet,Chewable 1 tab PO QAM Spiriva Respimat 2.5 mcg/actuation mist 2 puff INHALATION QAM albuterol sulfate 90 mcg/actuation HFA aerosol inhaler 2 puff INHALATION QID PRN (Reason: Shortness Of Breath Or Wheezing) magnesium oxide 400 mg (241.3 mg magnesium) Tablet 400 mg PO BID Qty: 30 0RF acetaminophen [Tylenol] 325 mg Tablet 650 mg PO Q4H PRN (Reason: Pain) tizanidine 2 mg tablet 2 mg PO Q8H PRN (Reason: MUSCLE SPASMS) trazodone 50 mg tablet 50 mg PO HS valacyclovir 1 gram tablet 2,000 mg PO Q12H PRN (Reason: Cold Sores) sennosides-docusate sodium [Senna with Docusate Sodium] 8.6-50 mg Tablet 1 tab-cap PO BID clobetasol 0.05 % Cream 1 applic TOPICAL BID PRN (Reason: Skin Irritation) oxycodone-acetaminophen 10-325 mg tablet 1 tab PO BID PRN (Reason: Pain) Rx Instructions: SECOND DOSE TODAY, 09/03/21. pregabalin 150 mg capsule 150 mg PO BID calcium carbonate-vitamin D3 500 mg-3.125 mcg (125 unit) Tablet 1 tab PO DAILY melatonin 10 mg Tablet 10 mg PO HS polyethylene glycol 3350 [Miralax] 17 gram powder in packet 17 g PO DAILY ondansetron 4 mg Tablet,Disintegrating 4 mg PO Q6H PRN (Reason: Nausea) Discontinued Forteo 20 mcg/dose (600mcg/2.4mL) Pen Injector 20 mcg SUBCUT DAILY Discharge Orders: Discharge Order (Routine); Ordered 09/17/21 Ordered By: Ginny Samayoa Admission Data Admit Date/Time: 09/14/21 02:13 Attending Provider: Ginny Samayoa Admit Provider: Edin Johnson Primary Care Provider: Tristan Gordillo Other Providers: Edin Johnson ; Raymon Johns [facility] Other Interventions: Discharge Summary Assessment (RN) Last Done: 09/17/21 13:29
== END 2021-09-17 13:56 | disposition home health service (06) | DRG 553 ==
LOC: ED 19:31 → SUATTDRO 09-14 02:13 → EDINP 09-14 02:13 → 2N 09-14 03:16
DX: Z79.899 Other long term (current) drug therapy; Z87.891 Personal history of nicotine dependence; E78.5 Hyperlipidemia, unspecified; Z98.890 Other specified postprocedural states; E55.9 Vitamin D deficiency, unspecified; G47.00 Insomnia, unspecified; G89.29 Other chronic pain; K21.9 Gastro-esophageal reflux disease without esophagitis; Z79.891 Long term (current) use of opiate analgesic; K29.50 Unspecified chronic gastritis without bleeding; Z88.1 Allergy status to other antibiotic agents; Z88.0 Allergy status to penicillin; Z82.49 Family history of ischemic heart disease and other diseases of the circulatory system; Z91.048 Other nonmedicinal substance allergy status; I12.9 Hypertensive chronic kidney disease with stage 1 through stage 4 chronic kidney disease, or unspecified chronic kidney disease; R50.81 Fever presenting with conditions classified elsewhere; J18.9 Pneumonia, unspecified organism; T50.995A Adverse effect of other drugs, medicaments and biological substances, initial encounter; N18.30 Chronic kidney disease, stage 3 unspecified; Z91.040 Latex allergy status; Z82.62 Family history of osteoporosis; M13.89 Other specified arthritis, multiple sites; G47.33 Obstructive sleep apnea (adult) (pediatric); Z82.5 Family history of asthma and other chronic lower respiratory diseases; J44.0 Chronic obstructive pulmonary disease with (acute) lower respiratory infection; M81.0 Age-related osteoporosis without current pathological fracture; N83.202 Unspecified ovarian cyst, left side

== ENCOUNTER 2022-02-16 11:55 | Inpatient (IN) ==
[2022-02-16] MEDS ORDERED: ALBUT/IPRATROP 3MG/0.5MG NEB 3 ML VIAL NEB ONE (11:59)
[2022-02-16] MEDS ORDERED: dexAMETHasone**PF** 10 MG/ML VIAL IV ONE (11:59)
[2022-02-16] MEDS ORDERED: ONDANSETRON INJ 2 MG/ML 2 ML VIAL IV STA (11:59)
[2022-02-16] MEDS ORDERED: SODIUM CHLORIDE 0.9% 1000ML 500 ML IV ONE (11:59)
--- NOTE | 2022-02-16 12:01 | Emergency Department Note ---
Impression & Plan Severe sepsis, Aspiration pneumonia of left lower lobe, Vomiting, Elevated troponin ED Provider Note Name: JUSTICE MONTENEGRO Age: 72 Sex: F Arrives Via: Ambulance Informant: Patient, EMS ED Provider: Giuliano Hobbs MD Chief Complaint: Illness Impression: As per impression above Medical Decision Makin-year-old female with extensive past medical history including CKD, COPD, dyslipidemia, GERD, hypertension arrives for evaluation of difficulty breathing and vomiting. Arrives via EMS and was hypoxic for EMS into the 80s. On evaluation she clearly has left lower lobe infiltrate. She was started empirically on Unasyn after septic work-up was initiated. She was given 1.5 L IV fluids which is 30/kg per ideal body weight as well as given her history of CKD. Patient's heart rate did come down slightly and she is breathing much better on a continuous nebulizer treatment. She is given IV Zofran and no further nausea or vomiting. She has a abdominal exam which is benign on multiple repeat examinations. Laboratory findings are consistent with elevated troponin which I believe is likely type II NSTEMI due to hypoxia and demand ischemia and severity of illness. I do not feel that starting anticoagulants at this time would be indicated given her severity of illness otherwise and her EKG without significant ischemic findings. Procalcitonin is severely elevated also consistent with her significant illness. White blood cell count is not yet bu mped but I do feel that this is severe sepsis. Initial lactic acid is mildly elevated and she is not hypotensive thus not quite septic shock at this time. Prior Medical Record and Triage/Nursing Notes reviewed by Me Additional history obtained from chart and EMS Differentials:Infection, dehydration, metabolic abnormality, hypo/hyperglycemia, electrolyte disturbance, anemia, hypoxia, cardiac sources, intracerebral event, toxicologic, neurologic, as well as other pathologies. Given the patients BMI >30, IBW was used to calculate the 30ml/kg fluid bolus. 1.5 L was used as initial bolus given IBW as well as her CKD history. Vital Signs: reviewed and remarkable for fever, tachycardia Interventions: 1.5 L normal saline IV bolus in addition to 250 mL per EMS. 3 g IV Unasyn, 1 hour DuoNeb, Decadron 10 mg IV I will note that patient was clearly started on Unasyn within the first hour of being in the department and the 1.5 L NSS was given within the same amount of time. Labs:Reviewed and remarkable for evaded troponin, elevated procalcitonin, elevated lactic acid Imagin view chest x-ray reveals a left lower lobe infiltrate as per my interpretation EKG:As per my interpretation. Indication sepsis. Sinus tachycardia at 130 bpm with a QTC of 466. When compared to an EKG of September 13, 2021 there are no significant changes. Cardiac/Tele Monitoring: Cardiac Monitoring: An Order was placed for continuous cardiac monitoring. The monitor shows a rate of 110 with a sinus tach rhythm. Consults:Dr Jose Daniel Nogueira Hospitalist Plan: Disposition:Hospitalization. Condition: Fair History of Present Illness:72-year-old female arrives for evaluation of illness. Patient with 24 hours of nausea, vomiting, breathing difficulty, fevers, chills, weakness and generalized malaise and fatigue. She notes she is unable to get around her house due to her shortness of breath. EMS was called and they found her to be with an O2 sat of 88% and she was put on 2 L nasal cannula and given 250 mL IV fluids in route to the ER. Patient notes she feels slightly better now that she is on oxygen. She notes she is still nauseous. She denies any chest pain, syncope, headache, neck pain, jhon pain, back pain, urinary/bowel symptoms, leg swelling or other concerning signs or symptoms. No recent antibiotics. She does have a history of COPD with previous pneumonia hospitalizations. No recent antibiotics though. Exertion makes worse rest makes better. Prior to arrival no medications. ROS: See above HPI for pertinent positives & negatives. A total of 10 systems reviewed and were otherwise negative. Past Medical History:See Below Past Surgical History:See Below Family History:See Below Social History:See Below Home Medications:See Below Allergies:Vancomycin, penicillin, nickel, latex, erythromycin Vitals:Blood Pressure: 130/74, Pulse 107, RR 22, T 37.7C, O2 94% on 2L NC Physical Exam: GENERAL: Patient is ill appearing and in moderate distress. Dehydrated. EYES: No scleral icterus, unremarkable pupils. ENT: Mucous membranes dry, no nasal congestion. NECK: No masses appreciated, nomeningismus, trachea is midline. RESPIRATORY: Diffuse junky lung sounds with crackles throughout the left lung. Mild wheezing throughout noted. CARDIOVASCULAR: tachycardia.No murmurs, rubs, gallops appreciated. GASTROINTESTINAL: Abdomen soft, non-tender, no peritonitis.Bowel sounds positive.No masses appreciated. BACK: No midline tenderness, no CVA tenderness EXTREMITIES: Normal motion all extremities, no cyanosis, no edema. NEUROLOGIC: Alert and oriented, no acute motor or sensory deficits, no focal weakness, cranial nerves grossly intact. SKIN: No rash, no jaundice, no diaphoresis. GCS: 15 ED Course: Times/Reassessments: Patient septic appearing on arrival and septic work-up initially ordered. She was given 1.5 L fluids. Empirically given IV Unasyn for aspiration treatment. Patient did improve with fluids and nebulizer though is still clearly quite ill. Hospitalist consulted for further management. Critical Care: I have personally spent 45 minutes of critical care time in the direct management of this patient. Acute sepsis secondary to aspiratory pneumonia requiring resuscitation. This was a life/limb threatening event. This 45 minutes is in excess of all separately billable procedures. Giuliano Hobbs MD Past Med/Surg History Medical History Asthma Mild, no recent inhaler use CKD (chronic kidney disease), stage III Closed fracture of distal end of left femur COPD (chronic obstructive pulmonary disease) Degenerative disc disease Follows with pain management Dyslipidemia GERD (gastroesophageal reflux disease) Osteoarthritis Sleep apnea No device Surgical History H/O arthrodesis H/O thumb surgery Left > tendon repair History of bilateral tubal ligation History of cervical spinal surgery GOOD ROM History of esophagogastroduodenoscopy (EGD) History of open reduction and internal fixation (ORIF) procedure Left femur retrograde IM nail (09/25/20): SAB at L3-L4 (x2 attempts) at [facility] > d/c from [facility] rehab 10/09/20 History of revision of total replacement of right knee joint History of tonsillectomy and adenoidectomy History of tooth extraction History of total knee arthroplasty Right (2010) Hx of colonoscopy Family History Father Family history of diabetes mellitus Other COPD (chronic obstructive pulmonary disease) Cancer Diabetes No family history of adverse response to anesthesia Social History Smoking Status: Former smoker Tobacco Type: Cigarettes Second Hand Exposure: No; Hx Alcohol Use: No Hx Substance Use: No Preferred Language: Bahraini Communication Ability: Effective Exercise Physiology Professor Required: No Beliefs That Will Affect Care: None marital status: Life Partner Current Living Situation: Spouse Feels Safe at Home: Yes Assistive Devices: Cane and Walker Allergies Allergies Allergy/AdvReac Type Severity Reaction Status Date / Time erythromycin base Allergy Intermediate Hives Verified 09/13/21 20:35 latex Allergy Intermediate ITCHY RASH Verified 09/13/21 20:35 Penicillins Allergy Intermediate Hives Verified 09/13/21 20:35 nickel Allergy Mild Skin Verified 09/13/21 20:35 irritation vancomycin AdvReac Severe Renal Verified 09/13/21 20:35 complications Home Meds Home Medications Medication Instructions Recorded Confirmed atorvastatin 80 mg tablet (Lipitor) 80 mg PO QDD 07/18/19 09/13/21 cholecalciferol (vitamin D3) 50 50 mcg PO DAILY 07/18/19 09/14/21 mcg (2,000 unit) capsule (Vitamin D3) omeprazole 20 mg capsule,delayed 20 mg PO BID 07/18/19 09/13/21 release albuterol sulfate 90 mcg/actuation 2 puff inhalation QID PRN 09/25/20 09/13/21 aerosol inhaler Shortness Of Breath Or Wheezing multivitamin with minerals-folic 1 tab PO QAM 09/25/20 09/13/21 acid 200 mcg chewable tablet (Multivitamin Gummies) tiotropium bromide 2.5 2 puff inhalation QAM 09/25/20 09/13/21 mcg/actuation mist for inhalation (Spiriva Respimat) ondansetron 4 mg disintegrating 4 mg PO Q6H PRN Nausea 10/22/20 09/13/21 tablet acetaminophen 325 mg tablet 650 mg PO Q4H PRN Pain 09/13/21 09/13/21 (Tylenol) calcium carbonate 500 mg-vitamin 1 tab PO DAILY 09/13/21 09/13/21 D3 3.125 mcg (125 unit) tablet clobetasol 0.05 % topical cream 1 applic topical BID PRN Skin 09/13/21 09/13/21 Irritation melatonin 10 mg tablet 10 mg PO HS 09/13/21 09/13/21 oxycodone-acetaminophen 10 mg-325 1 tab PO BID PRN Pain 09/13/21 09/14/21 mg tablet polyethylene glycol 3350 17 gram 17 g PO DAILY 09/13/21 09/13/21 oral powder packet (Miralax) pregabalin 150 mg capsule 150 mg PO BID 09/13/21 09/13/21 sennosides 8.6 mg-docusate sodium 1 tab-cap PO BID 09/13/21 09/13/21 50 mg tablet (Senna with Docusate Sodium) tizanidine 2 mg tablet 2 mg PO Q8H PRN MUSCLE SPASMS 09/13/21 09/13/21 trazodone 50 mg tablet 50 mg PO HS 09/13/21 09/13/21 valacyclovir 1 gram tablet 2,000 mg PO Q12H PRN Cold Sores 09/13/21 09/13/21 Previous Rx's Medication Instructions Recorded magnesium oxide 400 mg (241.3 mg 400 mg PO BID #30 tabs 10/01/20 magnesium) tablet guaifenesin 1,200 mg tablet, 1,200 mg PO BID #30 tabs 09/17/21 extended release 12 hr (Mucinex) ibuprofen 600 mg tablet 600 mg PO Q8H #30 tabs 09/17/21 Results & Data (ED) Vital Signs Vital Signs - 24 hr 02/16/22 12:19 02/16/22 11:59 02/16/22 11:59 Temperature 37.7 C H Temperature Source Oral Pulse Rate 115 H Pulse Rate [Left Finger] 110 H Pulse Rate from SpO2 Sensor Respiratory Rate 20 23 Respiratory Effort / Characteristics Non-Labored Spontaneous Non-Labored Spontaneous Respiratory Depth Shallow Respiratory Pattern Tachypnea Blood Pressure 143/76 H Blood Pressure Mean 98 Blood Pressure Position Semi-fowlers Pulse Oximetry 94 92 92 Oxygen Delivery Method Room Air Room Air Room Air Sepsis Recent Fever Within 48 Hours Yes Sepsis New/Unexplained Change in Mental Status N/A Sepsis Action Taken by Nursing Physician Notified 02/16/22 12:18 02/16/22 12:30 02/16/22 12:31 Temperature Temperature Source Pulse Rate 110 H 112 H Pulse Rate [Left Finger] Pulse Rate from SpO2 Sensor 111 H 107 H Respiratory Rate 23 15 Respiratory Effort / Characteristics Respiratory Depth Respiratory Pattern Blood Pressure 130/74 Blood Pressure Mean 92 Blood Pressure Position Pulse Oximetry 95 100 Oxygen Delivery Method Nebulizer Sepsis Recent Fever Within 48 Hours Sepsis New/Unexplained Change in Mental Status Sepsis Action Taken by Nursing 02/16/22 12:31 Temperature Temperature Source Pulse Rate 107 H Pulse Rate [Left Finger] Pulse Rate from SpO2 Sensor 107 H Respiratory Rate 22 Respiratory Effort / Characteristics Respiratory Depth Respiratory Pattern Blood Pressure Blood Pressure Mean Blood Pressure Position Pulse Oximetry 100 Oxygen Delivery Method Nebulizer Sepsis Recent Fever Within 48 Hours Sepsis New/Unexplained Change in Mental Status Sepsis Action Taken by Nursing Laboratory Data Result diagrams: 02/16/22 12:10 02/16/22 12:10 Lab Results 02/16/22 02/16/22 02/16/22 Range/Units 12:10 12:10 12:10 WBC 9.50 (4.8-10.8) K/ul RBC 4.64 (3.93-5.22) M/uL Hgb 12.3 (12.0-16.0) g/dl Hct 40.3 (34.1-44.9) % MCV 86.9 (80.0-100.0) fL MCH 26.5 (25.0-34.0) pg MCHC 30.5 L (32.0-36.0) g/dL RDW Std Deviation 48.5 H (36.4-46.3) fL RDW Coeff of Alfonso 15.3 H (11.5-14.5) % Plt Count 196 (130-400) K/uL MPV 11.0 (9.4-12.3) fL Immature Gran % (Auto) 0.3 % Neut % (Auto) 84.2 % Lymph % (Auto) 6.9 % [place] % (Auto) 8.3 % Eos % (Auto) 0.0 % Baso % (Auto) 0.3 % Neut # (Auto) 7.99 H (1.4-6.5) K/uL Lymph # (Auto) 0.66 L (1.2-3.4) K/uL [place] # (Auto) 0.79 (0.24-0.82) K/uL Eos # (Auto) 0.00 (0-0.50) K/uL Baso # (Auto) 0.03 (0-0.2) K/uL Immature Gran # (Auto) 0.03 H (0.00-0.02) K/uL Sodium 141 (136-145) mmol/L Potassium 3.0 L (3.5-5.1) mmol/L Chloride 110 H (98-107) mmol/L Carbon Dioxide 22 (21-32) mmol/L Anion Gap 9 (3-11) BUN 16 (6-23) mg/dl Creatinine 0.69 (0.6-1.2) mg/dl Est Cr Clr Drug Dosing 70.3 ml/min Est GFR ( Amer) 101.5 ml/min Est GFR (Non-Af Amer) 87.6 ml/min BUN/Creatinine Ratio 23.2 H (10-20) Glucose 146 H (70-99(Fasting)) mg/dl Lactate 3.2 H* (0.4-2.0) mmol/L Calcium 9.0 (8.5-10.1) mg/dl Magnesium 1.4 L (1.7-2.4) mg/dl Total Bilirubin 0.7 (0.2-1.0) mg/dl Direct Bilirubin 0.1 (0-0.2) mg/dl AST 27 (13-39) U/L ALT 20 (7-52) U/L Alkaline Phosphatase 86 (34-104) U/L Troponin I High Sens 194.6 H* (0-14) pg/ml Total Protein 7.0 (6.0-8.3) gm/dl Albumin 3.9 (3.4-5.0) gm/dl Procalcitonin (0-0.5) ng/ml SARS-CoV-2 (PCR) (Negative) Influenza Type A (PCR) (Neg) Influenza Type B (PCR) (Neg) RSV (RT-PCR) (Neg) 02/16/22 02/16/22 Range/Units 12:10 12:20 WBC (4.8-10.8) K/ul RBC (3.93-5.22) M/uL Hgb (12.0-16.0) g/dl Hct (34.1-44.9) % MCV (80.0-100.0) fL MCH (25.0-34.0) pg MCHC (32.0-36.0) g/dL RDW Std Deviation (36.4-46.3) fL RDW Coeff of Alfonso (11.5-14.5) % Plt Count (130-400) K/uL MPV (9.4-12.3) fL Immature Gran % (Auto) % Neut % (Auto) % Lymph % (Auto) % [place] % (Auto) % Eos % (Auto) % Baso % (Auto) % Neut # (Auto) (1.4-6.5) K/uL Lymph # (Auto) (1.2-3.4) K/uL [place] # (Auto) (0.24-0.82) K/uL Eos # (Auto) (0-0.50) K/uL Baso # (Auto) (0-0.2) K/uL Immature Gran # (Auto) (0.00-0.02) K/uL Sodium (136-145) mmol/L Potassium (3.5-5.1) mmol/L Chloride (98-107) mmol/L Carbon Dioxide (21-32) mmol/L Anion Gap (3-11) BUN (6-23) mg/dl Creatinine (0.6-1.2) mg/dl Est Cr Clr Drug Dosing ml/min Est GFR ( Amer) ml/min Est GFR (Non-Af Amer) ml/min BUN/Creatinine Ratio (10-20) Glucose (70-99(Fasting)) mg/dl Lactate (0.4-2.0) mmol/L Calcium (8.5-10.1) mg/dl Magnesium (1.7-2.4) mg/dl Total Bilirubin (0.2-1.0) mg/dl Direct Bilirubin (0-0.2) mg/dl AST (13-39) U/L ALT (7-52) U/L Alkaline Phosphatase (34-104) U/L Troponin I High Sens (0-14) pg/ml Total Protein (6.0-8.3) gm/dl Albumin (3.4-5.0) gm/dl Procalcitonin 20.50 H (0-0.5) ng/ml SARS-CoV-2 (PCR) NEGATIVE (Negative) Influenza Type A (PCR) Negative (Neg) Influenza Type B (PCR) Negative (Neg) RSV (RT-PCR) Negative (Neg) Administered Medications Discontinued Medications Albuterol (Albut/Ipratrop 3mg/0.5mg Neb 3 Ml Vial) 12 ml NEB ONE ONE; Protocol Stop: 02/16/22 12:00 Last Admin: 02/16/22 12:19 Dose: 12 ml Documented By: BRENDA Dexamethasone Sodium Phosphate (DexamethasonePf 10 Mg/Ml Vial) 10 mg IV NOW ONE Stop: 02/16/22 12:00 Last Admin: 02/16/22 12:25 Dose: 10 mg Documented By: NATALIE Sodium Chloride (Nss 1000ml) 500 mls @ 999 mls/hr IV .Q31M ONE Stop: 02/16/22 12:29 Last Infusion: 02/16/22 12:53 Dose: 0 mls/hr Documented By: Admin: 02/16/22 12:15 Dose: 999 mls/hr Documented By: NATALIE Ampicillin Sodium/Sulbactam Sodium 3,000 mg/ Sodium Chloride 108 mls @ 200 mls/hr IV NOW STA; Protocol Stop: 02/16/22 12:56 Last Infusion: 02/16/22 13:45 Dose: 0 mls/hr Documented By: Admin: 02/16/22 13:15 Dose: 200 mls/hr Documented By: NATALIE Sodium Chloride (Nss 1000ml) 1,000 mls @ 999 mls/hr IV .Q1H1M ONE Stop: 02/16/22 13:50 Last Infusion: 02/16/22 14:19 Dose: 0 mls/hr Documented By: Admin: 02/16/22 13:21 Dose: 999 mls/hr Documented By: SAGE Ondansetron HCl (Ondansetron Inj 2 Mg/Ml 2 Ml Vial) 4 mg IV NOW STA Stop: 02/16/22 12:00 Last Admin: 02/16/22 12:26 Dose: 4 mg Documented By: NATALIE Imaging Data Radiologist's Impression: Chest X-Ray 02/16/22 11:59 XR chest 1V portable CLINICAL HISTORY: Sepsis TECHNIQUE: Single frontal radiograph of the chest was obtained. Comparison: Comparison is made to chest radiograph 09/13/2021 FINDINGS: No lines and tubes are seen. The cardiomediastinal silhouette is normal. Airspace opacity is seen in the left lower lung. No evidence of pleural effusion or pneumothorax. IMPRESSION: Left lower lung airspace opacities are seen. These are favored to represent pneumonia and/or aspiration. ACT 112: Negative or not required by law. Electronically signed by: Moe Graham M.D. 02/16/2022 12:24 PM Discharge Plan Visit Data Chief Complaint: Illness Stated Complaint: Illness ED Provider: Giuliano Hobbs Discharge Problem: Severe sepsis, Aspiration pneumonia of left lower lobe, Vomiting, Elevated troponin Forms Stand Alone Forms: [facility] Prescriptions Prescriptions: No Action atorvastatin [Lipitor] 80 mg Tablet 80 mg PO QDD omeprazole 20 mg capsule,delayed release(DR/EC) 20 mg PO BID cholecalciferol (vitamin D3) [Vitamin D3] 50 mcg (2,000 unit) Capsule 50 mcg PO DAILY Multivitamin Gummies 200 mcg Tablet,Chewable 1 tab PO QAM Spiriva Respimat 2.5 mcg/actuation mist 2 puff INHALATION QAM albuterol sulfate 90 mcg/actuation HFA aerosol inhaler 2 puff INHALATION QID PRN (Reason: Shortness Of Breath Or Wheezing) magnesium oxide 400 mg (241.3 mg magnesium) Tablet 400 mg PO BID Qty: 30 0RF acetaminophen [Tylenol] 325 mg Tablet 650 mg PO Q4H PRN (Reason: Pain) tizanidine 2 mg tablet 2 mg PO Q8H PRN (Reason: MUSCLE SPASMS) trazodone 50 mg tablet 50 mg PO HS valacyclovir 1 gram tablet 2,000 mg PO Q12H PRN (Reason: Cold Sores) sennosides-docusate sodium [Senna with Docusate Sodium] 8.6-50 mg Tablet 1 tab-cap PO BID clobetasol 0.05 % Cream 1 applic TOPICAL BID PRN (Reason: Skin Irritation) oxycodone-acetaminophen 10-325 mg tablet 1 tab PO BID PRN (Reason: Pain) Rx Instructions: SECOND DOSE TODAY, 09/03/21. pregabalin 150 mg capsule 150 mg PO BID calcium carbonate-vitamin D3 500 mg-3.125 mcg (125 unit) Tablet 1 tab PO DAILY melatonin 10 mg Tablet 10 mg PO HS polyethylene glycol 3350 [Miralax] 17 gram powder in packet 17 g PO DAILY ibuprofen 600 mg Tablet 600 mg PO Q8H Qty: 30 0RF Rx Instructions: take every 8 hours for 3 days, then only as needed Mucinex 1,200 mg tablet extended release 12hr 1,200 mg PO BID Qty: 30 0RF ondansetron 4 mg Tablet,Disintegrating 4 mg PO Q6H PRN (Reason: Nausea) Referrals Referrals: Tristan Gordillo MD [Primary Care Provider] - : Aspiration pneumonia of left lower lobe Qualifiers: Aspiration pneumonia type: due to vomit Qualified Code(s): J69.0 - Pneumonitis due to inhalation of food and vomit Vomiting Qualifiers: Vomiting type: unspecified Nausea presence: without nausea Qualified Code(s): R11.11 - Vomiting without nausea
[2022-02-16] MEDS ORDERED: AMPICILLIN/SULBACTAM SOD 3,000 MG in 0.9 % SODIUM CHLORIDE 100 ML IV STA (12:24)
--- NOTE | 2022-02-16 12:25 | XRay Report ---
XR chest 1V portable CLINICAL HISTORY: Sepsis TECHNIQUE: Single frontal radiograph of the chest was obtained. Comparison: Comparison is made to chest radiograph 09/13/2021 FINDINGS: No lines and tubes are seen. The cardiomediastinal silhouette is normal. Airspace opacity is seen in the left lower lung. No evidence of pleural effusion or pneumothorax. IMPRESSION: Left lower lung airspace opacities are seen. These are favored to represent pneumonia and/or aspirati on. ACT 112: Negative or not required by law. Electronically signed by: Moe Graham M.D. 02/16/2022 12:24 PM
[2022-02-16 12:28] LABS: Basophils # (auto) 0.03 K/uL (0-0.2); Basophils % (auto) 0.3 %; Hematocrit (blood only) 40.3 % (34.1-44.9); Hemoglobin 12.3 g/dl (12.0-16.0); Immature Granulocytes # (auto) 0.03 K/uL (0.00-0.02); Immature Granulocytes % (auto) 0.3 %; Lymphocytes # (auto) 0.66 K/uL (1.2-3.4); Lymphocytes % (auto) 6.9 %; Mean Corpuscular Hemoglobin 26.5 pg (25.0-34.0); Mean Corpuscular Hgb Conc 30.5 g/dL (32.0-36.0); Mean Corpuscular Volume 86.9 fL (80.0-100.0); Monocytes # (auto) 0.79 K/uL (0.24-0.82); Monocytes % (auto) 8.3 %; Neutrophils # (auto) 7.99 K/uL (1.4-6.5); Neutrophils % (auto) 84.2 %; Platelet Count 196 K/uL (130-400); RDW Coefficient of Variation 15.3 % (11.5-14.5); RDW Standard Deviation 48.5 fL (36.4-46.3); Red Blood Count 4.64 M/uL (3.93-5.22)
[2022-02-16] MEDS ORDERED: SODIUM CHLORIDE 0.9% 1000ML 1,000 ML IV ONE (12:50)
[2022-02-16 12:51] LABS: Albumin Level 3.9 gm/dl (3.4-5.0); BUN Creatinine Ratio 23.2 (10-20); Bilirubin Direct 0.1 mg/dl (0-0.2); Bilirubin,Total 0.7 mg/dl (0.2-1.0); Creatinine Clr Calc Pharmacy 70.3 ml/min; Est GFR (African American) 101.5 ml/min; Est GFR (Non-African American) 87.6 ml/min; Magnesium 1.4 mg/dl (1.7-2.4)
[2022-02-16 13:03] LABS: Troponin I High Sensitivity 194.6 pg/ml (0-14)
[2022-02-16] MEDS ORDERED: MAGNESIUM SULFATE / D5W 1 GM/100 ML BAG IV STA (13:13)
[2022-02-16 13:28] LABS: Influenza A virus by PCR Negative (Neg); Influenza B virus by PCR Negative (Neg); RSV by PCR Negative (Neg); SARS CoV2 RNA(COVID-19) Ceph NEGATIVE (Negative)
--- NOTE | 2022-02-16 13:47 | History & Physical Report ---
Date of Service February 16, 2022 Assessment & Plan (1) LLL pneumonia: (2) Sepsis: (3) Acute respiratory failure: (4) COPD exacerbation: Plan: POSSIBLE ASPIRATION PNEUMONIA Patient is 72-year-old female with PMH COPD, HTN, dyslipidemia, GERD, chronic pain, ONEL presented to ER with complaint of tactile fever, SOB, wheezing, myalgias, weakness, N/V/D x1 day. EMS reported O2 sat of 88% on room air, was given 250mL NSS in route. In ER T: 37.7C, P: 115, R: 23, BP 143/76, 92% on 2 L nasal cannula. WBC: 9.5. Procalcitonin: 20. Negative influenza, RSV and COVID-19 PCR CXR: Left lower lung airspace opacities are seen. These are favored to represent pneumonia and/or aspiration. Lactate: 3.2--> 3.3 In ER given 1.5L NSS, hour-long albuterol nebulizer, dexamethasone 10 mg IV, Unasyn Patient with reported improvement since nebulizer with decreased SOB and resol ution of CP MRSA swab pending Blood cultures pending Obtain sputum culture if able Repeat lactate Gentle IVF Ceftriaxone, Flagyl (patient with reported history of penicillin allergy of hives. Has been on cefepime past admissions without reaction) Xopenex/Atrovent nebs scheduled Solu-Medrol 40 mg 3 times daily Supplemental oxygen as needed with goal of 90% with history of COPD Hold home Spiriva as getting scheduled nebs CBC, BMP in a.m. (5) Elevated troponin: Plan: Initial high-sensitivity troponin: 194. EKG sinus tachycardia, rate 113, no ST elevation noted, nonspecific ST changes lateral anterior leads appear new from prior EKG Reported left anterior aching chest pain yesterday and today which has since resolved after treatment with nebulizer and oxygen in ER Suspect demand ischemia secondary to pneumonia, hypoxia Trend troponin Echo Consider cardiology consult if uptrending troponins, recurrent chest pain SINUS TACHYCARDIA Monitor on telemetry Will give Xopenex/Atrovent nebs instead of albuterol (6) Hypokalemia: Plan: K: 3.0 Replace and monitor (7) Hypomagnesemia: Plan: Magnesium: 1.4 History of chronic hypomagnesemia In ER given 1g magnesium sulfate Continue to replace and monitor (8) HTN (hypertension): Plan: Not on medication at home Stable (9) Dyslipidemia: Plan: Continue atorvastatin (10) GERD (gastroesophageal reflux disease): Plan: Continue PPI (11) Chronic back pain: Plan: Follows with pain management in [place] Continue hydrocodone as needed. Continue pregabalin (12) ONEL (obstructive sleep apnea): Plan: Does not use CPAP DVT Prophylaxis Lovenox SQ Full Code as per discussion with pt Follows with Dr Larios for routine care Pt was seen and care coordinated with Dr Sky. See addendum History of Present Illness Chief Complaint: SOB, fever Primary Care Provider: Dr Larios Patient is 72-year-old female with PMH COPD, HTN, dyslipidemia, GERD, chronic pain, ONEL presented to ER with complaint of fever and shortness of breath x1 day. Patient states yesterday had onset of tactile fever, chills. Did not take temperature at home. Also had onset of cough, wheezing, shortness of breath. Patient unsure of color of sputum. Also c/o generalized weakness, myalgias, WATSON. Patient reports left-sided chest aching yesterday and this morning which has since improved after treatment in ER today. Also complains of nausea, vomiting 4-5 episodes, and numerous episodes of loose diarrhea. Did not try using albuterol for her symptoms. Denies ill contacts. Denies diaphoresis, melena, hematochezia, hematemesis, abdominal pain, syncope, vision changes, neck pain, orthopnea, palpitations, hemoptysis, sore throat, choking, otalgia, rhinorrhea, paresthesias, extremity edema, rashes, urinary symptoms. Allergies Allergy/AdvReac Type Severity Reaction Status Date / Time erythromycin base Allergy Intermediate Hives Verified 02/16/22 15:13 latex Allergy Intermediate ITCHY RASH Verified 02/16/22 15:13 Penicillins Allergy Intermediate Hives Verified 02/16/22 15:13 nickel Allergy Mild Skin Verified 02/16/22 15:13 irritation vancomycin AdvReac Severe Renal Verified 02/16/22 15:13 complications Home Medications Medication Instructions Recorded Confirmed Type atorvastatin 80 mg tablet (Lipitor) 80 mg PO QDD 07/18/19 02/16/22 History cholecalciferol (vitamin D3) 50 50 mcg PO DAILY 07/18/19 02/16/22 History mcg (2,000 unit) capsule (Vitamin D3) omeprazole 20 mg capsule,delayed 20 mg PO BID 07/18/19 02/16/22 History release albuterol sulfate 90 mcg/actuation 2 puff inhalation QID PRN 09/25/20 02/16/22 History aerosol inhaler Shortness Of Breath Or Wheezing multivitamin with minerals-folic 1 tab PO QAM 09/25/20 02/16/22 History acid 200 mcg chewable tablet (Multivitamin Gummies) tiotropium bromide 2.5 2 puff inhalation QAM 09/25/20 02/16/22 History mcg/actuation mist for inhalation (Spiriva Respimat) magnesium oxide 400 mg (241.3 mg 400 mg PO BID #30 tabs 10/01/20 02/16/22 Rx magnesium) tablet acetaminophen 325 mg tablet 650 mg PO Q4H PRN Pain 09/13/21 02/16/22 History (Tylenol) calcium carbonate 500 mg-vitamin 1 tab PO DAILY 09/13/21 02/16/22 History D3 3.125 mcg (125 unit) tablet melatonin 10 mg tablet 10 mg PO HS 09/13/21 02/16/22 History polyethylene glycol 3350 17 gram 17 g PO DAILY PRN Constipation 09/13/21 02/16/22 History oral powder packet (Miralax) pregabalin 150 mg capsule 150 mg PO BID 09/13/21 02/16/22 History sennosides 8.6 mg-docusate sodium 1 tab-cap PO BID 09/13/21 02/16/22 History 50 mg tablet (Senna with Docusate Sodium) trazodone 50 mg tablet 50 mg PO HS 09/13/21 02/16/22 History valacyclovir 1 gram tablet 2,000 mg PO Q12H PRN Cold Sores 09/13/21 02/16/22 History alendronate 70 mg tablet 70 mg PO WK 02/16/22 02/16/22 History hydrocodone 10 mg-acetaminophen 1 tab PO Q8H PRN Severe Pain 02/16/22 02/16/22 History 325 mg tablet (Scale Score 7-10) metoclopramide HCl 5 mg tablet 5 mg PO AC PRN NEEDED PER [facility] 02/16/22 02/16/22 History (Reglan) Past Med/Surg History Medical History Asthma Mild, no recent inhaler use CKD (chronic kidney disease), stage III Closed fracture of distal end of left femur COPD (chronic obstructive pulmonary disease) Degenerative disc disease Follows with pain management Dyslipidemia GERD (gastroesophageal reflux disease) Osteoarthritis Osteoporosis Sleep apnea No device Surgical History H/O arthrodesis H/O thumb surgery Left > tendon repair History of bilateral tubal ligation History of cervical spinal surgery GOOD ROM History of esophagogastroduodenoscopy (EGD) History of open reduction and internal fixation (ORIF) procedure Left femur retrograde IM nail (09/25/20): SAB at L3-L4 (x2 attempts) at [facility] > [facility] History of revision of total replacement of right knee joint History of tonsillectomy and adenoidectomy History of tooth extraction History of total knee arthroplasty Right (2010) Hx of colonoscopy Family History Father Family history of diabetes mellitus Other COPD (chronic obstructive pulmonary disease) Cancer Diabetes No family history of adverse response to anesthesia Social History (Updated 02/16/22 @ 15:03 by Leana Levine PA-C) Smoking Status: Former smoker Tobacco Type: Cigarettes Second Hand Exposure: No; Hx Alcohol Use: Yes (1 beer daily) Alcohol type: beer Hx Substance Use: No Preferred Language: Central African Communication Ability: Effective Wreath Maker Required: No Beliefs That Will Affect Care: None marital status: Life Partner Current Living Situation: Spouse Feels Safe at Home: Yes Assistive Devices: Cane and Walker Review of Systems Review of Systems: All systems reviewed & are unremarkable except as noted in HPI & below Physical Exam Physical Exam: General: no distress on current nebulizer treatment, +ill appearing, WDWN Head: normocephalic, atraumatic Eyes: conjunctiva non-injected, anicteric ENT: normal inspection external ears, nose, mucous membranes dry Neck: supple, trachea midline Lungs: +wheezing throughout, +rales LLL, +rhonchi RLL, current on hour long albuterol nebulizer treatment in no respiratory distress with sat of 98% CV: Tachycardia, regular rhythm, no murmur noted, no pretibial edema Abd: normal BS, soft, non-tender Ext: no cyanosis, no calf tenderness Neuro: A&O x 3, no focal deficits noted, normal affect Skin: warm, dry Results & Data Results & Data ([facility]) Vital Signs (Past 12 Hours) Vital Signs Temp Pulse Pulse Resp BP Pulse Ox O2 Del Method 02/16/22 12:31 107 H 22 100 Nebulizer 02/16/22 12:31 130/74 02/16/22 12:30 112 H 15 100 Nebulizer 02/16/22 12:18 110 H 23 95 02/16/22 11:59 92 Room Air 02/16/22 11:59 37.7 C H 115 H 23 143/76 H 92 Room Air 02/16/22 12:19 110 H 20 94 Room Air Laboratory Results Short CBC 02/16/22 Range/Units 12:10 WBC 9.50 (4.8-10.8) K/ul Hgb 12.3 (12.0-16.0) g/dl Hct 40.3 (34.1-44.9) % Plt Count 196 (130-400) K/uL BMP 02/16/22 12:10 Sodium 141 Potassium 3.0 L Chloride 110 H Carbon Dioxide 22 BUN 16 Creatinine 0.69 Glucose 146 H Calcium 9.0 Liver Function 02/16/22 Range/Units 12:10 Total Bilirubin 0.7 (0.2-1.0) mg/dl Direct Bilirubin 0.1 (0-0.2) mg/dl AST 27 (13-39) U/L ALT 20 (7-52) U/L Alkaline Phosphatase 86 (34-104) U/L Albumin 3.9 (3.4-5.0) gm/dl Diagnostic Findings Chest X-Ray 02/16/22 11:59 XR chest 1V portable CLINICAL HISTORY: Sepsis TECHNIQUE: Single frontal radiograph of the chest was obtained. Comparison: Comparison is made to chest radiograph 09/13/2021 FINDINGS: No lines and tubes are seen. The cardiomediastinal silhouette is normal. Airspace opacity is seen in the left lower lung. No evidence of pleural effusion or pneumothorax. IMPRESSION: Left lower lung airspace opacities are seen. These are favored to represent pneumonia and/or aspiration. ACT 112: Negative or not required by law. Electronically signed by: Moe Graham M.D. 02/16/2022 12:24 PM ECG Rate (beats per minute): 113 Rhythm: sinus tachycardia Findings: + nonspecific-ST abn (Anterolateral) Supervising Physician Co-Signing Physician Notes Patient seen and examined by me, care coordinated with LEÓN Harrington, please refer to her note above for further detail. 72 yo F with COPD, HTN, dyslipidemia, GERD, chronic pain, ONEL presents w/ fever and shortness of breath x1 day.Also had onset of cough, wheezing, shortness of breath. Patient reports left-sided chest aching yesterday and this morning which has since improved after treatment in ER today. Also complains of nausea, vomiting 4-5 episodes, and numerous episodes of loose diarrhea. In the ED negative for COVID, or influenza. Chest x-ray positive for left lower lung airspace opacities, likely due to pneumonia/aspiration. Procalcitonin elevated at 20. Lactate elevated at 3.3. White blood cell count normal. She was also found hypokalemic and hypomagnesemic. Received an hour-long DuoNeb treatment. Still with some wheezing. Patient is quite tired right now, however appears comfortable. She is arousable and able to answer simple questions appropriately. Her significant other is at the bedside and also provides the history. Heart sounds, slightly tachycardic. Lung sounds some wheezing still present. Abdomen soft nontender nondistended, with positive bowel sounds. No significant lower extremity edema noted. Skin is warm and dry. Patient received Unasyn in the ED. However per allergy list she has hives with penicillin. We will continue with ceftriaxone and Flagyl for now. Continue to closely monitor patient. Trend troponin, as above, repeat lactate. MD Jose Daniel
[2022-02-16] MEDS ORDERED: POTASSIUM CHLORIDE CRTAB 20 MEQ TABCR PO STA (14:49)
[2022-02-16] MEDS ORDERED: MAGNESIUM SULFATE / D5W 1 GM/100 ML BAG IV ONE (14:50)
[2022-02-16] MEDS ORDERED: NSS + 20MEQ KCL 20 MEQ/1,000 ML BAG IV SCH (15:00)
[2022-02-16] MEDS ORDERED: ACETAMINOPHEN 325 MG TAB PO STA (16:15)
[2022-02-16] MEDS ORDERED: ACETAMINOPHEN 325 MG TAB PO PRN (16:48)
[2022-02-16] MEDS ORDERED: HYDROcodone/ACETAMINOPHEN 10/325 TAB PO PRN (16:48)
[2022-02-16] MEDS ORDERED: POLYETHYLENE (MIRALAX) 17 GM PACK PO PRN (16:48)
[2022-02-16] MEDS: metroNIDAZOLE 500 MG/100 ML BAG IV SCH (17:11)
[2022-02-16] MEDS: cefTRIAXone SODIUM 2,000 MG in DEXTROSE 5% 50 ML IV SCH (17:11)
[2022-02-16] MEDS: MAGNESIUM OXIDE 400 MG TAB PO SCH ×3 (17:30→20:15)
[2022-02-16] MEDS: ENOXAPARIN INJ 40 MG/0.4 ML SYR SQ SCH (17:31)
[2022-02-16] MEDS: ATORVASTATIN 40 MG TAB PO SCH (17:31)
[2022-02-16] MEDS: ADVANCED PROBIOTIC 1250 MG CAPSULE PO SCH (17:44)
[2022-02-16] MEDS: methylPREDNISolone 40 MG in SYRINGE 0 ML IV SCH (17:44)
[2022-02-16] MEDS: guaiFENesin 600 MG TABCR PO SCH ×2 (17:45→20:12)
[2022-02-16] MEDS: IPRATROPIUM BROMIDE NEB SOLN 0.02% 2.5 ML VIAL INH SCH ×2 (18:11)
[2022-02-16] MEDS: LEVALBUTEROL 1.25MG/0.5ML NEB INH SCH ×2 (18:11→18:12)
--- NOTE | 2022-02-16 18:22 | Electrocardiogram Report ---
Test Reason : Blood Pressure : / mmHG Vent. Rate : 113 BPM Atrial Rate : 113 BPM P-R Int : 186 ms QRS Dur : 082 ms QT Int : 340 ms P-R-T Axes : 066 -08 024 degrees QTc Int : 466 ms Sinus tachycardia Otherwise normal ECG When compared with ECG of 13-SEP-2021 20:22, No significant change was found Confirmed by Silvano Nelson ([id number]) on 02/16/2022 6:22:42 PM Referred By: REFERRED SELF Confirmed By:Sukhi Nelson
[2022-02-16] MEDS ORDERED: XOPENEX/ATROVENT 1.25mg/0.5MG NEB COMBO NEB SCH (19:00)
[2022-02-16 19:20] LABS: Appearance Urine Clear (Clear); Bacteria Urine Automated Negative (Negative); Bilirubin Urine Negative (Negative); Blood Urine Negative (Negative); Color Urine Yellow; Glucose Urine UA Negative (Negative); Ketones Urine Negative (Negative); Leukocyte Esterase Urine Trace (Negative); Nitrite Urine Negative (Negative); Protein Urine Negative (Negative); RBC Urine Automated 0-4 /hpf (0-4); Specific Gravity Urine 1.011 (1.000-1.030); Urobilinogen Urine Negative (Negative)
[2022-02-16] MEDS ORDERED: POTASSIUM CHLORIDE CRTAB 20 MEQ TABCR PO ONE (20:00)
[2022-02-16] MEDS: MELATONIN 3 MG TAB PO SCH (20:13)
[2022-02-16] MEDS: PANTOprazole 40 MG TAB PO SCH (20:15)
[2022-02-16] MEDS: traZODone HCL 50 MG TAB PO SCH (20:16)
[2022-02-16] MEDS: PREGABALIN 150 MG CAP PO SCH (20:18)
[2022-02-16] MEDS ORDERED: PNEUMOCOCCAL Polysaccharide Vaccine 25mcg/0.5mL vial/Syr IM ONE (21:00)
[2022-02-17] MEDS: IPRATROPIUM BROMIDE NEB SOLN 0.02% 2.5 ML VIAL INH SCH ×4 (00:43→20:47)
[2022-02-17] MEDS: LEVALBUTEROL 1.25MG/0.5ML NEB INH SCH ×4 (00:43→20:47)
[2022-02-17] MEDS: metroNIDAZOLE 500 MG/100 ML BAG IV SCH ×3 (01:20→17:48)
[2022-02-17] MEDS: methylPREDNISolone 40 MG in SYRINGE 0 ML IV SCH ×3 (01:21→17:48)
[2022-02-17 05:16] LABS: Hematocrit (blood only) 35.5 % (34.1-44.9); Mean Corpuscular Hemoglobin 26.6 pg (25.0-34.0); Mean Platelet Volume 11.1 fL (9.4-12.3); Platelet Count 190 K/uL (130-400); RDW Coefficient of Variation 15.8 % (11.5-14.5); RDW Standard Deviation 49.5 fL (36.4-46.3); Red Blood Count 4.13 M/uL (3.93-5.22); White Blood Count 14.44 K/ul (4.8-10.8)
[2022-02-17 05:44] LABS: Basophils # (auto) 0.01 K/uL (0-0.2); Basophils % (auto) 0.1 %; Immature Granulocytes # (auto) 0.35 K/uL (0.00-0.02); Immature Granulocytes % (auto) 2.4 %; Lymphocytes # (auto) 1.17 K/uL (1.2-3.4); Lymphocytes % (auto) 8.1 %; Monocytes # (auto) 0.52 K/uL (0.24-0.82); Monocytes % (auto) 3.6 %; Neutrophils # (auto) 12.39 K/uL (1.4-6.5); Neutrophils % (auto) 85.8 %; RBC Morphology Unremarkable
[2022-02-17 06:05] LABS: BUN Creatinine Ratio 28.1 (10-20); Calcium 8.3 mg/dl (8.5-10.1); Creatinine Clr Calc Pharmacy 85.1 ml/min; Est GFR (African American) 108.1 ml/min; Est GFR (Non-African American) 93.3 ml/min; Magnesium 2.3 mg/dl (1.7-2.4); Potassium 4.7 mmol/L (3.5-5.1)
--- NOTE | 2022-02-17 07:49 | Hospitalist Progress Note ---
Date of Service February 17, 2022 Assessment & Plan (1) LLL pneumonia: (2) Sepsis: (3) Acute respiratory failure: (4) COPD exacerbation: Plan: POSSIBLE ASPIRATION PNEUMONIA Patient is 72-year-old female with PMH COPD, HTN, dyslipidemia, GERD, chronic pain, ONEL presented to ER with complaint of tactile fever, SOB, wheezing, myalgias, weakness, N/V/D x1 day. EMS reported O2 sat of 88% on room air, was given 250mL NSS in route. In ER T: 37.7C, P: 115, R: 23, BP 143/76, 92% on 2 L nasal cannula. WBC: 9.5. Procalcitonin: 20. Negative influenza, RSV and COVID-19 PCR CXR: Left lower lung airspace opacities are seen. These are favored to represent pneumonia and/or aspiration. Lactate: 3.2--> 3.3 In ER given 1.5L NSS, hour-long albuterol nebulizer, dexamethasone 10 mg IV, Unasyn Patient with reported improvement since nebulizer with decreased SOB and resol ution of CP MRSA swab pending Blood cultures negat. for 24 hrs sputum culture ordered Repeat lactate Gentle IVF Ceftriaxone, Flagyl (patient with reported history of penicillin allergy of hives. Has been on cefepime past admissions without reaction) Xopenex/Atrovent nebs scheduled - change to prn Solu-Medrol 40 mg 3 times daily - decrease to daily Supplemental oxygen as needed with goal of 90% with history of COPD Hold home Spiriva as getting scheduled nebs Pt much improved clinically, speaking in full sentences without difficulty, currently on 1.5L suppl. O2, cont. to wean off as able (5) Elevated troponin: Plan: Initial high-sensitivity troponin: 194. EKG sinus tachycardia, rate 113, no ST elevation noted, nonspecific ST changes lateral anterior leads appear new from prior EKG Reported left anterior aching chest pain yesterday and today which has since resolved after treatment with nebulizer and oxygen in ER Suspect demand ischemia secondary to pneumonia, hypoxia Echo obtained - no regional wall motion abnormality Denies any chest pain, overall feels much improved cont. to closely monitor on tele SINUS TACHYCARDIA Monitor on telemetry Will give Xopenex/Atrovent nebs instead of albuterol -> change to prn (6) Hypokalemia: Plan: K: 3.0 Replace and monitor (7) Hypomagnesemia: Plan: Magnesium: 1.4 replace and monitor (8) HTN (hypertension): Plan: Not on medication at home Stable (9) Dyslipidemia: Plan: Continue atorvastatin (10) GERD (gastroesophageal reflux disease): Plan: Continue PPI (11) Chronic back pain: Plan: Follows with pain management in [place] Continue hydrocodone as needed. Continue pregabalin (12) ONEL (obstructive sleep apnea): Plan: Does not use CPAP at home DVT Prophylaxis Lovenox SQ Full Code as per discussion with pt Follows with Dr Larios for routine care Admission and Anticipated Discharge Date Admission Date: February 16, 2022 Subjective Pt seen in follow-up of pneumonia/possible aspiration Currently sitting up in bed, in no acute distress, already feeling and appearing much better than yesterday She is awake alert and conversant Using supplemental oxygen, 1.5 L Family at the bedside and updated Patient denies fevers chills chest pain shortness of breath, says cough is decreased Denies abdominal pain nausea vomiting She is inquiring about possible discharge tomorrow Review of Systems Review of Systems: All systems reviewed & are unremarkable except as noted in Subjective Physical Exam Physical Exam: General: WDWN F in NAD, suppl. O2 1.5L Head: normocephalic, atraumatic Eyes: conjunctiva non-injected, anicteric ENT: normal inspection external ears, nose, mucous membranes dry Neck: supple, trachea midline Lungs: + mild wheezing, + mild rhonchi, no crackles CV: RRR, no murmur noted, no pretibial edema Abd: normal BS, soft, non-tender Ext: moves extremities Neuro: A&O x 3, no focal deficits noted, normal affect Skin: warm, dry Results & Data Results & Data ([facility]) Vital Signs (Past 12 Hours) Vital Signs Temp Pulse Pulse Resp BP BP Pulse Ox 02/17/22 07:18 36.5 C 91 H 14 126/71 97 02/17/22 06:15 36.7 C 100 H 14 138/70 99 02/17/22 07:06 86 16 97 02/17/22 00:43 81 18 93 02/17/22 03:00 89 24 116/54 L 94 02/17/22 02:00 91 H 19 116/50 L 96 02/17/22 01:00 95 H 16 117/62 98 02/17/22 00:00 89 16 115/56 L 91 02/16/22 23:00 91 H 17 115/58 L 92 02/17/22 03:00 36.8 C 88 19 116/54 L 94 02/17/22 00:56 93 02/17/22 00:23 91 H 02/16/22 20:00 02/16/22 23:47 94 H 18 94 02/16/22 23:15 36.8 C 88 18 115/58 L 02/16/22 22:00 95 H 17 140/60 94 02/16/22 21:00 99 H 20 122/59 L 91 02/16/22 20:00 103 H 20 135/64 91 02/16/22 20:00 36.8 C 100 H 17 135/64 90 O2 Del Method O2 Flow Rate 02/17/22 07:18 Nasal Cannula 3 02/17/22 06:15 Nasal Cannula 3 02/17/22 07:06 Nasal Cannula 3 02/17/22 00:43 CPAP 3 02/17/22 03:00 02/17/22 02:00 02/17/22 01:00 02/17/22 00:00 02/16/22 23:00 02/17/22 03:00 Nasal Cannula 3 02/17/22 00:56 3 02/17/22 00:23 02/16/22 20:00 Nasal Cannula 3 02/16/22 23:47 3 02/16/22 23:15 CPAP 02/16/22 22:00 02/16/22 21:00 02/16/22 20:00 02/16/22 20:00 Room Air Laboratory Results 02/17/22 02/17/22 02/17/22 Range/Units 16:45 11:35 07:47 WBC (4.8-10.8) K/ul RBC (3.93-5.22) M/uL Hgb (12.0-16.0) g/dl Hct (34.1-44.9) % MCV (80.0-100.0) fL MCH (25.0-34.0) pg MCHC (32.0-36.0) g/dL RDW Std Deviation (36.4-46.3) fL RDW Coeff of Alfonso (11.5-14.5) % Plt Count (130-400) K/uL MPV (9.4-12.3) fL Immature Gran % (Auto) % Neut % (Auto) % Lymph % (Auto) % Carlton % (Auto) % Eos % (Auto) % Baso % (Auto) % Neut # (Auto) (1.4-6.5) K/uL Lymph # (Auto) (1.2-3.4) K/uL Carlton # (Auto) (0.24-0.82) K/uL Eos # (Auto) (0-0.50) K/uL Baso # (Auto) (0-0.2) K/uL Immature Gran # (Auto) (0.00-0.02) K/uL RBC Morphology Sodium (136-145) mmol/L Potassium (3.5-5.1) mmol/L Chloride (98-107) mmol/L Carbon Dioxide (21-32) mmol/L Anion Gap (3-11) BUN (6-23) mg/dl Creatinine (0.6-1.2) mg/dl Est Cr Clr Drug Dosing ml/min Est GFR ( Amer) ml/min Est GFR (Non-Af Amer) ml/min BUN/Creatinine Ratio (10-20) Glucose (70-99(Fasting)) mg/dl POC Glucose 199 H 167 H 144 H (70-99) mg/dl Calcium (8.5-10.1) mg/dl Magnesium (1.7-2.4) mg/dl 02/17/22 02/17/22 Range/Units 04:51 04:51 WBC 14.44 H (4.8-10.8) K/ul RBC 4.13 (3.93-5.22) M/uL Hgb 11.0 L (12.0-16.0) g/dl Hct 35.5 (34.1-44.9) % MCV 86.0 (80.0-100.0) fL MCH 26.6 (25.0-34.0) pg MCHC 31.0 L (32.0-36.0) g/dL RDW Std Deviation 49.5 H (36.4-46.3) fL RDW Coeff of Alfonso 15.8 H (11.5-14.5) % Plt Count 190 (130-400) K/uL MPV 11.1 (9.4-12.3) fL Immature Gran % (Auto) 2.4 % Neut % (Auto) 85.8 % Lymph % (Auto) 8.1 % Carlton % (Auto) 3.6 % Eos % (Auto) 0.0 % Baso % (Auto) 0.1 % Neut # (Auto) 12.39 H (1.4-6.5) K/uL Lymph # (Auto) 1.17 L (1.2-3.4) K/uL Carlton # (Auto) 0.52 (0.24-0.82) K/uL Eos # (Auto) 0.00 (0-0.50) K/uL Baso # (Auto) 0.01 (0-0.2) K/uL Immature Gran # (Auto) 0.35 H (0.00-0.02) K/uL RBC Morphology Unremarkable Sodium 142 (136-145) mmol/L Potassium 4.7 D (3.5-5.1) mmol/L Chloride 115 H (98-107) mmol/L Carbon Dioxide 22 (21-32) mmol/L Anion Gap 5 (3-11) BUN 16 (6-23) mg/dl Creatinine 0.57 L (0.6-1.2) mg/dl Est Cr Clr Drug Dosing 85.1 ml/min Est GFR ( Amer) 108.1 ml/min Est GFR (Non-Af Amer) 93.3 ml/min BUN/Creatinine Ratio 28.1 H (10-20) Glucose 168 H (70-99(Fasting)) mg/dl POC Glucose (70-99) mg/dl Calcium 8.3 L (8.5-10.1) mg/dl Magnesium 2.3 (1.7-2.4) mg/dl Medications Administered Current Inpatient Medications Acetaminophen (Acetaminophen 325 Mg Tab) 650 mg PO Q4H PRN PRN Reason: Pain or Fever Stop: 03/18/22 16:47 Hydrocodone Bitart/Acetaminophen (Hydrocodone/Acetaminophen 10/325 Tab) 1 tab PO Q8H PRN PRN Reason: Severe Pain (Scale Score 7-10) Stop: 03/02/22 16:47 Atorvastatin Calcium (Atorvastatin 40 Mg Tab) 80 mg PO QDD KRISTIAN Stop: 03/18/22 16:47 Last Admin: 02/17/22 17:48 Dose: 80 mg Enoxaparin Sodium (Enoxaparin Inj 40 Mg/0.4 Ml Syr) 40 mg SQ Q24H KRISTIAN Stop: 03/18/22 16:47 Last Admin: 02/17/22 17:48 Dose: 40 mg Guaifenesin (Guaifenesin 600 Mg Tabcr) 1,200 mg PO Q12 KRISTIAN Stop: 03/18/22 16:09 Last Admin: 02/17/22 08:36 Dose: 1,200 mg Ceftriaxone Sodium 2,000 mg/ (Dextrose) 70 mls @ 100 mls/hr IV Q24H [facility]; Protocol Stop: 02/23/22 16:59 Last Infusion: 02/17/22 19:37 Dose: Infused Metronidazole (Flagyl) 500 mg in 100 mls @ 100 mls/hr IV Q8H [facility] Stop: 02/23/22 16:59 Last Infusion: 02/17/22 18:53 Dose: Infused Methylprednisolone 40 mg/ (Syringe) 0.64 mls @ 1.5 mls/min IV QAM KRISTIAN Stop: 03/20/22 08:59 Ipratropium Slinger (Ipratropium Slinger Neb Soln 0.02% 2.5 Ml Vial) 0.[address] [facility] Stop: 03/18/22 16:47 Last Admin: 02/17/22 20:47 Dose: 0.5 mg Lactobacillus Acidophilus (Advanced Probiotic 1250 Mg Capsule) 2 cap PO DAILY KRISTIAN Stop: 03/18/22 16:14 Last Admin: 02/17/22 08:36 Dose: 2 cap Levalbuterol HCl (Levalbuterol 1.25mg/0.5ml Neb) 1.25 mg INH Q6R KRISTIAN Stop: 03/18/22 16:47 Last Admin: 02/17/22 20:47 Dose: 1.25 mg Magnesium Oxide (Magnesium Oxide 400 Mg Tab) 400 mg PO BID KRISTIAN Stop: 03/18/22 20:59 Last Admin: 02/17/22 08:35 Dose: 400 mg Melatonin (Melatonin 3 Mg Tab) 9 mg PO HS KRISTIAN Stop: 03/18/22 20:59 Last Admin: 02/16/22 20:13 Dose: 9 mg Pantoprazole Sodium (Pantoprazole 40 Mg Tab) [address] [facility] Stop: 03/18/22 20:59 Last Admin: 02/17/22 08:36 Dose: 40 mg Polyethylene Glycol (Polyethylene (Miralax) 17 Gm Pack) 17 gm PO DAILY PRN PRN Reason: Constipation Stop: 03/18/22 16:47 Pregabalin (Pregabalin 150 Mg Cap) [address] [facility] Stop: 03/18/22 20:59 Last Admin: 02/17/22 08:40 Dose: 150 mg Tizanidine HCl (Tizanidine Hcl 4 Mg Tablet) 2 mg PO Q8H PRN PRN Reason: MUSCLE SPASMS Stop: 03/18/22 16:47 Last Admin: 02/17/22 08:36 Dose: 2 mg Trazodone HCl (Trazodone Hcl 50 Mg Tab) 50 mg PO [facility] Stop: 03/18/22 20:59 Last Admin: 02/16/22 20:16 Dose: 50 mg
[2022-02-17] MEDS: MAGNESIUM OXIDE 400 MG TAB PO SCH ×2 (08:35→21:32)
[2022-02-17] MEDS: PANTOprazole 40 MG TAB PO SCH ×2 (08:36→21:33)
[2022-02-17] MEDS: guaiFENesin 600 MG TABCR PO SCH ×2 (08:36→21:33)
[2022-02-17] MEDS: ADVANCED PROBIOTIC 1250 MG CAPSULE PO SCH (08:36)
[2022-02-17] MEDS: tiZANidine HCL 4 MG TABLET PO PRN (08:36)
[2022-02-17] MEDS: PREGABALIN 150 MG CAP PO SCH ×2 (08:40→21:37)
--- NOTE | 2022-02-17 17:42 | Electrocardiogram Report ---
Test Reason : Blood Pressure : / mmHG Vent. Rate : 084 BPM Atrial Rate : 084 BPM P-R Int : 174 ms QRS Dur : 080 ms QT Int : 412 ms P-R-T Axes : 065 -03 008 degrees QTc Int : 486 ms Normal sinus rhythm Normal ECG When compared with ECG of 16-FEB-2022 12:07, No significant change was found Confirmed by Silvano Nelson ([id number]) on 02/17/2022 5:42:15 PM Referred By: REFERRED SELF Confirmed By:Sukhi Nelson
[2022-02-17] MEDS: ATORVASTATIN 40 MG TAB PO SCH (17:48)
[2022-02-17] MEDS: ENOXAPARIN INJ 40 MG/0.4 ML SYR SQ SCH (17:48)
[2022-02-17] MEDS: cefTRIAXone SODIUM 2,000 MG in DEXTROSE 5% 50 ML IV SCH (18:48)
[2022-02-17] MEDS ORDERED: IPRATROPIUM BROMIDE NEB SOLN 0.02% 2.5 ML VIAL INH PRN (21:29)
[2022-02-17] MEDS ORDERED: LEVALBUTEROL 1.25MG/0.5ML NEB INH PRN (21:29)
[2022-02-17] MEDS: MELATONIN 3 MG TAB PO SCH (21:32)
[2022-02-17] MEDS: traZODone HCL 50 MG TAB PO SCH (21:37)
[2022-02-18] MEDS: metroNIDAZOLE 500 MG/100 ML BAG IV SCH ×3 (01:30→17:41)
[2022-02-18] MEDS ORDERED: methylPREDNISolone 40 MG in SYRINGE 0 ML IV SCH (09:00)
[2022-02-18 09:25] LABS: Hematocrit (blood only) 34.8 % (34.1-44.9); Hemoglobin 10.8 g/dl (12.0-16.0); Mean Corpuscular Hemoglobin 26.7 pg (25.0-34.0); Mean Corpuscular Volume 85.9 fL (80.0-100.0); Mean Platelet Volume 10.7 fL (9.4-12.3); Platelet Count 210 K/uL (130-400); RDW Coefficient of Variation 15.9 % (11.5-14.5); RDW Standard Deviation 50.2 fL (36.4-46.3); Red Blood Count 4.05 M/uL (3.93-5.22); White Blood Count 15.87 K/ul (4.8-10.8)
[2022-02-18] MEDS: ADVANCED PROBIOTIC 1250 MG CAPSULE PO SCH (09:43)
[2022-02-18] MEDS: PANTOprazole 40 MG TAB PO SCH (09:44)
[2022-02-18] MEDS: MAGNESIUM OXIDE 400 MG TAB PO SCH (09:44)
[2022-02-18] MEDS: guaiFENesin 600 MG TABCR PO SCH (09:44)
[2022-02-18] MEDS: tiZANidine HCL 4 MG TABLET PO PRN (09:45)
[2022-02-18 09:51] LABS: BUN Creatinine Ratio 33.9 (10-20); Calcium 8.8 mg/dl (8.5-10.1); Creatinine Clr Calc Pharmacy 81.3 ml/min; Est GFR (African American) 106.9 ml/min; Est GFR (Non-African American) 92.2 ml/min; Magnesium 2.1 mg/dl (1.7-2.4); Phosphorus 1.9 mg/dl (2.5-4.9); Potassium 3.9 mmol/L (3.5-5.1)
[2022-02-18] MEDS: PREGABALIN 150 MG CAP PO SCH (09:52)
[2022-02-18] MEDS ORDERED: Nursing to Pharmacy Communication SCH ×2 (10:00→17:15)
[2022-02-18] MEDS ORDERED: CEFDINIR 300 MG CAP PO SCH (16:00)
--- NOTE | 2022-02-18 16:33 | Discharge Summary ---
Date of Service February 18, 2022 Admission HPI Per Admitting Provider Patient is 72-year-old female with PMH COPD, HTN, dyslipidemia, GERD, chronic pain, ONEL presented to ER with complaint of fever and shortness of breath x1 day. Patient states yesterday had onset of tactile fever, chills. Did not take temperature at home. Also had onset of cough, wheezing, shortness of breath. Patient unsure of color of sputum. Also c/o generalized weakness, myalgias, WATSON. Patient reports left-sided chest aching yesterday and this morning which has since improved after treatment in ER today. Also complains of nausea, vomiting 4-5 episodes, and numerous episodes of loose diarrhea. Did not try using albuterol for her symptoms. Denies ill contacts. Denies diaphoresis, melena, hematochezia, hematemesis, abdominal pain, syncope, vision changes, neck pain, orthopnea, palpitations, hemoptysis, sore throat, choking, otalgia, rhinorrhea, paresthesias, extremity edema, rashes, urinary symptoms. Admission Exam Per Admitting Provider General: no distress on current nebulizer treatment, +ill appearing, WDWN Head: normocephalic, atraumatic Eyes: conjunctiva non-injected, anicteric ENT: normal inspection external ears, nose, mucous membranes dry Neck: supple, trachea midline Lungs: +wheezing throughout, +rales LLL, +rhonchi RLL, current on hour long albuterol nebulizer treatment in no respiratory distress with sat of 98% CV: Tachycardia, regular rhythm, no murmur noted, no pretibial edema Abd: normal BS, soft, non-tender Ext: no cyanosis, no calf tenderness Neuro: A&O x 3, no focal deficits noted, normal affect Skin: warm, dry Principal Diagnosis LLL pneumonia: Acute respiratory failure: COPD exacerbation: Elevated troponin: SINUS TACHYCARDIA Hypokalemia: Hypomagnesemia: HTN (hypertension): Dyslipidemia: GERD (gastroesophageal reflux disease): Chronic back pain: ONEL (obstructive sleep apnea): Discharge Exam General: WDWN F in NAD, suppl. O2 1.5L Head: normocephalic, atraumatic Eyes: conjunctiva non-injected, anicteric ENT: normal inspection external ears, nose, mucous membranes dry Neck: supple, trachea midline Lungs: + mild wheezing, + mild rhonchi, no crackles CV: RRR, no murmur noted, no pretibial edema Abd: normal BS, soft, non-tender Ext: moves extremities Neuro: A&O x 3, no focal deficits noted, normal affect Skin: warm, dry Discharge Data Allergies Allergy/AdvReac Type Severity Reaction Status Date / Time erythromycin base Allergy Intermediate Hives Verified 02/16/22 15:13 latex Allergy Intermediate ITCHY RASH Verified 02/16/22 15:13 Penicillins Allergy Intermediate Hives Verified 02/16/22 15:13 nickel Allergy Mild Skin Verified 02/16/22 15:13 irritation vancomycin AdvReac Severe Renal Verified 02/16/22 15:13 complications Consultations 02/16/22 13:38 ED Decision to Admit Stat Ordered Studies Laboratory Results WBC 15.87 K/ul (4.8-10.8) H 02/18/22 09:16 RBC 4.05 M/uL (3.93-5.22) 02/18/22 09:16 Hgb 10.8 g/dl (12.0-16.0) L 02/18/22 09:16 Hct 34.8 % (34.1-44.9) 02/18/22 09:16 MCV 85.9 fL (80.0-100.0) 02/18/22 09:16 MCH 26.7 pg (25.0-34.0) 02/18/22 09:16 MCHC 31.0 g/dL (32.0-36.0) L 02/18/22 09:16 RDW Std Deviation 50.2 fL (36.4-46.3) H 02/18/22 09:16 RDW Coeff of Alfonso 15.9 % (11.5-14.5) H 02/18/22 09:16 Plt Count 210 K/uL (130-400) 02/18/22 09:16 MPV 10.7 fL (9.4-12.3) 02/18/22 09:16 Immature Gran % (Auto) 2.4 % 02/17/22 04:51 Neut % (Auto) 85.8 % 02/17/22 04:51 Lymph % (Auto) 8.1 % 02/17/22 04:51 Dickey % (Auto) 3.6 % 02/17/22 04:51 Eos % (Auto) 0.0 % 02/17/22 04:51 Baso % (Auto) 0.1 % 02/17/22 04:51 Neut # (Auto) 12.39 K/uL (1.4-6.5) H 02/17/22 04:51 Lymph # (Auto) 1.17 K/uL (1.2-3.4) L 02/17/22 04:51 [place]ickey # (Auto) 0.52 K/uL (0.24-0.82) 02/17/22 04:51 Eos # (Auto) 0.00 K/uL (0-0.50) 02/17/22 04:51 Baso # (Auto) 0.01 K/uL (0-0.2) 02/17/22 04:51 Immature Gran # (Auto) 0.35 K/uL (0.00-0.02) H 02/17/22 04:51 RBC Morphology Unremarkable 02/17/22 04:51 Sodium 140 mmol/L (136-145) 02/18/22 09:16 Potassium 3.9 mmol/L (3.5-5.1) 02/18/22 09:16 Chloride 112 mmol/L (98-107) H 02/18/22 09:16 Carbon Dioxide 22 mmol/L (21-32) 02/18/22 09:16 Anion Gap 6 (3-11) 02/18/22 09:16 BUN 20 mg/dl (6-23) 02/18/22 09:16 Creatinine 0.59 mg/dl (0.6-1.2) L 02/18/22 09:16 Est Cr Clr Drug Dosing 81.3 ml/min 02/18/22 09:16 Est GFR ( Amer) 106.9 ml/min 02/18/22 09:16 Est GFR (Non-Af Amer) 92.2 ml/min 02/18/22 09:16 BUN/Creatinine Ratio 33.9 (10-20) H 02/18/22 09:16 Glucose 142 mg/dl (70-99(Fasting)) H 02/18/22 09:16 POC Glucose 199 mg/dl (70-99) H 02/17/22 16:45 Lactate 2.0 mmol/L (0.4-2.0) 02/18/22 09:16 Calcium 8.8 mg/dl (8.5-10.1) 02/18/22 09:16 Phosphorus 1.9 mg/dl (2.5-4.9) L 02/18/22 09:16 Magnesium 2.1 mg/dl (1.7-2.4) 02/18/22 09:16 Total Bilirubin 0.7 mg/dl (0.2-1.0) 02/16/22 12:10 Direct Bilirubin 0.1 mg/dl (0-0.2) 02/16/22 12:10 AST 27 U/L (13-39) 02/16/22 12:10 ALT 20 U/L (7-52) 02/16/22 12:10 Alkaline Phosphatase 86 U/L (34-104) 02/16/22 12:10 Troponin I High Sens 451.8 pg/ml (0-14) H* D 02/16/22 18:46 Total Protein 7.0 gm/dl (6.0-8.3) 02/16/22 12:10 Albumin 3.9 gm/dl (3.4-5.0) 02/16/22 12:10 Procalcitonin 20.50 ng/ml (0-0.5) H 02/16/22 12:10 Urine Color Yellow 02/16/22 18:40 Urine Appearance Clear (Clear) 02/16/22 18:40 Urine pH 5.0 (4.5-7.5) 02/16/22 18:40 Ur Specific [place] 1.011 (1.000-1.030) 02/16/22 18:40 Urine Protein Negative (Negative) 02/16/22 18:40 Urine Glucose (UA) Negative (Negative) 02/16/22 18:40 Urine Ketones Negative (Negative) 02/16/22 18:40 Urine Blood Negative (Negative) 02/16/22 18:40 Urine Nitrite Negative (Negative) 02/16/22 18:40 Urine Bilirubin Negative (Negative) 02/16/22 18:40 Urine Urobilinogen Negative (Negative) 02/16/22 18:40 Ur Leukocyte Esterase Trace (Negative) H 02/16/22 18:40 Urine WBC (Auto) 1-5 /hpf (0-5) 02/16/22 18:40 Urine RBC (Auto) 0-4 /hpf (0-4) 02/16/22 18:40 U Hyaline Cast (Auto) 1-5 /lpf (0-5) 02/16/22 18:40 U Epithel Cells (Auto) 5-10 /lpf (0-5) H 02/16/22 18:40 Urine Bacteria (Auto) Negative (Negative) 02/16/22 18:40 Nasal Screen MRSA (PCR) Negative (Negative) 02/16/22 16:40 SARS-CoV-2 (PCR) NEGATIVE (Negative) 02/16/22 12:20 Influenza Type A (PCR) Negative (Neg) 02/16/22 12:20 Influenza Type B (PCR) Negative (Neg) 02/16/22 12:20 RSV (RT-PCR) Negative (Neg) 02/16/22 12:20 Impressions Chest X-Ray 02/16/22 11:59 XR chest 1V portable CLINICAL HISTORY: Sepsis TECHNIQUE: Single frontal radiograph of the chest was obtained. Comparison: Comparison is made to chest radiograph 09/13/2021 FINDINGS: No lines and tubes are seen. The cardiomediastinal silhouette is normal. Airspace opacity is seen in the left lower lung. No evidence of pleural effusion or pneumothorax. IMPRESSION: Left lower lung airspace opacities are seen. These are favored to represent pneumonia and/or aspiration. ACT 112: Negative or not required by law. Electronically signed by: Moe Graham M.D. 02/16/2022 12:24 PM Hospital Course (1) LLL pneumonia: (2) Sepsis: (3) Acute respiratory failure: (4) COPD exacerbation: POSSIBLE ASPIRATION PNEUMONIA Patient is 72-year-old female with PMH COPD, HTN, dyslipidemia, GERD, chronic pain, ONEL presented to ER with complaint of tactile fever, SOB, wheezing, myalgias, weakness, N/V/D x1 day. EMS reported O2 sat of 88% on room air, was given 250mL NSS in route. In ER T: 37.7C, P: 115, R: 23, BP 143/76, 92% on 2 L nasal cannula. WBC: 9.5. Procalcitonin: 20. Negative influenza, RSV and COVID-19 PCR CXR: Left lower lung airspace opacities are seen. These are favored to represent pneumonia and/or aspiration. Lactate: 3.2--> 3.3 In ER given 1.5L NSS, hour-long albuterol nebulizer, dexamethasone 10 mg IV, Unasyn Patient with reported improvement since nebulizer with decreased SOB and resolution of CP MRSA swab pending Blood cultures negat. for 24 hrs sputum culture ordered Repeat lactate Gentle IVF Ceftriaxone, Flagyl (patient with reported history of penicillin allergy of hives. Has been on cefepime past admissions without reaction) Xopenex/Atrovent nebs scheduled - change to prn Solu-Medrol 40 mg 3 times daily - decrease to daily Supplemental oxygen as needed with goal of 90% with history of COPD Hold home Spiriva as getting scheduled nebs Pt much improved clinically, speaking in full sentences without difficulty, currently on 1.5L suppl. O2, cont. to wean off as able (5) Elevated troponin: Initial high-sensitivity troponin: 194. EKG sinus tachycardia, rate 113, no ST elevation noted, nonspecific ST changes lateral anterior leads appear new from prior EKG Reported left anterior aching chest pain yesterday and today which has since resolved after treatment with nebulizer and oxygen in ER Suspect demand ischemia secondary to pneumonia, hypoxia Echo obtained - no regional wall motion abnormality Denies any chest pain, overall feels much improved cont. to closely monitor on tele SINUS TACHYCARDIA Monitor on telemetry Will give Xopenex/Atrovent nebs instead of albuterol -> change to prn (6) Hypokalemia: K: 3.0 Replace and monitor (7) Hypomagnesemia: Magnesium: 1.4 replace and monitor (8) HTN (hypertension): Not on medication at home Stable (9) Dyslipidemia: Continue atorvastatin (10) GERD (gastroesophageal reflux disease): Continue PPI (11) Chronic back pain: Follows with pain management in [place] Continue hydrocodone as needed. Continue pregabalin (12) ONEL (obstructive sleep apnea): Does not use CPAP at home DVT Prophylaxis Lovenox SQ Full Code as per discussion with pt Follows with Dr Larios for routine care Total Time Total Time Spent Total Time Spent (In Minutes): 35 minutes Discharge Plan Discharge Items Patient Disposition: Home - Self-Care Reason For Visit: PNA Discharge Diagnosis: LLL pneumonia: Acute respiratory failure: COPD exacerbation: Activity: Resume your previous activity Non-emergency contact: Primary Care Provider Call non-emergency contact if: you have any medication questions, your symptoms worsen and your temperature is above 101 Follow-up/Referrals: Tristan Gordillo MD [Primary Care Provider] - (Date & Time 02/25/2022 11:20 AM Provider Saurabh Larios MD Department Family Medicine [facility] ) Diet: Heart Healthy Addtl Attending Provider Instructions: Follow up with primary care provider 02/25/2022 @ 11:20 AM Saurabh Larios MD [facility] Continue flutter valve Complete the course of the antibiotic Seek medical attention if you develop any shortness of breath Pending Studies at Discharge: No Stand-Alone Forms: [facility], Smoking Cessation Medications and DC Order Prescriptions: New cefdinir 300 mg Capsule 300 mg PO Q12H Qty: 10 0RF guaifenesin [Mucinex] 600 mg Tablet Extended Release 12hr 1,200 mg PO Q12 Qty: 14 0RF Advanced Probiotic 625 mg (10 billion cell) Capsule 2 cap PO DAILY Qty: 30 0RF prednisone 20 mg tablet 20 mg PO UD Qty: 7 0RF Rx Instructions: take 2 tabs daily x 2 days, then 1 tab daily for 3 days. (DME) nebulizers Misc See Rx Instructions .Route Qty: 1 0RF Rx Instructions: As directed ipratropium bromide 0.02 % Solution 0.5 mg inhalation Q6H PRN (Reason: shortness of breath or wheezing) Qty: 75 0RF levalbuterol HCl 1.25 mg/0.5 mL Solution For Nebulization 1.25 mg inhalation Q6H PRN (Reason: shortness of breath or wheezing) Qty: 30 0RF Continued atorvastatin [Lipitor] 80 mg Tablet 80 mg PO QDD omeprazole 20 mg capsule,delayed release(DR/EC) 20 mg PO BID cholecalciferol (vitamin D3) [Vitamin D3] 50 mcg (2,000 unit) Capsule 50 mcg PO DAILY Multivitamin Gummies 200 mcg Tablet,Chewable 1 tab PO QAM Spiriva Respimat 2.5 mcg/actuation mist 2 puff INHALATION QAM albuterol sulfate 90 mcg/actuation HFA aerosol inhaler 2 puff INHALATION QID PRN (Reason: Shortness Of Breath Or Wheezing) magnesium oxide 400 mg (241.3 mg magnesium) Tablet 400 mg PO BID Qty: 30 0RF acetaminophen [Tylenol] 325 mg Tablet 650 mg PO Q4H PRN (Reason: Pain) trazodone 50 mg tablet 50 mg PO HS valacyclovir 1 gram tablet 2,000 mg PO Q12H PRN (Reason: Cold Sores) sennosides-docusate sodium [Senna with Docusate Sodium] 8.6-50 mg Tablet 1 tab-cap PO BID pregabalin 150 mg capsule 150 mg PO BID calcium carbonate-vitamin D3 500 mg-3.125 mcg (125 unit) Tablet 1 tab PO DAILY melatonin 10 mg Tablet 10 mg PO HS polyethylene glycol 3350 [Miralax] 17 gram powder in packet 17 g PO DAILY PRN (Reason: Constipation) alendronate 70 mg tablet 70 mg PO WK hydrocodone-acetaminophen 10-325 mg tablet 1 tab PO Q8H PRN (Reason: Severe Pain (Scale Score 7-10)) metoclopramide HCl [Reglan] 5 mg Tablet 5 mg PO AC PRN (Reason: NEEDED PER [facility]) Rx Instructions: administer 30 minutes before meals. Patient states has not been using for couple of months Discharge Orders: Discharge Order (Routine); Ordered 02/18/22 Ordered By: Tevin Haynes/Other Patient Handouts: What Is Pneumonia?, Preventing Pneumonia, Sepsis, Postural Drainage Admission Data Admit Date/Time: 02/16/22 14:05 Attending Provider: Tevin Young Admit Provider: Jatin Sky Primary Care Provider: Tristan Gordillo Other Providers: Jatin Sky Other Interventions: Discharge Summary Assessment (RN) Last Done: 02/18/22 17:49
[2022-02-18] MEDS ORDERED: ATORVASTATIN 40 MG TAB PO SCH (21:00)
[2022-02-19] MEDS ORDERED: metroNIDAZOLE 500 MG TAB PO SCH
== END 2022-02-18 18:20 | disposition home or self-care (01) | DRG 871 ==
LOC: ED 11:55 → SUATTDRO 14:05 → 1E 14:05 → 2S 02-17 05:43

== ENCOUNTER 2024-08-27 13:06 | Inpatient (IN) ==
[2024-08-27 13:44] LABS: Hematocrit (blood only) 36.8 % (37.0-47.0); Hemoglobin 12.1 g/dl (12.0-16.0); Immature Granulocytes # (auto) 0.02 K/uL (0.01-0.20); Immature Granulocytes % (auto) 0.3 %; Mean Corpuscular Hemoglobin 30.5 pg (25.0-34.0); Mean Corpuscular Volume 92.7 fL (80.0-100.0); Platelet Count 215 K/uL (130-400); RDW Standard Deviation 46.9 fL (36.4-46.3); Red Blood Count 3.97 M/uL (4.20-5.40); White Blood Count 6.82 K/ul (4.8-10.8)
[2024-08-27 14:06] LABS: Alanine Aminotransferase 54 U/L (7-52); Albumin Globulin Ratio 1.3 (0.9-2); Alkaline Phosphatase 256 U/L (34-104); Anion Gap 8 (3-11); Bilirubin,Total 0.5 mg/dl (0.2-1.0); Blood Urea Nitrogen 57 mg/dl (6-23); Calcium 9.1 mg/dl (8.6-10.3); Carbon Dioxide 24 mmol/L (21-32); Chloride 105 mmol/L (98-107); Globulin 3.2 gm/dl (2.5-4.0); Glucose 116 mg/dl (70-99(Fasting)); Potassium 3.8 mmol/L (3.5-5.1); Sodium 137 mmol/L (136-145); Total Protein 7.2 gm/dl (6.0-8.3)
--- NOTE | 2024-08-27 14:22 | Emergency Department Note ---
Impression & Plan UTI (urinary tract infection), Acute encephalopathy ED Provider Note NAME: JUSTICE MONTENEGRO AGE: 74 SEX: F : 1950 ARRIVES VIA: Ambulance INFORMANT: Patient, family ED PROVIDER(S): Mj Magana MD CHIEF COMPLAINT: Confusion MEDICAL DECISION MAKING: Patient presents due to concern for confusion. Discussion w/ other healthcare providers: IV was established and blood work was obtained. Patient with a normal white count hemoglobin and platelet count. Patient's kidney function with mild ANJU. Also with prerenal azotemia. Patient is not anemic. Transaminitis noted tickborne labs also ordered. The patient has negative based on smear for Anaplasma and Babesia. Patient did have a chest x-ray performed along with a CT of the head. No pneumonia or ICH. Cardiomegaly noted. Patient CT head unremarkable. Chest x-ray with some cardiomegaly. Patient did provide a urine sample that does show concern for UTI the patient was treated with IV Rocephin 2 g. I did speak the on-call hospital service patient was admitted to the medicine service Discussion with other healthcare providers: JUNIOR Cain and Dr. Cruz Prior /Outside records reviewed: I reviewed parva discharge summary from Dr. Young from February 18 10/09/2021. Known history of COPD hypertension dyslipidemia GERD chronic pain and ONEL presented for fever and shortness of breath. The patient was diagnosed with left lower lobe pneumonia possible aspiration COPD exacerbation acute respiratory failure. Differential diagnosis: Infection, dehydration, metabolic abnormality, hypo/hyperglycemia, electrolyte imbalance, anemia, UTI, pneumonia, thyroid dysfunction among others were considered. Diagnostics, as interpreted by me: ECG: None Cardiac monitoring: An order was placed for continuous cardiac monitoring. The monitor shows a rate of 85 with sinus rhythm. Patient was placed on pulse oximetry Medical decision rules: None Imaging studies: I informally interpreted the patient's chest x-ray does not show obvious pneumonia with formal report to follow. HPI: Patient presents today due to concern for weakness and confusion. at bedside states that she had gotten her purse was getting directed to go out stating "I am heading out for pizza" when it was clearly too late to do so. She also pointed out a chair and thought it was her grandson and that her son was also in the room. No reported recent falls or trauma. The patient did not take blood thinning medications. No fevers or chills. No reported cough. Patient does take significant med of oxycodone 10 mg 5 times a day. Patient denies any urinary symptoms. PAST MEDICAL HISTORY: See Below PAST SURGICAL HISTORY: See Below SOCIAL HISTORY: See Below HOME MEDICATIONS: See Below ALLERGIES: See Below VITALS: See Below PHYSICAL EXAMINATION: GENERAL: NAD, non-toxic. EYE EXAM: Normal conjunctiva. PERRL, no anisocoria and EOM's grossly intact w/o pain. OROPHARYNX: Moist mucus membranes, grossly normal dentition. NECK: Trachea midline, no stridor. LUNGS: Clear to auscultation. Normal chest wall mechanics. HEART: NSR, no MRG. ABDOMEN: Abdomen soft, non-tender, no masses, no rebound or guarding. BACK: No CVA TTP. SKIN: No rashes and no bruising. UPPER EXTREMITIES: Upper extremities are grossly normal. LOWER EXTREMITIES: Grossly normal, no edema. NEURO EXAM: Awake and alert, follows commands, no obvious facial asymmetry, normal speech, moves all 4 extremities. Good [id number], no drift and no sensory deficits. Past Med/Surg History Problem List (Updated 08/28/24 @ 15:10 by Mj Magana MD) Pulmonary vascular congestion UTI (urinary tract infection) (Acute) Dyslipidemia HTN (hypertension) GERD (gastroesophageal reflux disease) Chronic back pain ONEL (obstructive sleep apnea) ANJU (acute kidney injury) Acute encephalopathy (Acute) COPD (chronic obstructive pulmonary disease) (Acute) CKD (chronic kidney disease), stage III Medical History Closed fracture of femur Fall Encounter for pre-operative examination Pes anserinus bursitis of left knee Right groin pain Leukocytosis Fever Cough Acute right hip pain Fever Pneumonia DVT prophylaxis Inflammatory arthritis Hypomagnesemia Hypokalemia COPD exacerbation Acute respiratory failure Elevated troponin Osteoporosis Degenerative disc disease Follows with pain management Osteoarthritis Asthma Mild, no recent inhaler use Sleep apnea No device Closed fracture of distal end of left femur Surgical History Status post lumbar surgery Post-operative state H/O thumb surgery Left > tendon repair History of bilateral tubal ligation History of tooth extraction History of tonsillectomy and adenoidectomy History of open reduction and internal fixation (ORIF) procedure Left femur retrograde IM nail (09/25/20): SAB at L3-L4 (x2 attempts) at [facility] History of cervical spinal surgery GOOD ROM History of total knee arthroplasty Right (2010) H/O arthrodesis History of revision of total replacement of right knee joint History of esophagogastroduodenoscopy (EGD) Hx of colonoscopy Family History Father Family history of diabetes mellitus Other COPD (chronic obstructive pulmonary disease) Cancer Diabetes No family history of adverse response to anesthesia Social History Smoking Status: Former smoker Tobacco Type: Cigarettes Cigarettes Per Day: 20; Smoking End Date: 1999; Second Hand Exposure: No; Do You Dip or Chew Tobacco: No; Tobacco Cessation Education Requested by Patient: No Hx Alcohol Use: Yes Alcohol type: wine Alcohol Intake Frequency: Monthly or Less Hx Substance Use: No Preferred Language: Turkmen Communication Ability: Effective Icing Maker Required: No Beliefs That Will Affect Care: None marital status: Life Partner Current Living Situation: Significant Other Current Living Situation Comment: Lives with giselle Bobby in a home Other Information That Helps Us Care for You: No Feels Safe at Home: Yes Assistive Devices: Walker Allergies Allergies Allergy/AdvReac Type Severity Reaction Status Date / Time erythromycin base Allergy Intermediate Hives Verified 08/27/24 16:09 latex Allergy Intermediate ITCHY RASH Verified 08/27/24 16:09 Penicillins Allergy Intermediate Hives Verified 08/27/24 16:09 nickel Allergy Mild Skin Verified 08/27/24 16:09 irritation vancomycin AdvReac Severe Renal Verified 08/27/24 16:09 complications Home Meds Home Medications Medication Instructions Recorded Confirmed atorvastatin 80 mg tablet (Lipitor) 80 mg PO QDD 07/18/19 08/27/24 cholecalciferol (vitamin D3) 50 50 mcg PO DAILY 07/18/19 08/27/24 mcg (2,000 unit) capsule (Vitamin D3) omeprazole 20 mg capsule,delayed 20 mg PO BID 07/18/19 08/27/24 release albuterol sulfate 90 mcg/actuation 2 puff inhalation QID PRN 09/25/20 08/27/24 aerosol inhaler Shortness Of Breath Or Wheezing multivitamin with minerals-folic 1 tab PO QAM 09/25/20 08/27/24 acid 200 mcg chewable tablet (Multivitamin Gummies) tiotropium bromide 2.5 2 puff inhalation QAM 09/25/20 08/27/24 mcg/actuation mist for inhalation (Spiriva Respimat) acetaminophen 325 mg tablet 650 mg PO Q4H PRN Pain 09/13/21 08/27/24 (Tylenol) calcium 500 mg (as 1 tab PO DAILY 09/13/21 08/27/24 carbonate)-vitamin D3 3.125 mcg (125 unit) tablet melatonin 10 mg tablet 10 mg PO HS 09/13/21 08/27/24 polyethylene glycol 3350 17 gram 17 g PO DAILY PRN Constipation 09/13/21 08/27/24 oral powder packet (Miralax) sennosides 8.6 mg-docusate sodium 1 tab-cap PO BID 09/13/21 08/27/24 50 mg tablet (Senna with Docusate Sodium) trazodone 50 mg tablet 50 mg PO HS 09/13/21 08/27/24 valacyclovir 1 gram tablet 2,000 mg PO Q12H PRN Cold Sores 09/13/21 08/27/24 duloxetine 30 mg capsule,delayed 30 mg PO HS 08/27/24 08/27/24 release furosemide 20 mg tablet 20 mg PO QAM 08/27/24 08/27/24 ibuprofen 600 mg tablet 600 mg PO Q8H PRN Pain 08/27/24 08/27/24 losartan 50 mg tablet 50 mg PO QAM 08/27/24 08/27/24 naloxegol 25 mg tablet (Movantik) 25 mg PO QAM 08/27/24 08/27/24 oxycodone-acetaminophen 10 mg-325 1 tab PO 5XD PRN Pain 08/27/24 08/27/24 mg tablet pregabalin 75 mg capsule 75 mg PO BID 08/27/24 08/27/24 promethazine 25 mg tablet 25 mg PO Q6H PRN Nausea And 08/27/24 08/27/24 Vomiting Previous Rx's Medication Instructions Recorded magnesium oxide 400 mg (241.3 mg 400 mg PO BID #30 tabs 10/01/20 magnesium) tablet L.acidop,casei,lactis,rham-B.lact,haile 2 cap PO DAILY #30 caps 02/18/22 625 mg (10 billion cell) capsule (Advanced Probiotic) nebulizers #1 ea 02/18/22 Results & Data (ED) Vital Signs Vital Signs - 24 hr 08/27/24 16:37 Pulse Rate [Finger] 70 Respiratory Rate 18 Respiratory Effort / Characteristics Non-Labored Spontaneous Respiratory Depth Normal Respiratory Pattern Regular Blood Pressure [Right Arm] 134/55 L Blood Pressure Mean [Right Arm] 81 Pulse Oximetry 96 Oxygen Delivery Method Room Air Home Medications Current Medication List: was personally reviewed by me Laboratory Data Attestation: I reviewed the patient's lab results. 08/28/24 05:45 08/28/24 05:45 Lab Results 08/27/24 08/27/24 08/27/24 Range/Units 13:24 14:32 16:30 WBC 6.82 (4.8-10.8) K/ul RBC 3.97 L (4.20-5.40) M/uL Hgb 12.1 (12.0-16.0) g/dl Hct 36.8 L (37.0-47.0) % MCV 92.7 (80.0-100.0) fL MCH 30.5 (25.0-34.0) pg MCHC 32.9 (32.0-36.0) g/dL RDW Std Deviation 46.9 H (36.4-46.3) fL RDW Coeff of Alfonso 13.7 (11.5-14.5) % Plt Count 215 (130-400) K/uL MPV 11.6 (9.4-12.4) fL Immature Gran % (Auto) 0.3 % Neut % (Auto) 62.2 % Lymph % (Auto) 24.5 % [place] % (Auto) 10.0 % Eos % (Auto) 2.6 % Baso % (Auto) 0.4 % Neut # (Auto) 4.24 (1.40-6.50) K/uL Lymph # (Auto) 1.67 (1.20-3.40) K/uL [place] # (Auto) 0.68 H (0.11-0.59) K/uL Eos # (Auto) 0.18 (0.00-0.50) K/uL Baso # (Auto) 0.03 (0.00-0.20) K/uL Immature Gran # (Auto) 0.02 (0.01-0.20) K/uL Sodium 137 (136-145) mmol/L Potassium 3.8 (3.5-5.1) mmol/L Chloride 105 (98-107) mmol/L Carbon Dioxide 24 (21-32) mmol/L Anion Gap 8 (3-11) BUN 57 H (6-23) mg/dl Creatinine 1.41 H (0.6-1.2) mg/dl Est Cr Clr Drug Dosing Not Reportable eGFR 39.39 BUN/Creatinine Ratio 40.4 H (10-20) Glucose 116 H (70-99(Fasting)) mg/dl Calcium 9.1 (8.6-10.3) mg/dl Total Bilirubin 0.5 (0.2-1.0) mg/dl AST 59 H (13-39) U/L ALT 54 H (7-52) U/L Alkaline Phosphatase 256 H (34-104) U/L B-Natriuretic Peptide (0-100) pg/ml Total Protein 7.2 (6.0-8.3) gm/dl Albumin 4.0 (3.4-5.0) gm/dl Globulin 3.2 (2.5-4.0) gm/dl Albumin/Globulin Ratio 1.3 (0.9-2) Vitamin B12 352 (180-914) pg/ml TSH 0.793 (0.300-4.500) uIu/ml Urine Color Yellow Urine Appearance Cloudy A (Clear) Urine pH 5.5 (4.5-7.5) Ur Specific [place] 1.009 (1.000-1.030) Urine Protein Negative (Negative) Urine Glucose (UA) Negative (Negative) Urine Ketones Negative (Negative) Urine Blood Trace H (Negative) Urine Nitrite Negative (Negative) Urine Bilirubin Negative (Negative) Urine Urobilinogen Negative (Negative) Ur Leukocyte Esterase 3+ H (Negative) Urine WBC (Auto) >50 H (0-5) /hpf Urine RBC (Auto) 0-2 (0-2) /hpf U Hyaline Cast (Auto) 3-5 H (0-2) /lpf U Epithel Cells (Auto) 0-2 (0-2) /hpf Urine Bacteria (Auto) 2+ H (None Seen) Urine Comment Anaplasma Smear See Comment Babesia Smear See Comment Lyme Disease Screen Negative (Negative) 08/27/24 Range/Units 17:20 WBC (4.8-10.8) K/ul RBC (4.20-5.40) M/uL Hgb (12.0-16.0) g/dl Hct (37.0-47.0) % MCV (80.0-100.0) fL MCH (25.0-34.0) pg MCHC (32.0-36.0) g/dL RDW Std Deviation (36.4-46.3) fL RDW Coeff of Alfonso (11.5-14.5) % Plt Count (130-400) K/uL MPV (9.4-12.4) fL Immature Gran % (Auto) % Neut % (Auto) % Lymph % (Auto) % [place] % (Auto) % Eos % (Auto) % Baso % (Auto) % Neut # (Auto) (1.40-6.50) K/uL Lymph # (Auto) (1.20-3.40) K/uL [place] # (Auto) (0.11-0.59) K/uL Eos # (Auto) (0.00-0.50) K/uL Baso # (Auto) (0.00-0.20) K/uL Immature Gran # (Auto) (0.01-0.20) K/uL Sodium (136-145) mmol/L Potassium (3.5-5.1) mmol/L Chloride (98-107) mmol/L Carbon Dioxide (21-32) mmol/L Anion Gap (3-11) BUN (6-23) mg/dl Creatinine (0.6-1.2) mg/dl Est Cr Clr Drug Dosing eGFR BUN/Creatinine Ratio (10-20) Glucose (70-99(Fasting)) mg/dl Calcium (8.6-10.3) mg/dl Total Bilirubin (0.2-1.0) mg/dl AST (13-39) U/L ALT (7-52) U/L Alkaline Phosphatase (34-104) U/L B-Natriuretic Peptide 44 (0-100) pg/ml Total Protein (6.0-8.3) gm/dl Albumin (3.4-5.0) gm/dl Globulin (2.5-4.0) gm/dl Albumin/Globulin Ratio (0.9-2) Vitamin B12 (180-914) pg/ml TSH (0.300-4.500) uIu/ml Urine Color Urine Appearance (Clear) Urine pH (4.5-7.5) Ur Specific [place] (1.000-1.030) Urine Protein (Negative) Urine Glucose (UA) (Negative) Urine Ketones (Negative) Urine Blood (Negative) Urine Nitrite (Negative) Urine Bilirubin (Negative) Urine Urobilinogen (Negative) Ur Leukocyte Esterase (Negative) Urine WBC (Auto) (0-5) /hpf Urine RBC (Auto) (0-2) /hpf U Hyaline Cast (Auto) (0-2) /lpf U Epithel Cells (Auto) (0-2) /hpf Urine Bacteria (Auto) (None Seen) Urine Comment Anaplasma Smear Babesia Smear Lyme Disease Screen (Negative) Administered Medications Calcium/Vitamin D (Calcium 600mg + Vit D 400 Iu Tab) 1 tab PO DAILY KRISTIAN Stop: 09/27/24 08:59 Last Admin: 08/28/24 08:54 Dose: 1 tab Documented By: JOSH Docusate Sodium (Docusate Sodium 100 Mg Cap) 100 mg PO BID KRISTIAN Stop: 09/27/24 08:59 Last Admin: 08/28/24 08:53 Dose: 100 mg Documented By: JOSH Duloxetine HCl (Duloxetine Hcl 30 Mg Cap) 30 mg PO HS KRISTIAN Stop: 09/26/24 21:29 Last Admin: 08/27/24 22:16 Dose: 30 mg Documented By: MG Furosemide (Furosemide 20 Mg Tab) 20 mg PO QAM KRISTIAN Stop: 09/27/24 08:59 Last Admin: 08/28/24 08:53 Dose: 20 mg Documented By: JOSH Heparin Sodium (Porcine) (Heparin Sod 5,000 Unit/0.5 Ml Vial) 5,000 units SQ Q12 KRISTIAN Stop: 09/26/24 21:29 Last Admin: 08/28/24 08:53 Dose: 5,000 units Documented By: Admin: 08/27/24 22:17 Dose: 5,000 units Documented By: MG Lactobacillus Acidophilus (Advanced Probiotic 625 Mg Capsule) 1,250 mg PO DAILY [facility] Stop: 09/27/24 08:59 Last Admin: 08/28/24 08:53 Dose: 1,250 mg Documented By: JOSH Losartan Potassium (Losartan Potassium 50 Mg Tab) 50 mg PO QAM [facility] Stop: 09/27/24 08:59 Last Admin: 08/28/24 08:54 Dose: 50 mg Documented By: JOSH Magnesium Oxide (Magnesium Oxide 400 Mg Tab) 400 mg PO BID [facility] Stop: 09/26/24 21:29 Last Admin: 08/28/24 08:54 Dose: 400 mg Documented By: Admin: 08/27/24 22:16 Dose: 400 mg Documented By: MG Melatonin (Melatonin 3 Mg Tab) 9 mg PO HS PRN PRN Reason: Sleep Stop: 09/26/24 21:40 Last Admin: 08/27/24 22:16 Dose: 9 mg Documented By: MG Miconazole Nitrate (Miconazole Nitrate Powder 85 Gm) 1 appln EXT PRN PRN PRN Reason: Affected Skin Folds Stop: 09/26/24 21:31 Last Admin: 08/27/24 22:17 Dose: 1 appln Documented By: MG Miscellaneous ((Naloxegol [Movantik] 25 Mg Tablet)~Order Awaiting Action) 1 each N/A QS [facility] Stop: 09/26/24 21:44 Last Admin: 08/28/24 08:54 Dose: Not Given Documented By: Admin: 08/27/24 22:27 Dose: Not Given Documented By: MG Oxycodone/Acetaminophen (Oxycodone/Acetaminophen 10-325 Tab) 1 tab PO 5XDQ4H PRN PRN Reason: Pain Stop: 09/10/24 21:29 Last Admin: 08/27/24 22:16 Dose: 1 tab Documented By: MG Pantoprazole Sodium (Pantoprazole 40 Mg Tab) 40 mg PO BID [facility] Stop: 09/26/24 21:44 Last Admin: 08/28/24 08:54 Dose: 40 mg Documented By: Admin: 08/27/24 22:16 Dose: 40 mg Documented By: MG Pregabalin (Pregabalin 75 Mg Cap) 75 mg PO BID [facility] Stop: 09/26/24 21:29 Last Admin: 08/28/24 08:53 Dose: 75 mg Documented By: Admin: 08/27/24 22:17 Dose: 75 mg Documented By: MG Trazodone HCl (Trazodone Hcl 50 Mg Tab) 50 mg PO HS KRISTIAN Stop: 09/26/24 21:29 Last Admin: 08/27/24 22:17 Dose: 50 mg Documented By: MG Umeclidinium [place] (Umeclidinium [place] 62.5mcg/Blister 7 Puffs/Inhaler) 1 puffs INH QAM KRISTIAN Stop: 09/27/24 08:59 Last Admin: 08/28/24 08:54 Dose: 1 puffs Documented By: JOSH Vitamin D (Cholecalciferol 25 Mcg (1000 Units) Tab) 50 mcg PO DAILY KRISTIAN Stop: 09/27/24 08:59 Last Admin: 08/28/24 08:53 Dose: 50 mcg Documented By: JOSH Discontinued Medications Sodium Chloride (Nss) 1,000 mls @ 999 mls/hr IV .Q1H1M ONE Stop: 08/27/24 15:26 Last Infusion: 08/27/24 15:44 Dose: Infused Documented By: [facility] Admin: 08/27/24 14:43 Dose: 999 mls/hr Documented By: TIKI Ceftriaxone Sodium (Rocephin) 2,000 mg in 50 mls @ 100 mls/hr IV NOW STA Stop: 08/27/24 16:47 Last Infusion: 08/27/24 17:07 Dose: Infused Documented By: [facility] Admin: 08/27/24 16:37 Dose: 100 mls/hr Documented By: [facility] Imaging Data Radiologist's Impression: Chest X-Ray 08/27/24 14:45 XR chest 1V portable CLINICAL HISTORY: confusion COMPARISON STUDY: Chest CT July 18, 2019. Chest radiograph February 16, 2022. FINDINGS: Postoperative findings within the spine are incidentally noted. No pneumothorax or pleural effusion. There is moderate cardiomegaly is probably vascular congestion. A hiatal hernia is noted. No consolidation is identified suggest pneumonia. Linear left basilar densities favor atelectasis. IMPRESSION: Cardiomegaly with pulmonary vascular congestion. ACT 112: Negative or not required by law. Electronically signed by: Antony Brown M.D. 08/27/2024 3:[address] 08/27/24 15:22 CT head/brain wo con CLINICAL HISTORY: 74 years-old Female with confusion. Acutely altered mental status TECHNIQUE: Multiple axial CT images of the head were obtained without contrast. A dose lowering technique was utilized adhering to the principles of ALARA. CT DOSE: 703.85 mGy.cm COMPARISON: 10/09/2023 FINDINGS: No acute intracranial hemorrhage, midline shift, intracranial mass, hydrocephalus, territorial ischemia or abnormal extra-axial collection. Involutional changes with chronic microvascular ischemic disease. The study is mildly motion degraded. The calvarium is intact. The paranasal sinuses, mastoid air cells, and middle ear cavities are clear. IMPRESSION: No acute intracranial abnormality. ACT 112: Negative or not required by law. The above report was generated using voice recognition software. It may contain grammatical, syntax or spelling errors. Electronically signed by: Compa Clrak M.D. 08/27/2024 3:49 PM Discharge Plan Visit Data Chief Complaint: Illness ED Provider: Mj Magana Discharge Problem: UTI (urinary tract infection), Acute encephalopathy Patient Disposition: Admitted As Inpatient Condition: Good Discharge Instructions Interventions: ED Discharge Assessment Last Done: 08/27/24 21:15 Discharge Problem: UTI (urinary tract infection) Qualifiers: Urinary tract infection type: acute cystitis Hematuria presence: with hematuria Qualified Code(s): N30.01 - Acute cystitis with hematuria
[2024-08-27] MEDS: SODIUM CHLORIDE 0.9% 1,000 ML IV ONE (14:43)
--- NOTE | 2024-08-27 15:21 | XRay Report ---
XR chest 1V portable CLINICAL HISTORY: confusion COMPARISON STUDY: Chest CT July 18, 2019. Chest radiograph February 16, 2022. FINDINGS: Postoperative findings within the spine are incidentally noted. No pneumothorax or pleural effusion. There is moderate cardiomegaly is probably vascular congestion. A hiatal hernia is noted. N o consolidation is identified suggest pneumonia. Linear left basilar densities favor atelectasis. IMPRESSION: Cardiomegaly with pulmonary vascular congestion. ACT 112: Negative or not required by law. Electronically signed by: Antony Brown M.D. 08/27/2024 3:19 PM
--- NOTE | 2024-08-27 15:50 | CT Scan Report ---
CT head/brain wo con CLINICAL HISTORY: 74 years-old Female with confusion. Acutely altered mental status TECHNIQUE: Multiple axial CT images of the head were obtained without contrast. A dose lowering tech nique was utilized adhering to the principles of ALARA. CT DOSE: 703.85 mGy.cm COMPARISON: 10/09/2023 FINDINGS: No acute intracranial hemorrhage, midline shift, intracranial mass, hydrocephalus, territorial ischem ia or abnormal extra-axial collection. Involutional changes with chronic microvascular ischemic disea se. The study is mildly motion degraded. The calvarium is intact. The paranasal sinuses, mastoid air cells, and middle ear cavities are clear . IMPRESSION: No acute intracranial abnormality. ACT 112: Negative or not required by law. The above report was generated using voice recognition software. It may contain grammatical, syntax o r spelling errors. Electronically signed by: Compa Clark M.D. 08/27/2024 3:49 PM
[2024-08-27] MEDS: cefTRIAXone SODIUM 2,000 MG/50 ML BAG IV STA (16:37)
--- NOTE | 2024-08-27 16:37 | History & Physical Report ---
Date of Service August 27, 2024 Assessment & Plan (1) Acute encephalopathy: (2) ANJU (acute kidney injury): (3) CKD (chronic kidney disease), stage III: (4) UTI (urinary tract infection): (5) Pulmonary vascular congestion: (6) Chronic back pain: (7) HTN (hypertension): (8) Dyslipidemia: (9) COPD (chronic obstructive pulmonary disease): (10) GERD (gastroesophageal reflux disease): (11) ONEL (obstructive sleep apnea): Plan 74 year old female with PMH significant for hypertension, dyslipidemia, COPD, allergic rhinitis, ONEL, vitamin D deficiency, chronic gastritis, GERD, CKD III, generalized osteoarthritis, senile osteoporosis, and chronic back pain with opioid dependence who presented to the ED on 08/27/2024 with flu like symptoms x2 weeks and confusion x2 days. Acute encephalopathy Patient presented with 2 day history of intermittent confusion/hallucinations; A+Ox3 at time of admission Could be due to acute infectious process in setting of viral symptoms/UA findings, polypharmacy, poor sleep Head CT negative CBC unremarkable CMP remarkable for ANJU and transaminitis (AST 59, ALT 54, alk phos 256) Lyme screen negative TSH unremarkable Vitamin B12 pending Biofire negative Blood cultures pending UA concerning for UTI but patient denies dysuria Continue ceftriaxone until urine culture results ANJU on CKD III Creat 1.41 Received 1L NSS in ED Recheck BMP in am Pulmonary vascular congestion CXR with cardiomegaly and pulmonary vascular congestion Patient reports SOB with exertion, leg swelling, weight gain over the last few months Exam revealed crackles BNP WNL Echo ordered Continue daily lasix PO Consider IV lasix if fluid status worsens Chronic back pain Continue home tylenol, duloxetine, pregabalin, percocet Home ibuprofen on hold in setting of ANJU Hypertension Continue losartan Dyslipidemia Continue atorvastatin COPD Continue inhalers Insomnia Continue melatonin and trazodone Gastritis/GERD Continue omeprazole Osteoporosis Continue calcium and vitamin D supplement DVT Prophylaxis: SQ heparin Code Status: FULL CODE - As per discussion at bedside with the patient. PCP: Saurabh Larios Disposition: admit to med surg Daughter Apoorva called for updates and would like to be called daily for updates Patient seen in collaboration with Dr Cruz. Please see addendum. I spent a total of 70 minutes coordinating, documenting and providing care for this patient excluding time spent in the performance of separately billed services or time spent by another provider/QHP. Admission and Anticipated Discharge Date Admission Date: 08/27/2024 History of Present Illness Chief Complaint: flu like symptoms, confusion Primary Care Provider: Saurabh Larios MD 74 year old female with PMH significant for hypertension, dyslipidemia, COPD, allergic rhinitis, ONEL, vitamin D deficiency, chronic gastritis, GERD, CKD III, generalized osteoarthritis, senile osteoporosis, and chronic back pain with opioid dependence who presented to the ED on 08/27/2024 with flu like symptoms x2 weeks and confusion x2 days. Patient with her and son who helped provide history. Patient reports that she had a GI bug about two weeks ago, and is no longer having diarrhea, but still has flu like symptoms. She reports chills, runny nose, weakness, and fatigue. She also reports a dry cough, SOB, increased leg swelling, and weight gain for the last two months. Her and son note that she has been extremely drowsy during the day where she will fall asleep at the kitchen counter or on the toilet, which has been going on for multiple months. Patient is diagnosed with ONEL but does not wear CPAP. She did a recent at home sleep study and is awaiting the results. Her also reports two days of confusion where patient was having hallucinations seeing her grandchildren at their home when they were not there and wanted to go get pizza late at night. Patient has no recollection of these events. She has chronic back pain for which she sees interventional pain and has upcoming spinal injection and spine surgery in August and September respectively. She is on multiple pain medications, but notes she has been taking them for almost a year, and the drowsiness and confusion are more recent. Denies any recent med changes. Denies headaches, dizziness, lightheadedness, chest pain, abdominal pain, N/V/D, dysuria. She denies any recent rashes, outdoor activity, or recent travel. She denies any falls. She uses a walker to ambulate. Allergies Allergy/AdvReac Type Severity Reaction Status Date / Time erythromycin base Allergy Intermediate Hives Verified 08/27/24 16:09 latex Allergy Intermediate ITCHY RASH Verified 08/27/24 16:09 Penicillins Allergy Intermediate Hives Verified 08/27/24 16:09 nickel Allergy Mild Skin Verified 08/27/24 16:09 irritation vancomycin AdvReac Severe Renal Verified 08/27/24 16:09 complications Home Medications Medication Instructions Recorded Confirmed Type atorvastatin 80 mg tablet (Lipitor) 80 mg PO QDD 07/18/19 08/27/24 History cholecalciferol (vitamin D3) 50 50 mcg PO DAILY 07/18/19 08/27/24 History mcg (2,000 unit) capsule (Vitamin D3) omeprazole 20 mg capsule,delayed 20 mg PO BID 07/18/19 08/27/24 History release albuterol sulfate 90 mcg/actuation 2 puff inhalation QID PRN 09/25/20 08/27/24 History aerosol inhaler Shortness Of Breath Or Wheezing multivitamin with minerals-folic 1 tab PO QAM 09/25/20 08/27/24 History acid 200 mcg chewable tablet (Multivitamin Gummies) tiotropium bromide 2.5 2 puff inhalation QAM 09/25/20 08/27/24 History mcg/actuation mist for inhalation (Spiriva Respimat) magnesium oxide 400 mg (241.3 mg 400 mg PO BID #30 tabs 10/01/20 08/27/24 Rx magnesium) tablet acetaminophen 325 mg tablet 650 mg PO Q4H PRN Pain 09/13/21 08/27/24 History (Tylenol) calcium 500 mg (as 1 tab PO DAILY 09/13/21 08/27/24 History carbonate)-vitamin D3 3.125 mcg (125 unit) tablet melatonin 10 mg tablet 10 mg PO HS 09/13/21 08/27/24 History polyethylene glycol 3350 17 gram 17 g PO DAILY PRN Constipation 09/13/21 08/27/24 History oral powder packet (Miralax) sennosides 8.6 mg-docusate sodium 1 tab-cap PO BID 09/13/21 08/27/24 History 50 mg tablet (Senna with Docusate Sodium) trazodone 50 mg tablet 50 mg PO HS 09/13/21 08/27/24 History valacyclovir 1 gram tablet 2,000 mg PO Q12H PRN Cold Sores 09/13/21 08/27/24 History L.acidop,casei,lactis,rham-B.lact,haile 2 cap PO DAILY #30 caps 02/18/22 08/27/24 Rx 625 mg (10 billion cell) capsule (Advanced Probiotic) nebulizers #1 ea 02/18/22 Rx duloxetine 30 mg capsule,delayed 30 mg PO HS 08/27/24 08/27/24 History release furosemide 20 mg tablet 20 mg PO QAM 08/27/24 08/27/24 History ibuprofen 600 mg tablet 600 mg PO Q8H PRN Pain 08/27/24 08/27/24 History losartan 50 mg tablet 50 mg PO QAM 08/27/24 08/27/24 History naloxegol 25 mg tablet (Movantik) 25 mg PO QAM 08/27/24 08/27/24 History oxycodone-acetaminophen 10 mg-325 1 tab PO 5XD PRN Pain 08/27/24 08/27/24 History mg tablet pregabalin 75 mg capsule 75 mg PO BID 08/27/24 08/27/24 History promethazine 25 mg tablet 25 mg PO Q6H PRN Nausea And 08/27/24 08/27/24 History Vomiting Past Med/Surg History Problem List (Updated 08/27/24 @ 18:26 by JUNIOR Lauren) Pulmonary vascular congestion UTI (urinary tract infection) Dyslipidemia HTN (hypertension) GERD (gastroesophageal reflux disease) Chronic back pain ONEL (obstructive sleep apnea) ANJU (acute kidney injury) Acute encephalopathy COPD (chronic obstructive pulmonary disease) (Acute) CKD (chronic kidney disease), stage III Medical History (Updated 08/27/24 @ 18:26 by JUNIOR Lauren) Closed fracture of femur Fall Encounter for pre-operative examination Pes anserinus bursitis of left knee Right groin pain Leukocytosis Fever Cough Acute right hip pain Fever Pneumonia DVT prophylaxis Inflammatory arthritis Hypomagnesemia Hypokalemia COPD exacerbation Acute respiratory failure Elevated troponin Osteoporosis Degenerative disc disease Follows with pain management Osteoarthritis Asthma Mild, no recent inhaler use Sleep apnea No device Closed fracture of distal end of left femur Surgical History (Updated 08/27/24 @ 18:22 by JUNIOR Lauren) Status post lumbar surgery Post-operative state H/O thumb surgery Left > tendon repair History of bilateral tubal ligation History of tooth extraction History of tonsillectomy and adenoidectomy History of open reduction and internal fixation (ORIF) procedure Left femur retrograde IM nail (09/25/20): SAB at L3-L4 (x2 attempts) at [facility] > [facility] History of cervical spinal surgery GOOD ROM History of total knee arthroplasty Right (2010) H/O arthrodesis History of revision of total replacement of right knee joint History of esophagogastroduodenoscopy (EGD) Hx of colonoscopy Family History Father Family history of diabetes mellitus Other COPD (chronic obstructive pulmonary disease) Cancer Diabetes No family history of adverse response to anesthesia Social History (Updated 08/27/24 @ 18:23 by JUNIOR Lauren) Smoking Status: Never smoker Second Hand Exposure: No; Do You Dip or Chew Tobacco: No; Hx Alcohol Use: Yes Alcohol type: beer Alcohol Intake Frequency: Monthly or Less Hx Substance Use: No Preferred Language: Bhutanese Communication Ability: Effective Web Marketing Specialist Required: No Beliefs That Will Affect Care: None marital status: Life Partner Current Living Situation: Spouse Feels Safe at Home: Yes Assistive Devices: Walker Review of Systems 2 Review of Systems: All systems reviewed & are unremarkable except as noted in HPI & below Physical Exam Physical Exam: General/Psych: WD/WN, sitting up in bed, NAD, conversing easily Head: normocephalic, atraumatic Eyes: normal inspection, PERRL, conjunctivae pink, anicteric sclerae ENT: external ear and nose normal, oropharynx normal Neck: normal visual inspection, trachea midline Respiratory: normal respiratory effort, no accessory muscle use, crackles in left posterior lung field Cardiovascular: regular rate and rhythm, no murmur/rub/gallop, no JVD Extremities: no cyanosis or clubbing, normal peripheral pulses, 2+ BLE edema Abdomen/GI: normal bowel sounds, soft, nontender, no hepatosplenomegaly Neurologic/MSK: A+Ox3, motor strength 5/5, moves all extremities Skin: no rashes, normal color, warm and dry Results & Data Results & Data Vital Signs (Past 12 Hours) Vital Signs Temp Pulse Resp BP Pulse Ox O2 Del Method 08/27/24 13:10 36.7 C 81 18 118/57 L 93 Room Air Laboratory Results Short CBC 08/27/24 Range/Units 13:24 WBC 6.82 (4.8-10.8) K/ul Hgb 12.1 (12.0-16.0) g/dl Hct 36.8 L (37.0-47.0) % Plt Count 215 (130-400) K/uL BMP 08/27/24 13:24 Sodium 137 Potassium 3.8 Chloride 105 Carbon Dioxide 24 BUN 57 H Creatinine 1.41 H Glucose 116 H Calcium 9.1 Liver Function 08/27/24 Range/Units 13:24 Total Bilirubin 0.5 (0.2-1.0) mg/dl AST 59 H (13-39) U/L ALT 54 H (7-52) U/L Alkaline Phosphatase 256 H (34-104) U/L Albumin 4.0 (3.4-5.0) gm/dl Urine 08/27/24 Range/Units 16:30 Urine Color Yellow Urine Appearance Cloudy A (Clear) Urine pH 5.5 (4.5-7.5) Ur Specific [place] 1.009 (1.000-1.030) Urine Protein Negative (Negative) Urine Glucose (UA) Negative (Negative) I have independently reviewed and interpreted patient's admitting labs including CBC, CMP, BNP, TSH, UA. Diagnostic Findings Chest X-Ray 08/27/24 14:45 XR chest 1V portable CLINICAL HISTORY: confusion COMPARISON STUDY: Chest CT July 18, 2019. Chest radiograph February 16, 2022. FINDINGS: Postoperative findings within the spine are incidentally noted. No pneumothorax or pleural effusion. There is moderate cardiomegaly is probably vascular congestion. A hiatal hernia is noted. No consolidation is identified suggest pneumonia. Linear left basilar densities favor atelectasis. IMPRESSION: Cardiomegaly with pulmonary vascular congestion. ACT 112: Negative or not required by law. Electronically signed by: Antony Brown M.D. 08/27/2024 3:[address] 08/27/24 15:22 CT head/brain wo con CLINICAL HISTORY: 74 years-old Female with confusion. Acutely altered mental status TECHNIQUE: Multiple axial CT images of the head were obtained without contrast. A dose lowering technique was utilized adhering to the principles of ALARA. CT DOSE: 703.85 mGy.cm COMPARISON: 10/09/2023 FINDINGS: No acute intracranial hemorrhage, midline shift, intracranial mass, hydrocephalus, territorial ischemia or abnormal extra-axial collection. Involutional changes with chronic microvascular ischemic disease. The study is mildly motion degraded. The calvarium is intact. The paranasal sinuses, mastoid air cells, and middle ear cavities are clear. IMPRESSION: No acute intracranial abnormality. ACT 112: Negative or not required by law. The above report was generated using voice recognition software. It may contain grammatical, syntax or spelling errors. Electronically signed by: Compa Clark M.D. 08/27/2024 3:49 PM Code Status & VTE Plan Code Status Full Code Supervising Physician Co-Signing Physician Notes Attending Addendum: Case reviewed with the advanced practitioner. I have personally performed a history and physical examination on the patient. I have reviewed the advanced practitioner's documentation on the date of service referenced in note, and I agree with, and take responsibility for the plan of care. please refer to her notes for full details patient seen and examined, records reviewed by myself as well on exam, patient seen resting in bed awake, alert, oriented x 3 answering questions appropriately feels tired no other symptoms VS noted and reviewed oriented x 3, not in distress, speaks in sentences with no effort nor accessory muscle use normal rate, regular rhythm, no murmurs clear breath sounds bilaterally non distended, soft, nontender no bipedal edema, erythema, warmth no neuro deficits all labs, imaging noted and reviewed ASSESSMENT AND PLAN> ENCEPHALOPATHY, RESOLVING LIKELY FROM DEHYDRATION, ACUTE KIDNEY INJURY, R/O UTI ff up cultures empiric IV Antibiotics IV fluids monitor crea other diagnoses and plan of care as per advanced practitioner's notes I spent a total of 35 minutes coordinating, documenting, and providing care for this patient, excluding time spent in the performance of separately billed services or time spent by another provider/QHP. Jignesh Cruz MD (9) COPD (chronic obstructive pulmonary disease) COPD type: chronic bronchitis
[2024-08-27 17:01] LABS: Appearance Urine Cloudy (Clear); Bacteria Urine Automated 2+ (None Seen); Epithelial Cell Urine Auto 0-2 /hpf (0-2); Glucose Urine UA Negative (Negative); RBC Urine Automated 0-2 /hpf (0-2); WBC Urine Automated >50 /hpf (0-5)
[2024-08-27 17:13] LABS: Thyroid Stimulating Hormone 0.793 uIu/ml (0.300-4.500)
[2024-08-27 18:27] LABS: Chlamydia pneumoniae PCR Not Detected (NotDetected); Coronavirus 229E PCR Not Detected (NotDetected); Coronavirus CoV-2 (COVID19)PCR Not Detected (NotDetected); Coronavirus HKU1 PCR Not Detected (NotDetected); Coronavirus NL63 PCR Not Detected (NotDetected); Coronavirus OC43PCR Not Detected (NotDetected); Human Metapneumovirus PCR Not Detected (NotDetected); Parainfluenza Virus 1 PCR Not Detected (NotDetected); Parainfluenza Virus 2 PCR Not Detected (NotDetected); Parainfluenza Virus 3 PCR Not Detected (NotDetected); Parainfluenza Virus 4 PCR Not Detected (NotDetected); Respiratory Syncytial VirusPCR Not Detected (NotDetected); Rhinovirus/Enterovirus PCR Not Detected (NotDetected)
[2024-08-27] MEDS ORDERED: ALBUTEROL HFA 8 GM INHALER INH PRN (21:30)
[2024-08-27] MEDS: MAGNESIUM OXIDE 400 MG TAB PO SCH (22:16)
[2024-08-27] MEDS: MELATONIN 3 MG TAB PO PRN (22:16)
[2024-08-27] MEDS: MICONAZOLE NITRATE POWDER 85 GM EXT PRN (22:17)
[2024-08-27] MEDS: HEPARIN SOD 5,000 UNIT/0.5 ML VIAL SQ SCH (22:17)
[2024-08-27] MEDS: PREGABALIN 75 MG CAP PO SCH (22:17)
[2024-08-28 06:08] LABS: Hematocrit (blood only) 35.1 % (37.0-47.0); Hemoglobin 11.4 g/dl (12.0-16.0); Mean Corpuscular Hemoglobin 30.3 pg (25.0-34.0); Mean Corpuscular Volume 93.4 fL (80.0-100.0); Platelet Count 194 K/uL (130-400); RDW Standard Deviation 46.2 fL (36.4-46.3); Red Blood Count 3.76 M/uL (4.20-5.40); White Blood Count 5.31 K/ul (4.8-10.8)
[2024-08-28 06:37] LABS: Anion Gap 6.0 (3-11); Blood Urea Nitrogen 41.0 mg/dl (6-23); Calcium 8.9 mg/dl (8.6-10.3); Carbon Dioxide 24.0 mmol/L (21-32); Chloride 111.0 mmol/L (98-107); Creatinine Clr Calc Pharmacy 58.0 ml/min; Glucose 99.0 mg/dl (70-99(Fasting)); Potassium 4.0 mmol/L (3.5-5.1); Sodium 141.0 mmol/L (136-145)
[2024-08-28] MEDS: CHOLECALCIFEROL 25 MCG (1000 UNITS) TAB PO SCH (08:53)
[2024-08-28] MEDS: FUROSEMIDE 20 MG TAB PO SCH (08:53)
[2024-08-28] MEDS: ADVANCED PROBIOTIC 625 MG CAPSULE PO SCH (08:53)
[2024-08-28] MEDS: DOCUSATE SODIUM 100 MG CAP PO SCH (08:53)
[2024-08-28] MEDS: UMECLIDINIUM BROMIDE 62.5MCG/BLISTER 7 PUFFS/INHALER INH SCH (08:54)
[2024-08-28] MEDS: LOSARTAN POTASSIUM 50 MG TAB PO SCH (08:54)
[2024-08-28] MEDS: CALCIUM 600MG + VIT D 400 IU TAB PO SCH (08:54)
--- NOTE | 2024-08-28 12:50 | Hospitalist Progress Note ---
Date of Service August 28, 2024 Assessment & Plan (1) Acute encephalopathy: (2) ANJU (acute kidney injury): (3) CKD (chronic kidney disease), stage III: (4) UTI (urinary tract infection): (5) Pulmonary vascular congestion: (6) Chronic back pain: (7) HTN (hypertension): (8) Dyslipidemia: (9) COPD (chronic obstructive pulmonary disease): (10) GERD (gastroesophageal reflux disease): (11) ONEL (obstructive sleep apnea): Plan 74 year old female with PMH significant for hypertension, dyslipidemia, COPD, allergic rhinitis, ONEL, vitamin D deficiency, chronic gastritis, GERD, CKD III, generalized osteoarthritis, senile osteoporosis, and chronic back pain with opioid dependence who presented to the ED on 08/27/2024 with flu like symptoms x2 weeks and confusion x2 days. Acute Metabolic Encephalopathy--POA Patient presented with 2 day history of intermittent confusion/hallucinations Likely secondary to urinary tract infection Polypharmacy could be contributing as well UTI--POA --CT Head: No acute intracranial abnormality. --Lyme screen negative --Normal TSH, B12 levels --Respiratory bio fire negative -- Urine culture growing E. coli --Blood culture pending --Continue IV Rocephin --Minimize narcotics as able Acute kidney injury on CKD III Cr 1.41>0.86 Received IV fluids Ibuprofen discontinued Monitor renal function Avoid nephrotoxic agents as able Mild transaminitis Monitor LFTs Pulmonary vascular congestion CXR with cardiomegaly and pulmonary vascular congestion Patient reports SOB with exertion, leg swelling, weight gain over the last few months --BNP WNL --ECHO pending -- Saturating low 90s on room air --Monitor volume status -- Continue Lasix 20 mg daily, adjust as needed based on echo Chronic back pain Continue home tylenol, duloxetine, pregabalin, Percocet Discontinue home ibuprofen Minimize Percocet use as able Hypertension Continue losartan Monitor blood pressure, adjust meds as needed Dyslipidemia Continue atorvastatin COPD Continue inhalers Insomnia Continue melatonin PRN and trazodone PRN Gastritis/GERD Continue PPI Osteoporosis Continue calcium and vitamin D supplement Obesity BMI 38.5 DVT Px: SQ heparin Code Status: FULL CODE Admission and Anticipated Discharge Date Admission Date: August 27, 2024 Subjective Patient is seen and examined at bedside Confusion seem to be have resolved She admits to have some chest discomfort but otherwise no complaints today No recurrence of diarrhea Denies any dysuria, hematuria, abdominal pain, dyspnea, dizziness Review of Systems Review of Systems: All systems reviewed & are unremarkable except as noted in Subjective Physical Exam Physical Exam: Physical Exam: Vitals signs as noted above General Appearance:Obese, no apparent distress Head: normocephalic, Atraumatic Eyes: normal inspection, EOMI Neck: supple, Trachea midline Respiratory/Chest: Normal breath sounds, CTA, No accessory muscle use Cardiovascular: S1, S2, No murmur Abdomen/GI:Soft, Non tender, Bowel sounds present Extremities/Musculoskeletal:normal inspection, 1+ B/L LE edema Neurologic/Psych:AAOX3, grossly no focal neurological deficits Skin: normal color, warm Results & Data Results & Data Vital Signs (Past 12 Hours) Vital Signs Temp Pulse Pulse Resp BP BP Pulse Ox 08/28/24 12:05 08/28/24 11:37 36.4 C L 85 20 100/49 L 92 08/28/24 07:43 36.3 C L 78 20 100/67 91 08/28/24 05:36 76 08/28/24 02:37 35.9 C L 77 14 127/76 93 O2 Del Method 08/28/24 12:05 Room Air 08/28/24 11:37 Room Air 08/28/24 07:43 Room Air 08/28/24 05:36 08/28/24 02:37 Room Air Laboratory Results Short CBC 08/27/24 08/28/24 Range/Units 13:24 05:45 WBC 6.82 5.31 (4.8-10.8) K/ul Hgb 12.1 11.4 L (12.0-16.0) g/dl Hct 36.8 L 35.1 L (37.0-47.0) % Plt Count 215 194 (130-400) K/uL BMP 08/27/24 08/28/24 13:24 05:45 Sodium 137 141 Potassium 3.8 4.0 Chloride 105 111 H Carbon Dioxide 24 24 BUN 57 H 41 H Creatinine 1.41 H 0.86 D Glucose 116 H 99 Calcium 9.1 8.9 Liver Function 08/27/24 Range/Units 13:24 Total Bilirubin 0.5 (0.2-1.0) mg/dl AST 59 H (13-39) U/L ALT 54 H (7-52) U/L Alkaline Phosphatase 256 H (34-104) U/L Albumin 4.0 (3.4-5.0) gm/dl Urine 08/27/24 Range/Units 16:30 Urine Color Yellow Urine Appearance Cloudy A (Clear) Urine pH 5.5 (4.5-7.5) Ur Specific [place] 1.009 (1.000-1.030) Urine Protein Negative (Negative) Urine Glucose (UA) Negative (Negative) (9) COPD (chronic obstructive pulmonary disease) COPD type: chronic bronchitis
[2024-08-28] MEDS: cefTRIAXone SODIUM 2,000 MG/50 ML BAG IV SCH (17:04)
[2024-08-28] MEDS: ATORVASTATIN 40 MG TAB PO SCH (17:09)
[2024-08-29 08:06] LABS: Hematocrit (blood only) 36.1 % (37.0-47.0); Hemoglobin 12.0 g/dl (12.0-16.0); Mean Corpuscular Hemoglobin 30.7 pg (25.0-34.0); Mean Corpuscular Volume 92.3 fL (80.0-100.0); Platelet Count 200 K/uL (130-400); RDW Standard Deviation 45.7 fL (36.4-46.3); Red Blood Count 3.91 M/uL (4.20-5.40); White Blood Count 5.66 K/ul (4.8-10.8)
[2024-08-29 08:34] LABS: Alanine Aminotransferase 35 U/L (7-52); Alkaline Phosphatase 185 U/L (34-104); Anion Gap 4 (3-11); Bilirubin,Total 0.3 mg/dl (0.2-1.0); Blood Urea Nitrogen 19 mg/dl (6-23); Calcium 9.0 mg/dl (8.6-10.3); Carbon Dioxide 28 mmol/L (21-32); Chloride 111 mmol/L (98-107); Creatinine Clr Calc Pharmacy 76.7 ml/min; Glucose 104 mg/dl (70-99(Fasting)); Potassium 3.7 mmol/L (3.5-5.1); Sodium 143 mmol/L (136-145); Total Protein 6.5 gm/dl (6.0-8.3)
[2024-08-29] MEDS: ACETAMINOPHEN 325 MG TAB PO PRN (09:05)
--- NOTE | 2024-08-29 14:27 | Hospitalist Progress Note ---
Date of Service August 29, 2024 Assessment & Plan (1) Acute encephalopathy: (2) ANJU (acute kidney injury): (3) CKD (chronic kidney disease), stage III: (4) UTI (urinary tract infection): (5) Pulmonary vascular congestion: (6) Chronic back pain: (7) HTN (hypertension): (8) Dyslipidemia: (9) COPD (chronic obstructive pulmonary disease): (10) GERD (gastroesophageal reflux disease): (11) ONEL (obstructive sleep apnea): Plan 74 year old female with PMH significant for hypertension, dyslipidemia, COPD, allergic rhinitis, ONEL, vitamin D deficiency, chronic gastritis, GERD, CKD III, generalized osteoarthritis, senile osteoporosis, and chronic back pain with opioid dependence who presented to the ED on 08/27/2024 with flu like symptoms x2 weeks and confusion x2 days. Acute Metabolic Encephalopathy--POA Patient presented with 2 day history of intermittent confusion/hallucinations Likely secondary to urinary tract infection Polypharmacy could be contributing as well UTI--POA --CT Head: No acute intracranial abnormality. --Lyme screen negative --Normal TSH, B12 levels --Respiratory bio fire negative -- Urine culture growing pansensitive E. coli --Blood culture: Negative to date --Continue IV Rocephin --Minimize narcotics as able -- Likely transition to oral antibiotics tomorrow -- Continue PT OT while hospitalized Acute kidney injury on CKD III Cr 1.41>0.86 Received IV fluids Ibuprofen discontinued Monitor renal function Avoid nephrotoxic agents as able Mild transaminitis Monitor LFTs LFTs normalized Pulmonary vascular congestion CXR with cardiomegaly and pulmonary vascular congestion Patient reports SOB with exertion, leg swelling, weight gain over the last few months --BNP WNL --ECHO: Mild concentric LVH. EF greater than 70%. Grade 1 diastolic dysfunction. -- Saturating low 90s on room air --Monitor volume status -- Continue Lasix 20 mg daily Chronic back pain Continue home tylenol, duloxetine, pregabalin, Percocet Discontinue home ibuprofen Minimize Percocet use as able Follows with pain management as outpatient Hypertension Continue losartan Blood pressure stable Monitor Dyslipidemia Continue atorvastatin COPD Continue inhalers Insomnia Continue melatonin PRN and trazodone PRN Gastritis/GERD Continue PPI Osteoporosis Continue calcium and vitamin D supplement Obesity BMI 38.5 DVT Px: SQ heparin Code Status: FULL CODE Admission and Anticipated Discharge Date Admission Date: August 27, 2024 Subjective Patient is seen and examined at bedside States feeling a lot better today Reports loose BM Also states having chronic lower back pain No other complaints today Denies any dysuria, hematuria, abdominal pain, dyspnea, dizziness Review of Systems Review of Systems: All systems reviewed & are unremarkable except as noted in Subjective Physical Exam Physical Exam: Physical Exam: Vitals signs as noted above General Appearance:Obese, no apparent distress Head: normocephalic, Atraumatic Eyes: normal inspection, EOMI Neck: supple, Trachea midline Respiratory/Chest: Normal breath sounds, CTA, No accessory muscle use Cardiovascular: S1, S2, No murmur Abdomen/GI:Soft, Non tender, Bowel sounds present Extremities/Musculoskeletal:normal inspection, 1+ B/L LE edema Neurologic/Psych:AAOX3, grossly no focal neurological deficits Skin: normal color, warm Results & Data Results & Data Vital Signs (Past 12 Hours) Vital Signs Temp Pulse Pulse Resp BP BP Pulse Ox 08/29/24 13:00 88 08/29/24 12:13 08/29/24 11:00 36.7 C 85 20 136/74 92 08/29/24 08:04 36.8 C 93 H 20 121/68 90 08/29/24 06:22 105 H 08/29/24 05:59 90 08/29/24 02:33 37.0 C 95 H 18 141/74 H 91 O2 Del Method 08/29/24 13:00 08/29/24 12:13 Room Air 08/29/24 11:00 Room Air 08/29/24 08:04 Room Air 08/29/24 06:22 08/29/24 05:59 08/29/24 02:33 Room Air Laboratory Results Short CBC 08/29/24 Range/Units 07:35 WBC 5.66 (4.8-10.8) K/ul Hgb 12.0 (12.0-16.0) g/dl Hct 36.1 L (37.0-47.0) % Plt Count 200 (130-400) K/uL BMP 08/29/24 07:35 Sodium 143 Potassium 3.7 Chloride 111 H Carbon Dioxide 28 BUN 19 D Creatinine 0.65 Glucose 104 H Calcium 9.0 Liver Function 08/29/24 Range/Units 07:35 Total Bilirubin 0.3 (0.2-1.0) mg/dl Direct Bilirubin TNP AST 30 (13-39) U/L ALT 35 (7-52) U/L Alkaline Phosphatase 185 H (34-104) U/L Albumin 3.3 L (3.4-5.0) gm/dl (4) UTI (urinary tract infection) Hematuria presence: with hematuria Urinary tract infection type: acute cystitis Qualified Code(s): N30.01 - Acute cystitis with hematuria (9) COPD (chronic obstructive pulmonary disease) COPD type: chronic bronchitis
[2024-08-30 05:53] LABS: Hematocrit (blood only) 37.5 % (37.0-47.0); Hemoglobin 11.9 g/dl (12.0-16.0); Mean Corpuscular Hemoglobin 29.3 pg (25.0-34.0); Mean Corpuscular Volume 92.4 fL (80.0-100.0); Platelet Count 205 K/uL (130-400); RDW Standard Deviation 46.3 fL (36.4-46.3); Red Blood Count 4.06 M/uL (4.20-5.40); White Blood Count 6.58 K/ul (4.8-10.8)
[2024-08-30 06:09] LABS: Anion Gap 5.0 (3-11); Blood Urea Nitrogen 13.0 mg/dl (6-23); Calcium 9.1 mg/dl (8.6-10.3); Carbon Dioxide 29.0 mmol/L (21-32); Chloride 109.0 mmol/L (98-107); Creatinine Clr Calc Pharmacy 90.6 ml/min; Glucose 97.0 mg/dl (70-99(Fasting)); Potassium 3.6 mmol/L (3.5-5.1); Sodium 143.0 mmol/L (136-145)
[2024-08-30 08:20] VITALS: RESP 20
[2024-08-30] MEDS: cefTRIAXone SODIUM 2,000 MG/50 ML BAG IV SCH (08:41)
[2024-08-30 11:33] VITALS: BP 144/76; PULSE 88; TEMP 98.2; O2SAT 91
--- NOTE | 2024-08-30 11:35 | Hospitalist Progress Note ---
Date of Service August 30, 2024 Assessment & Plan (1) Acute encephalopathy: (2) ANJU (acute kidney injury): (3) CKD (chronic kidney disease), stage III: (4) UTI (urinary tract infection): (5) Pulmonary vascular congestion: (6) Chronic back pain: (7) HTN (hypertension): (8) Dyslipidemia: (9) COPD (chronic obstructive pulmonary disease): (10) GERD (gastroesophageal reflux disease): (11) ONEL (obstructive sleep apnea): Plan 74 year old female with PMH significant for hypertension, dyslipidemia, COPD, allergic rhinitis, ONEL, vitamin D deficiency, chronic gastritis, GERD, CKD III, generalized osteoarthritis, senile osteoporosis, and chronic back pain with opioid dependence who presented to the ED on 08/27/2024 with flu like symptoms x2 weeks and confusion x2 days. Acute Metabolic Encephalopathy--POA Patient presented with 2 day history of intermittent confusion/hallucinations Likely secondary to urinary tract infection Polypharmacy could be contributing as well UTI--POA --CT Head: No acute intracranial abnormality. --Lyme screen negative --Normal TSH, B12 levels --Respiratory bio fire negative -- Urine culture growing pansensitive E. coli --Blood culture: Negative to date --Continue IV Rocephin Day #3>> transition to oral antibiotics to complete the course --Minimize narcotics as able -Continue PT OT while hospitalized - Plan to discharge home today Acute kidney injury on CKD III Cr 1.41>0.86 Received IV fluids Ibuprofen discontinued Monitor renal function Avoid nephrotoxic agents as able Mild transaminitis Monitor LFTs LFTs normalized Pulmonary vascular congestion CXR with cardiomegaly and pulmonary vascular congestion Patient reports SOB with exertion, leg swelling, weight gain over the last few months --BNP WNL --ECHO: Mild concentric LVH. EF greater than 70%. Grade 1 diastolic dysfunction. -- Saturating low 90s on room air --Monitor volume status -- Continue Lasix 20 mg daily Chronic back pain Continue home tylenol, duloxetine, pregabalin, Percocet Discontinue home ibuprofen Minimize Percocet use as able Follows with pain management as outpatient Hypertension Continue losartan Blood pressure stable Monitor Dyslipidemia Continue atorvastatin COPD Continue inhalers Insomnia Continue melatonin PRN and trazodone PRN Gastritis/GERD Continue PPI Osteoporosis Continue calcium and vitamin D supplement Obesity BMI 38.5 DVT Px: SQ heparin Code Status: FULL CODE Disposition Home Admission and Anticipated Discharge Date Admission Date: August 27, 2024 Subjective Patient is seen and examined at bedside States feeling a lot better today Had PT evaluation earlier today Discussed with patient's daughter at bedside Lower back pain is controlled with medications Denies any dysuria, hematuria, abdominal pain, dyspnea, dizziness Plan to be discharged home today Review of Systems Review of Systems: All systems reviewed & are unremarkable except as noted in Subjective Physical Exam Physical Exam: Physical Exam: Vitals signs as noted above General Appearance:Obese, no apparent distress Head: normocephalic, Atraumatic Eyes: normal inspection, EOMI Neck: supple, Trachea midline Respiratory/Chest: Normal breath sounds, CTA, No accessory muscle use Cardiovascular: S1, S2, No murmur Abdomen/GI:Soft, Non tender, Bowel sounds present Extremities/Musculoskeletal:normal inspection, 1+ B/L LE edema Neurologic/Psych:AAOX3, grossly no focal neurological deficits Skin: normal color, warm Results & Data Results & Data Vital Signs (Past 12 Hours) Vital Signs Temp Pulse Pulse Resp BP Pulse Ox O2 Del Method 08/30/24 11:32 36.8 C 88 20 144/76 H 91 Room Air 08/30/24 09:46 Room Air 08/30/24 08:20 36.6 C 97 H 20 154/76 H 92 Room Air 08/30/24 05:48 91 H 08/30/24 02:42 36.7 C 90 18 151/73 H 93 Room Air Laboratory Results Short CBC 08/30/24 Range/Units 05:25 WBC 6.58 (4.8-10.8) K/ul Hgb 11.9 L (12.0-16.0) g/dl Hct 37.5 (37.0-47.0) % Plt Count 205 (130-400) K/uL BMP 08/30/24 05:25 Sodium 143 Potassium 3.6 Chloride 109 H Carbon Dioxide 29 BUN 13 Creatinine 0.55 L Glucose 97 Calcium 9.1 (4) UTI (urinary tract infection) Hematuria presence: with hematuria Urinary tract infection type: acute cystitis Qualified Code(s): N30.01 - Acute cystitis with hematuria (9) COPD (chronic obstructive pulmonary disease) COPD type: chronic bronchitis
--- NOTE | 2024-08-30 11:47 | Discharge Summary ---
Date of Service August 30, 2024 Admission HPI Per Admitting Provider 74 year old female with PMH significant for hypertension, dyslipidemia, COPD, allergic rhinitis, ONEL, vitamin D deficiency, chronic gastritis, GERD, CKD III, generalized osteoarthritis, senile osteoporosis, and chronic back pain with opioid dependence who presented to the ED on 08/27/2024 with flu like symptoms x2 weeks and confusion x2 days. Patient with her and son who helped provide history. Patient reports that she had a GI bug about two weeks ago, and is no longer having diarrhea, but still has flu like symptoms. She reports chills, runny nose, weakness, and fatigue. She also reports a dry cough, SOB, increased leg swelling, and weight gain for the last two months. Her and son note that she has been extremely drowsy during the day where she will fall asleep at the kitchen counter or on the toilet, which has been going on for multiple months. Patient is diagnosed with ONEL but does not wear CPAP. She did a recent at home sleep study and is awaiting the results. Her also reports two days of confusion where patient was having hallucinations seeing her grandchildren at their home when they were not there and wanted to go get pizza late at night. Patient has no recollection of these events. She has chronic back pain for which she sees interventional pain and has upcoming spinal injection and spine surgery in August and September respectively. She is on multiple pain medications, but notes she has been taking them for almost a year, and the drowsiness and confusion are more recent. Denies any recent med changes. Denies headaches, dizziness, lightheadedness, chest pain, abdominal pain, N/V/D, dysuria. She denies any recent rashes, outdoor activity, or recent travel. She denies any falls. She uses a walker to ambulate. Admission Exam Per Admitting Provider General/Psych: WD/WN, sitting up in bed, NAD, conversing easily Head: normocephalic, atraumatic Eyes: normal inspection, PERRL, conjunctivae pink, anicteric sclerae ENT: external ear and nose normal, oropharynx normal Neck: normal visual inspection, trachea midline Respiratory: normal respiratory effort, no accessory muscle use, crackles in l eft posterior lung field Cardiovascular: regular rate and rhythm, no murmur/rub/gallop, no JVD Extremities: no cyanosis or clubbing, normal peripheral pulses, 2+ BLE edema Abdomen/GI: normal bowel sounds, soft, nontender, no hepatosplenomegaly Neurologic/MSK: A+Ox3, motor strength 5/5, moves all extremities Skin: no rashes, normal color, warm and dry Principal Diagnosis Acute Metabolic Encephalopathy Urinary tract infection Acute kidney injury on CKD stage III Chronic lower back pain Discharge Data Allergies Allergy/AdvReac Type Severity Reaction Status Date / Time erythromycin base Allergy Intermediate Hives Verified 08/27/24 16:09 latex Allergy Intermediate ITCHY RASH Verified 08/27/24 16:09 Penicillins Allergy Intermediate Hives Verified 08/27/24 16:09 nickel Allergy Mild Skin Verified 08/27/24 16:09 irritation vancomycin AdvReac Severe Renal Verified 08/27/24 16:09 complications Consultations 08/27/24 16:18 ED Decision to Admit Stat Procedures Performed Laboratory Results WBC 6.58 K/ul (4.8-10.8) 08/30/24 05:25 RBC 4.06 M/uL (4.20-5.40) L 08/30/24 05:25 Hgb 11.9 g/dl (12.0-16.0) L 08/30/24 05:25 Hct 37.5 % (37.0-47.0) 08/30/24 05:25 MCV 92.4 fL (80.0-100.0) 08/30/24 05:25 MCH 29.3 pg (25.0-34.0) 08/30/24 05: MCHC 31.7 g/dL (32.0-36.0) L 08/30/24 05:25 RDW Std Deviation 46.3 fL (36.4-46.3) 08/30/24 05:25 RDW Coeff of Alfonso 13.8 % (11.5-14.5) 08/30/24 05:25 Plt Count 205 K/uL (130-400) 08/30/24 05:25 MPV 11.0 fL (9.4-12.4) 08/30/24 05:25 Immature Gran % (Auto) 0.3 % 08/27/24 13:24 Neut % (Auto) 62.2 % 08/27/24 13:24 Lymph % (Auto) 24.5 % 08/27/24 13:24 [place] % (Auto) 10.0 % 08/27/24 13:24 Eos % (Auto) 2.6 % 08/27/24 13:24 Baso % (Auto) 0.4 % 08/27/24 13:24 Neut # (Auto) 4.24 K/uL (1.40-6.50) 08/27/24 13:24 Lymph # (Auto) 1.67 K/uL (1.20-3.40) 08/27/24 13:24 [place] # (Auto) 0.68 K/uL (0.11-0.59) H 08/27/24 13:24 Eos # (Auto) 0.18 K/uL (0.00-0.50) 08/27/24 13:24 Baso # (Auto) 0.03 K/uL (0.00-0.20) 08/27/24 13:24 Immature Gran # (Auto) 0.02 K/uL (0.01-0.20) 08/27/24 13:24 Sodium 143 mmol/L (136-145) 08/30/24 05:25 Potassium 3.6 mmol/L (3.5-5.1) 08/30/24 05:25 Chloride 109 mmol/L (98-107) H 08/30/24 05:25 Carbon Dioxide 29 mmol/L (21-32) 08/30/24 05:25 Anion Gap 5 (3-11) 08/30/24 05:25 BUN 13 mg/dl (6-23) 08/30/24 05:25 Creatinine 0.55 mg/dl (0.6-1.2) L 08/30/24 05:25 Est Cr Clr Drug Dosing 90.6 ml/min 08/30/24 05:25 eGFR 96.72 08/30/24 05:25 BUN/Creatinine Ratio 23.6 (10-20) H 08/30/24 05:25 Glucose 97 mg/dl (70-99(Fasting)) 08/30/24 05:25 Calcium 9.1 mg/dl (8.6-10.3) 08/30/24 05:25 Total Bilirubin 0.3 mg/dl (0.2-1.0) 08/29/24 07:35 Direct Bilirubin TNP 08/29/24 07:35 AST 30 U/L (13-39) 08/29/24 07:35 ALT 35 U/L (7-52) 08/29/24 07:35 Alkaline Phosphatase 185 U/L (34-104) H 08/29/24 07:35 B-Natriuretic Peptide 44 pg/ml (0-100) 08/27/24 17:20 Total Protein 6.5 gm/dl (6.0-8.3) 08/29/24 07:35 Albumin 3.3 gm/dl (3.4-5.0) L 08/29/24 07:35 Globulin 3.2 gm/dl (2.5-4.0) 08/27/24 13:24 Albumin/Globulin Ratio 1.3 (0.9-2) 08/27/24 13:24 Vitamin B12 352 pg/ml (180-914) 08/27/24 13:24 TSH 0.793 uIu/ml (0.300-4.500) 08/27/24 13:24 Urine Color Yellow 08/27/24 16:30 Urine Appearance Cloudy (Clear) A 08/27/24 16:30 Urine pH 5.5 (4.5-7.5) 08/27/24 16:30 Ur Specific [place] 1.009 (1.000-1.030) 08/27/24 16:30 Urine Protein Negative (Negative) 08/27/24 16:30 Urine Glucose (UA) Negative (Negative) 08/27/24 16:30 Urine Ketones Negative (Negative) 08/27/24 16:30 Urine Blood Trace (Negative) H 08/27/24 16:30 Urine Nitrite Negative (Negative) 08/27/24 16:30 Urine Bilirubin Negative (Negative) 08/27/24 16:30 Urine Urobilinogen Negative (Negative) 08/27/24 16:30 Ur Leukocyte Esterase 3+ (Negative) H 08/27/24 16:30 Urine WBC (Auto) >50 /hpf (0-5) H 08/27/24 16:30 Urine RBC (Auto) 0-2 /hpf (0-2) 08/27/24 16:30 U Hyaline Cast (Auto) 3-5 /lpf (0-2) H 08/27/24 16:30 U Epithel Cells (Auto) 0-2 /hpf (0-2) 08/27/24 16:30 Urine Bacteria (Auto) 2+ (None Seen) H 08/27/24 16:30 Urine Comment 08/27/24 16:30 Adenovirus (PCR) Not Detected (NotDetected) 08/27/24 Unknown Anaplasma Smear See Comment 08/27/24 14:32 A. phagocytophilum DNA Negative (Negative) 08/27/24 14:32 Babesia Smear See Comment 08/27/24 14:32 B. pertussis DNA (PCR) Not Detected (NotDetected) 08/27/24 Unknown B.parapertussis DNA PCR Not Detected (NotDetected) 08/27/24 Unknown Lyme Disease Screen Negative (Negative) 08/27/24 14:32 C. pneumoniae DNA (PCR) Not Detected (NotDetected) 08/27/24 Unknown Coronavirus OC43 (PCR) Not Detected (NotDetected) 08/27/24 Unknown Coronavirus HKU1 (PCR) Not Detected (NotDetected) 08/27/24 Unknown Coronavirus 229E (PCR) Not Detected (NotDetected) 08/27/24 Unknown SARS-CoV-2 (PCR) Not Detected (NotDetected) 08/27/24 Unknown Coronavirus NL63 (PCR) Not Detected (NotDetected) 08/27/24 Unknown Hepatitis C Ab Screen Negative (Negative) 08/28/24 05:45 Human Metapneumovir PCR Not Detected (NotDetected) 08/27/24 Unknown Influenza Type A (PCR) Not Detected (NotDetected) 08/27/24 Unknown Influenza Type B (PCR) Not Detected (NotDetected) 08/27/24 Unknown M. pneumoniae (PCR) Not Detected (NotDetected) 08/27/24 Unknown Parainfluenza 1 (PCR) Not Detected (NotDetected) 08/27/24 Unknown Parainfluenza 2 (PCR) Not Detected (NotDetected) 08/27/24 Unknown Parainfluenza 3 (PCR) Not Detected (NotDetected) 08/27/24 Unknown Parainfluenza 4 (PCR) Not Detected (NotDetected) 08/27/24 Unknown RSV (PCR) Not Detected (NotDetected) 08/27/24 Unknown Entero/Rhino (PCR) Not Detected (NotDetected) 08/27/24 Unknown Impressions Chest X-Ray 08/27/24 14:45 XR chest 1V portable CLINICAL HISTORY: confusion COMPARISON STUDY: Chest CT July 18, 2019. Chest radiograph February 16, 2022. FINDINGS: Postoperative findings within the spine are incidentally noted. No pneumothorax or pleural effusion. There is moderate cardiomegaly is probably vascular congestion. A hiatal hernia is noted. No consolidation is identified suggest pneumonia. Linear left basilar densities favor atelectasis. IMPRESSION: Cardiomegaly with pulmonary vascular congestion. ACT 112: Negative or not required by law. Electronically signed by: Antony Brown M.D. 08/27/2024 3:[address] 08/27/24 15:22 CT head/brain wo con CLINICAL HISTORY: 74 years-old Female with confusion. Acutely altered mental status TECHNIQUE: Multiple axial CT images of the head were obtained without contrast. A dose lowering technique was utilized adhering to the principles of ALARA. CT DOSE: 703.85 mGy.cm COMPARISON: 10/09/2023 FINDINGS: No acute intracranial hemorrhage, midline shift, intracranial mass, hydrocephalus, territorial ischemia or abnormal extra-axial collection. Involutional changes with chronic microvascular ischemic disease. The study is mildly motion degraded. The calvarium is intact. The paranasal sinuses, mastoid air cells, and middle ear cavities are clear. IMPRESSION: No acute intracranial abnormality. ACT 112: Negative or not required by law. The above report was generated using voice recognition software. It may contain grammatical, syntax or spelling errors. Electronically signed by: Compa Clark M.D. 08/27/2024 3:49 PM Ordered Studies 08/27/24 15:22 CT head/brain wo con Stat Hospital Course (1) Acute encephalopathy: (2) ANJU (acute kidney injury): (3) CKD (chronic kidney disease), stage III: (4) UTI (urinary tract infection): (5) Pulmonary vascular congestion: (6) Chronic back pain: (7) HTN (hypertension): (8) Dyslipidemia: (9) COPD (chronic obstructive pulmonary disease): (10) GERD (gastroesophageal reflux disease): (11) ONEL (obstructive sleep apnea): Plan 74 year old female with PMH significant for hypertension, dyslipidemia, COPD, allergic rhinitis, ONEL, vitamin D deficiency, chronic gastritis, GERD, CKD III, generalized osteoarthritis, senile osteoporosis, and chronic back pain with opioid dependence who presented to the ED on 08/27/2024 with flu like symptoms x2 weeks and confusion x2 days. Acute Metabolic Encephalopathy--POA Patient presented with 2 day history of intermittent confusion/hallucinations Likely secondary to urinary tract infection Polypharmacy could be contributing as well UTI--POA --CT Head: No acute intracranial abnormality. --Lyme screen negative --Normal TSH, B12 levels --Respiratory bio fire negative -- Urine culture growing pansensitive E. coli --Blood culture: Negative to date --Continue IV Rocephin Day #3>> transition to oral antibiotics to complete the course --Minimize narcotics as able -Continue PT OT while hospitalized - Plan to discharge home today Acute kidney injury on CKD III Cr 1.41>0.86 Received IV fluids Ibuprofen discontinued Monitor renal function Avoid nephrotoxic agents as able Mild transaminitis Monitor LFTs LFTs normalized Pulmonary vascular congestion CXR with cardiomegaly and pulmonary vascular congestion Patient reports SOB with exertion, leg swelling, weight gain over the last few months --BNP WNL --ECHO: Mild concentric LVH. EF greater than 70%. Grade 1 diastolic dysfunction. -- Saturating low 90s on room air --Monitor volume status -- Continue Lasix 20 mg daily Chronic back pain Continue home tylenol, duloxetine, pregabalin, Percocet Discontinue home ibuprofen Minimize Percocet use as able Follows with pain management as outpatient Hypertension Continue losartan Blood pressure stable Monitor Dyslipidemia Continue atorvastatin COPD Continue inhalers Insomnia Continue melatonin PRN and trazodone PRN Gastritis/GERD Continue PPI Osteoporosis Continue calcium and vitamin D supplement Obesity BMI 38.5 DVT Px: SQ heparin Code Status: FULL CODE Disposition Home Total Time Total Time Spent Total Time Spent (In Minutes): 49 minutes Discharge Plan Discharge Items Patient Disposition: Home - Home Health Services Reason For Visit: FLU LIKE ILLNESS Discharge Diagnosis: Acute Metabolic Encephalopathy Urinary tract infection Acute kidney injury on CKD stage III Chronic lower back pain Condition on Discharge: Good Activity: Per Instructions section Exercise/Sports: Gradually increase as tolerated Non-emergency contact: Primary Care Provider and Pain Management Call non-emergency contact if: you have any medication questions, your symptoms worsen, your pain is concerning for you and you have a fever Follow-up/Referrals: Saurabh Larios MD [Primary Care Provider] - (Date & Time 09/04/2024 2:00 PM Provider: Barb Koch MD [facility] ) Diet: Heart Healthy Addtl Attending Provider Instructions: --Follow-up with your primary care physician on 09/04/2024 2:00 PM --Follow-up with pain management as scheduled --Avoid ibuprofen and other [id number] pain medications as it can worsen your kidney function. --Complete the antibiotic course Cefdinir as prescribed --Discuss with your pain management physician for further adjustment of medications as needed to minimize excess sedation. Seek immediate medical attention if your symptoms reoccur or worsen Please review medication list provided on discharge for any medication changes as instructed. Please call if you have any questions or problems. You can reach a [facility] hospitalist on duty at [facility] 24 hours a day by calling [phone] Pending Studies at Discharge: No Stand-Alone Forms: [facility], Smoking Cessation Medications and DC Order Prescriptions: New Advanced Probiotic 625 mg (10 billion cell) Capsule 1 cap PO DAILY Qty: 7 0RF cefdinir 300 mg capsule 300 mg PO BID Qty: 8 0RF Continued atorvastatin [Lipitor] 80 mg Tablet 80 mg PO QDD omeprazole 20 mg capsule,delayed release(DR/EC) 20 mg PO BID cholecalciferol (vitamin D3) [Vitamin D3] 50 mcg (2,000 unit) Capsule 50 mcg PO DAILY multivit with min-folic acid [Multivitamin Gummies] 200 mcg Tablet,Chewable 1 tab PO QAM Spiriva Respimat 2.5 mcg/actuation mist 2 puff INHALATION QAM albuterol sulfate 90 mcg/actuation HFA aerosol inhaler 2 puff INHALATION QID PRN (Reason: Shortness Of Breath Or Wheezing) magnesium oxide 400 mg (241.3 mg magnesium) Tablet 400 mg PO BID Qty: 30 0RF acetaminophen [Tylenol] 325 mg Tablet 650 mg PO Q4H PRN (Reason: Pain) trazodone 50 mg tablet 50 mg PO HS valacyclovir 1 gram tablet 2,000 mg PO Q12H PRN (Reason: Cold Sores) sennosides-docusate sodium [Senna with Docusate Sodium] 8.6-50 mg Tablet 1 tab-cap PO BID calcium carbonate-vitamin D3 500 mg-3.125 mcg (125 unit) Tablet 1 tab PO DAILY melatonin 10 mg Tablet 10 mg PO HS polyethylene glycol 3350 [Miralax] 17 gram powder in packet 17 g PO DAILY PRN (Reason: Constipation) (DME) nebulizers Misc See Rx Instructions .Route Qty: 1 0RF Rx Instructions: As directed losartan 50 mg tablet 50 mg PO QAM oxycodone-acetaminophen 10-325 mg tablet 1 tab PO 5XD PRN (Reason: Pain) promethazine 25 mg tablet 25 mg PO Q6H PRN (Reason: Nausea And Vomiting) furosemide 20 mg tablet 20 mg PO QAM duloxetine 30 mg capsule,delayed release(DR/EC) 30 mg PO HS pregabalin 75 mg capsule 75 mg PO BID Movantik 25 mg tablet 25 mg PO QAM Discontinued Advanced Probiotic 625 mg (10 billion cell) Capsule 2 cap PO DAILY Qty: 30 0RF ibuprofen 600 mg tablet 600 mg PO Q8H PRN (Reason: Pain) Discharge Orders: Discharge Order (Routine); Ordered 08/30/24 Ordered By: Chevy Alonzo Admission Data Admit Date/Time: 08/27/24 17:35 Attending Provider: Chevy Alonzo Admit Provider: Jignesh Cruz Primary Care Provider: Saurabh Larios Other Providers: Jignesh Cruz
== END 2024-08-30 14:37 | disposition home health service (06) | DRG 682 ==
LOC: ED 13:06 → SUATTDRO 17:35 → EDINP 17:35 → 2N 21:18

== ENCOUNTER 2024-10-08 12:18 | Inpatient (IN) ==
[2024-10-08] MEDS: SODIUM CHLORIDE 0.9% 500 ML IV STA (13:18)
[2024-10-08] MEDS: MoRPHine SULFATE 4 MG/ML 1 ML CARP\\VIAL IV STA (13:20)
[2024-10-08] MEDS: CEFEPIME 2000MG 2,000 MG/20 ML SYR IV STA (13:22)
[2024-10-08 13:25] LABS: Hematocrit (blood only) 42.2 % (37.0-47.0); Hemoglobin 13.2 g/dl (12.0-16.0); Immature Granulocytes # (auto) 0.03 K/uL (0.01-0.20); Immature Granulocytes % (auto) 0.4 %; Mean Corpuscular Hemoglobin 29.3 pg (25.0-34.0); Mean Corpuscular Volume 93.8 fL (80.0-100.0); Platelet Count 188 K/uL (130-400); RDW Standard Deviation 45.9 fL (36.4-46.3); Red Blood Count 4.50 M/uL (4.20-5.40); White Blood Count 7.78 K/ul (4.8-10.8)
[2024-10-08] MEDS: ALBUT/IPRATROP 3MG/0.5MG NEB 3 ML VIAL NEB STA (13:30)
--- NOTE | 2024-10-08 13:33 | Emergency Department Note ---
Impression & Plan Acute hypoxemic respiratory failure, COPD (chronic obstructive pulmonary disease), Right sided abdominal pain ED Provider Note NAME: JUSTICE MONTENEGRO AGE: 74 SEX: F : 1950 ARRIVES VIA: Ambulance INFORMANT: Patient, ED PROVIDER(S): Mj Magana MD CHIEF COMPLAINT: Abdominal pain MEDICAL DECISION MAKING: Patient presents with the above. IV was established and blood work is obtained. Patient hypoxic on 2 L nasal cannula the patient was ordered a breathing treatment as well as IV steroids. Empiric cefepime sepsis protocols initiated with IV fluids [id number] BMP COVID flu RSV and CT abdomen pelvis ordered. Reviewed the patient's Patient's blood work shows a normal white count hemoglobin and platelet count. The patient's kidney function is unremarkable. Transaminitis noted with AST ALT and alk phos elevations but bilirubin is normal. Urinalysis does show trace blood but no signs of obvious infection. COVID flu and RSV negative. Patient's chest x-ray does not show any evidence of obvious pneumonia and the patient CT abdomen pelvis does not show any bowel obstruction does have some left colon wall thickening may have associated colitis. Also associated hiatal hernia. Given the patient's oxygen requirement and history of COPD do believe the patient would benefit from further admission and care. I did speak the on-call hospital service Collin Lopez PA-C and Dr. Sky. Critical Care: I have personally spent 37 minutes of critical care time in direct management of this patient. This includes bedside care, interpretation of diagnostic studies, and testing, discussion with consultants, patient, and family members, and other require inpatient management activities. This 37 minutes is in excess of all separately billable procedures. Discussion w/ other healthcare providers: Frankie Lopez PA-C and Dr. Sky Prior /Outside records reviewed: I reviewed the patient's most recent urine culture which showed E. coli that was sensitive to cephalosporins Differential diagnosis: Appendicitis, pyelonephritis, diverticulitis, UTI, obstruction, inflammatory bowel disease, renal colic, PUD, pancreatitis, biliary pathology, hernia, volvulus, constipation, as well as other pathologies were considered. Diagnostics, as interpreted by me: ECG: Normal sinus rhythm, rate of 88, normal WI and QRS, prolonged QTc. Normal axis no ST elevations. Cardiac monitoring: An order was placed for continuous cardiac monitoring. The monitor shows a rate of 89 with sinus rhythm. Patient was placed on pulse oximetry Medical decision rules: None Imaging studies: I informally interpreted the patient's chest x-ray does not show obvious pneumonia with formal report to follow. HPI: Patient presents due to concern for abdominal pain. The patient reports that she has had right-sided abdominal pain for about 4 days now as it began on Monday. She reports that it has progressively gotten worse. She did have a telehealth visit and thought maybe she was developing a UTI so was prescribed an antibiotic. Review of this shows that the patient is taking Bactrim and took 2 doses. The patient states that she had associated nausea was reportedly in the high 80s for EMS was placed on nasal cannula triage room air sat was 91%. Known history of COPD emphysema last smoking maybe 20 years ago. The patient does take Spiriva daily. She does not complain of any shortness of breath. The patient is a cough which has been nonproductive but sometimes will have posttussive emesis. She reports that that is not actually any vomit but just dry heaves after coughing. Patient denies any issues with defecation or urination she does not complain of any dysuria or frequency but reportedly the last time that she had a UTI she had hallucinations but not classic symptoms for UTI. PAST MEDICAL HISTORY: See Below PAST SURGICAL HISTORY: See Below SOCIAL HISTORY: See Below HOME MEDICATIONS: See Below ALLERGIES: See Below VITALS: See Below PHYSICAL EXAMINATION: GENERAL: NAD, non-toxic. Wearing glasses, nasal cannula in place. EYE EXAM: Normal conjunctiva. PERRL, no anisocoria and EOM's grossly intact w/o pain. OROPHARYNX: Moist mucus membranes, grossly normal dentition. NECK: Trachea midline, no stridor. LUNGS: Slightly diminished breath sounds without obvious wheezing or rhonchi. Normal chest wall mechanics. HEART: NSR, no MRG. ABDOMEN: Abdomen soft, epigastric and right-sided abdominal pain, negative obturators, no masses, no rebound or guarding. BACK: No CVA TTP. SKIN: No rashes and no bruising. UPPER EXTREMITIES: Upper extremities are grossly normal. LOWER EXTREMITIES: Grossly normal, no edema. NEURO EXAM: Awake and alert, follows commands, no obvious facial asymmetry, normal speech, moves all 4 extremities. Past Med/Surg History Problem List (Updated 10/08/24 @ 20:21 by Mj Magana MD) Right sided abdominal pain (Acute) COPD (chronic obstructive pulmonary disease) (Acute) Acute hypoxemic respiratory failure (Acute) Transaminitis Hypoxia H/O radiofrequency ablation (RFA) of nerve of lumbar spine Chronic low back pain Nausea, vomiting and diarrhea Abdominal pain Ambulatory dysfunction Pulmonary vascular congestion Dyslipidemia HTN (hypertension) GERD (gastroesophageal reflux disease) Chronic back pain ONEL (obstructive sleep apnea) ANJU (acute kidney injury) Acute encephalopathy (Acute) COPD (chronic obstructive pulmonary disease) (Acute) CKD (chronic kidney disease), stage III Medical History Closed fracture of femur Fall Encounter for pre-operative examination Pes anserinus bursitis of left knee Right groin pain Leukocytosis Fever Cough Acute right hip pain Fever Pneumonia DVT prophylaxis Inflammatory arthritis Hypomagnesemia Hypokalemia COPD exacerbation Acute respiratory failure Elevated troponin Osteoporosis Degenerative disc disease Follows with pain management Osteoarthritis Asthma Mild, no recent inhaler use Sleep apnea No device Closed fracture of distal end of left femur Surgical History Status post lumbar surgery Post-operative state H/O thumb surgery Left > tendon repair History of bilateral tubal ligation History of tooth extraction History of tonsillectomy and adenoidectomy History of open reduction and internal fixation (ORIF) procedure Left femur retrograde IM nail (09/25/20): SAB at L3-L4 (x2 attempts) at [facility] > d/c from [facility] rehab 10/09/20 History of cervical spinal surgery GOOD ROM History of total knee arthroplasty Right (2010) H/O arthrodesis History of revision of total replacement of right knee joint History of esophagogastroduodenoscopy (EGD) Hx of colonoscopy Family History Father Family history of diabetes mellitus Other COPD (chronic obstructive pulmonary disease) Cancer Diabetes No family history of adverse response to anesthesia Social History Smoking Status: Former smoker Tobacco Type: Cigarettes Cigarettes Per Day: 20; Second Hand Exposure: No; Do You Dip or Chew Tobacco: No; Hx Alcohol Use: No Hx Substance Use: No Preferred Language: Marshallese Communication Ability: Effective Shirt Bander Required: No Beliefs That Will Affect Care: None marital status: Life Partner Current Living Situation: Spouse Current Living Situation Comment: Lives with giselle Bobby in a home Feels Safe at Home: Yes Safety Concerns: Feels Safe At This Time Assistive Devices: Glasses and Walker Assistive Devices Comment: glasses with pt Allergies Allergies Allergy/AdvReac Type Severity Reaction Status Date / Time erythromycin base Allergy Intermediate Hives Verified 08/27/24 16:09 latex Allergy Intermediate ITCHY RASH Verified 08/27/24 16:09 Penicillins Allergy Intermediate Hives Verified 08/27/24 16:09 nickel Allergy Mild Skin Verified 08/27/24 16:09 irritation vancomycin AdvReac Severe Renal Verified 08/27/24 16:09 complications Home Meds Home Medications Medication Instructions Recorded Confirmed atorvastatin 80 mg tablet (Lipitor) 80 mg PO QDD 07/18/19 10/08/24 cholecalciferol (vitamin D3) 50 50 mcg PO DAILY 07/18/19 10/08/24 mcg (2,000 unit) capsule (Vitamin D3) omeprazole 20 mg capsule,delayed 20 mg PO BID 07/18/19 10/08/24 release albuterol sulfate 90 mcg/actuation 2 puff inhalation QID PRN 09/25/20 10/08/24 aerosol inhaler Shortness Of Breath Or Wheezing multivitamin with minerals-folic 1 tab PO QAM 09/25/20 10/08/24 acid 200 mcg chewable tablet (Multivitamin Gummies) tiotropium bromide 2.5 2 puff inhalation QAM 09/25/20 10/08/24 mcg/actuation mist for inhalation (Spiriva Respimat) acetaminophen 325 mg tablet 650 mg PO Q4H PRN Pain 09/13/21 10/08/24 (Tylenol) calcium 500 mg (as 1 tab PO DAILY 09/13/21 10/08/24 carbonate)-vitamin D3 3.125 mcg (125 unit) tablet melatonin 10 mg tablet 10 mg PO HS 09/13/21 10/08/24 polyethylene glycol 3350 17 gram 17 g PO DAILY PRN Constipation 09/13/21 10/08/24 oral powder packet (Miralax) sennosides 8.6 mg-docusate sodium 1 tab-cap PO BID 09/13/21 10/08/24 50 mg tablet (Senna with Docusate Sodium) trazodone 50 mg tablet 50 mg PO HS 09/13/21 10/08/24 valacyclovir 1 gram tablet 2,000 mg PO Q12H PRN Cold Sores 09/13/21 10/08/24 duloxetine 30 mg capsule,delayed 30 mg PO HS 08/27/24 10/08/24 release furosemide 20 mg tablet 20 mg PO QAM 08/27/24 10/08/24 losartan 50 mg tablet 50 mg PO QAM 08/27/24 10/08/24 naloxegol 25 mg tablet (Movantik) 25 mg PO QAM 08/27/24 10/08/24 oxycodone-acetaminophen 10 mg-325 1 tab PO 5XD PRN Pain 08/27/24 10/08/24 mg tablet pregabalin 75 mg capsule 75 mg PO BID 08/27/24 10/08/24 promethazine 25 mg tablet 25 mg PO Q6H PRN Nausea And 08/27/24 10/08/24 Vomiting Previous Rx's Medication Instructions Recorded magnesium oxide 400 mg (241.3 mg 400 mg PO BID #30 tabs 10/01/20 magnesium) tablet nebulizers #1 ea 02/18/22 L.acidop,casei,lactis,rham-B.lact,haile 1 cap PO DAILY #7 caps 08/30/24 625 mg (10 billion cell) capsule (Advanced Probiotic) Results & Data (ED) Vital Signs Vital Signs - 24 hr 10/08/24 12:24 10/08/24 12:51 10/08/24 12:52 Temperature 36.4 C L Temperature Source Oral Pulse Rate 85 76 84 Pulse Rate [Apical] Pulse Rhythm Regular Regular Pulse Strength Normal Respiratory Rate 16 15 Respiratory Effort / Characteristics Non-Labored Spontaneous Respiratory Depth Normal Respiratory Pattern Regular Blood Pressure 137/83 Blood Pressure [Right Arm] Blood Pressure Mean 101 Blood Pressure Mean [Right Arm] Blood Pressure Position Sitting Pulse Oximetry 91 95 Oxygen Delivery Method Room Air Nasal Cannula Oxygen Flow Rate 2 Sepsis Recent Fever Within 48 Hours No Sepsis New/Unexplained Change in Mental Status N/A Sepsis Action Taken by Nursing No Action Required 10/08/24 14:59 Temperature Temperature Source Pulse Rate Pulse Rate [Apical] 85 Pulse Rhythm Pulse Strength Respiratory Rate 18 Respiratory Effort / Characteristics Non-Labored Spontaneous Respiratory Depth Respiratory Pattern Blood Pressure Blood Pressure [Right Arm] 138/91 Blood Pressure Mean Blood Pressure Mean [Right Arm] 106 Blood Pressure Position Pulse Oximetry 91 Oxygen Delivery Method Nasal Cannula Oxygen Flow Rate 2 Sepsis Recent Fever Within 48 Hours Sepsis New/Unexplained Change in Mental Status Sepsis Action Taken by [facility] Medications Current Medication List: was personally reviewed by me Laboratory Data Attestation: I reviewed the patient's lab results. 10/08/24 12:58 10/08/24 12:58 Lab Results 10/08/24 10/08/24 10/08/24 Range/Units 12:58 13:03 13:08 WBC 7.78 (4.8-10.8) K/ul RBC 4.50 (4.20-5.40) M/uL Hgb 13.2 (12.0-16.0) g/dl POC Hgb 14.3 (12.0-16.0) g/dl Hct 42.2 (37.0-47.0) % POC Hct 42 (37-47) % MCV 93.8 (80.0-100.0) fL MCH 29.3 (25.0-34.0) pg MCHC 31.3 L (32.0-36.0) g/dL RDW Std Deviation 45.9 (36.4-46.3) fL RDW Coeff of Alfonso 13.4 (11.5-14.5) % Plt Count 188 (130-400) K/uL MPV 10.9 (9.4-12.4) fL Immature Gran % (Auto) 0.4 % Neut % (Auto) 70.1 % Lymph % (Auto) 20.1 % Ida % (Auto) 8.0 % Eos % (Auto) 0.8 % Baso % (Auto) 0.6 % Neut # (Auto) 5.46 (1.40-6.50) K/uL Lymph # (Auto) 1.56 (1.20-3.40) K/uL Ida # (Auto) 0.62 H (0.11-0.59) K/uL Eos # (Auto) 0.06 (0.00-0.50) K/uL Baso # (Auto) 0.05 (0.00-0.20) K/uL Immature Gran # (Auto) 0.03 (0.01-0.20) K/uL POC Sodium 142 (135-144) mmol/L Sodium 142 (136-145) mmol/L POC Potassium 3.5 (3.3-5.0) mmol/L Potassium 3.5 (3.5-5.1) mmol/L POC Chloride 106 (101-112) mmol/L Chloride 106 (98-107) mmol/L Carbon Dioxide 27 (21-32) mmol/L POC Total CO2 24 (24-31) mmol/L Anion Gap 9 (3-11) POC Anion Gap 17.0 (16-25) mmol/L POC BUN 13 (7-18) mg/dl BUN 14 (6-23) mg/dl Creatinine 0.92 (0.6-1.2) mg/dl POC Creatinine 1.0 (0.6-1.3) mg/dl Est Cr Clr Drug Dosing Not Reportable eGFR 65.75 BUN/Creatinine Ratio 15.2 (10-20) Glucose 108 H (70-99(Fasting)) mg/dl POC Glucose (other) 107 H (70-99) mg/dl Lactate 0.9 (0.4-2.0) mmol/L Calcium 9.3 (8.6-10.3) mg/dl POC Ioniz Calcium Eliz 1.20 (1.12-1.32) mmol/l Total Bilirubin 0.7 (0.2-1.0) mg/dl AST 88 H (13-39) U/L ALT 76 H (7-52) U/L Alkaline Phosphatase 269 H (34-104) U/L Troponin I High Sens 6.0 (0-14) pg/ml Total Protein 7.2 (6.0-8.3) gm/dl Albumin 4.0 (3.4-5.0) gm/dl Globulin 3.2 (2.5-4.0) gm/dl Albumin/Globulin Ratio 1.3 (0.9-2) Lipase 19 (11-82) U/L SARS-CoV-2 (PCR) NEGATIVE (Negative) Influenza Type A (PCR) Negative (Neg) Influenza Type B (PCR) Negative (Neg) RSV (RT-PCR) Negative (Neg) Administered Medications Atorvastatin Calcium (Atorvastatin 40 Mg Tab) 80 mg PO QDD KRISTIAN Stop: 11/07/24 16:29 Last Admin: 10/08/24 18:30 Dose: 80 mg Documented By: YACHT MASTER Sodium Chloride (Nss) 1,000 mls @ 80 mls/hr IV .[id number] KRISTIAN Stop: 10/09/24 18:14 Last Admin: 10/08/24 18:20 Dose: 80 mls/hr Documented By: ULICES Oxycodone/Acetaminophen (Oxycodone/Acetaminophen 10-325 Tab) 1 tab PO Q6H PRN PRN Reason: Pain Stop: 10/22/24 15:41 Last Admin: 10/08/24 18:26 Dose: 1 tab Documented By: ULICES Discontinued Medications Albuterol (Albut/Ipratrop 3mg/0.5mg Neb 3 Ml Vial) 3 ml NEB NOW STA; Protocol Stop: 10/08/24 12:52 Last Admin: 10/08/24 13:30 Dose: 3 ml Documented By: YESSI Sodium Chloride (Nss) 500 mls @ 999 mls/hr IV .Q31M STA Stop: 10/08/24 13:21 Last Infusion: 10/08/24 16:28 Dose: Infused Documented By: Admin: 10/08/24 13:18 Dose: 999 mls/hr Documented By: YESSI Cefepime HCl (Maxipime 2000mg) 2,000 mg in 20 mls @ 5 mls/min IV NOW STA; Protocol Stop: 10/08/24 12:57 Last Admin: 10/08/24 13:22 Dose: 5 mls/min Documented By: YESSI Famotidine (Pepcid 20mg Iv Push) 20 mg in 5 mls @ 2.5 mls/min IV NOW STA Stop: 10/08/24 14:20 Last Admin: 10/08/24 14:26 Dose: 2.5 mls/min Documented By: LYNN Potassium Chloride (K Dar / Wtr) 10 meq in 100 mls @ 100 mls/hr IV Q1H KRISTIAN Stop: 10/08/24 17:29 Last Infusion: 10/08/24 18:48 Dose: Infused Documented By: Admin: 10/08/24 17:29 Dose: 100 mls/hr Documented By: Infusion: 10/08/24 17:23 Dose: Infused Documented By: Admin: 10/08/24 16:23 Dose: 100 mls/hr Documented By: ERIC Vancomycin HCl 1,750 mg/ (Sodium Chloride) 535 mls @ 200 mls/hr IV NOW STA Stop: 10/08/24 19:13 Last Infusion: 10/08/24 20:10 Dose: Infused Documented By: Admin: 10/08/24 17:29 Dose: 200 mls/hr Documented By: ERIC Ioversol (Optiray 320 100ml) 94 ml IV ONCE ONE Stop: 10/08/24 13:48 Last Admin: 10/08/24 13:47 Dose: 94 ml Documented By: KAREN Methylprednisolone (Methylprednisolone 125 Mg/2 Ml Vial) 100 mg IV NOW STA Stop: 10/08/24 12:52 Last Admin: 10/08/24 13:25 Dose: 100 mg Documented By: YESSI Miscellaneous (Patient's Height &/Or Weight Needed) 1 each N/A Q30M KRISTIAN Stop: 10/08/24 17:16 Last Admin: 10/08/24 16:27 Dose: Not Given Documented By: Admin: 10/08/24 16:27 Dose: Not Given Documented By: Admin: 10/08/24 16:26 Dose: Not Given Documented By: ERIC Morphine Sulfate (Morphine Sulfate 4 Mg/Ml 1 Ml Carp\Vial) 2 mg IV NOW STA Stop: 10/08/24 12:52 Last Admin: 10/08/24 13:20 Dose: 2 mg Documented By: YESSI Ondansetron HCl (Ondansetron Inj 2 Mg/Ml 2 Ml Vial) 4 mg IV NOW STA Stop: 10/08/24 14:20 Last Admin: 10/08/24 14:26 Dose: 4 mg Documented By: LYNN Imaging Data Radiologist's Impression: Abdomen/Pelvis CT 10/08/24 12:51 CT SCAN OF THE ABDOMEN AND PELVIS WITH IV CONTRAST CLINICAL HISTORY: Right-sided abdominal pain. Right flank pain. COMPARISON STUDY: CT of the abdomen and pelvis September 14, 2021. TECHNIQUE: Following the IV administration of 94 cc of Optiray 320, CT scan of the abdomen and pelvis is performed from the lung bases to the proximal femora. Images are reviewed in the axial, sagittal, and coronal planes. IV contrast was administered without complication. A dose lowering technique was utilized adhering to the principles of ALARA. CT DOSE: 1328.96 mGy.cm FINDINGS: Emphysema is incidentally noted within visualized portions of the lower lungs. A 5 mm partially calcified right middle lobe nodule on image 35 of 365 is unchanged. This is benign. A moderate sized hiatal hernia is again noted. There is no pneumatosis, free air or portal venous gas. Biliary ductal dilatation is unchanged since prior CT and likely related to cholecystectomy. There are no hepatic lesions. Spleen, kidneys and pancreas are unremarkable. A small left adrenal nodule is unchanged. This is benign. There are no urinary calculi. There is no hydronephrosis. Images of the pelvis are degraded by streak artifact from a right hip arthroplasty. 4.4 cm water attenuation left adnexal lesion is similar to prior CT but this likely represents an ovarian cyst. The appendix is normal. There is no evidence for a bowel obstruction. 7 calcified deposition within the right colon is chronic. There is equivocal wall thickening and evidence for mucosal hyperemia of the left colon. Status post L4-L5 decompression and fusion. There is moderate lumbar spine levoscoliosis. Loss of height of the inferior endplate of L3 is new since CT of September 14, 2021 but probably chronic. Central canal and neural foramen are suboptimally assessed given CT technique. Prominent right external iliac lymph nodes are unchanged. These are likely benign. IMPRESSION: 1. Normal appendix. No bowel obstruction. Equivocal left colon wall thickening. A mild nonspecific colitis cannot be excluded. 2. No urinary calculi or hydronephrosis. 3. Moderate sized hiatal hernia, similar to prior exam. ACT 112: Negative or not required by law. Electronically signed by: Antony Brown M.D. 10/08/2024 2:05 PM Chest X-Ray 10/08/24 14:18 XR chest 1V portable CLINICAL HISTORY: hypoxia, copd COMPARISON STUDY: 08/27/2024 FINDINGS: Stable moderate hiatal hernia. Stable mild cardiomegaly without pulmonary vascular congestion. No consolidation or pleural effusion. No pneumothorax. IMPRESSION: No acute findings. ACT 112: Negative or not required by law. Electronically signed by: Carlos Mcbride M.D. 10/08/2024 2:34 PM Discharge Plan Visit Data Chief Complaint: Abdominal Pain Stated Complaint: AB PAIN, NAUSA, CHILLS, HEADACE ED Provider: Mj Magana Discharge Problem: Acute hypoxemic respiratory failure, COPD (chronic obstructive pulmonary disease), Right sided abdominal pain Patient Disposition: Admitted As Inpatient Condition: Good Discharge Instructions Interventions: ED Discharge Assessment Last Done: 10/08/24 17:43 Discharge Problem: COPD (chronic obstructive pulmonary disease) Qualifiers: COPD type: unspecified COPD Qualified Code(s): J44.9 - Chronic obstructive pulmonary disease, unspecified
[2024-10-08 13:44] LABS: Alanine Aminotransferase 76 U/L (7-52); Albumin Globulin Ratio 1.3 (0.9-2); Alkaline Phosphatase 269 U/L (34-104); Anion Gap 9 (3-11); Bilirubin,Total 0.7 mg/dl (0.2-1.0); Blood Urea Nitrogen 14 mg/dl (6-23); Calcium 9.3 mg/dl (8.6-10.3); Carbon Dioxide 27 mmol/L (21-32); Chloride 106 mmol/L (98-107); Globulin 3.2 gm/dl (2.5-4.0); Glucose 108 mg/dl (70-99(Fasting)); Lipase 19 U/L (11-82); Potassium 3.5 mmol/L (3.5-5.1); Sodium 142 mmol/L (136-145); Total Protein 7.2 gm/dl (6.0-8.3)
[2024-10-08] MEDS: OPTIRAY 320 100ml IV ONE (13:47)
[2024-10-08 13:59] LABS: Influenza A virus by PCR Negative (Neg); Influenza B virus by PCR Negative (Neg); SARS CoV2 RNA(COVID-19) Ceph NEGATIVE (Negative)
--- NOTE | 2024-10-08 14:08 | CT Scan Report ---
CT SCAN OF THE ABDOMEN AND PELVIS WITH IV CONTRAST CLINICAL HISTORY: Right-sided abdominal pain. Right flank pain. COMPARISON STUDY: CT of the abdomen and pelvis September 14, 2021. TECHNIQUE: Following the IV administration of 94 cc of Optiray 320, CT scan of the abdomen and pelvi s is performed from the lung bases to the proximal femora. Images are reviewed in the axial, sagittal , and coronal planes. IV contrast was administered without complication. A dose lowering technique wa s utilized adhering to the principles of ALARA. CT DOSE: 1328.96 mGy.cm FINDINGS: Emphysema is incidentally noted within visualized portions of the lower lungs. A 5 mm parti ally calcified right middle lobe nodule on image 35 of 365 is unchanged. This is benign. A moderate s ized hiatal hernia is again noted. There is no pneumatosis, free air or portal venous gas. Biliary du ctal dilatation is unchanged since prior CT and likely related to cholecystectomy. There are no hepat ic lesions. Spleen, kidneys and pancreas are unremarkable. A small left adrenal nodule is unchanged. This is benign. There are no urinary calculi. There is no hydronephrosis. Images of the pelvis are de graded by streak artifact from a right hip arthroplasty. 4.4 cm water attenuation left adnexal lesion is similar to prior CT but this likely represents an ovarian cyst. The appendix is normal. There is no evidence for a bowel obstruction. 7 calcified deposition within the right colon is chronic. There is equivocal wall thickening and evidence for mucosal hyperemia of the left colon. Status post L4-L5 decompression and fusion. There is moderate lumbar spine levoscoliosis. Loss of height of the inferio r endplate of L3 is new since CT of September 14, 2021 but probably chronic. Central canal and neural fora men are suboptimally assessed given CT technique. Prominent right external iliac lymph nodes are unch anged. These are likely benign. IMPRESSION: 1. Normal appendix. No bowel obstruction. Equivocal left colon wall thickening. A mild nonspecific co litis cannot be excluded. 2. No urinary calculi or hydronephrosis. 3. Moderate sized hiatal hernia, similar to prior exam. ACT 112: Negative or not required by law. Electronically signed by: Antony Brown M.D. 10/08/2024 2:05 PM
[2024-10-08] MEDS: ONDANSETRON INJ 2 MG/ML 2 ML VIAL IV STA (14:26)
[2024-10-08] MEDS: FAMOTIDINE 20MG IV PUSH 20 MG/5 ML SYR IV STA (14:26)
--- NOTE | 2024-10-08 14:36 | XRay Report ---
XR chest 1V portable CLINICAL HISTORY: hypoxia, copd COMPARISON STUDY: 08/27/2024 FINDINGS: Stable moderate hiatal hernia. Stable mild cardiomegaly without pulmonary vascular congesti on. No consolidation or pleural effusion. No pneumothorax. IMPRESSION: No acute findings. ACT 112: Negative or not required by law. Electronically signed by: Carlos Mcbride M.D. 10/08/2024 2:34 PM
--- NOTE | 2024-10-08 14:49 | History & Physical Report ---
Date of Service October 08, 2024 Assessment & Plan (1) Abdominal pain: (2) Nausea, vomiting and diarrhea: (3) Chronic low back pain: (4) H/O radiofrequency ablation (RFA) of nerve of lumbar spine: (5) Hypoxia: (6) Transaminitis: Plan Patient is a 74y/o F with PMHx significant for HLD, HTN, COPD, allergic rhinitis, ONEL on CPAP HS, vitamin D deficiency, chronic gastritis, GERD, CKD stage III [baseline Cr 0.8-1], generalized OA, senile osteoporosis, chronic vertebrogenic low back pain with opioid dependence, opioid-induced constipation on Movantik, lumbar DDD s/p L3-4/L4-5/L5-S1 decompression and L4-5 instrumented fusion in August 2021 and other problems as outlined in her chart who presented to the ED via EMS for evaluation of abdominal pain and N/V/D. #Abdominal pain, N/V/D Not meeting sepsis criteria on admission Lactate neg CTAP: normal appendix, no bowel obstruction, L colon wall thickening (mild nonspecific colitis cannot be excluded), moderate-sized hiatal hernia (unchanged from prior) Check stool PCR, C. diff studies Blood cx pending, as per below UA pending -Pt started on Bactrim by PCP yesterday given c/f UTI -UA 10/07: trace blood, trace protein, no nitrites -Prior urine cx: pansensitive E. coli S/p dose of IV cefepime in ED Will empirically cover w/ IV vanco + cefepime pending results of additional infectious w/u (as per above and below) #Chronic vertebrogenic low back pain with opioid dependence #Opioid-induced constipation on Movantik #Recent L2-3, L3-4 basivertebral nerve ablation on 09/25/[address] 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 -Blood cx pending Recent lumbar nerve ablation procedure, as per above -2 healed incisions seen on low back region (R aspect of lumbar spine); no surrounding erythema or wound drainage -Pt very TTP of lumbar spine region -Check lumbar spine MRI given this hx, re: need to r/o underlying infection c/t presenting sx Continue Cymbalta, Lyrica Continue PRN Percocet -Hold Movantik for now 2/2 recent diarrhea #COPD #Acute hypoxia noted in ED --> down to 89% on RA, placed on 2L NC and saturating ~93% at time of admission No resp complaints per pt CXR: no acute findings Unclear etiology for hypoxia -RVP neg -S/p 100mg IV methylprednisone, Duoneb x 1 in ED Continue Spiriva PRN Duonebs, ISP Wean O2 as tolerated #Transaminitis ALT 76, AST 88, alk phos 269 on admitting labs H/o prior cholecystectomy Check liver US Trend LFTs #HTN Borderline hypotensive in ED Hold losartan, Lasix for now --> resume as able, routine BP monitoring #GERD #Chronic gastritis Continue PPI #HLD Continue statin #CKD stage III Baseline Cr 0.8-1 per OP chart review Cr stable Continue to monitor, avoid nephrotoxic agents as able DVT Prophylaxis: SQ heparin Disposition: Admit to med/telemetry Patient seen in collaboration with Dr. Sky. Please see addendum. I spent a total of 65 minutes coordinating, documenting, and providing care for this patient excluding time spent in the performance of separately billed services or time spent by another provider/QHP. This included personally reviewing all current laboratories and imaging studies, medical reconciliation, outpatient chart review and discussion with specialists. This chart was completed in part utilizing Speech Voice Recognition Software. Grammatical errors, random word insertions, pronoun errors, and incomplete sentences are an occasional consequence of this system due to software limitations, ambient noise, and hardware issues. Any formal questions or concerns about the content, text, or information contained within the body of this dictation should be directly addressed to the provider for clarification. History of Present Illness Chief Complaint: Abdominal pain, N/V/D Primary Care Provider: Barb Sarmiento MD Patient is a 74y/o F with PMHx significant for HLD, HTN, COPD, allergic rhinit is, ONEL on CPAP HS, vitamin D deficiency, chronic gastritis, GERD, CKD stage III [baseline Cr 0.8-1], generalized OA, senile osteoporosis, chronic vertebrogenic low back pain with opioid dependence, opioid-induced constipation on Movantik, lumbar DDD s/p L3-4/L4-5/L5-S1 decompression and L4-5 instrumented fusion in August 2021 and other problems as outlined in her chart who presented to the ED via EMS for evaluation of abdominal pain and N/V/D. History obtained from the patient, discussion with ED provider and associated chart review. Patient seen and evaluated at bedside in the ED with Dr. Sky. Abdominal pain started this past Monday. Primarily location on the R side. Mostly crampy in nature with periods of sharp, stabbing sensations at times. Had bouts of diarrhea on Monday and Monday. No further bouts of diarrhea since then. Denies any hematochezia or melena. Very poor appetite. Minimal oral intake since the abdominal pain started as she has been feeling quite nauseous. Few bouts of vomiting. History of cholecystectomy. Saw PCP yesterday for these complaints. Had urine sample done. No clear indication of infection on UA but empirically started on Bactrim until urine culture could be completed. Has taken 2 doses of Bactrim so far. Recent confinement under our service 08/27/24-08/30/24: acute metabolic encephalopathy likely 2/2 UTI. Urine culture grew pansensitive E. coli. Blood cultures negative. Completed ABX therapy with IV Rocephin while inpatient with transition to po cefdinir on discharge. Recent lumbar spine nerve ablation procedure. History chronic low back pain. S/p L2-3, L3-4 basivertebral nerve ablation by Dr. Waite at [facility] on 09/25/24. Had been doing well in this regard up until the weekend. Feels back pain has returned (initially back pain improved s/p procedure). No drainage from procedural incision sites, feels these are healing well. No surrounding erythema noted around the procedure site. 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 Allergies Allergy/AdvReac Type Severity Reaction Status Date / Time erythromycin base Allergy Intermediate Hives Verified 08/27/24 16:09 latex Allergy Intermediate ITCHY RASH Verified 08/27/24 16:09 Penicillins Allergy Intermediate Hives Verified 08/27/24 16:09 nickel Allergy Mild Skin Verified 08/27/24 16:09 irritation vancomycin AdvReac Severe Renal Verified 08/27/24 16:09 complications Home Medications Medication Instructions Recorded Confirmed Type atorvastatin 80 mg tablet (Lipitor) 80 mg PO QDD 07/18/19 10/08/24 History cholecalciferol (vitamin D3) 50 50 mcg PO DAILY 07/18/19 10/08/24 History mcg (2,000 unit) capsule (Vitamin D3) omeprazole 20 mg capsule,delayed 20 mg PO BID 07/18/19 10/08/24 History release albuterol sulfate 90 mcg/actuation 2 puff inhalation QID PRN 09/25/20 10/08/24 History aerosol inhaler Shortness Of Breath Or Wheezing multivitamin with minerals-folic 1 tab PO QAM 09/25/20 10/08/24 History acid 200 mcg chewable tablet (Multivitamin Gummies) tiotropium bromide 2.5 2 puff inhalation QAM 09/25/20 10/08/24 History mcg/actuation mist for inhalation (Spiriva Respimat) magnesium oxide 400 mg (241.3 mg 400 mg PO BID #30 tabs 10/01/20 10/08/24 Rx magnesium) tablet acetaminophen 325 mg tablet 650 mg PO Q4H PRN Pain 09/13/21 10/08/24 History (Tylenol) calcium 500 mg (as 1 tab PO DAILY 09/13/21 10/08/24 History carbonate)-vitamin D3 3.125 mcg (125 unit) tablet melatonin 10 mg tablet 10 mg PO HS 09/13/21 10/08/24 History polyethylene glycol 3350 17 gram 17 g PO DAILY PRN Constipation 09/13/21 10/08/24 History oral powder packet (Miralax) sennosides 8.6 mg-docusate sodium 1 tab-cap PO BID 09/13/21 10/08/24 History 50 mg tablet (Senna with Docusate Sodium) trazodone 50 mg tablet 50 mg PO HS 09/13/21 10/08/24 History valacyclovir 1 gram tablet 2,000 mg PO Q12H PRN Cold Sores 09/13/21 10/08/24 History nebulizers #1 ea 02/18/22 10/08/24 Rx duloxetine 30 mg capsule,delayed 30 mg PO HS 08/27/24 10/08/24 History release furosemide 20 mg tablet 20 mg PO QAM 08/27/24 10/08/24 History losartan 50 mg tablet 50 mg PO QAM 08/27/24 10/08/24 History naloxegol 25 mg tablet (Movantik) 25 mg PO QAM 08/27/24 10/08/24 History oxycodone-acetaminophen 10 mg-325 1 tab PO 5XD PRN Pain 08/27/24 10/08/24 History mg tablet pregabalin 75 mg capsule 75 mg PO BID 08/27/24 10/08/24 History promethazine 25 mg tablet 25 mg PO Q6H PRN Nausea And 08/27/24 10/08/24 History Vomiting L.acidop,casei,lactis,rham-B.lact,haile 1 cap PO DAILY #7 caps 08/30/24 10/08/24 Rx 625 mg (10 billion cell) capsule (Advanced Probiotic) Past Med/Surg History Problem List Transaminitis Hypoxia H/O radiofrequency ablation (RFA) of nerve of lumbar spine Chronic low back pain Nausea, vomiting and diarrhea Abdominal pain Ambulatory dysfunction Pulmonary vascular congestion Dyslipidemia HTN (hypertension) GERD (gastroesophageal reflux disease) Chronic back pain ONEL (obstructive sleep apnea) ANJU (acute kidney injury) Acute encephalopathy (Acute) COPD (chronic obstructive pulmonary disease) (Acute) CKD (chronic kidney disease), stage III Medical History Closed fracture of femur Fall Encounter for pre-operative examination Pes anserinus bursitis of left knee Right groin pain Leukocytosis Fever Cough Acute right hip pain Fever Pneumonia DVT prophylaxis Inflammatory arthritis Hypomagnesemia Hypokalemia COPD exacerbation Acute respiratory failure Elevated troponin Osteoporosis Degenerative disc disease Follows with pain management Osteoarthritis Asthma Mild, no recent inhaler use Sleep apnea No device Closed fracture of distal end of left femur Surgical History Status post lumbar surgery Post-operative state H/O thumb surgery Left > tendon repair History of bilateral tubal ligation History of tooth extraction History of tonsillectomy and adenoidectomy History of open reduction and internal fixation (ORIF) procedure Left femur retrograde IM nail (09/25/20): SAB at L3-L4 (x2 attempts) at [facility] > d/c from [facility] rehab 10/09/20 History of cervical spinal surgery GOOD ROM History of total knee arthroplasty Right (2010) H/O arthrodesis History of revision of total replacement of right knee joint History of esophagogastroduodenoscopy (EGD) Hx of colonoscopy Family History Father Family history of diabetes mellitus Other COPD (chronic obstructive pulmonary disease) Cancer Diabetes No family history of adverse response to anesthesia Social History Smoking Status: Former smoker Tobacco Type: Cigarettes Cigarettes Per Day: 20; Second Hand Exposure: No; Do You Dip or Chew Tobacco: No; Hx Alcohol Use: Yes Alcohol type: wine Alcohol Intake Frequency: Monthly or Less Hx Substance Use: No Preferred Language: [place] Communication Ability: Effective Resident Inspector Required: No Beliefs That Will Affect Care: None marital status: Life Partner Current Living Situation: Significant Other Current Living Situation Comment: Lives with giselle Bobby in a home Feels Safe at Home: Yes Assistive Devices: Cane and Walker Review of Systems Review of Systems: At least ten systems reviewed and negative, except as noted in the HPI. Physical Exam Physical Exam: Please refer to Dr. Sky's addendum for physical examination findings. Results & Data Results & Data Vital Signs (Past 12 Hours) Vital Signs Temp Pulse Resp BP Pulse Ox O2 Del Method O2 Flow Rate 10/08/24 12:52 84 10/08/24 12:51 76 15 95 Nasal Cannula 2 10/08/24 12:24 36.4 C L 85 16 137/83 91 Room Air Laboratory Results Short CBC 10/08/24 Range/Units 12:58 WBC 7.78 (4.8-10.8) K/ul Hgb 13.2 (12.0-16.0) g/dl Hct 42.2 (37.0-47.0) % Plt Count 188 (130-400) K/uL BMP 10/08/24 12:58 Sodium 142 Potassium 3.5 Chloride 106 Carbon Dioxide 27 BUN 14 Creatinine 0.92 Glucose 108 H Calcium 9.3 Liver Function 10/08/24 Range/Units 12:58 Total Bilirubin 0.7 (0.2-1.0) mg/dl AST 88 H (13-39) U/L ALT 76 H (7-52) U/L Alkaline Phosphatase 269 H (34-104) U/L Albumin 4.0 (3.4-5.0) gm/dl Diagnostic Findings Abdomen/Pelvis CT 10/08/24 12:51 CT SCAN OF THE ABDOMEN AND PELVIS WITH IV CONTRAST CLINICAL HISTORY: Right-sided abdominal pain. Right flank pain. COMPARISON STUDY: CT of the abdomen and pelvis September 14, 2021. TECHNIQUE: Following the IV administration of 94 cc of Optiray 320, CT scan of the abdomen and pelvis is performed from the lung bases to the proximal femora. Images are reviewed in the axial, sagittal, and coronal planes. IV contrast was administered without complication. A dose lowering technique was utilized adhering to the principles of ALARA. CT DOSE: 1328.96 mGy.cm FINDINGS: Emphysema is incidentally noted within visualized portions of the lower lungs. A 5 mm partially calcified right middle lobe nodule on image 35 of 365 is unchanged. This is benign. A moderate sized hiatal hernia is again noted. There is no pneumatosis, free air or portal venous gas. Biliary ductal dilatation is unchanged since prior CT and likely related to cholecystectomy. There are no hepatic lesions. Spleen, kidneys and pancreas are unremarkable. A small left adrenal nodule is unchanged. This is benign. There are no urinary calculi. There is no hydronephrosis. Images of the pelvis are degraded by streak artifact from a right hip arthroplasty. 4.4 cm water attenuation left adnexal lesion is similar to prior CT but this likely represents an ovarian cyst. The appendix is normal. There is no evidence for a bowel obstruction. 7 calcified deposition within the right colon is chronic. There is equivocal wall thickening and evidence for mucosal hyperemia of the left colon. Status post L4-L5 decompression and fusion. There is moderate lumbar spine levoscoliosis. Loss of height of the inferior endplate of L3 is new since CT of September 14, 2021 but probably chronic. Central canal and neural foramen are suboptimally assessed given CT technique. Prominent right external iliac lymph nodes are unchanged. These are likely benign. IMPRESSION: 1. Normal appendix. No bowel obstruction. Equivocal left colon wall thickening. A mild nonspecific colitis cannot be excluded. 2. No urinary calculi or hydronephrosis. 3. Moderate sized hiatal hernia, similar to prior exam. ACT 112: Negative or not required by law. Electronically signed by: Antony Brown M.D. 10/08/2024 2:05 PM Chest X-Ray 10/08/24 14:18 XR chest 1V portable CLINICAL HISTORY: hypoxia, copd COMPARISON STUDY: 08/27/2024 FINDINGS: Stable moderate hiatal hernia. Stable mild cardiomegaly without pulmonary vascular congestion. No consolidation or pleural effusion. No pneumothorax. IMPRESSION: No acute findings. ACT 112: Negative or not required by law. Electronically signed by: Carlos Mcbride M.D. 10/08/2024 2:34 PM Medications Administered Discontinued Medications Albuterol (Albut/Ipratrop 3mg/0.5mg Neb 3 Ml Vial) 3 ml NEB NOW STA; Protocol Stop: 10/08/24 12:52 Last Admin: 10/08/24 13:30 Dose: 3 ml Documented By: YESSI Sodium Chloride (Nss) 500 mls @ 999 mls/hr IV .Q31M STA Stop: 10/08/24 13:21 Last Admin: 10/08/24 13:18 Dose: 999 mls/hr Documented By: YESSI Cefepime HCl (Maxipime 2000mg) 2,000 mg in 20 mls @ 5 mls/min IV NOW STA; Protocol Stop: 10/08/24 12:57 Last Admin: 10/08/24 13:22 Dose: 5 mls/min Documented By: YESSI Famotidine (Pepcid 20mg Iv Push) 20 mg in 5 mls @ 2.5 mls/min IV NOW STA Stop: 10/08/24 14:20 Last Admin: 10/08/24 14:26 Dose: 2.5 mls/min Documented By: LYNN Ioversol (Optiray 320 100ml) 94 ml IV ONCE ONE Stop: 10/08/24 13:48 Last Admin: 10/08/24 13:47 Dose: 94 ml Documented By: KAREN Methylprednisolone (Methylprednisolone 125 Mg/2 Ml Vial) 100 mg IV NOW STA Stop: 10/08/24 12:52 Last Admin: 10/08/24 13:25 Dose: 100 mg Documented By: YESSI Morphine Sulfate (Morphine Sulfate 4 Mg/Ml 1 Ml Carp\Vial) 2 mg IV NOW STA Stop: 10/08/24 12:52 Last Admin: 10/08/24 13:20 Dose: 2 mg Documented By: YESSI Ondansetron HCl (Ondansetron Inj 2 Mg/Ml 2 Ml Vial) 4 mg IV NOW STA Stop: 10/08/24 14:20 Last Admin: 10/08/24 14:26 Dose: 4 mg Documented By: LYNN Code Status & VTE Plan Code Status FULL CODE Supervising Physician Co-Signing Physician Notes Pt seen and examined by me, care coordinated w/ Precious Mills PA-C, pls refer to her note above. Pt is a 74y/o F with HLD, HTN, COPD, allergic rhinitis, ONEL on CPAP HS, vitamin D deficiency, chronic gastritis, GERD, CKD stage III [baseline Cr 0.8-1], generalized OA, senile osteoporosis, chronic vertebrogenic low back pain with opioid dependence, opioid-induced constipation on Movantik, lumbar DDD s/p L3-4/ L4-5/L5-S1 decompression and L4-5 instrumented fusion in August 2021 who presents for evaluation of abdominal pain and N/V/D. Diarrhea started on Monday. Has been nauseous since Monday as well, minimal food intake since the weekend. Pt reports pain in central abd. area, but also on R side. She has H/o cholecystectomy. No pain on L side of abd. Saw PCP yesterday for these complaints. Urine sample done. Was started on Bactrim - took 2 doses. However urine cultx does not look convincing for UTI, ucultx pending. Recently hospitalized 08/27/24-08/30/24: acute metabolic encephalopathy likely 2/2 UTI. Urine culture grew pansensitive E. coli. Blood cultures negative. Completed ABX therapy with IV Rocephin while inpatient with transition to po cefdinir on discharge. Then on September 25 pt had procedure - s/p L2-3, L3-4 basivertebral nerve ablation. She followed up with him on 10/04 and at that time reportedly felt well. Her current symptoms started after her follow up. Currently lying in bed in NAD, on suppl. O2 , decreased breath sounds, no wheezing, heart sounds regular. Pt is awake, alert, answers appropriately, pot's is present at the bedside. Abdomen soft but tender at central and all right quadrants as well. Back without erythema or edema, small punctures noted, seem well healed. Pt is moving extremities. Pt found hypoxic by EMS - in ED received albuterol, iv solumedrol for decreased breath sounds, no wheezing. She was also started on cefepime in ED, blood cultx were collected. UA ordered in ED not yet collected. Given diarrhea, will order stool PCR, c. diff. Given R abd. pain will obtain US liver. Given recent procedure - nerve ablation in lumbar region, will further evaluate with MR lumbar spine. Will add vanco for now, in addition to cefepime she received. Follow cultx, follow imaging studies, cont. to closely monitor. MD Jose Daniel (1) Abdominal pain Abdominal location: unspecified location Qualified Code(s): R10.9 - Unspecified abdominal pain (3) Chronic low back pain Back pain laterality: unspecified Sciatica presence: unspecified whether sciatica present Qualified Code(s): M54.50 - Low back pain, unspecified; G89.29 - Other chronic pain
[2024-10-08] MEDS ORDERED: VANCOMYCIN CONSULT ACTIVE PRN (15:29)
[2024-10-08 15:52] LABS: Appearance Urine Clear (Clear); Glucose Urine UA Negative (Negative)
[2024-10-08] MEDS ORDERED: ALBUT/IPRATROP 3MG/0.5MG NEB 3 ML VIAL NEB PRN (15:53)
[2024-10-08 15:58] LABS: Bacteria Urine Automated None Seen (None Seen); Cast Urine Automated 0-2 /lpf (0-2); Epithelial Cell Urine Auto 0-2 /hpf (0-2); RBC Urine Automated 0-2 /hpf (0-2); WBC Urine Automated 0-5 /hpf (0-5)
[2024-10-08] MEDS: POTASSIUM CHLORIDE / WTR 10 MEQ/100 ML PLCT IV SCH (16:23)
[2024-10-08] MEDS: Patient's HEIGHT &/or WEIGHT Needed SCH (16:26)
[2024-10-08] MEDS: VANCOMYCIN HCL 1,750 MG in SODIUM CHLORIDE 0.9% 500 ML IV STA (17:29)
[2024-10-08] MEDS ORDERED: MAGNESIUM HYDROXIDE SUSP 30 ML UDC PO PRN (18:17)
[2024-10-08] MEDS ORDERED: POLYETHYLENE (MIRALAX) 17 GM PACK PO PRN (18:17)
[2024-10-08] MEDS: SODIUM CHLORIDE 0.9% 1,000 ML IV SCH (18:20)
[2024-10-08] MEDS: ATORVASTATIN 40 MG TAB PO SCH (18:30)
--- NOTE | 2024-10-08 19:19 | Pharmacy Report ---
Pharmacy PK ABX Note - Date of Service October 08, 2024 - Assessment and Plan Assessment 74 year old F who presented with abdominal pain, N/V/D, chills and rigors. Hypoxic in ED. No leukocytosis and afebrile. She had recent lumbar nerve ablation procedure on 09/25/24 with h/o lumbar DDD s/p L3-4/L4-5/L5-S1 decompression and L4-5 instrumented fusion in August 2021. Patient reports being started on Bactrim for UTI yesterday by PCP. Patient ordered empiric vancomycin + cefepime for possible infection of unknown source. MRI pending to r/o lumbar infection. Pertinent microbiologic data includes: BC x 2 - pending Flu/RSV/SARS-CoV-2 PCR - negative Plan Vancomycin * Loading dose: 1750 mg IV x 1 * Maintenance dose: 1000 mg IV every 24 hours * Regimen is predicted to achieve target AUC/CYNTHIA of 400-600 mg/L.hr * est. steady state AUC/CYNTHIA = 472 * Will obtain vanc level if therapy is planned to continue beyond 48 hours Cefepime 2 g IV q12h Pharmacy will continue to follow and will adjust dose/frequency as necessary. Thank you.
[2024-10-08] MEDS: PREGABALIN 75 MG CAP PO SCH (20:20)
[2024-10-08] MEDS: MAGNESIUM OXIDE 400 MG TAB PO SCH (20:20)
[2024-10-08] MEDS: HEPARIN SOD 5,000 UNIT/0.5 ML VIAL SQ SCH (20:20)
[2024-10-08] MEDS: GADOBUTROL 65ML VIAL IV ONE (21:05)
[2024-10-08] MEDS: ONDANSETRON INJ 2 MG/ML 2 ML VIAL IV PRN (21:44)
[2024-10-09] MEDS: CEFEPIME 2000MG 2,000 MG/20 ML SYR IV SCH ×2 (00:58→11:57)
--- NOTE | 2024-10-09 01:05 | Magnetic Resonance Report ---
Exam(s): MRI L SPINE W/WO Contrast EXAM: MR Lumbar Spine Without and With Intravenous Contrast CLINICAL HISTORY: Reason for exam: recent nerve ablation in lumbar region. TECHNIQUE: Magnetic resonance images of the lumbar spine without and with intravenous contrast in multiple planes. CONTRAST: Contrast must be dictated COMPARISON: Prior lumbar spine MRI from October 08, 2024. FINDINGS: Vertebrae: There are 5 lumbar type vertebral bodies with a moderate levoscoliosis and normal lumbar lordosis. There is a mild grade 1 retrolisthesis of L2 on L3 measuring 4 mm. There is a remote fracture deformity of the L3 vertebral body. Otherwise, there is normal vertebral body height and alignment. The bone marrow signal is heterogeneous with reactive endplate changes. There is a new bone marrow edema in the L2, L3 and L4 vertebral bodies, status post ablation of the basivertebral nerves at L2, L3 and L4. Patient is status post posterior fusion of L4 and L5 with transpedicular screws and connecting rods in place. No acute fracture. Spinal cord: The conus is normal size, shape and signal characteristics, terminating T12 No abnormal enhancement. Soft tissues: Advanced atrophy of the iliopsoas, paraspinous intraspinous musculature. The aorta and IVC flow voids are intact. The visualized kidneys are unremarkable. IMPRESSION: Status post ablation of the basivertebral nerves at L2, L3 and L4 with expected postsurgical changes. Electronically signed by: Brenda Cordon MD 10/09/24 01:04 AM
[2024-10-09 07:26] LABS: Hematocrit (blood only) 36.8 % (37.0-47.0); Hemoglobin 11.8 g/dl (12.0-16.0); Immature Granulocytes # (auto) 0.04 K/uL (0.01-0.20); Immature Granulocytes % (auto) 0.5 %; Mean Corpuscular Hemoglobin 30.0 pg (25.0-34.0); Mean Corpuscular Volume 93.6 fL (80.0-100.0); Platelet Count 190 K/uL (130-400); RDW Standard Deviation 46.0 fL (36.4-46.3); Red Blood Count 3.93 M/uL (4.20-5.40); White Blood Count 7.86 K/ul (4.8-10.8)
[2024-10-09 07:31] LABS: Alanine Aminotransferase 54.0 U/L (7-52); Albumin Globulin Ratio 1.3 (0.9-2); Alkaline Phosphatase 210.0 U/L (34-104); Anion Gap 5.0 (3-11); Bilirubin,Total 0.4 mg/dl (0.2-1.0); Blood Urea Nitrogen 12.0 mg/dl (6-23); Calcium 8.4 mg/dl (8.6-10.3); Carbon Dioxide 25.0 mmol/L (21-32); Chloride 112.0 mmol/L (98-107); Creatinine Clr Calc Pharmacy 65.6 ml/min; Globulin 2.7 gm/dl (2.5-4.0); Glucose 87.0 mg/dl (70-99(Fasting)); Magnesium 1.9 mg/dl (1.7-2.4); Potassium 3.8 mmol/L (3.5-5.1); Sodium 142.0 mmol/L (136-145); Total Protein 6.1 gm/dl (6.0-8.3)
--- NOTE | 2024-10-09 08:33 | Ultrasound Report ---
US liver CLINICAL HISTORY: Elevated LFTs COMPARISON STUDY: CT of the abdomen and pelvis October 08, 2024 at 1:[address] of the abdomen and pel vis September 14, 2021. FINDINGS: Mild intra and extrahepatic biliary ductal dilatation is noted status post cholecystectomy. The common bile duct measures 9 mm in caliber. No common bile duct calculi are identified by sonogra phy. No hepatic lesions are identified. The pancreas is unremarkable by sonography. There is no right hydronephrosis. IMPRESSION: Mild biliary ductal dilatation. No common bile duct calculi identified by sonography. Thi s is likely related to previous cholecystectomy however correlation with obstructive liver function t ests is recommended. ACT 112: Negative or not required by law. Electronically signed by: Antony Brown M.D. 10/09/2024 8:31 AM
[2024-10-09] MEDS: LOSARTAN POTASSIUM 50 MG TAB PO SCH (09:04)
[2024-10-09] MEDS: CHOLECALCIFEROL 25 MCG (1000 UNITS) TAB PO SCH (09:04)
[2024-10-09] MEDS: CALCIUM 600MG + VIT D 400 IU TAB PO SCH (09:04)
[2024-10-09] MEDS: MULTIVITAMIN TAB PO SCH (09:04)
[2024-10-09] MEDS: UMECLIDINIUM BROMIDE 62.5MCG/BLISTER 7 PUFFS/INHALER INH SCH (09:05)
[2024-10-09] MEDS: VANCOMYCIN HCL 1,000 MG/270 ML BAG IV SCH (09:36)
[2024-10-09 10:25] LABS: Cdiff Toxin B Gene (2yr or >) Negative Cdiff Gene (Neg)
[2024-10-09 11:02] LABS: Adenovirus F 40/41 PCR Not Detected (NotDetected); Campylobacter PCR Not Detected (NotDetected); Enteroaggregative E.coli(EAEC) Not Detected (NotDetected); Shiga-like Toxin E.coli (STEC) Not Detected (NotDetected); Vibrio species PCR Not Detected (NotDetected)
--- NOTE | 2024-10-09 13:29 | Hospitalist Progress Note ---
Date of Service October 09, 2024 Assessment & Plan (1) Abdominal pain: (2) Nausea, vomiting and diarrhea: (3) Chronic low back pain: (4) H/O radiofrequency ablation (RFA) of nerve of lumbar spine: (5) Hypoxia: (6) Transaminitis: Plan 74y/o F with PMHx significant for HLD, HTN, COPD, allergic rhinitis, ONEL on CPAP HS, vitamin D deficiency, chronic gastritis, GERD, CKD stage III [baseline Cr 0.8-1], generalized OA, senile osteoporosis, chronic vertebrogenic low back pain with opioid dependence, opioid-induced constipation on Movantik, lumbar DDD s/p L3-4/L4-5/L5-S1 decompression and L4-5 instrumented fusion in August 2021 and other problems as outlined in her chart who presented to the ED via EMS for evaluation of abdominal pain and N/V/D. She is being managed for the following: #Abdominal pain, N/V/D Not meeting sepsis criteria on admission. Lactate nl. CTAP: normal appendix, no bowel obstruction, L colon wall thickening (mild nonspecific colitis cannot be excluded), moderate-sized hiatal hernia (unchanged from prior) Stool PCR, C. diff studies neg 10/08 Blood cx pending, as per below UA pending -Pt started on Bactrim by PCP 10/07 given c/f UTI -UA 10/07: trace blood, trace protein, no nitrites. UCx no growth. -Prior urine cx: pansensitive E. coli S/p dose of IV cefepime in ED, continue. DC vanc. c/w atb until bl cx growth 48 hrs result. Hold bowel regimen for now, resume gradually once s/s controlled c/w iv fluid for now. pt reports gradually improving N,V,D, abd pain. reports being able to eat better. #Chronic vertebrogenic low back pain with opioid dependence #Opioid-induced constipation on Movantik #Recent L2-3, L3-4 basivertebral nerve ablation on 09/25/[address] 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 Recent lumbar nerve ablation procedure, as per above -2 healed incisions seen on low back region (R aspect of lumbar spine); no surrounding erythema or wound drainage -No erythema or tenderness of lumbar spine. - MRI L spine w/ expected post op changes. Continue Cymbalta, Lyrica Continue PRN Percocet -Hold Movantik for now 2/2 recent diarrhea #COPD #Acute hypoxia noted in ED --> down to 89% on RA, placed on 2L NC and saturating ~93% at time of admission No resp complaints per pt CXR: no acute findings Unclear etiology for hypoxia -RVP neg -S/p 100mg IV methylprednisone, Duoneb x 1 in ED Continue Spiriva PRN Duonebs, ISP Wean O2 as tolerated #Transaminitis: has ho elevated LFT. H/o prior cholecystectomy. LFT downtrending. Liver US w/ mild biliary ductal dilatation likely iso previous cholecystectomy. Trend LFTs. #HTN: Borderline hypotensive in ED. Hold Lasix for now --> resume as able, routine BP monitoring #GERD/Chronic gastritis: Continue PPI #HLD: Continue statin #CKD stage III: Baseline Cr 0.8-1 per OP chart review. Cr stable. Continue to monitor, avoid nephrotoxic agents as able DVT Prophylaxis: SQ heparin Disposition: PT/OT. Admission and Anticipated Discharge Date Admission Date: October 08, 2024 Subjective Patient was seen and examined at bedside. Patient was lying in bed, on 2 L oxygen via nasal cannula, NAD. Patient reports improving nausea and abdominal pain, reports no bowel movement since coming to the hospital as of AM bedside exam. Patient reports being able to eat better now. Patient encouraged to move out of bed and ambulate in the hallway as able. Physical Exam Physical Exam: GENERAL: Alert and oriented x3. NAD, on RA. HEENT: No pallor, no icterus. Pupils equal, round and reactive to light. Oral mucosa moist. NECK: No JVD, no neck masses. HEART: S1 and S2 heard. Regular rate and rhythm. No murmur, no gallop. RESPIRATORY SYSTEM: Normal AP diameter. No accessory muscle use. No wheezing, no crackles. ABDOMEN: Soft, bowel sounds present, right up belly x mild tender, no distention. CENTRAL NERVOUS SYSTEM: No facial droop. Speech is clear. Obeys simple commands. Moves extremities. EXTREMITIES: No edema, no erythema seen. lower back, old healed midline surgical scar. non tender on palpation. Results & Data Results & Data Vital Signs (Past 12 Hours) Vital Signs Temp Pulse Pulse Resp BP Pulse Ox O2 Del Method 10/09/24 11:59 37.3 C 69 12 122/61 95 Nasal Cannula 10/09/24 09:33 93 Nasal Cannula 10/09/24 09:31 87 L Room Air 10/09/24 08:08 36.8 C 85 16 154/90 H 97 Nasal Cannula 10/09/24 07:50 Nasal Cannula 10/09/24 05:40 81 10/09/24 02:41 36.5 C 80 18 122/81 93 Nasal Cannula O2 Flow Rate 10/09/24 11:59 2 10/09/24 09:33 1 10/09/24 09:31 10/09/24 08:08 2 10/09/24 07:50 2 10/09/24 05:40 10/09/24 02:41 2 (1) Abdominal pain Abdominal location: unspecified location Qualified Code(s): R10.9 - Unspecified abdominal pain (3) Chronic low back pain Back pain laterality: unspecified Sciatica presence: unspecified whether sciatica present Qualified Code(s): M54.50 - Low back pain, unspecified; G89.29 - Other chronic pain
[2024-10-10] MEDS: ACETAMINOPHEN 325 MG TAB PO PRN (04:29)
[2024-10-10 07:00] LABS: Hematocrit (blood only) 40.0 % (37.0-47.0); Hemoglobin 12.8 g/dl (12.0-16.0); Mean Corpuscular Hemoglobin 30.0 pg (25.0-34.0); Mean Corpuscular Volume 93.7 fL (80.0-100.0); Platelet Count 196 K/uL (130-400); RDW Standard Deviation 45.8 fL (36.4-46.3); Red Blood Count 4.27 M/uL (4.20-5.40); White Blood Count 7.07 K/ul (4.8-10.8)
[2024-10-10 07:23] LABS: Anion Gap 5.0 (3-11); Blood Urea Nitrogen 8.0 mg/dl (6-23); Calcium 9.1 mg/dl (8.6-10.3); Carbon Dioxide 26.0 mmol/L (21-32); Chloride 113.0 mmol/L (98-107); Creatinine Clr Calc Pharmacy 65.2 ml/min; Glucose 91.0 mg/dl (70-99(Fasting)); Magnesium 1.9 mg/dl (1.7-2.4); Potassium 4.0 mmol/L (3.5-5.1); Sodium 144.0 mmol/L (136-145)
[2024-10-10] MEDS: POT PHOSPHATE MONOBASIC W/ SOD TAB PO SCH (08:59)
--- NOTE | 2024-10-10 13:14 | Hospitalist Progress Note ---
Date of Service October 10, 2024 Assessment & Plan (1) Abdominal pain: (2) Nausea, vomiting and diarrhea: (3) Chronic low back pain: (4) H/O radiofrequency ablation (RFA) of nerve of lumbar spine: (5) Hypoxia: (6) Transaminitis: Plan 74y/o F with PMHx significant for HLD, HTN, COPD, allergic rhinitis, ONEL on CPAP HS, vitamin D deficiency, chronic gastritis, GERD, CKD stage III [baseline Cr 0.8-1], generalized OA, senile osteoporosis, chronic vertebrogenic low back pain with opioid dependence, opioid-induced constipation on Movantik, lumbar DDD s/p L3-4/L4-5/L5-S1 decompression and L4-5 instrumented fusion in August 2021 and other problems as outlined in her chart who presented to the ED via EMS for evaluation of abdominal pain and N/V/D. She is being managed for the following: #Abdominal pain, N/V/D Not meeting sepsis criteria on admission. Lactate nl. CTAP: normal appendix, no bowel obstruction, L colon wall thickening (mild nonspecific colitis cannot be excluded), moderate-sized hiatal hernia (unchanged from prior) Stool PCR, C. diff studies neg 10/08 Blood cx NG24H, follow final UA while here neg for UTI -Pt started on Bactrim by PCP 10/07 given c/f UTI -UA 10/07: trace blood, trace protein, no nitrites. UCx no growth. -Prior urine cx: pansensitive E. coli S/p dose of IV cefepime in ED, continue. c/w atb until bl cx growth 48 hrs result. If neg dc atb. Hold bowel regimen for now, resume gradually once s/s controlled pt reports improving N,V,D, abd pain. reports being able to eat better. Pt moved 2 loose stool since yesterday. reports feeling better. Pt encouraged OOB and ambulate as able in the hallway. #Chronic vertebrogenic low back pain with opioid dependence #Opioid-induced constipation on Movantik #Recent L2-3, L3-4 basivertebral nerve ablation on 09/25/[address] 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 Recent lumbar nerve ablation procedure, as per above -2 healed incisions seen on low back region (R aspect of lumbar spine); no surrounding erythema or wound drainage -No erythema or tenderness of lumbar spine. - MRI L spine w/ expected post op changes. Continue Cymbalta, Lyrica Continue PRN Percocet -Hold Movantik for now 2/2 recent diarrhea #COPD #Acute hypoxia noted in ED --> down to 89% on RA, placed on 2L NC and saturating ~93% at time of admission No resp complaints per pt CXR: no acute findings Unclear etiology for hypoxia -RVP neg -S/p 100mg IV methylprednisone, Duoneb x 1 in ED Continue Spiriva PRN Duonebs, ISP Wean O2 as tolerated #Transaminitis: has ho elevated LFT. H/o prior cholecystectomy. LFT downtrending. Liver US w/ mild biliary ductal dilatation likely iso previous cholecystectomy. Trend LFTs. #HTN: Borderline hypotensive in ED. Now improved. c/w home bp meds. #GERD/Chronic gastritis: Continue PPI #HLD: Continue statin #CKD stage III: Baseline Cr 0.8-1 per OP chart review. Cr stable. Continue to monitor, avoid nephrotoxic agents as able DVT Prophylaxis: SQ heparin Disposition: PT/OT. Pt's dtr Apoorva was give a phone call and updated on plan of care. Answered all her questions. She voiced understanding and was agreeable to plan of care. Admission and Anticipated Discharge Date Admission Date: October 08, 2024 Subjective Patient was seen and examined at bedside. Patient was sitting up in bed, on 2 L oxygen via nasal cannula, NAD. Patient reports improving nausea and abdominal pain, reports 2 loose bowel movement since yesterday. Patient iza diet better now. Patient encouraged to move out of bed and ambulate in the hallway as able. Physical Exam Physical Exam: GENERAL: Alert and oriented x3. NAD, on RA. HEENT: No pallor, no icterus. Pupils equal, round and reactive to light. Oral mucosa moist. NECK: No JVD, no neck masses. HEART: S1 and S2 heard. Regular rate and rhythm. No murmur, no gallop. RESPIRATORY SYSTEM: Normal AP diameter. No accessory muscle use. No wheezing, no crackles. ABDOMEN: Soft, bowel sounds present, non tender, no distention. CENTRAL NERVOUS SYSTEM: No facial droop. Speech is clear. Obeys simple commands. Moves extremities. EXTREMITIES: No edema, no erythema seen. lower back, old healed midline surgical scar. non tender on palpation. Results & Data Results & Data Vital Signs (Past 12 Hours) Vital Signs Temp Pulse Pulse Resp BP Pulse Ox O2 Del Method 10/10/24 11:27 36.7 C 83 18 165/90 H 94 Nasal Cannula 10/10/24 08:37 36.7 C 78 18 150/82 H 94 Nasal Cannula 10/10/24 05:53 97 H 10/10/24 02:22 37.1 C 94 H 18 164/81 H 93 Nasal Cannula O2 Flow Rate 10/10/24 11:27 2 10/10/24 08:37 2 10/10/24 05:53 10/10/24 02:22 1 (1) Abdominal pain Abdominal location: unspecified location Qualified Code(s): R10.9 - Unspecified abdominal pain (3) Chronic low back pain Back pain laterality: unspecified Sciatica presence: unspecified whether sciatica present Qualified Code(s): M54.50 - Low back pain, unspecified; G89.29 - Other chronic pain
[2024-10-10] MEDS: ADVANCED PROBIOTIC 625 MG CAPSULE PO SCH (14:49)
[2024-10-11 07:10] LABS: Hematocrit (blood only) 38.6 % (37.0-47.0); Hemoglobin 12.5 g/dl (12.0-16.0); Mean Corpuscular Hemoglobin 29.6 pg (25.0-34.0); Mean Corpuscular Volume 91.3 fL (80.0-100.0); Platelet Count 200 K/uL (130-400); RDW Standard Deviation 44.5 fL (36.4-46.3); Red Blood Count 4.23 M/uL (4.20-5.40); White Blood Count 6.80 K/ul (4.8-10.8)
[2024-10-11 07:35] LABS: Alanine Aminotransferase 32 U/L (7-52); Alkaline Phosphatase 177 U/L (34-104); Anion Gap 6 (3-11); Bilirubin,Total 0.5 mg/dl (0.2-1.0); Blood Urea Nitrogen 8 mg/dl (6-23); Calcium 8.7 mg/dl (8.6-10.3); Carbon Dioxide 27 mmol/L (21-32); Chloride 109 mmol/L (98-107); Creatinine Clr Calc Pharmacy 76.9 ml/min; Glucose 94 mg/dl (70-99(Fasting)); Magnesium 1.7 mg/dl (1.7-2.4); Sodium 142 mmol/L (136-145); Total Protein 6.7 gm/dl (6.0-8.3)
[2024-10-11] MEDS: FUROSEMIDE 20 MG TAB PO SCH (08:32)
[2024-10-11 08:58] LABS: Potassium 2.8 mmol/L (3.5-5.1)
[2024-10-11] MEDS: POTASSIUM CHLORIDE CRTAB 20 MEQ TABCR PO SCH (09:33)
[2024-10-11] MEDS: PSYLLIUM HUSK 4GM PACKET PO SCH (10:03)
--- NOTE | 2024-10-11 14:27 | Hospitalist Progress Note ---
Date of Service October 11, 2024 Assessment & Plan (1) Abdominal pain: (2) Nausea, vomiting and diarrhea: (3) Chronic low back pain: (4) H/O radiofrequency ablation (RFA) of nerve of lumbar spine: (5) Hypoxia: (6) Transaminitis: Plan 74y/o F with PMHx significant for HLD, HTN, COPD, allergic rhinitis, ONEL on CPAP HS, vitamin D deficiency, chronic gastritis, GERD, CKD stage III [baseline Cr 0.8-1], generalized OA, senile osteoporosis, chronic vertebrogenic low back pain with opioid dependence, opioid-induced constipation on Movantik, lumbar DDD s/p L3-4/L4-5/L5-S1 decompression and L4-5 instrumented fusion in August 2021 and other problems as outlined in her chart who presented to the ED via EMS for evaluation of abdominal pain and N/V/D. She is being managed for the following: #Abdominal pain, N/V/D Not meeting sepsis criteria on admission. Lactate nl. CTAP: normal appendix, no bowel obstruction, L colon wall thickening (mild nonspecific colitis cannot be excluded), moderate-sized hiatal hernia (unchanged from prior) Stool PCR, C. diff studies neg 10/08 Blood cx NG24H, follow final UA while here neg for UTI -Pt started on Bactrim by PCP 10/07 given c/f UTI -UA 10/07: trace blood, trace protein, no nitrites. UCx no growth. -Prior urine cx: pansensitive E. coli S/p dose of IV cefepime in ED, continue. c/w atb until bl cx growth 48 hrs result. If neg dc atb. Hold bowel regimen for now, resume gradually once s/s controlled pt reports improving N,V,D, abd pain. reports being able to eat better. Pt moved few loose stool x yesterday. reports stool forming up today Pt encouraged OOB and ambulate as able in the hallway. will add metamucil. encourage pedialyte solution, communicated w/ RN. Replace KCL 80 meq today. #Chronic vertebrogenic low back pain with opioid dependence #Opioid-induced constipation on Movantik #Recent L2-3, L3-4 basivertebral nerve ablation on 09/25/[address] 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 Recent lumbar nerve ablation procedure, as per above -2 healed incisions seen on low back region (R aspect of lumbar spine); no surrounding erythema or wound drainage -No erythema or tenderness of lumbar spine. - MRI L spine w/ expected post op changes. Continue Cymbalta, Lyrica Continue PRN Percocet -Hold Movantik for now 2/2 recent diarrhea #COPD #Acute hypoxia noted in ED --> down to 89% on RA, placed on 2L NC and saturating ~93% at time of admission No resp complaints per pt CXR: no acute findings Unclear etiology for hypoxia -RVP neg -S/p 100mg IV methylprednisone, Duoneb x 1 in ED Continue Spiriva PRN Duonebs, ISP Wean O2 as tolerated #Transaminitis: has ho elevated LFT. H/o prior cholecystectomy. LFT downtrending. Liver US w/ mild biliary ductal dilatation likely iso previous cholecystectomy. Trend LFTs. #HTN: Borderline hypotensive in ED. Now improved. c/w home bp meds. #GERD/Chronic gastritis: Continue PPI #HLD: Continue statin #CKD stage III: Baseline Cr 0.8-1 per OP chart review. Cr stable. Continue to monitor, avoid nephrotoxic agents as able DVT Prophylaxis: SQ heparin Disposition: PT/OT. possible dc dilma. Pt's dtr Apoorva was give a phone call and updated on plan of care 10/10. Answered all her questions. She voiced understanding and was agreeable to plan of care. Admission and Anticipated Discharge Date Admission Date: October 08, 2024 Subjective Patient was seen and examined at bedside. Patient was sitting up in bed, on RA, NAD. Patient reports she had multiple loose stools yesterday but it started to form today. Patient reports she moved around in the hallway multiple times yesterday and is feeling significantly better. Patient reports significant improvement in her nausea, vomiting, abdominal pain and has been tolerating diet very well. Because she had multiple loose discharge yesterday, patient hesitant to go home today, will possible discharge tomorrow. Patient advised take take [id number] Metamucil fiber and Pedialyte solution per plant facilities technician's recommendation once discharged for loose stools. Physical Exam Physical Exam: GENERAL: Alert and oriented x3. NAD, on RA. HEENT: No pallor, no icterus. Pupils equal, round and reactive to light. Oral mucosa moist. NECK: No JVD, no neck masses. HEART: S1 and S2 heard. Regular rate and rhythm. No murmur, no gallop. RESPIRATORY SYSTEM: Normal AP diameter. No accessory muscle use. No wheezing, no crackles. ABDOMEN: Soft, bowel sounds present, non tender, no distention. CENTRAL NERVOUS SYSTEM: No facial droop. Speech is clear. Obeys simple commands. Moves extremities. EXTREMITIES: No edema, no erythema seen. lower back, old healed midline surgical scar. non tender on palpation. Results & Data Results & Data Vital Signs (Past 12 Hours) Vital Signs Temp Pulse Pulse Resp BP BP Pulse Ox 10/11/24 13:04 79 10/11/24 12:01 36.8 C 89 92 H 168/91 H 92 10/11/24 08:12 36.6 C 101 H 19 191/94 H 90 10/11/24 06:04 72 O2 Del Method 10/11/24 13:04 10/11/24 12:01 Room Air 10/11/24 08:12 Room Air 10/11/24 06:04 (1) Abdominal pain Abdominal location: unspecified location Qualified Code(s): R10.9 - Unspecified abdominal pain (3) Chronic low back pain Back pain laterality: unspecified Sciatica presence: unspecified whether sciatica present Qualified Code(s): M54.50 - Low back pain, unspecified; G89.29 - Other chronic pain
[2024-10-11 15:58] VITALS: RESP 18
[2024-10-12 07:35] LABS: Anion Gap 8.0 (3-11); Blood Urea Nitrogen 12.0 mg/dl (6-23); Calcium 9.3 mg/dl (8.6-10.3); Carbon Dioxide 25.0 mmol/L (21-32); Chloride 108.0 mmol/L (98-107); Creatinine Clr Calc Pharmacy 68.3 ml/min; Glucose 95.0 mg/dl (70-99(Fasting)); Magnesium 1.9 mg/dl (1.7-2.4); Potassium 3.7 mmol/L (3.5-5.1); Sodium 141.0 mmol/L (136-145)
--- NOTE | 2024-10-12 11:18 | Discharge Summary ---
Date of Service October 12, 2024 Admission HPI Per Admitting Provider Patient is a 74y/o F with PMHx significant for HLD, HTN, COPD, allergic rhinitis, ONEL on CPAP HS, vitamin D deficiency, chronic gastritis, GERD, CKD stage III [baseline Cr 0.8-1], generalized OA, senile osteoporosis, chronic vertebrogenic low back pain with opioid dependence, opioid-induced constipation on Movantik, lumbar DDD s/p L3-4/L4-5/L5-S1 decompression and L4-5 instrumented fusion in August 2021 and other problems as outlined in her chart who presented to the ED via EMS for evaluation of abdominal pain and N/V/D. History obtained from the patient, discussion with ED provider and associated chart review. Patient seen and evaluated at bedside in the ED with Dr. Sky. Abdominal pain started this past Monday. Primarily location on the R side. Mostly crampy in nature with periods of sharp, stabbing sensations at times. Had bouts of diarrhea on Monday and Monday. No further bouts of diarrhea since then. Denies any hematochezia or melena. Very poor appetite. Minimal oral intake since the abdominal pain started as she has been feeling quite nauseous. Few bouts of vomiting. History of cholecystectomy. Saw PCP yesterday for these complaints. Had urine sample done. No clear indication of infection on UA but empirically started on Bactrim until urine culture could be completed. Has taken 2 doses of Bactrim so far. Recent confinement under our service 08/27/24-08/30/24: acute metabolic encephalopathy likely 2/2 UTI. Urine culture grew pansensitive E. coli. Blood cultures negative. Completed ABX therapy with IV Rocephin while inpatient with transition to po cefdinir on discharge. Recent lumbar spine nerve ablation procedure. History chronic low back pain. S/p L2-3, L3-4 basiverte[address] ablation by Dr. Waite at [facility] on 09/25/24. Had been doing well in this regard up until the weekend. Feels back pain has returned (initially back pain improved s/p procedure). No drainage from procedural incision sites, feels these are healing well. No surrounding erythema noted around the procedure site. 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 Admission Exam Per Admitting Provider Currently lying in bed in NAD, on suppl. O2 , decreased breath sounds, no wheezing, heart sounds regular. Pt is awake, alert, answers appropriately, pot's is present at the bedside. Abdomen soft but tender at central and all right quadrants as well. Back without erythema or edema, small punctures noted, seem well healed. Pt is moving extremities. Principal Diagnosis Abdominal pain, N/V/D likely viral gastroenteritis Discharge Exam GENERAL: Alert and oriented x3. NAD, on RA. HEENT: No pallor, no icterus. Pupils equal, round and reactive to light. Oral mucosa moist. NECK: No JVD, no neck masses. HEART: S1 and S2 heard. Regular rate and rhythm. No murmur, no gallop. RESPIRATORY SYSTEM: Normal AP diameter. No accessory muscle use. No wheezing, no crackles. ABDOMEN: Soft, bowel sounds present, non tender, no distention. CENTRAL NERVOUS SYSTEM: No facial droop. Speech is clear. Obeys simple commands. Moves extremities. EXTREMITIES: No edema, no erythema seen. lower back, old healed midline surgical scar. non tender on palpation. Discharge Data Allergies Allergy/AdvReac Type Severity Reaction Status Date / Time erythromycin base Allergy Intermediate Hives Verified 08/27/24 16:09 latex Allergy Intermediate ITCHY RASH Verified 08/27/24 16:09 Penicillins Allergy Intermediate Hives Verified 08/27/24 16:09 nickel Allergy Mild Skin Verified 08/27/24 16:09 irritation vancomycin AdvReac Severe Renal Verified 08/27/24 16:09 complications Consultations 10/08/24 14:25 ED Decision to Admit Stat Ordered Studies 10/08/24 12:51 CT abd pelvis IV con only Stat 10/08/24 14:53 US liver Routine 10/08/24 15:28 MR lumbar spine wo/w con Urgent Hospital Course (1) Abdominal pain: (2) Nausea, vomiting and diarrhea: (3) Chronic low back pain: (4) H/O radiofrequency ablation (RFA) of nerve of lumbar spine: (5) Hypoxia: (6) Transaminitis: Plan 74y/o F with PMHx significant for HLD, HTN, COPD, allergic rhinitis, ONEL on CPAP HS, vitamin D deficiency, chronic gastritis, GERD, CKD stage III [baseline Cr 0.8-1], generalized OA, senile osteoporosis, chronic vertebrogenic low back pain with opioid dependence, opioid-induced constipation on Movantik, lumbar DDD s/p L3-4/L4-5/L5-S1 decompression and L4-5 instrumented fusion in August 2021 and other problems as outlined in her chart who presented to the ED via EMS for evaluation of abdominal pain and N/V/D. She was managed for the following: #Abdominal pain, N/V/D Not meeting sepsis criteria on admission. Lactate nl. CTAP: normal appendix, no bowel obstruction, L colon wall thickening (mild nonspecific colitis cannot be excluded), moderate-sized hiatal hernia (unchanged from prior) Stool PCR, C. diff studies neg 10/08 Blood cx NG24H, follow final UA while here neg for UTI -Pt started on Bactrim by PCP 10/07 given c/f UTI -UA 10/07: trace blood, trace protein, no nitrites. UCx no growth. -Prior urine cx: pansensitive E. coli Bl Cx NG48H, cefepime dc'd 10/11. Hold bowel regimen for now, resume gradually once s/s controlled pt reports improving N,V,D, abd pain. Is eating better. Pt reports more formed stool and less freq BMs. c/w metamucil to help w/ loose/liquid stool. #Chronic vertebrogenic low back pain with opioid dependence #Opioid-induced constipation on Movantik #Recent L2-3, L3-4 basivertebral nerve ablation on 09/25/[address] 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 Recent lumbar nerve ablation procedure, as per above -2 healed incisions seen on low back region (R aspect of lumbar spine); no surrounding erythema or wound drainage -No erythema or tenderness of lumbar spine. - MRI L spine w/ expected post op changes. Continue Cymbalta, Lyrica Continue PRN Percocet -Hold Movantik for now 2/2 recent diarrhea #COPD #Acute hypoxia noted in ED --> down to 89% on RA, placed on 2L NC and saturating ~93% at time of admission No resp complaints per pt CXR: no acute findings Unclear etiology for hypoxia -RVP neg -S/p 100mg IV methylprednisone, Duoneb x 1 in ED Continue Spiriva PRN Duonebs, ISP Wean O2 as tolerated, back to RA, ambulating w/ no desaturation. #Transaminitis: has ho elevated LFT. H/o prior cholecystectomy. LFT downtrending. Liver US w/ mild biliary ductal dilatation likely iso previous cholecystectomy. Trend LFTs. #HTN: Borderline hypotensive in ED. Now improved. c/w home bp meds. #GERD/Chronic gastritis: Continue PPI #HLD: Continue statin #CKD stage III: Baseline Cr 0.8-1 per OP chart review. Cr stable. Continue to monitor, avoid nephrotoxic agents as able DVT Prophylaxis: SQ heparin Disposition: PT/OT. possible dc dilma. Pt's dtr Apoorva was give a phone call and updated on plan of care 10/10. Answered all her questions. She voiced understanding and was agreeable to plan of care. Patient is being discharged home with home health with following instructions at the point of discharge: Follow-up with your primary care physician within a week time and likely you will need labs CBC/CMP/magnesium/phosphorus. You were evaluated for concern of likely viral gastroenteritis, continue to utilize Metamucil [id number] per room service waiter's recommendation for loose stool. As discussed at the bedside, if you are having liquidy stool, utilize Pedialyte solution [id number] to account for the loss of fluid from the loose/liquidy stools. Hold your Movantik until further evaluation at your PCP office in a week time upon discharge. If you are back to your normal bowel habits, you can utilize OTC stool softener/laxatives with a goal of 1-2 bowel movements a day. You will need repeat liver function test in a week time to document resolution of your elevated liver enzymes noted while inpatient. Coordinate with your PCP office to set up the test. Take your medications as prescribed. Please make sure that you are able to get your medications today by calling your pharmacy before you leave the hospital so that your treatment continuity is not broken. Home Health Attestation I certify that this patient is under my care and that I, or a physicians blacksmith assistant working with me, had a face to-face encounter that meets the home health [id number] encounter requirements with this patient. The encounter with the patient was in whole, or in part, for the following medical condition, which is the primary reason for home health care (list medical condition): COPD I certify that, based on my findings, the following services are medically necessary home health services: My clinical findings support the need for the above services because: Home Safety Assessment OT Assess ADL Status and Restore Function w ADLs PT Assessment for Endurance / Balance / Strength PT Eval for Safety and Mobility PT Eval for Safety, Gait Training, Assistive Devices PT Gait and Balance Training, Strengthening and Safety Teach on Disease Management and Interventions Further, I certify that my clinical findings support that this patient is homebound (i.e. absences from home require considerable and taxing effort and are for medical reasons or orthodoxy services or infrequently or of short duration when for other reasons) because: Transportation Assistance/Unable to Leave Home Unassisted Certification for Home Health Services: Based on the above findings, I certify that this patient is confined to the home and needs intermittent longterm care, physical therapy and/or speech therapy or continues to need occupational therapy. The patient is under my care, and I have initiated the establishment of the plan of care. This patient will be followed by a physician who will periodically review the plan of care. Total Time Total Time Spent Total Time Spent (In Minutes): 35 Discharge Plan Discharge Items Patient Disposition: Home - Home Health Services Reason For Visit: ABD PAIN, N/V/D Discharge Diagnosis: Abdominal pain, N/V/D likely viral gastroenteritis Condition on Discharge: Good Activity: Resume your previous activity Non-emergency contact: Primary Care Provider Call non-emergency contact if: you have any medication questions and your symptoms worsen Follow-up/Referrals: Barb Sarmiento MD [Primary Care Provider] - (Date & Time 10/16/2024 2:00 PM Provider: Barb Koch MD Family [facility] ) Diet: Low Fiber Addtl Attending Provider Instructions: Follow-up with your primary care physician within a week time and likely you will need labs CBC/CMP/magnesium/phosphorus. You were evaluated for concern of likely viral gastroenteritis, continue to utilize Metamucil [id number] per room service waiter's recommendation for loose stool. As discussed at the bedside, if you are having liquidy stool, utilize Pedialyte solution [id number] to account for the loss of fluid from the loose/liquidy stools. Hold your Movantik until further evaluation at your PCP office in a week time upon discharge. If you are back to your normal bowel habits, you can utilize OTC stool softener/laxatives with a goal of 1-2 bowel movements a day. You will need repeat liver function test in a week time to document resolution of your elevated liver enzymes noted while inpatient. Coordinate with your PCP office to set up the test. Take your medications as prescribed. Please make sure that you are able to get your medications today by calling your pharmacy before you leave the hospital so that your treatment continuity is not broken. Pending Studies at Discharge: No Stand-Alone Forms: My [facility] [employer], Smoking Cessation Medications and DC Order Prescriptions: Continued atorvastatin [Lipitor] 80 mg Tablet 80 mg PO QDD omeprazole 20 mg capsule,delayed release(DR/EC) 20 mg PO BID cholecalciferol (vitamin D3) [Vitamin D3] 50 mcg (2,000 unit) Capsule 50 mcg PO DAILY multivit with min-folic acid [Multivitamin Gummies] 200 mcg Tablet,Chewable 1 tab PO QAM Spiriva Respimat 2.5 mcg/actuation mist 2 puff INHALATION QAM albuterol sulfate 90 mcg/actuation HFA aerosol inhaler 2 puff INHALATION QID PRN (Reason: Shortness Of Breath Or Wheezing) magnesium oxide 400 mg (241.3 mg magnesium) Tablet 400 mg PO BID Qty: 30 0RF acetaminophen [Tylenol] 325 mg Tablet 650 mg PO Q4H PRN (Reason: Pain) trazodone 50 mg tablet 50 mg PO HS valacyclovir 1 gram tablet 2,000 mg PO Q12H PRN (Reason: Cold Sores) sennosides-docusate sodium [Senna with Docusate Sodium] 8.6-50 mg Tablet 1 tab-cap PO BID calcium carbonate-vitamin D3 500 mg-3.125 mcg (125 unit) Tablet 1 tab PO DAILY melatonin 10 mg Tablet 10 mg PO HS polyethylene glycol 3350 [Miralax] 17 gram powder in packet 17 g PO DAILY PRN (Reason: Constipation) (DME) nebulizers Misc See Rx Instructions .Route Qty: 1 0RF Rx Instructions: As directed losartan 50 mg tablet 50 mg PO QAM oxycodone-acetaminophen 10-325 mg tablet 1 tab PO 5XD PRN (Reason: Pain) promethazine 25 mg tablet 25 mg PO Q6H PRN (Reason: Nausea And Vomiting) furosemide 20 mg tablet 20 mg PO QAM duloxetine 30 mg capsule,delayed release(DR/EC) 30 mg PO HS pregabalin 75 mg capsule 75 mg PO BID Advanced Probiotic 625 mg (10 billion cell) Capsule 1 cap PO DAILY Qty: 7 0RF Held Movantik 25 mg tablet 25 mg PO QAM Hold Instructions: Resume on 10/24/24. Hold until further evaluation/discussion with your PCP office within a week time Discharge Orders: Discharge Order (Routine); Ordered 10/12/24 Ordered By: Gm Larson Admission Data Admit Date/Time: 10/08/24 15:28 Attending Provider: Gm Lrason Admit Provider: Jatin Sky Primary Care Provider: Barb Sarmiento Other Providers: Jatin Sky; Raymon Johns [facility]
[2024-10-12 11:26] VITALS: TEMP 97.7; O2SAT 93
[2024-10-12 12:32] VITALS: BP 168/91; PULSE 69
== END 2024-10-12 13:53 | disposition home health service (06) | DRG 392 ==
LOC: ED 12:18 → SUATTDRO 15:28 → 2N 15:28